=== PATIENT | male | born 1940 | race Caucasian/White ===

== ENCOUNTER → 2016-06-14 | Outpatient (CLI) | payer OTHER ==
[~2016-06-14] MED LIST: ASPEC81 PO; CHOL200010 PO; CINNAMON PO; CRDCD120 PO; FLV1 PO; FURO-85 PO; GLC500 PO; GLIM1TAB2 PO; LISI40TA PO; METH2.5T PO; PRED-301 PO; SIMV20TA2 PO; VALA500T60 PO
[2016-06-14 12:17] LABS: HEMATOCRIT 38.9 % (42-52); MEAN CELL VOLUME 95.8 fL (80-100); MEAN CORPUSCULAR HEMOGLOBIN 32.8 pg (25-34); MEAN CORPUSCULAR HGB CONC 34.2 g/dl (32-36); MEAN PLATELET VOLUME 9.9 fL (7.4-10.4); PLATELET COUNT 178 K/uL (130-400); RED BLOOD COUNT 4.06 M/uL (4.7-6.1); WHITE BLOOD COUNT 7.25 K/uL (4.8-10.8)
[2016-06-14 12:24] LABS: BLOOD UREA NITROGEN 27 mg/dl (7-18); BUN/CREATININE RATIO 22.6 (10-20); CARBON DIOXIDE 26 mmol/L (21-32); CHLORIDE 103 mmol/L (98-107); GLUCOSE 85 mg/dl (70-99); POTASSIUM 3.8 mmol/L (3.5-5.1); SODIUM 141 mmol/L (136-145)
[2016-06-14 12:26] LABS: URINE APPEARANCE CLEAR (CLEAR); URINE BILIRUBIN NEG (NEG); URINE COLOR YELLOW; URINE NITRITE NEG (NEG); URINE PH 5.5 (4.5-7.5); URINE SPECIFIC GRAVITY 1.018 (1.000-1.030); UROBILINOGEN NEG (NEG)
[2016-06-14 12:37] LABS: PHOSPHORUS 3.2 mg/dl (2.5-4.9)
[2016-06-14 12:43] LABS: URINE PROTIEN/CREAT RATIO 0.2 (0-0.2); URINE TOTAL PROTEIN 25.6 mg/dl (0-11.9)
[2016-06-14 13:04] LABS: MANUAL MICROSCOPIC REQUIRED? NO; REVIEW REQ? NO
== END | disposition home or self-care (01) ==
LOC: C.LAB1850 10:43
PROVIDERS: ATTEND Internal Medicine Nephrology
DX: I12.9 Hypertensive chronic kidney disease with stage 1 through stage 4 chronic kidney disease, or unspecified chronic kidney disease (principal); N18.2 Chronic kidney disease, stage 2 (mild); R60.9 Edema, unspecified; R80.9 Proteinuria, unspecified; E55.9 Vitamin D deficiency, unspecified

== ENCOUNTER → 2016-11-30 | Outpatient (CLI) | payer OTHER ==
[2016-11-30 12:18] LABS: HEMATOCRIT 38.6 % (42-52); MEAN CELL VOLUME 99.2 fL (80-100); MEAN CORPUSCULAR HEMOGLOBIN 32.4 pg (25-34); MEAN CORPUSCULAR HGB CONC 32.6 g/dl (32-36); MEAN PLATELET VOLUME 10.2 fL (7.4-10.4); PLATELET COUNT 174 K/uL (130-400); RED BLOOD COUNT 3.89 M/uL (4.7-6.1); WHITE BLOOD COUNT 10.22 K/uL (4.8-10.8)
[2016-11-30 12:46] LABS: BLOOD UREA NITROGEN 27 mg/dl (7-18); BUN/CREATININE RATIO 20.5 (10-20); CALCIUM 9.4 mg/dl (8.5-10.1); CARBON DIOXIDE 29 mmol/L (21-32); CHLORIDE 105 mmol/L (98-107); GLUCOSE 62 mg/dl (70-99); PHOSPHORUS 2.6 mg/dl (2.5-4.9); POTASSIUM 4.1 mmol/L (3.5-5.1); SODIUM 142 mmol/L (136-145)
[2016-11-30 13:23] LABS: URINE APPEARANCE CLEAR (CLEAR); URINE BILIRUBIN NEG (NEG); URINE COLOR YELLOW; URINE EPITHELIAL CELL AUTO 0-5 /lpf (0-5); URINE NITRITE NEG (NEG); URINE PH 7.5 (4.5-7.5); UROBILINOGEN NEG (NEG)
[2016-11-30 13:28] LABS: MANUAL MICROSCOPIC REQUIRED? NO; REVIEW REQ? NO; SULFASALICYLIC ACID POS (NEG)
[2016-11-30 13:48] LABS: URINE PROTIEN/CREAT RATIO 0.7 (0-0.2); URINE TOTAL PROTEIN 20.9 mg/dl (0-11.9)
== END | disposition home or self-care (01) ==
LOC: C.LAB1850 11:23
PROVIDERS: ATTEND Internal Medicine Nephrology
DX: I12.9 Hypertensive chronic kidney disease with stage 1 through stage 4 chronic kidney disease, or unspecified chronic kidney disease (principal); N18.2 Chronic kidney disease, stage 2 (mild); R60.9 Edema, unspecified; R80.9 Proteinuria, unspecified; E55.9 Vitamin D deficiency, unspecified

== ENCOUNTER → 2017-07-05 | Outpatient (CLI) | payer OTHER ==
[~2017-07-05] MED LIST changes: -ASPEC81 PO; +ASPI81TA28 PO; +ATOR-24 PO; +CHOL1TAB53 PO; -CHOL200010 PO; +CINN500C13 PO; -CINNAMON PO; -CRDCD120 PO; +CYAN10005 PO; +DILT120C68 PO; -FLV1 PO; +FOLI1TAB8 PO; -GLC500 PO; -GLIM1TAB2 PO; +GLIM2TAB2 PO; +METF-384 PO; -SIMV20TA2 PO
[2017-07-05 12:40] LABS: ALBUMIN 3.6 gm/dl (3.4-5.0); BLOOD UREA NITROGEN 27 mg/dl (7-18); CALCIUM 8.8 mg/dl (8.5-10.1); CARBON DIOXIDE 29 mmol/L (21-32); CREATININE 1.35 mg/dl (0.60-1.40); GLUCOSE 74 mg/dl (70-99); POTASSIUM 3.6 mmol/L (3.5-5.1); SODIUM 139 mmol/L (136-145)
[2017-07-05 12:41] LABS: PHOSPHORUS 2.6 mg/dl (2.5-4.9)
== END | disposition home or self-care (01) ==
LOC: C.LAB1850 11:07
PROVIDERS: ATTEND Internal Medicine Nephrology
DX: I12.9 Hypertensive chronic kidney disease with stage 1 through stage 4 chronic kidney disease, or unspecified chronic kidney disease (principal); N18.2 Chronic kidney disease, stage 2 (mild); N40.1 Benign prostatic hyperplasia with lower urinary tract symptoms; R60.9 Edema, unspecified; R80.9 Proteinuria, unspecified

== ENCOUNTER → 2017-07-24 | Day surgery (SDC) | payer OTHER ==
[2017-06-26 14:35] VITALS: Ht 167.6 cm; Wt 97.3 kg
[~2017-07-24] VITALS: Ht 167.6 cm; Wt 97.3 kg
[~2017-07-24] MED LIST changes: +500ML BSS 0.3ML EPI 1:1000PF IRRIG ONE; +ACETAMINOPHEN 325 MG TAB PO PRN; +AMVISC PLUS 0.8ML SYRINGE INT OCU ONE; +ATROPINE SULFATE 0.1 MG/ML 5ML SYR IV PRN; +BSS FLUSH ONE; +EpHEDrine SULFATE INJ 50 MG/ML AMP IV PRN; +EpINEphrine INJ 1MG/ML AMP 1 MG/ML AMP ONE; +LIDOCAINE 3.5% OPH GEL PER APPLICATION CHARGE ONE; +LIDOCAINE HCL 1% MPF 2 ML VIAL ONE; +MIDAZOLAM HCL 1 MG/ML 2ML VIAL ONE; +POVIDONE-IODINE OP SOLN 30 ML BTL ONE; +PROPARACAINE 0.5% OP SOLN PER DROP CHARGE OPR SCH; +TOBRAMYCIN/DEXAMETHASONE OPH OINT PER APPLN CHARGE ONE
[2017-07-24] MEDS: PHENYLEPHRINE HCL 2.5% OP SOLN PER DROP CHARGE OPR SCH ×2 (08:41→08:46)
[2017-07-24] MEDS: TROPICAMIDE 1% OP SOLN PER DROP CHARGE OPR SCH ×2 (08:42→08:47)
[2017-07-24] MEDS: CYCLOPENTOLATE HCL 1% OP SOLN PER DROP CHARGE OPR SCH ×2 (08:43→08:48)
[2017-07-24] MEDS: KETOROLAC 0.5% OP SOLN PER DROP CHARGE OPR SCH ×2 (08:44→08:49)
[2017-07-24] MEDS: GATIFLOXACIN OP SOLN PER DROP CHARGE OPR SCH ×2 (08:45→08:51)
[2017-07-24] MEDS: LACTATED RINGER'S 1000ML 500 ML IV SCH ×2 (08:45→08:52)
--- NOTE | 2017-07-24 09:11 | History & Physical Bridge - [place] ---
H&P Re-Evaluation Bridge Note: I have examined the patient, reviewed the History & Physical and in the interval since the performance of the History & Physical I have noted the following changes of clinical significance: No changes noted
--- NOTE | 2017-07-24 09:43 | [facility] Operative Report ---
Operative Report Date of Service Jul 24, 2017. Operative Report 1. PREOPERATIVE DIAGNOSIS: Cataract of the right eye. 2. POSTOPERATIVE DIAGNOSIS: Same. 3. PROCEDURE: Phacoemulsification with intraocular lens implantation of the right eye. SURGEON: Dr. Jeff Sheriff. ANESTHESIA: Topical Lidocaine gel, 1% Non- Preserved intracameral Lidocaine, and monitored intravenous sedation. INDICATIONS FOR THE PROCEDURE: The patient is a 76 - year-old male with a history of cataract of the right eye causing significant visual impairment. The details of the proposed procedure were explained to the patient who asked appropriate questions and following discussion of all risks, benefits and alternatives agreed to have the procedure done. 4. OPERATION AND FINDINGS: DESCRIPTION OF PROCEDURE: After informed consent was obtained, the patient was brought to the Operating Room at the [facility]. The patient was placed in a supine position and then the right eye was prepped and draped in the usual sterile fashion for intraocular surgery. A drop of topical Lidocaine gel was placed in the operative eye. A wire lid speculum was then placed in the fornices. A corneal paracentesis was then created temporally. The Non-Preserved Lidocaine was then instilled into the anterior chamber. The anterior chamber was then pressurized with viscoelastic. A 2.0 mm clear corneal incision was then created temporally. A cystotome was inserted into the anterior chamber and used to create a tear in the anterior lens capsule. This capsular tear was then used to create a small flap and the flap was dragged in a counterclockwise direction in order to create a continuous curvilinear capsulorrhexis. Hydrodissection was accomplished with balanced salt solution. Phacoemulsification of the lens nucleus was then performed in a standard [id number] technique. The phaco time was 20 seconds with an average power of 11 %. The remaining cortical material was removed using irrigation aspiration. The capsular bag was then filled with viscoelastic. A Bausch [employer] Lomb MI60L +21.5 diopters lens was then loaded into the injector and injected into the capsular bag. The remaining viscoelastic was removed with the irrigation aspiration handpiece. The wound was hydrated and then checked and found to be watertight. The intraocular pressure was checked and found to be adequate. The wire lid speculum was removed and the patient's face was cleaned and dried. TobraDex ointment was placed in the inferior fornix. The patient was discharged to the Recovery Room having tolerated the procedure well. There were no complications. The patient will be seen tomorrow in the office for follow-up. I attest to the content of the Intraoperative Record and any orders documented therein. Any exceptions are noted below.
--- NOTE | 2017-07-24 09:43 | Discharge Instructions-SurgCtr ---
Discharge Instructions Date of Service Jul 24, 2017. Visit Reason for Visit: Cataract Right Eye Discharge Discharge Diagnosis / Problem: cataract Discharge Goals Goal(s): Improve function Medications Stopped Medications Name(s): Metformin last dose Sunday Activity Recommendations Activity Limitations: per Instructions/Follow-up section Anesthesia . Post Anesthesia Instructions: If you have had General Anesthesia or IV Sedation: * Do not drive today. * Resume driving when surgeon permits. * Do not make important decisions or sign legal documents today. * Call surgeon for: 1. Temperature elevations greater than 101 degrees F. 2. Uncontrollable pain. 3. Excessive bleeding. 4. Persistent nausea and vomiting. 5. Medication intolerance (nausea, vomiting or rash). * For nausea and vomiting use only clear liquids such as: tea, soda, bouillon until nausea subsides, then gradually increase diet as tolerated. * If you have any concerns or questions, call your surgeon's office. If physician is unavailable and it is an emergency, call 911 or go to the nearest emergency room. . Diet Recommendations Home Diet: resume previous diet Procedures Procedures Performed: Right Cataract Phacoemulsification With Intraocular Lens Implant Pending Studies Studies pending at discharge: no Medical Emergencies . Who to Call and When: Medical Emergencies: If at any time you feel your situation is an emergency, please call 911 immediately. . Non-Emergent Contact Non-Emergency issues call your: Hot Man . . "Provider Documentation" section prepared by Jeff Sheriff. .
[2017-07-24 09:47] VITALS: TEMP 36.5
--- NOTE | 2017-07-24 10:00 | Anesthesia Progress Nt - [facility] ---
Anesthesia Post Op Note Date & Time Jul 24, 2017 at 10:00 Vital Signs Pain Intensity: 0 Vital Signs Past 12 Hours Date Time Temp Pulse Resp B/P (MAP) Pulse Ox O2 Delivery O2 Flow Rate FiO2 07/24/17 09:47 36.5 87 16 144/76 (98) 96 Room Air 07/24/17 08:25 36.7 86 18 150/94 (112) 96 Room Air Notes Mental Status: alert / awake / arousable, participated in evaluation Pt Amnestic to Procedure: Yes Nausea / Vomiting: adequately controlled Pain: adequately controlled Airway Patency, RR, SpO2: stable & adequate BP & HR: stable & adequate Hydration State: stable & adequate Anesthetic Complications: no major complications apparent
[2017-07-24 10:11] VITALS: BP 133/77; PULSE 81; O2SAT 99
== END | disposition home or self-care (01) ==
LOC: X.SURG 08:12
PROVIDERS: ATTEND Ophthalmology
DX: H26.9 Unspecified cataract (principal); Z88.5 Allergy status to narcotic agent; E11.22 Type 2 diabetes mellitus with diabetic chronic kidney disease; E11.3293 Type 2 diabetes mellitus with mild nonproliferative diabetic retinopathy without macular edema, bilateral; I12.9 Hypertensive chronic kidney disease with stage 1 through stage 4 chronic kidney disease, or unspecified chronic kidney disease; N18.3 Chronic kidney disease, stage 3 (moderate); E78.2 Mixed hyperlipidemia; M51.36 Other intervertebral disc degeneration, lumbar region; M05.79 Rheumatoid arthritis with rheumatoid factor of multiple sites without organ or systems involvement; E78.5 Hyperlipidemia, unspecified; N40.0 Benign prostatic hyperplasia without lower urinary tract symptoms; I87.2 Venous insufficiency (chronic) (peripheral); M17.12 Unilateral primary osteoarthritis, left knee; Z79.82 Long term (current) use of aspirin; Z87.891 Personal history of nicotine dependence; Z82.49 Family history of ischemic heart disease and other diseases of the circulatory system

== ENCOUNTER → 2017-08-07 | Day surgery (SDC) | payer OTHER ==
[2017-08-03 10:53] VITALS: Ht 167.6 cm; Wt 97.3 kg
[~2017-08-07] VITALS: Ht 167.6 cm; Wt 97.3 kg
[~2017-08-07] MED LIST changes: +BROM0.07 OPL; +DIFL0.0519 OPL; +LACTATED RINGER'S 1000ML 500 ML IV SCH; +PROPARACAINE 0.5% OP SOLN PER DROP CHARGE OPL SCH; -PROPARACAINE 0.5% OP SOLN PER DROP CHARGE OPR SCH; +TMPXEOPS OPB
[2017-08-07] MEDS: PHENYLEPHRINE HCL 2.5% OP SOLN PER DROP CHARGE OPL SCH ×2 (08:22→08:27)
[2017-08-07] MEDS: TROPICAMIDE 1% OP SOLN PER DROP CHARGE OPL SCH ×2 (08:23→08:28)
[2017-08-07] MEDS: CYCLOPENTOLATE HCL 1% OP SOLN PER DROP CHARGE OPL SCH ×2 (08:24→08:29)
[2017-08-07] MEDS: KETOROLAC 0.5% OP SOLN PER DROP CHARGE OPL SCH ×2 (08:25→08:30)
[2017-08-07] MEDS: GATIFLOXACIN OP SOLN PER DROP CHARGE OPL SCH ×2 (08:26→08:37)
--- NOTE | 2017-08-07 09:29 | [facility] Operative Report ---
Operative Report Date of Service Aug 07, 2017. Operative Report 1. PREOPERATIVE DIAGNOSIS: Cataract of the left eye. 2. POSTOPERATIVE DIAGNOSIS: Same. 3. PROCEDURE: Phacoemulsification with intraocular lens implantation of the left eye. SURGEON: Dr. Jeff Sheriff. ANESTHESIA: Topical Lidocaine gel, 1% Non- Preserved intracameral Lidocaine, and monitored intravenous sedation. INDICATIONS FOR THE PROCEDURE: The patient is a 76 - year-old male with a history of cataract of the left eye causing significant visual impairment. The details of the proposed procedure were explained to the patient who asked appropriate questions and following discussion of all risks, benefits and alternatives agreed to have the procedure done. 4. OPERATION AND FINDINGS: DESCRIPTION OF PROCEDURE: After informed consent was obtained, the patient was brought to the Operating Room at the [facility]. The patient was placed in a supine position and then the left eye was prepped and draped in the usual sterile fashion for intraocular surgery. A drop of topical Lidocaine gel was placed in the operative eye. A wire lid speculum was then placed in the fornices. A corneal paracentesis was then created temporally. The Non-Preserved Lidocaine was then instilled into the anterior chamber. The anterior chamber was then pressurized with viscoelastic. A 2.0 mm clear corneal incision was then created temporally. A cystotome was inserted into the anterior chamber and used to create a tear in the anterior lens capsule. This capsular tear was then used to create a small flap and the flap was dragged in a counterclockwise direction in order to create a continuous curvilinear capsulorrhexis. Hydrodissection was accomplished with balanced salt solution. Phacoemulsification of the lens nucleus was then performed in a standard [id number] technique. The phaco time was 19 seconds with an average power of 12 %. The remaining cortical material was removed using irrigation aspiration. The capsular bag was then filled with viscoelastic. A Bausch & Lomb MI60L +21.5 diopters lens was then loaded into the injector and injected into the capsular bag. The remaining viscoelastic was removed with the irrigation aspiration handpiece. The wound was hydrated and then checked and found to be watertight. The intraocular pressure was checked and found to be adequate. The wire lid speculum was removed and the patient's face was cleaned and dried. TobraDex ointment was placed in the inferior fornix. The patient was discharged to the Recovery Room having tolerated the procedure well. There were no complications. The patient will be seen tomorrow in the office for follow-up. I attest to the content of the Intraoperative Record and any orders documented therein. Any exceptions are noted below.
--- NOTE | 2017-08-07 09:30 | Discharge Instructions-SurgCtr ---
Discharge Instructions Date of Service Aug 07, 2017. Visit Reason for Visit: Cataract Left Eye Discharge Discharge Diagnosis / Problem: cataract Discharge Goals Goal(s): Improve function Medications Stopped Medications Name(s): Metformin, last dose 08/04/17 Activity Recommendations Activity Limitations: per Instructions/Follow-up section Anesthesia . Post Anesthesia Instructions: If you have had General Anesthesia or IV Sedation: * Do not drive today. * Resume driving when surgeon permits. * Do not make important decisions or sign legal documents today. * Call surgeon for: 1. Temperature elevations greater than 101 degrees F. 2. Uncontrollable pain. 3. Excessive bleeding. 4. Persistent nausea and vomiting. 5. Medication intolerance (nausea, vomiting or rash). * For nausea and vomiting use only clear liquids such as: tea, soda, bouillon until nausea subsides, then gradually increase diet as tolerated. * If you have any concerns or questions, call your surgeon's office. If physician is unavailable and it is an emergency, call 911 or go to the nearest emergency room. . Diet Recommendations Home Diet: resume previous diet Procedures Procedures Performed: Left Cataract Phacoemulsification With Intraocular Lens Implant Pending Studies Studies pending at discharge: no Medical Emergencies . Who to Call and When: Medical Emergencies: If at any time you feel your situation is an emergency, please call 911 immediately. . Non-Emergent Contact Non-Emergency issues call your: Medical Sales Associate . . "Provider Documentation" section prepared by Jeff Sheriff. .
[2017-08-07 09:33] VITALS: TEMP 36.8
--- NOTE | 2017-08-07 09:50 | Anesthesia Progress Nt - [facility] ---
Anesthesia Post Op Note Date & Time Aug 07, 2017 at 09:50 Vital Signs Pain Intensity: 0 Vital Signs Past 12 Hours Date Time Temp Pulse Resp B/P (MAP) Pulse Ox O2 Delivery O2 Flow Rate FiO2 08/07/17 09:33 36.8 79 18 121/81 (94) 96 Room Air 08/07/17 08:16 36.9 71 20 160/96 (117) 97 Room Air Notes Mental Status: alert / awake / arousable, participated in evaluation Pt Amnestic to Procedure: Yes Nausea / Vomiting: adequately controlled Pain: adequately controlled Airway Patency, RR, SpO2: stable & adequate BP & HR: stable & adequate Hydration State: stable & adequate Anesthetic Complications: no major complications apparent
[2017-08-07 09:56] VITALS: BP 137/77; PULSE 71; O2SAT 96
== END | disposition home or self-care (01) ==
LOC: X.SURG 07:56
PROVIDERS: ATTEND Ophthalmology
DX: E11.36 Type 2 diabetes mellitus with diabetic cataract (principal); H26.9 Unspecified cataract; E11.22 Type 2 diabetes mellitus with diabetic chronic kidney disease; E11.3293 Type 2 diabetes mellitus with mild nonproliferative diabetic retinopathy without macular edema, bilateral; N18.3 Chronic kidney disease, stage 3 (moderate); I12.9 Hypertensive chronic kidney disease with stage 1 through stage 4 chronic kidney disease, or unspecified chronic kidney disease; H35.00 Unspecified background retinopathy; N28.9 Disorder of kidney and ureter, unspecified; E78.5 Hyperlipidemia, unspecified; Z98.41 Cataract extraction status, right eye; M19.90 Unspecified osteoarthritis, unspecified site; M06.9 Rheumatoid arthritis, unspecified; Z98.890 Other specified postprocedural states; Z87.891 Personal history of nicotine dependence; Z79.899 Other long term (current) drug therapy; Z79.82 Long term (current) use of aspirin; Z79.52 Long term (current) use of systemic steroids; Z82.49 Family history of ischemic heart disease and other diseases of the circulatory system

== ENCOUNTER → 2018-01-03 | Outpatient (CLI) | payer OTHER ==
[~2018-01-03] MED LIST changes: -500ML BSS 0.3ML EPI 1:1000PF IRRIG ONE; -ACETAMINOPHEN 325 MG TAB PO PRN; -AMVISC PLUS 0.8ML SYRINGE INT OCU ONE; -ATROPINE SULFATE 0.1 MG/ML 5ML SYR IV PRN; -BSS FLUSH ONE; -EpHEDrine SULFATE INJ 50 MG/ML AMP IV PRN; -EpINEphrine INJ 1MG/ML AMP 1 MG/ML AMP ONE; -LACTATED RINGER'S 1000ML 500 ML IV SCH; -LIDOCAINE 3.5% OPH GEL PER APPLICATION CHARGE ONE; -LIDOCAINE HCL 1% MPF 2 ML VIAL ONE; -MIDAZOLAM HCL 1 MG/ML 2ML VIAL ONE; -POVIDONE-IODINE OP SOLN 30 ML BTL ONE; -PROPARACAINE 0.5% OP SOLN PER DROP CHARGE OPL SCH; -TOBRAMYCIN/DEXAMETHASONE OPH OINT PER APPLN CHARGE ONE
[2018-01-03 15:08] LABS: HEMATOCRIT 36.9 % (42-52); HEMOGLOBIN 12.5 g/dL (14.0-18.0); MEAN CELL VOLUME 97.9 fL (80-100); MEAN CORPUSCULAR HEMOGLOBIN 33.2 pg (25-34); MEAN CORPUSCULAR HGB CONC 33.9 g/dl (32-36); MEAN PLATELET VOLUME 9.8 fL (7.4-10.4); PLATELET COUNT 189 K/uL (130-400); RED CELL DISTRIBUTION WIDTH CV 14.2 % (11.5-14.5); RED CELL DISTRIBUTION WIDTH SD 50.1 fL (36.4-46.3); WHITE BLOOD COUNT 11.45 K/uL (4.8-10.8)
[2018-01-03 15:37] LABS: ALBUMIN 3.8 gm/dl (3.4-5.0); BLOOD UREA NITROGEN 33 mg/dl (7-18); CALCIUM 8.7 mg/dl (8.5-10.1); CARBON DIOXIDE 26 mmol/L (21-32); CREATININE 1.27 mg/dl (0.60-1.40); GLUCOSE 259 mg/dl (70-99); PHOSPHORUS 2.7 mg/dl (2.5-4.9); POTASSIUM 4.7 mmol/L (3.5-5.1); SODIUM 134 mmol/L (136-145)
== END | disposition home or self-care (01) ==
LOC: C.LAB1850 14:12
PROVIDERS: ATTEND Internal Medicine Nephrology
DX: I12.9 Hypertensive chronic kidney disease with stage 1 through stage 4 chronic kidney disease, or unspecified chronic kidney disease (principal); N18.2 Chronic kidney disease, stage 2 (mild); R60.9 Edema, unspecified; R80.9 Proteinuria, unspecified; E55.9 Vitamin D deficiency, unspecified

== ENCOUNTER 2019-03-19 06:07 | Inpatient (IN) ==
--- NOTE | 2019-03-10 16:38 | PAT Medication Instructions ---
Medication Instructions Date of Service March 10, 2019 Home Medications aspirin 40.5 mg PO HS atorvastatin 40 mg PO HS cholecalciferol (vitamin D3) [Vitamin D3] 2,000 unit PO QAM cinnamon bark [Cinnamon] 500 mg PO HS cyanocobalamin (vitamin B-12) 1,000 mcg PO QAM diltiazem HCl 120 mg PO QAM dulaglutide [Trulicity] 1.5 mg SUBCUT WK folic acid 1 mg PO QAM furosemide 20 mg PO BID methotrexate sodium 12.5 mg PO WK valacyclovir 500 mg PO HS metformin ER 500 mg tablet,extended release 24 hr 500 mg PO BID repaglinide 2 mg tablet 2 mg PO TID prednisone 5 mg tablet 10 mg PO QAM Continue as directed dulaglutide [Trulicity] 1.5 mg SUBCUT WK ASK your prescriber and surgeon aspirin 40.5 mg PO HS methotrexate sodium 12.5 mg PO WK STOP taking 2 weeks before surgery (or as soon as possible if surgery is within 2 weeks) cinnamon bark [Cinnamon] 500 mg PO HS DO NOT take the morning of surgery cholecalciferol (vitamin D3) [Vitamin D3] 2,000 unit PO QAM cyanocobalamin (vitamin B-12) 1,000 mcg PO QAM folic acid 1 mg PO QAM furosemide 20 mg PO BID Take morning of surgery With a small sip of water, OTHERWISE NOTHING TO EAT OR DRINK AFTER MIDNIGHT: diltiazem HCl 120 mg PO QAM repaglinide 2 mg tablet 2 mg PO TID prednisone 5 mg tablet 10 mg PO QAM Take evening before surgery atorvastatin 40 mg PO HS cinnamon bark [Cinnamon] 500 mg PO HS furosemide 20 mg PO BID valacyclovir 500 mg PO HS metformin ER 500 mg tablet,extended release 24 hr 500 mg PO BID repaglinide 2 mg tablet 2 mg PO TID Other Notes If you have any questions please call us at [phone] or [phone] or [phone] or [phone]
--- NOTE | 2019-03-11 10:05 | PAT Medication Instructions ---
Medication Instructions Date of Service March 11, 2019 Home Medications aspirin 40.5 mg PO HS atorvastatin 40 mg PO HS cholecalciferol (vitamin D3) [Vitamin D3] 2,000 unit PO QAM cinnamon bark [Cinnamon] 500 mg PO HS cyanocobalamin (vitamin B-12) 1,000 mcg PO QAM diltiazem HCl 120 mg PO QAM dulaglutide [Trulicity] 1.5 mg SUBCUT WK folic acid 1 mg PO QAM furosemide 20 mg PO BID methotrexate sodium 12.5 mg PO WK valacyclovir 500 mg PO HS metformin ER 500 mg tablet,extended release 24 hr 500 mg PO BID repaglinide 2 mg tablet 2 mg PO TID prednisone 5 mg tablet 10 mg PO QAM Continue as directed dulaglutide [Trulicity] 1.5 mg SUBCUT WK ASK your prescriber and surgeon aspirin 40.5 mg PO HS STOP taking 2 weeks before surgery (or as soon as possible if surgery is within 2 weeks) cinnamon bark [Cinnamon] 500 mg PO HS DO NOT take the morning of surgery cholecalciferol (vitamin D3) [Vitamin D3] 2,000 unit PO QAM cyanocobalamin (vitamin B-12) 1,000 mcg PO QAM folic acid 1 mg PO QAM furosemide 20 mg PO BID metformin ER 500 mg tablet,extended release 24 hr 500 mg PO BID Take morning of surgery With a small sip of water, OTHERWISE NOTHING TO EAT OR DRINK AFTER MIDNIGHT: diltiazem HCl 120 mg PO QAM repaglinide 2 mg tablet 2 mg PO TID Take evening before surgery atorvastatin 40 mg PO HS furosemide 20 mg PO BID metformin ER 500 mg tablet,extended release 24 hr 500 mg PO BID repaglinide 2 mg tablet 2 mg PO TID Other Notes If you have any questions please call us at [phone] or [phone] or [phone] or [phone]
--- NOTE | 2019-03-11 13:33 | Anesthesiology Consultation ---
Date of Service March 11, 2019 Assessment & Plan (1) Encounter for pre-operative examination: - PCP: 02/19/19: hx of UE ulcers 2/2 tourniquet "healed" per wound clinic. "From our standpoint, should be fine to have surgery after 02/25/19." Recommend continuing ASA perioperatively (patient aware). Chart Review Chart Review: Pending: Refer to Additional Notes / Consult section (pending preop testing (labs)) and Patient seen in Pre Admission Testing Teaching & Discussion Pre-Anesthesia Teaching/Discussion Notes: Instructed NPO after midnight before surgery,except medications with 15 cc of water. Medication instructions provided according to the PAT guidelines. History Surgery Operation Date: 03/19/19 12:45 Proposed Procedures p C5-C6 Anterior Cervical Discectomy, C4 Corpectomy, Spinal Cord Monitoring - Carl Bolanos DO Height/Weight Height: 5 ft 6.5 in Weight: 88.8 kg Allergies Allergy/AdvReac Type Severity Reaction Status Date / Time acetaminophen [From Vicodin] Allergy pruritus Verified 03/11/19 13:58 hydrocodone [From Vicodin] Allergy pruritus Verified 03/11/19 13:58 oxycodone Allergy pruritus Verified 03/11/19 13:58 Medications Home Medications Medication Instructions Recorded Confirmed Last Taken aspirin 40.5 mg PO HS 11/13/18 03/07/19 Unknown atorvastatin 40 mg PO HS 11/13/18 03/07/19 Unknown cholecalciferol (vitamin D3) 2,000 unit PO QAM 11/13/18 03/07/19 Unknown [Vitamin D3] cinnamon bark [Cinnamon] 500 mg PO HS 11/13/18 03/07/19 Unknown cyanocobalamin (vitamin B-12) 1,000 mcg PO QAM 11/13/18 03/07/19 Unknown diltiazem HCl 120 mg PO QAM 11/13/18 03/07/19 Unknown dulaglutide [Trulicity] 1.5 mg SUBCUT WK 11/13/18 03/07/19 Unknown folic acid 1 mg PO QAM 11/13/18 03/07/19 Unknown furosemide 20 mg PO BID 11/13/18 03/07/19 Unknown methotrexate sodium 12.5 mg PO WK 11/13/18 03/07/19 Unknown valacyclovir 500 mg PO HS 11/13/18 03/07/19 Unknown metformin ER 500 mg 500 mg PO BID tab 01/08/19 03/07/19 Unknown tablet,extended release 24 hr repaglinide 2 mg tablet 2 mg PO TID tab 01/08/19 03/07/19 Unknown prednisone 5 mg tablet 10 mg PO QAM tab 02/24/19 03/07/19 Unknown Past Medical History Medical History Hypertension Rheumatoid arthritis on chronic prednisone 10mg daily Chronic kidney disease, stage III (moderate) follows with nephrology (Dr. Hardy) Aortic stenosis "Mild" (LAVERNE 1.3cm2, MG 12.2mmhg) per 11/2018 DSE BPH (benign prostatic hyperplasia) Carotid artery stenosis s/p left CEA 11/2018 Degenerative disc disease Diabetes mellitus, type 2 NIDDM Dry eye syndrome Gout Hyperlipidemia Pericarditis 1994 Sleep apnea s/p UPPP/T&A Exercise / Class Metabolic Activity III < 4 Walking/Shop/Light housework Past Family History Family History Other No significant family history Past Surgical History Surgical History Fusion of spine LUMBAR X 2 History of adenoidectomy History of carpal tunnel release LEFT History of cataract surgery RT/LEFT History of colonoscopy History of herniorrhaphy UMBILICAL HERNIA History of left-sided carotid endarterectomy 11/2018 ([facility]) History of tonsillectomy History of tooth extraction S/P UPPP (uvulopalatopharyngoplasty) S/P pericardiocentesis 1994 Past Anesthesia History No Hx of Anesthesia Complications and No Family Hx of Anesthesia Complications History of PONV No Hx of PONV and No Hx of Motion Sickness Social History Smoking Status: Former smoker tobacco type: cigarettes Do You Dip or Chew Tobacco: No Smoking End Date: QUIT AT AGE 37 Hx Alcohol Use: No Hx Substance Use: No substance use type: does not use Review of Systems Patient denies chest pain, shortness of breath, cough, wheezing, palpitations. Physical Exam Vital Signs VITALS BP 155/87 P 99 TEMP 98.8 SP02 96%RA RESP 16 PHYSICAL Mildly decreased cervical extension. Full TMJ range of motion. TMD 3.5 finger breaths Mallampati Score 1 Dentition: missing molars, crowns on molars Lungs: clear throughout to auscultation Cardiac: regular rate and rhythm, no murmurs noted Spine: normal Carotid arteries: faint bruit b/l Extremities: no edema Testing Laboratory Results 11/14/18 HGBA1C 6.7% 02/19/19 SODIUM 141 POTASSIUM 3.5 CHLORIDE 105 CO2 28 BUN 23 CREATININE 1.05 GLUCOSE 92 Electrocardiogram Date: 11/14/18 Sinus rhythm with premature supraventricular complexes at [address] abnormality. Compared with EKG of 04/01/2014, premature supraventricular complexes are now present. Chest X-Ray Date: 11/14/18 No acute cardiopulmonary findings. Mild cardiomegaly. Stress Test Date: 11/20/18 Type: DSE DSE negative for inducible ischemia. 107% MPHR. LVEF 55-59%. Mildly increased concentric wall thickness. Grade I DD. Mild AV stenosis (LAVERNE 1.3cm2, MG 12.2mmhg)* Cervical Spine Date: 11/14/18 1. No fractures within the cervical spine. 2. Approximately 1 to 2 mm of anterolisthesis of C2 on C3 and C3 on C4 on the flexion views only which returns to neutral on the extension views. This is likely within the range normal limits given the patient's degenerative changes as described above. 3. Otherwise, the C1-C2 interval remains intact throughout flexion and extension. Other Testing Carotid artery duplex: 11/19/18: ELMER 50-69% stenosis. LICA 70-99% stenosis. B/L antegrade flow. Patient subsequently had left CEA 11/2018 at [facility]
[2019-03-11 16:01] LABS: Basophils # (auto) 0.02 K/uL (0-0.2); Basophils % (auto) 0.2 %; Eosinophils # (auto) 0.06 K/uL (0-0.5); Eosinophils % (auto) 0.5 %; Hematocrit (blood only) 40.9 % (42-52); Hemoglobin 13.6 g/dL (14.0-18.0); Immature Granulocytes # (auto) 0.03 K/uL (0.00-0.02); Immature Granulocytes % (auto) 0.3 %; Lymphocytes # (auto) 0.87 K/uL (1.2-3.4); Lymphocytes % (auto) 7.5 %; Mean Corpuscular Hemoglobin 32.1 pg (25-34); Mean Corpuscular Hgb Conc 33.3 g/dL (32-36); Mean Corpuscular Volume 96.5 fL (80-100); Mean Platelet Volume 9.8 fL (7.4-10.4); Monocytes # (auto) 0.34 K/uL (0.11-0.59); Monocytes % (auto) 2.9 %; Neutrophils # (auto) 10.27 K/uL (1.4-6.5); Neutrophils % (auto) 88.6 %; Platelet Count 178 K/uL (130-400); RDW Coefficient of Variation 14.6 % (11.5-14.5); RDW Standard Deviation 50.6 fL (36.4-46.3); Red Blood Count 4.24 M/uL (4.7-6.1); White Blood Count 11.59 K/uL (4.8-10.8)
[2019-03-11 16:11] LABS: Partial Thromboplastin Ratio 0.8; Partial Thromboplastin Time 22.2 Seconds (21.0-31.0); Prothrombin Time 10.3 Seconds (9.0-12.0)
[2019-03-11 16:57] LABS: Appearance Urine Clear (Clear); Bacteria Urine Automated Negative (Negative); Bilirubin Urine Negative (Negative); Blood Urine Negative (Negative); Cast Urine Automated 0 /lpf (0-5); Color Urine Yellow; Epithelial Cell Urine Auto 0-5 /lpf (0-5); Glucose Urine UA 1+ (Negative); Ketones Urine Negative (Negative); Leukocyte Esterase Urine Negative (Negative); Nitrite Urine Negative (Negative); Protein Urine 1+ (Negative); RBC Urine Automated 0-4 /hpf (0-4); Specific Gravity Urine 1.013 (1.000-1.030); Urobilinogen Urine Negative (Negative)
[~2019-03-19 06:07] MED LIST changes: +ACETAMINOPHEN 500 MG TAB PO SCH; -ASPI81TA28 PO; -ATOR-24 PO; -BROM0.07 OPL; +CEFAZOLIN 2000MG 2,000 MG/15 ML SYR IV SCH; -CHOL1TAB53 PO; -CINN500C13 PO; -CYAN10005 PO; +CeleBREX 200 MG CAP PO SCH; -DIFL0.0519 OPL; -DILT120C68 PO; -FOLI1TAB8 PO; -FURO-85 PO; +GABAPENTIN 300 MG CAP PO SCH; -GLIM2TAB2 PO; -LISI40TA PO; +LR 15ML/HR IV SCH; -METF-384 PO; -METH2.5T PO; -PRED-301 PO; -TMPXEOPS OPB; -VALA500T60 PO
[2019-03-19] MEDS ORDERED: MIDAZOLAM HCL 1 MG/ML 2ML VIAL ONE (06:41)
[2019-03-19] MEDS ORDERED: HYDROmorphone INJ 2 MG/ML SYR/VIAL ONE (06:41)
[2019-03-19] MEDS ORDERED: fentaNYL citrate 100 MCG/2 ML VIAL ONE ×6 (06:41→10:09)
[2019-03-19] MEDS ORDERED: DEXAMETHASONE SOD INJ 4 MG/ML VIAL ONE (06:44)
[2019-03-19] MEDS ORDERED: LIDOCAINE HCL 2% 2 ML VIAL/AMP(20MG/ML) INFIL ONE (06:44)
[2019-03-19] MEDS ORDERED: SUCCINYLCHOLINE CHLORIDE 20 MG/ML 10 ML VIAL ONE (06:44)
[2019-03-19] MEDS ORDERED: ROCURONIUM BROMIDE 10 MG/ML 5 ML VIAL ONE (06:44)
[2019-03-19] MEDS ORDERED: PROPOFOL IV EMULSION 10 MG/ML 20 ML VIAL IV ONE (06:44)
[2019-03-19] MEDS ORDERED: ONDANSETRON INJ 2 MG/ML 2 ML VIAL ONE (06:44)
[2019-03-19] MEDS ORDERED: NEOSTIGMINE METHYLSULFATE 1 MG/ML 10ML VIAL ONE (06:44)
[2019-03-19] MEDS ORDERED: GLYCOPYRROLATE 0.2 MG/ML VIAL ONE (06:44)
[2019-03-19] MEDS ORDERED: BACITRACIN INJ 50,000 UNIT VIAL ONE (07:17)
--- NOTE | 2019-03-19 07:30 | History & Physical Bridge Note ---
Date of Service March 19, 2019 History & Physical Bridge Note I have examined the patient, reviewed the History & Physical and in the interval since the performance of the History & Physical I have noted the following changes of clinical significance: no changes noted
--- NOTE | 2019-03-19 07:31 | History & Physical Report ---
Date of Service March 19, 2019 Assessment & Plan (1) Cervical stenosis of spinal canal: Anterior cervical discectomy and fusion C5-6 C4 corpectomy Present on Admission?: Yes History of Present Illness Chief Complaint: Neck and bilateral arm pain Primary Care Provider: Nasreen Richardson MD This is a 78-year-old male who presents with chronic persistent neck and arm pain. After failing extensive course of nonoperative care is here for surgical intervention. Allergies Allergy/AdvReac Type Severity Reaction Status Date / Time acetaminophen [From Vicodin] Allergy pruritus Verified 03/19/19 06:50 hydrocodone [From Vicodin] Allergy pruritus Verified 03/19/19 06:50 oxycodone Allergy pruritus Verified 03/19/19 06:50 Home Medications Home Medications Medication Instructions Recorded Confirmed Type aspirin 40.5 mg PO HS 11/13/18 03/19/19 History atorvastatin 40 mg PO HS 11/13/18 03/19/19 History cholecalciferol (vitamin D3) 2,000 unit PO QAM 11/13/18 03/19/19 History [Vitamin D3] cinnamon bark [Cinnamon] 500 mg PO HS 11/13/18 03/19/19 History cyanocobalamin (vitamin B-12) 1,000 mcg PO QAM 11/13/18 03/19/19 History diltiazem HCl 120 mg PO QAM 11/13/18 03/19/19 History dulaglutide [Trulicity] 1.5 mg SUBCUT WK 11/13/18 03/19/19 History folic acid 1 mg PO QAM 11/13/18 03/19/19 History furosemide 20 mg PO BID 11/13/18 03/19/19 History methotrexate sodium 12.5 mg PO WK 11/13/18 03/19/19 History valacyclovir 500 mg PO HS 11/13/18 03/19/19 History metformin ER 500 mg 1,000 mg PO PM tab 01/08/19 03/19/19 History tablet,extended release 24 hr repaglinide 2 mg tablet 2 mg PO TID tab 01/08/19 03/19/19 History prednisone 5 mg tablet 10 mg PO QAM tab 02/24/19 03/19/19 History Past Med/Surg History Medical History Hypertension Rheumatoid arthritis on chronic prednisone 10mg daily Chronic kidney disease, stage III (moderate) follows with nephrology (Dr. Hardy) Aortic stenosis "Mild" (LAVERNE 1.3cm2, MG 12.2mmhg) per 11/2018 DSE BPH (benign prostatic hyperplasia) Carotid artery stenosis s/p left CEA 11/2018 Degenerative disc disease Diabetes mellitus, type 2 NIDDM Dry eye syndrome Gout Hyperlipidemia Pericarditis 1994 Sleep apnea s/p UPPP/T&A Surgical History Fusion of spine LUMBAR X 2 History of adenoidectomy History of carpal tunnel release LEFT History of cataract surgery RT/LEFT History of colonoscopy History of herniorrhaphy UMBILICAL HERNIA [facility] of left-sided [facility] History of tonsillectomy History of tooth extraction S/P UPPP (uvulopalatopharyngoplasty) S/P pericardiocentesis 1994 Family History Other No significant family history Social History Preferred Language: Setswana Communication Ability: Effective 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 Results & Data Vital Signs (Past 12 Hours) Vital Signs Temp Pulse Resp BP Pulse Ox 03/19/19 06:55 37.2 C 101 H 97 H 133/87 97
[2019-03-19] MEDS ORDERED: HYDROmorphone INJ 2 MG/ML SYR/VIAL IV PRN (08:24)
[2019-03-19] MEDS ORDERED: ePHEDrine sulfate 50 MG/ML AMP IV PRN (08:24)
[2019-03-19] MEDS ORDERED: fentaNYL citrate 100 MCG/2 ML VIAL IV PRN (08:24)
[2019-03-19] MEDS ORDERED: PROMETHAZINE HCL 6.25 MG in SODIUM CHLORIDE 0.9% 50 ML IV PRN (08:24)
[2019-03-19] MEDS ORDERED: ONDANSETRON INJ 2 MG/ML 2 ML VIAL IV PRN ×2 (08:24→12:08)
[2019-03-19] MEDS ORDERED: ATROPINE SULFATE 0.1 MG/ML 10ML SYR IV PRN (08:24)
[2019-03-19] MEDS ORDERED: FLOSEAL HEMOSTATIC MATRIX 10ML TOP ONE (08:24)
[2019-03-19] MEDS ORDERED: PHENYLEPHRINE 100MCG/ML 5ML SYR ONE (08:38)
[2019-03-19] MEDS ORDERED: SODIUM CHLORIDE 0.9% INJ 10 ML VIAL ONE (08:38)
[2019-03-19] MEDS ORDERED: PHENYLEPHRINE HCL 10 MG/ML VIAL ONE ×2 (08:38→09:23)
[2019-03-19] MEDS ORDERED: HYDROCORTISONE SOD SUCCINATE 100 MG/2 ML VIAL ONE ×2 (08:38→08:44)
--- NOTE | 2019-03-19 10:17 | Operative Report ---
Post Operative Report Pre & Post Diagnosis Operation Date: 03/19/19 07:45 Pre-Op Diagnosis: Cervical spinal stenosis with myeloradiculopathy Post-Op Diagnosis: Same I identified the patient and participated in the time-out.: Yes Procedure Operation Date: 03/19/19 07:45 Actual Procedures #1 anterior cervical corpectomy with bilateral foraminotomies C 4. #2 anterior cervical discectomy with bilateral foraminotomies C5-6. #3 anterior cervical arthrodesis C3-C5 and C5-C6. #4 placement of peek cage 25 mm in height C3-C5 placement of a spiral 8 mm cage at C5-C6. #5 placement locally harvested morselized autograft combined with DBM and interbody cages. #6 placement of toro plate and screws from C3-C6. Surgeon Carl Bolanos, DO Field Case Manager Marta Banegas Estimated Blood Loss 40 Findings See Below Patient is 5 foot 6 inches tall weighing over 89 kg with a BMI in excess of 31. Patient's body habitus did add significant technical difficulty with exposure and performing of the procedure adding at least 50% increase in operative time. Specimens None Indications This is a 78-year-old male well-known to the presents with myelopathy and decline in status subsequently like to undergo the above-mentioned procedure. Description of Procedure Patient was met with identified and informed consent obtained. Patient was then taken to the operative suite underwent ablation placed in supine position on the Rupesh table the head Lyn overhead distribution engineer. All bony prominences well-padded eyes inspected to ensure no external pressure placed upon. This point the anterior cervical spine is prepped and draped in normal sterile fashion. The assistance of fluoroscopy identified the C4-5 disc patient transverse incision was placed along the right anterior aspect of the cervical spine overlying this region. Sharp dissection with the assistance of bipolar electrocautery was performed down to and exposing the anterior cervical spine from C3-C6. A self- retaining retractors placed. Then performed a complete discectomy of see 3 4 out to the uncovertebral joints bilaterally followed by C4-5. Axtell distracting pins were then placed in C3 and C5 distract across the C4 vertebral body. A complete corpectomy was then performed including removal of all p osterior annular fibers longitudinal ligament bilateral foraminotomies. Endplates were then burred to subcortical being bone and a 25 mm peek cage filled with locally harvested morselized autograft and DBM tapped in position. Distraction apparatus was removed and I proceeded to C5-6. Again complete discectomy performed out to the uncovertebral joints bilaterally. I removed all posterior annular fibers and longitudinal ligament perform bilateral foraminotomies. Endplates were then burred to subcortical being bone and a 8 mm spiral cage filled with locally harvested morselized autograft and DBM tapped in position. Distraction apparatus was removed all anterior ossified's burred with smooth cortical surface and a toro plate and screws applied with the assistance of fluoroscopy. The incision was then copiously irrigated explored to ensure no damage to surrounding structures remaining bleeding. 10 round VICENTE drain inserted. The incision was then closed with 2 Vicryl in the fascia for Monocryl for Fransen closure Steri-Strip sterile dressings placed. Patient will continue PACU stable condition. Please note Marta Banegas present throughout the entire procedure involved the patient positioning complex portions of the surgery and final skin closure. Lastly spinal cord monitoring was utilized that the procedure no changes noted. I attest to the content of the Intraoperative Record and any orders documented therein. Any exceptions are noted below.
[2019-03-19] MEDS ORDERED: METOPROLOL TARTRATE 1 MG/ML VIAL IV ONE (10:18)
--- NOTE | 2019-03-19 10:31 | Fluoroscopy Report ---
FL lumbar spine 2-3V CLINICAL HISTORY: ACDF C5-C6 CORPECTOMY C4 COMPARISON STUDY: 11/14/2018 FLUOROSCOPY TIME: 9 seconds. NUMBER OF FLUOROSCOPIC IMAGES: 2 FINDINGS: 2 intraoperative fluoroscopic spot images reveal postsurgical changes of a C4 corpectomy, a nd C5-6 discectomy and interbody fusion. There is anterior metallic plate with screws at the C3 C5 C6 levels. IMPRESSION: Postsurgical changes of a C4 corpectomy and C5-6 discectomy with anterior fusion Electronically signed by: Nawaf Wylie M.D. 03/19/2019 10:29 AM
[2019-03-19] MEDS ORDERED: PROPOFOL IV EMULSION 10 MG/ML 100 ML VIAL IV ONE (10:34)
--- NOTE | 2019-03-19 11:04 | Anesthesiology Progress Note ---
Date of Service March 19, 2019 Anesthesia Post Procedure Vital Signs Vital Signs: Temp Pulse Pulse Resp BP BP Pulse Ox 03/19/19 10:55 90 13 158/89 H 99 03/19/19 10:45 88 15 150/92 H 98 03/19/19 10:35 89 12 152/91 H 97 03/19/19 10:27 36.5 C 87 14 153/85 H 99 03/19/19 06:55 37.2 C 101 H 97 H 133/87 97 Pain Intensity Left Ankle: Pain Intensity: 5 Left Neck: Pain Intensity: 3 Transfer of Care Handoff Completed per policy Notes Mental Status: alert / awake / arousable Patient Amnestic to Procedure: Yes Nausea / Vomiting: adequately controlled Pain: adequately controlled Airway Patency, RR, SpO2: stable & adequate BP & HR: stable & adequate Hydration State: stable & adequate Anesthetic Complications: no major complications apparent
[2019-03-19] MEDS ORDERED: LARYING-O-JET KIT (LTA) ONE (11:31)
[2019-03-19] MEDS ORDERED: LORazepam 0.5 MG/1 ML VIAL IV PRN (12:08)
[2019-03-19] MEDS ORDERED: ACETAMINOPHEN 500 MG TAB PO PRN (12:08)
[2019-03-19] MEDS ORDERED: ONDANSETRON 4 MG TAB PO PRN (12:08)
[2019-03-19] MEDS ORDERED: FAMOTIDINE 20 MG TAB PO PRN (12:08)
[2019-03-19] MEDS ORDERED: SOD PHOSPHATE/SOD BIPHOSPHATE ENEMA 132 ML BTL PR PRN (12:08)
[2019-03-19] MEDS ORDERED: NALOXONE HCL 0.4 MG/1 ML VIAL/CARP IV PRN (12:08)
[2019-03-19] MEDS ORDERED: ALUMINUM/MAGNESIUM SUSP 30 ML UDC PO PRN (12:08)
[2019-03-19] MEDS ORDERED: TRAMADOL HCL 50 MG TABLET PO PRN (12:08)
[2019-03-19] MEDS ORDERED: DO NOT ADMINISTER FLU VACCINE PRN (12:08)
[2019-03-19] MEDS ORDERED: PROMETHAZINE HCL 12.5 MG in SODIUM CHLORIDE 0.9% 50 ML IV PRN (12:08)
[2019-03-19] MEDS ORDERED: LORazepam 0.5 MG TAB PO PRN (12:08)
[2019-03-19] MEDS ORDERED: MAGNESIUM HYDROXIDE SUSP 30 ML UDC PO PRN (12:08)
[2019-03-19] MEDS ORDERED: ACETAMINOPHEN 1,000 MG/100 ML VIAL IV PRN (12:08)
[2019-03-19] MEDS ORDERED: DO NOT ADMINISTER PNEUMOCOCCAL VACCINE PRN (12:08)
[2019-03-19] MEDS ORDERED: RACEPINEPHRINE 2.25% NEBU SOLN 0.5 ML VIAL INH PRN (12:08)
[2019-03-19] MEDS ORDERED: HYDROmorphone INJ 1 MG/ML SYRINGE IV PRN (12:08)
[2019-03-19] MEDS ORDERED: SODIUM CHLORIDE 0.9% 1000ML 1,000 ML IV SCH (12:08)
[2019-03-19] MEDS ORDERED: DEXAMETHASONE SOD PHOSPHATE 8 MG in SYRINGE 0 ML IV PRN (12:08)
[2019-03-19] MEDS ORDERED: METOCLOPRAMIDE HCL INJ 5 MG/ML 2 ML VIAL IV PRN (12:08)
[2019-03-19] MEDS ORDERED: HYDROmorphone INJ 0.5 MG/0.5 ML SYR IV PRN (12:08)
[2019-03-19] MEDS ORDERED: GLUCAGON FOR INJ 1 MG VIAL SQ PRN (12:13)
[2019-03-19] MEDS ORDERED: GLUCOSE 40% GEL 15 GM TUBE PO PRN (12:13)
[2019-03-19] MEDS ORDERED: CARBOHYDRATES FOR HYPOGLYCEMIA PO PRN (12:13)
[2019-03-19] MEDS ORDERED: GLUCOSE 10 TABS/TUBE PO PRN (12:13)
[2019-03-19] MEDS ORDERED: DEXTROSE 50% 50 ML SYRINGE IV PRN (12:13)
[2019-03-19] MEDS ORDERED: REPAGLINIDE 1 MG TAB PO SCH (12:30)
[2019-03-19] MEDS: DEXAMETHASONE SOD PHOSPHATE 6 MG in SYRINGE 0 ML IV SCH ×2 (13:29→21:26)
[2019-03-19] MEDS: INSULIN ASPART 100 UNITS/ML 3 ML PEN SC SCH ×4 (13:37→21:25)
--- NOTE | 2019-03-19 13:42 | Consultation ---
Date of Consultation March 19, 2019 Assessment & Plan (1) Cervical stenosis of spinal canal: S/P ACDF c5-6 with c4 corpectomy POD #[address] Bolanos EBJeannie 40 ml Pool drain in place 20ml tolerated procedure well pain/wound management per ortho Activity and therapy as directed by ortho monitor H/H wean O2 as able (2) Edema: likely in setting of held lasix will discontinue IVF after 1 L, encourage oral fluids, pt w/o N/V daily weights, Low Na diet resume lasix in a.m. monitor volume status closely (3) Anemia: pre op H/H 13.6/30.9 monitor H/H likely in setting of chronic disease (4) Leukocytosis: wbc 11.59 pre op likely in setting of chronic steroid use monitor no s/sx of infection (5) Diabetes mellitus: Preop A1c 6.7 Hold metformin, prandin and trulicity expect high blood glucose given steroid use Lantus/Novolog per protocol (6) Hypertension: blood pressure stable continue diltiazem resume lasix in a.m. (7) Rheumatoid arthritis: Mtx qwk on sundays prednisone on hold continue folic acid continue Stress dose Dexamethasone resume prednisone 03/20 per ortho (8) Chronic kidney disease, stage III (moderate): baseline Cr. 1.05 monitor (9) Hyperlipidemia: Continue statin (10) Carotid artery stenosis: S/P L CEA 11/2018 continue statin and ASA (11) DVT prophylaxis: SCD/TEDS per ortho Disposition: per primary Follow up: PCP Dr. Marcus Richardson upon discharge Patient was seen and examined in collaboration with Dr. Louis, please see addendum Thank you for this consultation. We will follow the patient with you during their hospital stay. You can reach a member of the [facility] Hospitalist Team 25/12 via pager @ [phone]. Starting 03/20/19 pt will be under the care of Dr. Gibbons Supervising Physician Co-Signing Physician Notes Patient is a 78-year-old male with history of diabetes, CKD, hypertension and other problems was seen and examined postop after having anterior cervical corpectomy with bilateral foraminotomies for cervical spinal stenosis with myeloradiculopathy. Patient is doing well postop. States having pain at surgical site which is controlled. Also complains of bilateral upper extremity pain, numbness, tingling and weakness which he admits to also having prior to surgery. Denies any chest pain, shortness of breath, dizziness, nausea, abdominal pain, difficulty swallowing. On exam patient is moderately built and nourished, no apparent distress, normocephalic atraumatic, neck--surgical site in dressing,+ drain, lungs--normal breath sounds, CTA, abdomen soft nontender, grossly nonfocal neurological deficits, trace pedal edema. Postop medical management. Hyperglycemia noted. BGs expected to rise secondary to steroid use. Plan to hold p.o. diabetic meds. Start on insulin sliding scale, basal insulin. Monitor blood glucose levels closely. Monitor volume status. Plan to resume Lasix as able. Monitor for postop anemia. Bowel regimen to prevent constipation. Activity, wound care at surgical site, DVT prophylaxis per primary team. I personally reviewed the record. Patient is interviewed and examined at bedside. Patient's care is coordinated with Hillary Sheridan PA-C. Please refer to the documentation above for details of patient's presentation and for discussion of other issues. History of Present Illness Requesting Physician: Dr. Bolanos Reason for Consultation: Postop medical management Attending Physician: Carl Bolanos, History of Present Illness This is a 78-year-old male who has significant PMH of T2DM, HTN, HLD, CKD, diabetic neuropathy vitamin B12 deficiency, rheumatoid arthritis on methotrexate and prednisone, BPH, left carotid artery stenosis S/P CEA 11/2018 who presents to [facility] for elective ACDF by Dr. Bolanos secondary to cervical stenosis with radiculopathy. Prior to procedure patient complains of bilateral upper extremity pain, numbness, tingling, and weakness left greater than right. Currently postop he offers no complaints. Still has some residual numbness in upper extremities bilaterally. Complains of increased lower extremity swelling x1 day. He did not take his Lasix today secondary to procedure. He currently denies any fever, chills, sweats, lightheadedness, dizziness, chest pain, palpitations, shortness of breath, nausea, vomiting, diarrhea. Had BM yesterday. Denies difficulty swallowing. at bedside. He denies PMH of CHF, heart arrhythmia, DVT/PE. Allergies Allergy/AdvReac Type Severity Reaction Status Date / Time hydrocodone [From Vicodin] Allergy pruritus Verified 03/19/19 06:50 oxycodone Allergy pruritus Verified 03/19/19 06:50 Home Medications Home Medications Medication Instructions Recorded Confirmed Type aspirin 40.5 mg PO HS 11/13/18 03/19/19 History atorvastatin 40 mg PO HS 11/13/18 03/19/19 History cholecalciferol (vitamin D3) 2,000 unit PO QAM 11/13/18 03/19/19 History [Vitamin D3] cinnamon bark [Cinnamon] 500 mg PO HS 11/13/18 03/19/19 History cyanocobalamin (vitamin B-12) 1,000 mcg PO QAM 11/13/18 03/19/19 History diltiazem HCl 120 mg PO QAM 11/13/18 03/19/19 History dulaglutide [Trulicity] 1.5 mg SUBCUT WK 11/13/18 03/19/19 History folic acid 1 mg PO QAM 11/13/18 03/19/19 History furosemide 20 mg PO BID 11/13/18 03/19/19 History methotrexate sodium 12.5 mg PO WK 11/13/18 03/19/19 History valacyclovir 500 mg PO HS 11/13/18 03/19/19 History metformin ER 500 mg 1,000 mg PO PM tab 01/08/19 03/19/19 History tablet,extended release 24 hr repaglinide 2 mg tablet 2 mg PO TID tab 01/08/19 03/19/19 History prednisone 5 mg tablet 10 mg PO QAM tab 02/24/19 03/19/19 History tramadol 50 mg PO Q4H PRN #20 tab 03/19/19 Rx Patient History Family History Mother CHF (congestive heart failure) Sister CHF (congestive heart failure) Diabetes Social History Preferred Language: Ukrainian Communication Ability: Effective Service And Repair Supervisor Required: No Beliefs That Will Affect Care: None Current Living Situation: Spouse Other Information That Helps Us Care for You: No Feels Safe at Home: Yes Safety Concerns: Feels Safe At This Time Smoking Status: Former smoker Tobacco Type: cigarettes ; Do You Dip or Chew Tobacco: No ; Smoking End Date: QUIT AT AGE 37 ; Second Hand Exposure: No ; Tobacco Cessation Education Requested by Patient: No Hx Alcohol Use: No Hx Substance Use: No Review of Systems Review of Systems: All systems reviewed & are unremarkable except as noted in HPI & below Physical Exam Physical Exam: Constitutional: WD/WN, vitals as above, NAD, sitting up in bed, pleasant, conversing easily Head: Normocephalic, Atraumatic Eyes: PERRL, conjunctivae normal, anicteric sclerae ENMT: external ear and nose normal, oropharynx normal Neck: + ACDF Dressing CDI, POOL drain with serosanginous drainage, trachea midline Respiratory: normal respiratory effort, lungs clear to auscultation, with mild bibasilar rales, no wheeze, or rhonchi. Normal insp/exp effort, no accessory muscle use. On O2 via NC 2L Cardiovascular: RRR, no murmur, +1 b/l pre tibial edema and pedal edema Vessels: no JVD or carotid bruit Chest: normal inspection of chest Abdomen: protuberant abd, normal bowel sounds, soft, nontender, no hepatosplenomegaly Musculoskeletal: no cyanosis or clubbing, extremities motor strength 5/5 Skin: no rashes, warm and dry normal turgor Neurologic: PERRL, EOMI, accommodation nl, no face palsy, no dysarthria CN's II-XI intact bilaterally and moves all extremities Psychiatric: A+Ox3, euthymic affect : deferred Results & Data Vital Signs (Past 12 Hours) Vital Signs Temp Pulse Pulse Pulse Resp BP BP 03/19/19 13:07 36.7 C 99 H 16 124/77 03/19/19 12:46 85 19 03/19/19 12:25 37.4 C 95 H 16 151/86 H 03/19/19 11:55 36.7 C 94 H 16 137/83 03/19/19 11:35 36.8 C 86 13 134/79 03/19/19 11:25 93 H 21 152/90 H 03/19/19 11:15 91 H 14 150/86 H 03/19/19 11:05 92 H 24 151/98 H 03/19/19 10:55 90 13 158/89 H 03/19/19 10:45 88 15 150/92 H 03/19/19 10:35 89 12 152/91 H 03/19/19 10:27 36.5 C 87 14 153/85 H 03/19/19 06:55 37.2 C 101 H 97 H 133/87 Pulse Ox 03/19/19 13:07 03/19/19 12:46 95 03/19/19 12:25 99 03/19/19 11:55 96 03/19/19 11:35 97 03/19/19 11:25 96 03/19/19 11:15 99 03/19/19 11:05 99 03/19/19 10:55 99 03/19/19 10:45 98 03/19/19 10:35 97 03/19/19 10:27 99 03/19/19 06:55 97 Laboratory Results Preoperative lab work WBC 11.59, H&H 13.6 and 1.9, platelet 177 Sodium 141, K3.5, chloride 105, CO2 28, BUN 23, creatinine 1.05 A1c 6.7 Diagnostic Findings Xray: IMPRESSION: Postsurgical changes of a C4 corpectomy and C5-6 discectomy with anterior fusion Medications Administered Dexamethasone Sodium Phosphate (6 mg/ Syringe) 1.5 mls @ 1 mls/min IV Q8H THEODORE Stop: 03/20/19 06:02 Last Admin: 03/19/19 13:29 Dose: 1 mls/min Documented by: [id number] Sodium Chloride (Nss 1000ml) 1,000 mls @ 100 mls/hr IV .Q10H THEODORE Stop: 03/19/19 22:07 Last Admin: 03/19/19 12:52 Dose: 100 mls/hr Documented by: [id number] Insulin Aspart (Novolog Flexpen) 0 units SC ACHS THEODORE Stop: 04/18/19 16:29 Last Admin: 03/19/19 13:37 Dose: 13 units Documented by: [id number] Cosigned by: [id number] Repaglinide (Prandin) 2 mg PO TIDM THEODORE Stop: 04/18/19 12:29 Last Admin: 03/19/19 13:28 Dose: 2 mg Documented by: [id number] Discontinued Medications Acetaminophen (Tylenol) 1,000 mg PO PREOP THEODORE Stop: 03/19/19 18:00 Last Admin: 03/19/19 07:36 Dose: 1,000 mg Documented by: [id number] Bacitracin (Bacitracin) Confirm Administered Dose 50,000 units .ROUTE .STK-MED ONE Stop: 03/19/19 07:18 Last Admin: 03/19/19 08:23 Dose: 50,000 units Documented by: [id number] Celecoxib (Celebrex) 200 mg PO PREOP THEODORE Stop: 03/19/19 18:00 Last Admin: 03/19/19 07:36 Dose: 200 mg Documented by: [id number] Gabapentin (Neurontin) 300 mg PO PREOP THEODORE Stop: 03/19/19 18:00 Last Admin: 03/19/19 07:36 Dose: 300 mg Documented by: [id number] Lactated Ringer's (Lr) 1,000 mls @ 15 mls/hr IV .Q24H THEODORE Stop: 03/20/19 05:59 Last Infusion: 03/19/19 07:43 Dose: 0 mls/hr Documented by: [id number] Admin: 03/19/19 07:25 Dose: 15 mls/hr Documented by: [id number] Cefazolin Sodium (Ancef 2000mg) 2,000 mg in 15 mls @ 3.75 mls/min IV PREOP THEODORE; Protocol Stop: 03/20/19 05:59 Last Admin: 03/19/19 07:43 Dose: 3.75 mls/min Documented by: [id number] Miscellaneous (Floseal Hemostatic Matrix 10ml) 10 ml TOP ONCE ONE Stop: 03/19/19 08:25 Last Admin: 03/19/19 10:07 Dose: 10 ml Documented by: [id number] ECG Rate (beats per minute): 89 Rhythm: normal sinus
[2019-03-19] MEDS: CEFAZOLIN 2000MG 2,000 MG/15 ML SYR IV SCH (16:05)
[2019-03-19] MEDS: FUROSEMIDE 20 MG TAB PO SCH (16:58)
[2019-03-19] MEDS ORDERED: PHARMACY GLYCEMIC MGMT CONSULT PRN (19:14)
[2019-03-19] MEDS ORDERED: INSULIN GLARGINE SOLOSTAR 100 UNITS/ML 3 ML PEN SC ONE (20:00)
[2019-03-19 20:14] LABS: BUN Creatinine Ratio 12.2 (10-20); Calcium 8.4 mg/dl (8.5-10.1); Creatinine Clr Calc Pharmacy 42.7 ml/min; Est GFR (African American) 51.3; Est GFR (Non-African American) 44.2; Potassium 3.7 mmol/L (3.5-5.1)
[2019-03-19] MEDS ORDERED: INSULIN HUMAN REGULAR PER UNIT 5 UNITS in SYRINGE 4.95 ML IV ONE (20:30)
[2019-03-19 20:32] LABS: Beta-Hydroxybutyrate 1.28 mg/dl (0.2-2.81)
[2019-03-19] MEDS ORDERED: INSULIN GLARGINE SOLOSTAR 100 UNITS/ML 3 ML PEN SC SCH (21:00)
[2019-03-19] MEDS ORDERED: NON-FORMULARY MEDICATION (Cinnamon Bark [Cinnamon] 500 MG) PO SCH (21:00)
[2019-03-19] MEDS: ATORVASTATIN 40 MG TAB PO SCH (21:07)
[2019-03-19] MEDS: DOCUSATE SODIUM/SENNA 50/8.6MG TAB PO SCH (21:07)
[2019-03-19] MEDS: ASPIRIN 81 MG ECTAB PO SCH (21:08)
[2019-03-19] MEDS ORDERED: cloNIDine HCL 0.1 MG TAB PO ONE (21:36)
[2019-03-20] MEDS: INSULIN ASPART 100 UNITS/ML 3 ML PEN SC SCH ×6 (01:05→20:44)
[2019-03-20] MEDS: CEFAZOLIN 2000MG 2,000 MG/15 ML SYR IV SCH (01:10)
[2019-03-20] MEDS: DEXAMETHASONE SOD PHOSPHATE 6 MG in SYRINGE 0 ML IV SCH (05:12)
[2019-03-20 05:29] LABS: Basophils # (auto) 0.01 K/uL (0-0.2); Basophils % (auto) 0.1 %; Immature Granulocytes # (auto) 0.03 K/uL (0.00-0.02); Immature Granulocytes % (auto) 0.2 %; Lymphocytes # (auto) 0.68 K/uL (1.2-3.4); Lymphocytes % (auto) 5.7 %; Mean Corpuscular Hemoglobin 33.1 pg (25-34); Mean Corpuscular Hgb Conc 35.3 g/dL (32-36); Mean Corpuscular Volume 93.7 fL (80-100); Mean Platelet Volume 9.7 fL (7.4-10.4); Monocytes # (auto) 0.28 K/uL (0.11-0.59); Monocytes % (auto) 2.3 %; Neutrophils # (auto) 11.01 K/uL (1.4-6.5); Neutrophils % (auto) 91.7 %; Platelet Count 157 K/uL (130-400); RDW Coefficient of Variation 14.2 % (11.5-14.5); RDW Standard Deviation 48.1 fL (36.4-46.3); Red Blood Count 3.63 M/uL (4.7-6.1); White Blood Count 12.01 K/uL (4.8-10.8)
[2019-03-20 05:47] LABS: Estimated Average Glucose 180 mg/dl; Hemoglobin A1C 7.9 % (4.5-5.6)
[2019-03-20 05:54] LABS: Potassium 3.7 mmol/L (3.5-5.1)
[2019-03-20 06:39] LABS: BUN Creatinine Ratio 15.5 (10-20); Calcium 8.3 mg/dl (8.5-10.1); Creatinine Clr Calc Pharmacy 52.4 ml/min; Est GFR (African American) 65.7; Est GFR (Non-African American) 56.7; Magnesium 1.6 mg/dl (1.8-2.4)
--- NOTE | 2019-03-20 08:14 | Orthopedic Progress Note ---
Date of Service March 20, 2019 Assessment & Plan (1) Cervical stenosis of spinal canal: Plan at this time I would like to maintain the VICENTE drain another 24 hours to ensure he does not develop a postop hematoma. We will advance his diet today to ensure that he is able to swallow appropriately and hopefully discharge home tomorrow. Present on Admission?: Yes Subjective Patient swallowing well. No hoarseness. He feels his arms numbness and tingling is improving. Pain is well controlled. Physical Exam Physical Exam: On exam he is in the chair at the bedside. Is good strength testing. Results & Data Vital Signs (Past 12 Hours) Vital Signs Temp Pulse Pulse Pulse Resp BP Pulse Ox 03/20/19 07:23 104 H 16 95 03/20/19 06:44 36.6 C 101 H 18 126/80 97 03/20/19 04:55 36.6 C 97 H 18 156/97 H 95 03/20/19 03:42 95 H 17 94 03/20/19 02:55 36.6 C 98 H 16 125/80 96 03/20/19 00:55 36.7 C 98 H 16 140/89 95 03/19/19 23:31 104 H 18 98 03/19/19 22:47 36.7 C 100 H 16 131/78 96 03/19/19 20:59 36.7 C 109 H 18 173/99 H 97
--- NOTE | 2019-03-20 08:27 | Anesthesiology Progress Note ---
Date of Service March 20, 2019 Anesthesia Post Procedure Vital Signs Vital Signs: Temp Pulse Pulse Pulse Pulse Resp BP 03/20/19 08:13 112 H 17 153/88 H 03/20/19 07:23 104 H 16 03/20/19 06:44 36.6 C 101 H 18 126/80 03/20/19 04:55 36.6 C 97 H 18 156/97 H 03/20/19 03:42 95 H 17 03/20/19 02:55 36.6 C 98 H 16 125/80 03/20/19 00:55 36.7 C 98 H 16 140/89 03/19/19 23:31 104 H 18 03/19/19 22:47 36.7 C 100 H 16 131/78 03/19/19 20:59 36.7 C 109 H 18 173/99 H 03/19/19 20:10 112 H 16 03/19/19 18:57 36.8 C 115 H 18 155/91 H 03/19/19 16:54 36.9 C 106 H 18 160/94 H 03/19/19 15:18 110 H 16 03/19/19 14:49 36.8 C 108 H 16 154/89 H 03/19/19 13:56 36.5 C 98 H 18 136/82 03/19/19 13:07 36.7 C 99 H 16 124/77 03/19/19 12:46 85 19 03/19/19 12:25 37.4 C 95 H 16 151/86 H 03/19/19 11:55 36.7 C 94 H 16 137/83 03/19/19 11:35 36.8 C 86 13 134/79 03/19/19 11:25 93 H 21 152/90 H 03/19/19 11:15 91 H 14 150/86 H 03/19/19 11:05 92 H 24 151/98 H 03/19/19 10:55 90 13 158/89 H 03/19/19 10:45 88 15 150/92 H 03/19/19 10:35 89 12 152/91 H 03/19/19 10:27 36.5 C 87 14 153/85 H Pulse Ox 03/20/19 08:13 97 03/20/19 07:23 95 03/20/19 06:44 97 03/20/19 04:55 95 03/20/19 03:42 94 03/20/19 02:55 96 03/20/19 00:55 95 03/19/19 23:31 98 03/19/19 22:47 96 03/19/19 20:59 97 03/19/19 20:10 97 03/19/19 18:57 95 03/19/19 16:54 96 03/19/19 15:18 95 03/19/19 14:49 95 03/19/19 13:56 93 03/19/19 13:07 03/19/19 12:46 95 03/19/19 12:25 99 03/19/19 11:55 96 03/19/19 11:35 97 03/19/19 11:25 96 03/19/19 11:15 99 03/19/19 11:05 99 03/19/19 10:55 99 03/19/19 10:45 98 03/19/19 10:35 97 03/19/19 10:27 99 Pain Intensity Left Ankle: Pain Intensity: 0 Left Neck: Pain Intensity: 0 Notes Mental Status: alert / awake / arousable and participated in evaluation Patient Amnestic to Procedure: Yes Nausea / Vomiting: adequately controlled Pain: adequately controlled Airway Patency, RR, SpO2: stable & adequate BP & HR: stable & adequate Hydration State: stable & adequate Anesthetic Complications: no major complications apparent and Pt Satisfied with anesthetic care
[2019-03-20] MEDS: POLYETHYLENE (MIRALAX) 17 GM PACK PO SCH ×3 (08:38→17:14)
[2019-03-20] MEDS: CYANOCOBALAMIN 500 MCG TABLET (VITAMIN B-12) PO SCH (08:40)
[2019-03-20] MEDS: FOLIC ACID 1 MG TAB PO SCH (08:40)
[2019-03-20] MEDS: dilTIAZem ER 120 MG CAPCR PO SCH (08:41)
[2019-03-20] MEDS ORDERED: predniSONE 10 MG TABLET PO SCH (09:00)
[2019-03-20] MEDS: INSULIN GLARGINE SOLOSTAR 100 UNITS/ML 3 ML PEN SC SCH ×2 (09:39→20:45)
[2019-03-20] MEDS: FUROSEMIDE 20 MG TAB PO SCH ×2 (09:47→17:14)
--- NOTE | 2019-03-20 10:40 | Pharmacy Report ---
Pharmacy Glycemic Short Note 2 - Date of Service March 20, 2019 - Glycemic Short BSG Results (Last 24 hours): 03/19/19 03/19/19 03/19/19 10:40 12:40 17:28 Glucose POC Glucose 231 H 303 H* 338 H* 03/19/19 03/19/19 03/19/19 18:48 18:49 19:34 Glucose 342 H* POC Glucose 385 H* 353 H* 03/19/19 03/20/19 03/20/19 21:20 00:04 03:52 Glucose POC Glucose 239 H 181 H 158 H 03/20/19 03/20/19 04:39 08:05 Glucose 148 H POC Glucose 175 H OUTPATIENT ANTIDIABETIC REGIMEN: * Metformin 1gm PO BID * Repaglinide 2mg TID w/ meals * Trulicity SQ weekly on Sundays * A1c = 6.7% 11/2018 --> 7.9% 03/19/19 ASSESSMENT: * Type 2 diabetic admitted for spinal stenosis w/ radiculopathy * Now POD # 1 s/p anterior cervical corpectomy foraminotomies discectomy * Pt developed significant hyperglycemia stevo-op yesterday secondary to IV dexamethasone administration. * Lantus 25units x 1 and aggressive Novolog insulin initiated yesterday evening and BSGs now 170s this AM * Will continue basal/bolus SQ regimen at this time as outpt meds not appropriate to quickly control inpatient hyperglycemia. May consider resuming Metformin later today if tolerating diet as renal fxn adequate this AM. * Insulin doses will be based upon wt and "moderate-severe" stress: moderate stress for basal needs, severe stress for bolus needs as IV steroid effects may still be present this AM and diet is being advanced. PLAN FOR INPATIENT GLYCEMIC CONTROL: * Hold outpatient oral diabetes medications (metformin / repaglinide / Trulicity) * Basal insulin * Lantus 14 units SQ BID * Bolus insulin * NovoLog per scale ACHS or Q6hrs while NPO * Goal Range: Low 110 mg/dL - High 140 mg/dL * Correction Factor: 20 mg/dL/unit * Nutritional / Prandial insulin per carb ratio of 1 unit per 6 grams CHO consumed PLAN FOR DISCHARGE: * Glycemic control has worsened over the last 4 months as evidenced by A1c this admission, 6.7% -->7.9%. * Pt should be encouraged to continue dietary measures and SMBG on discharge. * A f/u appt with endocrinology or PCP should be encouraged within a month of discharge for evaluation of glycemic control. * One option may be the addition of Once daily basal insulin.
--- NOTE | 2019-03-20 11:47 | Hospitalist Progress Note ---
Date of Service March 20, 2019 Assessment & Plan (1) Cervical stenosis of spinal canal: S/P ACDF c5-6 with c4 corpectomy POD #[address] Cici MORELAND 40 ml Pool drain in place 75ml tolerated procedure well pain/wound management per ortho Activity and therapy as directed by ortho monitor H/H (2) Hypomagnesemia: mag 1.6 replete with mag sulfate 1g x 2 repeat mag in a.m. (3) Edema: likely in setting of held lasix improved this a.m. daily weights, Low Na diet continue lasix monitor volume status closely (4) Anemia: pre op H/H 13.6/30.9 H/H stable at 12.0 and 34.0 (5) Leukocytosis: wbc 11.59 pre op likely in setting of chronic steroid use monitor no s/sx of infection (6) Diabetes mellitus: Preop A1c 6.7 A1C 7.9 Hold metformin, prandin and trulicity Pt developed significant hyperglycemia last evening due to pre and post op stress dose steroid Glycemic pharmacist consulted - appreciate their input (7) Hypertension: blood pressure elevated with tachycardia likely in setting of IV dexamethasone stress dose steroids He denies pain, no hx of ETOH or tobacco use continue diltiazem and lasix Defer to Dr. Gibbons addendum for further tx regarding current uncontrolled HTN (8) Rheumatoid arthritis: Mtx qwk on sundays prednisone on hold continue folic acid had stress dose dexamethasone x 3 days Resume daily prednisone 03/21 (9) Chronic kidney disease, stage III (moderate): baseline Cr. 1.05 Bun/Cr 19 and 1.23 today follow bmp (10) Hyperlipidemia: Continue statin (11) Carotid artery stenosis: S/P L CEA 11/2018 continue statin and ASA (12) DVT prophylaxis: SCD/TEDS per ortho Disposition: per primary Follow up: PCP Dr. Marcus Richardson upon discharge Patient was seen and examined in collaboration with Dr. Gibbons, please see addendum Thank you for this consultation. We will follow the patient with you during their hospital stay. You can reach a member of the [facility] Hospitalist Team 25/12 via pager @ [phone]. Supervising Physician Co-Signing Physician Notes I, Dr. Ramiro Gibbons, have seen and examined the patient with physician therapeutic assistant and agree with assessment and plan as above and would like to comment that this is 78 year old Male who had on 03/19/19 ACDF (Anterior Cervical Discectomy and Fusion) surgery (Actual Procedures #1 anterior cervical corpectomy with bilateral foraminotomies C 4. #2 anterior cervical discectomy with bilateral foraminotomies C5-6. #3 anterior cervical arthrodesis C3-C5 and C5-C6. #4 placement of peek cage 25 mm in height C3-C5 placement of a spiral 8 mm cage at C5-C6. #5 placement locally harvested morselized autograft combined with DBM and interbody cages. 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 would not continue clonidine for blood pressure control. patient has been ordered by hospitalist service carvedilol 3.125 mg BID which is low dose medication on blood pressure and heart rate control - this dosing allows up titration if needed and can be discontinued without concern of rebound hypertension. expect also that blood pressure and heart rates will improve as long as he is further removed from stress steroids. agree with current insulin plans for diabetes control. counseled patient on not drinking caffeinated beverages. for hypomagnesemia, replete magnesium to serum magnesium level of 2 agree with other assessment and plans as documented by physician therapeutic assistant Subjective Pt seen and evaluated in room 302-1. Follow up s/p ACDF POD #[address] Bolanos. He feels well this morning. Denies pain, dizziness, lightheaded, f/c/s, chest pain, sob, n/v/d, abdominal pain. Tolerated clear liquid diet and is ready to upgrade his diet. Bradford currently in place and to be removed. Passing flatus. Feels lower ext swelling improved. Review of Systems Review of Systems: All systems reviewed & are unremarkable except as noted in HPI & below Physical Exam Physical Exam: Gen: WD/WN, NAD, A&O x3 HEENT: Normocephalic, atraumatic, conjunctivae moist, sclerae anicteric, mucous membranes moist. Neck: ACDF Dressing CDI, POOL drain with serosanginous drainage Lung: Clear to Auscultation bilaterally, no wheezes/rales/rhonchi Heart: Tachycardic rate, regular rhythm, no murmurs, rubs, or gallops Abdomen: protuberant abd, Soft, NT, ND +BS x 4 Extremities: +1 pre tibial edema, improved from yesterday Skin: Warm, no rash, negative turgor. Results & Data Vital Signs (Past 12 Hours) Vital Signs Temp Pulse Pulse Resp BP Pulse Ox 03/20/19 11:18 117 H 18 97 03/20/19 10:45 36.7 C 114 H 16 166/96 H 03/20/19 08:45 108 H 15 159/91 H 94 03/20/19 08:13 112 H 17 153/88 H 97 03/20/19 07:23 104 H 16 95 03/20/19 06:44 36.6 C 101 H 18 126/80 97 03/20/19 04:55 36.6 C 97 H 18 156/97 H 95 03/20/19 03:42 95 H 17 94 03/20/19 02:55 36.6 C 98 H 16 125/80 96 03/20/19 00:55 36.7 C 98 H 16 140/89 95 Laboratory Results Short CBC 03/20/19 Range/Units 04:39 WBC 12.01 H (4.8-10.8) K/uL Hgb 12.0 L (14.0-18.0) g/dL Hct 34.0 L (42-52) % Plt Count 157 (130-400) K/uL BMP 03/19/19 03/20/19 19:34 04:39 Sodium 138 141 Potassium 3.7 3.7 Chloride 103 107 Carbon Dioxide 28 26 BUN 18 19 H Creatinine 1.51 H 1.23 Glucose 342 H* 148 H Calcium 8.4 L 8.3 L
[2019-03-20] MEDS: MAGNESIUM SULFATE / D5W 1 GM/100 ML BAG IV SCH ×2 (12:25→13:40)
[2019-03-20] MEDS: carvediloL 3.125 MG TAB PO SCH ×2 (12:43→20:33)
[2019-03-20] MEDS: ASPIRIN 81 MG ECTAB PO SCH (20:33)
[2019-03-20] MEDS: DOCUSATE SODIUM/SENNA 50/8.6MG TAB PO SCH (20:34)
[2019-03-20] MEDS: ATORVASTATIN 40 MG TAB PO SCH (20:34)
[2019-03-21] MEDS: POLYETHYLENE (MIRALAX) 17 GM PACK PO SCH ×2 (00:24→06:10)
[2019-03-21] MEDS ORDERED: INSULIN ASPART 100 UNITS/ML 3 ML PEN SC ONE (02:00)
[2019-03-21 06:02] LABS: BUN Creatinine Ratio 23.5 (10-20); Calcium 8.3 mg/dl (8.5-10.1); Creatinine Clr Calc Pharmacy 52.8 ml/min; Est GFR (African American) 66.3; Est GFR (Non-African American) 57.2; Magnesium 2.2 mg/dl (1.8-2.4); Potassium 3.8 mmol/L (3.5-5.1)
[2019-03-21] MEDS: FUROSEMIDE 20 MG TAB PO SCH (08:37)
[2019-03-21] MEDS: FOLIC ACID 1 MG TAB PO SCH (08:37)
[2019-03-21] MEDS: dilTIAZem ER 120 MG CAPCR PO SCH (08:38)
[2019-03-21] MEDS: CYANOCOBALAMIN 500 MCG TABLET (VITAMIN B-12) PO SCH (08:38)
--- NOTE | 2019-03-21 08:48 | Pharmacy Report ---
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 * Lantus 25units x 1 and aggressive Novolog insulin initiated yesterday evening and BSGs now 170s this AM * Will continue basal/bolus SQ regimen at this time as outpt meds not appropriate to quickly control inpatient hyperglycemia. May consider resuming Metformin later today if tolerating diet as renal fxn adequate this AM. * Insulin doses will be based upon wt and "moderate-severe" stress: moderate stress for basal needs, severe stress for bolus needs as IV steroid effects may still be present this AM and diet is being advanced. 03/21/19 * Blood sugars improved, fasting at goal, patient required 78 total units of insulin yesterday (28 units basal, 50 units bolus). * Last dose of IV Dexamethasone yesterday morning, effect wearing off, patient on Prednisone 10mg PO daily. PLAN FOR INPATIENT GLYCEMIC CONTROL: * Hold outpatient oral/SQ diabetes medications (metformin / repaglinide / Trulicity) * Basal insulin * Lantus 14 units SQ BID * Bolus insulin * NovoLog per scale ACHS or Q6hrs while NPO * Goal Range: Low 110 mg/dL - High 140 mg/dL * Correction Factor: 20 mg/dL/unit * Nutritional / Prandial insulin per carb ratio of 1 unit per 5 grams CHO consumed PLAN FOR DISCHARGE: * Glycemic control has worsened over the last 4 months as evidenced by A1c this admission, 6.7% -->7.9%. * Pt should be encouraged to continue dietary measures and SMBG on discharge. * A f/u appt with endocrinology or PCP should be encouraged within a month of discharge for evaluation of glycemic control. * One option may be the addition of Once daily basal insulin.
[2019-03-21] MEDS: INSULIN GLARGINE SOLOSTAR 100 UNITS/ML 3 ML PEN SC SCH (08:53)
--- NOTE | 2019-03-21 08:53 | Hospitalist Progress Note ---
Date of Service March 21, 2019 Assessment & Plan (1) Cervical stenosis of spinal canal: S/P ACDF c5-6 with c4 corpectomy POD #[address] Bolanos EBJeannie 40 ml Pool drain in place 125ml tolerated procedure well pain/wound management per ortho Activity and therapy as directed by ortho monitor H/H (2) Hypomagnesemia: mag 1.6 replete with mag sulfate 1g x 2 mag 2.2 today (3) Edema: likely in setting of held lasix improved daily weights, Low Na diet continue lasix (4) Anemia: pre op H/H 13.6/30.9 H/H stable at 12.0 and 34.0 (5) Leukocytosis: wbc 11.59 pre op likely in setting of chronic steroid use monitor no s/sx of infection (6) Diabetes mellitus: Preop A1c 6.7 A1C 7.9 Hold metformin, prandin and trulicity Resume home regimen at discharge Follow up with PCP on 03/26 @ 10:45 for further discussion regarding diabetes management Pt may benefit from additional oral agent vs once daily basal insulin (7) Hypertension: blood pressure elevated but improving likely in setting of IV dexamethasone stress dose steroids He denies pain, no hx of ETOH or tobacco use continue diltiazem and lasix Dr. Gibbons added coreg - but currently placed on hold would recommend discharging on home regimen (8) Rheumatoid arthritis: Mtx qwk on sundays prednisone on hold continue folic acid had stress dose dexamethasone x 3 days Resume daily prednisone 03/21 (9) Chronic kidney disease, stage III (moderate): baseline Cr. 1.05 bun/cr 29/1.22 follow bmp (10) Hyperlipidemia: Continue statin (11) Carotid artery stenosis: S/P L CEA 11/2018 continue statin and ASA (12) DVT prophylaxis: SCD/TEDS per ortho Disposition: per primary Follow up: PCP Dr. Marcus Richardson upon discharge Patient was seen and examined in collaboration with Dr. Gibbons, please see addendum Thank you for this consultation. We will follow the patient with you during their hospital stay. You [facility] via pager @ [phone]. Supervising Physician Co-Signing Physician Notes I, Dr. Ramiro Gibbons, have seen and examined the patient with physician mechanic's assistant and agree with the assessment and plans as above and would like to add that that this is 78 year old Male who had on 03/19/19 ACDF (Anterior Cervical Discectomy and Fusion) surgery (Actual Procedures #1 anterior cervical corpectomy with bilateral foraminotomies C 4. #2 anterior cervical discectomy with bilateral foraminotomies C5-6. #3 anterior cervical arthrodesis C3-C5 and C5-C6. #4 placement of peek cage 25 mm in height C3-C5 placement of a spiral 8 mm cage at C5-C6. #5 placement locally harvested morselized autograft combined with DBM and interbody cages. #6 placement of toro plate and screws from C3-C6.) because of Pre-Op Diagnosis of Cervical spinal stenosis with myeloradiculopathy On exam: General: no acute distress Neck: in brace with POOL drain Lungs: breathing on room air, clear to auscultation bilaterally Heart: regular rate abdomen: soft, nontender, positive bowel sounds Extremities: moves all extremities Discussed with patient and he believes that surgical service will discharge him today. patient's heart rates have been much more improved since being seen on 03/20/19 and blood pressure is acceptable. Carvedilol was held this AM because it's utility does not appear needed based on blood pressure and heart rates. P atient may go home with usual anti-hypertensive regimen. For when patient is discharged from surgical services he is recommended to follow up with primary care on future blood pressure medication management. Hypomagnesemia is resolved agree with assessment and plans of other medical issues including diabetes mellitus management and outpatient follow up as documented by physician mechanic's assistant Subjective Pt seen and evaluated in room 302-1. Follow up s/p ACDF POD #[address] Bolanos. He feels well this morning. Sitting up in bedside chair. Denies pain, dizziness, lightheaded, f/c/s, chest pain, sob, n/v/d, abdominal pain. Tolerating diet. Passing flatus but no BM. Urinating without difficulty. Is tolerating therapy. Does not like his neck brace. Offers no acute concerns or complaints. Review of Systems Review of Systems: All systems reviewed & are unremarkable except as noted in HPI & below Physical Exam Physical Exam: Gen: WD/WN, NAD, A&O x3 HEENT: Normocephalic, atraumatic, conjunctivae moist, sclerae anicteric, mucous membranes moist. Neck: ACDF Dressing CDI, POOL drain with serosanginous drainage Lung: Clear to Auscultation bilaterally, no wheezes/rales/rhonchi Heart: regular rate, regular rhythm, no murmurs, rubs, or gallops Abdomen: protuberant abd, Soft, NT, ND +BS x 4 Extremities: trace pre tibial edema, improved from yesterday Skin: Warm, no rash, negative turgor. Results & Data Vital Signs (Past 12 Hours) Vital Signs Temp Pulse Pulse Resp BP Pulse Ox 03/21/19 07:40 87 14 98 03/21/19 07:30 36.6 C 82 18 148/84 H 98 03/21/19 04:00 36.5 C 88 14 152/76 H 95 03/21/19 03:05 90 16 98 03/21/19 00:15 36.6 C 89 16 146/81 H 98 03/20/19 23:19 90 16 95 Laboratory Results [facility] 03/21/19 04:48 Sodium 141 Potassium 3.8 Chloride 108 H Carbon Dioxide 28 BUN 29 H D Creatinine 1.22 Glucose 144 H Calcium 8.3 L Medications Administered [facility] 03/21/19 04:48 Sodium 141 Potassium 3.8 Chloride 108 H Carbon Dioxide 28 BUN 29 H D Creatinine 1.22 Glucose 144 H Calcium 8.3 L
[2019-03-21] MEDS: INSULIN ASPART 100 UNITS/ML 3 ML PEN SC SCH (08:57)
[2019-03-21] MEDS ORDERED: predniSONE 10 MG TABLET PO SCH (09:00)
--- NOTE | 2019-03-21 09:38 | Discharge Summary ---
Date of Service March 21, 2019 Admission HPI Per Admitting Provider This is a 78-year-old male who presents with chronic persistent neck and arm pain. After failing extensive course of nonoperative care is here for surgical intervention. Principal Diagnosis Cervical spinal stenosis with myeloradiculopathy Discharge Data Allergies Allergy/AdvReac Type Severity Reaction Status Date / Time hydrocodone [From Vicodin] Allergy pruritus Verified 03/19/19 06:50 oxycodone Allergy pruritus Verified 03/19/19 06:50 Consultations 03/19/19 12:08 Consult Hospitalist Routine Procedures Performed Operation Date: 03/19/19 07:45 Actual Procedures p C5-C6 Anterior Cervical Discectomy, C4 Corpectomy, Spinal Cord Monitoring(Not Applicable) - Carl Bolanos DO Ordered Studies 03/19/19 07:45 FL fluoroscopy <1hr Routine FL lumbar spine 2-3V Routine Hospital Course (1) Cervical stenosis of spinal canal: Patient underwent anterior cervical corpectomy tolerated as well as taken to the orthopedic for postoperative. Postop day #1 his arm symptoms were impr rashaad he is swallowing well. Progressed to postop day #2. He has good strength testing on the stay VICENTE drain decreased appropriately. Subsequently discharged home. Discharge orders and instructions found the chart for further review. Total Time Total Time Spent Total Time Spent (In Minutes): 20 minutes Discharge Plan Discharge Items Patient Disposition: Home - Self-Care Reason For Visit: Spinal Stenosis, Cervical Region Discharge Diagnosis: cervical stenosis with myelopathy Activity: Per Instructions section Non-emergency contact: Primary Care Provider Call non-emergency contact if: you have any medication questions Follow-up/Referrals: Nasreen Dietrich MD [Primary Care Provider] - 03/26/19 10:45 am Diet: Regular Addtl Attending Provider Instructions: ACTIVITY RECOMMENDATIONS: SELF CARE INSTRUCTIONS AFTER CERVICAL FUSIONS 1. No smoking. Smoking drastically decreases the chance of a solid fusion. 2. No bending, lifting more than 5 pounds, or twisting (roll like a log when turning in bed). 3. You may shower 3 days after surgery. Thoroughly dry wound. Do not soak in the tub. 4. Cervical collar: Must be worn at all times including sleeping. You may remove the brace only to bath, eat and if you are sitting in a recliner. 5. Please walk as much as you can for exercise. Gradually increase the distance that you walk as your endurance increases. SPECIAL CARE INSTRUCTIONS: VERY IMPORTANT TO READ AND REVIEW A. Do not take any anti-inflammatory medications (i.e. Indocin, Advil, Aspirin, Naprosyn, Aleve, Motrin, etc.) as these may inhibit the chance of a solid fusion. Tylenol is okay to take. B. Your surgical incision has been closed with a cosmetic suture under the skin that will dissolve in about 6 weeks. In 14 days, you can use a pair of clean scissors and cut the suture that is left outside of the skin at the ends of your incision. C. Complications are uncommon, but please contact us if you have any signs or symptoms of: 1. wound infection (fever higher than 102.5 degrees F, redness, separation of wound, drainage, or increasing pain from the incision) 2. blood clots in legs (pain, swelling, redness and warmth in legs) 3. urinary tract infection (fever higher than 102.5 degrees, burning upon urination or increased frequency of urination) 4. nerve problems (inability to walk on your toes or heels, numbness, loss of bowel or bladder control) 5. any other symptoms that concern you. D. Please call the office at if you have any concerns or questions about your operation or recovery. MANAGING PAIN AFTER SPINAL SURGERY 1. Narcotic medication is intended for short-term use and will be provided for surgical pain. Surgical pain usually lasts for a period of 4-6 weeks. Narcotic medication includes Percocet, Vicodin, Darvocet, Tylenol #3 or Lortab. 2. Longer-term pain is more appropriately treated with non-narcotic medication such as Tylenol ES. 3. Muscle spasm is not appropriately treated with narcotics. Muscle relaxers such as Soma, Flexeril or Skelaxin can be used along with Tylenol ES. 4. Remember that we all live with some "aches and pains". This is not unusual or uncommon after an injury or as we get older. 5. We will provide appropriate medication within the normal guidelines of their prescribed use. We will also be very cautious and aware of potential abuse and extended duration of patients' medication needs. 6. Please allow 2-3 days to process refills. Prescriptions will not be mailed but must be picked up at the office. FOLLOW UP VISIT: Keep your scheduled follow-up appointment. Any questions, please call the office at . Addtl Scale Tank Operator Provider Instructions: Your A1C was 7.9 which reflects your blood sugar control over the past 3 months. Goal A1C is < 7.0. Encourage checking blood sugar twice daily, keeping a log. Continue your current regimen for your diabetes. You have a scheduled follow up appt with your PCP on 03/26/19 at 10:45 to discuss further diabetes management. Pending Studies at Discharge: No Stand-Alone Forms: [facility] Medcurrent, Opioid Pain Management Medications and DC Order Prescriptions: New tramadol 50 mg Tablet 50 mg PO Q4H PRN (Reason: pain) Qty: 20 RF: 0 Continued atorvastatin 40 mg Tablet 40 mg PO HS RF: 0 valacyclovir 500 mg Tablet 500 mg PO HS RF: 0 aspirin 81 mg Tablet,Delayed Release (Dr/Ec) 40.5 mg PO HS RF: 0 methotrexate sodium 2.5 mg Tablet 12.5 mg PO WK RF: 0 diltiazem HCl 120 mg Capsule,Extended Release 24 Hr 120 mg PO QAM RF: 0 folic acid 1 mg Tablet 1 mg PO QAM RF: 0 furosemide 20 mg Tablet 20 mg PO BID RF: 0 cholecalciferol (vitamin D3) [Vitamin D3] 1,000 unit Capsule 2,000 unit PO QAM RF: 0 cinnamon bark [Cinnamon] 500 mg Capsule 500 mg PO HS RF: 0 Trulicity 1.5 mg/0.5 mL Pen Injector 1.5 mg SUBCUT WK RF: 0 cyanocobalamin (vitamin B-12) 1,000 mcg Capsule 1,000 mcg PO QAM RF: 0 repaglinide 2 mg tablet 2 mg PO TID RF: 0 metformin 500 mg tablet extended release 24 hr 1,000 mg PO PM RF: 0 prednisone 5 mg tablet 10 mg PO QAM RF: 0 Discharge Orders: Discharge Order (Routine); Ordered 03/21/19 Ordered By: Carl Trotter/Other Patient Handouts: Surgery Prevent DVT After Admission Data Admit Date/Time: 03/19/19 10:21 Attending Provider: Carl Bolanos Admit Provider: Carl Bolanos Primary Care Provider: Nasreen Dietrich Other Providers: Ramiro Gibbons Other Interventions: Discharge Summary Assessment (RN) Last Done: 03/21/19 09:16
[2019-03-21] MEDS ORDERED: bisacodyL 10 MG SUPP PR PRN (10:19)
[2019-03-23] MEDS ORDERED: metHOTREXate sodium 2.5 MG TAB PO SCH (18:00)
== END 2019-03-21 11:45 | disposition home health service (06) | DRG 472 ==
LOC: ASU 06:07 → 3E 10:21

== ENCOUNTER 2019-07-08 09:16 | Inpatient (IN) ==
[2019-07-08] MEDS ORDERED: METOCLOPRAMIDE HCL INJ 5 MG/ML 2 ML VIAL IV PRN (14:11)
[2019-07-08] MEDS ORDERED: PROMETHAZINE HCL 12.5 MG in SODIUM CHLORIDE 0.9% 50 ML IV PRN (14:11)
[2019-07-08] MEDS ORDERED: ONDANSETRON INJ 2 MG/ML 2 ML VIAL IV PRN (14:11)
[2019-07-08] MEDS ORDERED: LORazepam 1 MG/2 ML VIAL IV PRN (14:11)
[2019-07-08] MEDS ORDERED: ACETAMINOPHEN 500 MG TAB PO PRN (14:11)
[2019-07-08] MEDS ORDERED: LORazepam 1 MG TAB PO PRN (14:11)
[2019-07-08] MEDS ORDERED: ONDANSETRON 4 MG OD TAB PO PRN (14:11)
--- NOTE | 2019-07-08 14:19 | History & Physical Report ---
Date of Service July 08, 2019 Assessment & Plan (1) Neurogenic claudication due to lumbar spinal stenosis: At this time we will make him n.p.o. after midnight plan for decompression and fusion L1-2. There will be removal of the instrumentation at the L to 3 level. Will obtain cultures at the time of surgery. Subsequently there will be no preoperative antibiotics. Benefits pros cons alternatives were outlined in detail. Present on Admission?: Yes History of Present Illness Chief Complaint: Worsening back and bilateral leg pain Primary Care Provider: Nasreen Richardson MD This is a 78-year-old male well-known to me that is had progressive decline in status since roughly May this year. There is been no specific trauma fall or event. He now uses a walker to ambulate. MRI does demonstrate advanced stenosis at the L1-2 level with evidence of marked fluid collection within the disc space. Allergies Allergy/AdvReac Type Severity Reaction Status Date / Time hydrocodone [From Vicodin] Allergy Mild pruritus Verified 07/04/19 22:12 oxycodone Allergy Mild pruritus Verified 07/04/19 22:12 Home Medications Home Medications Medication Instructions Recorded Confirmed Type Trulicity 1.5 mg SUBCUT WK 11/13/18 07/04/19 History aspirin 40.5 mg PO HS 11/13/18 07/08/19 History atorvastatin 40 mg PO HS 11/13/18 07/08/19 History cholecalciferol (vitamin D3) 1,000 unit PO QAM 11/13/18 07/08/19 History [Vitamin D3] cinnamon bark [Cinnamon] 500 mg PO HS 11/13/18 07/08/19 History cyanocobalamin (vitamin B-12) 1,000 mcg PO QAM 11/13/18 07/08/19 History folic acid 1 mg PO QAM 11/13/18 07/08/19 History furosemide 20 mg PO BID 11/13/18 07/08/19 History methotrexate sodium 12.5 mg PO WK 11/13/18 07/08/19 History valacyclovir 500 mg PO HS 11/13/18 07/04/19 History metformin 500 mg tablet,extended 1,000 mg PO PM tab 01/08/19 07/08/19 History release 24 hr repaglinide 2 mg tablet 2 mg PO AC tab 01/08/19 07/04/19 History prednisone 5 mg tablet 10 mg PO QAM tab 02/24/19 07/08/19 History celecoxib 200 mg capsule 200 mg PO BID cap 05/08/19 07/08/19 History lisinopril 20 mg PO QAM 07/04/19 07/08/19 History Past Med/Surg History Social History Preferred Language: Persian Communication Ability: Effective Ager Tender Required: No Beliefs That Will Affect Care: None marital status: Current Living Situation: Spouse Other Information That Helps Us Care for You: No Feels Safe at Home: Yes Safety Concerns: Feels Safe At This Time Smoking Status: Former smoker Tobacco Type: cigarettes ; Do You Dip or Chew Tobacco: No ; Smoking End Date: 35 years ; Second Hand Exposure: No ; Tobacco Cessation Education Requested by Patient: No Hx Alcohol Use: No Hx Substance Use: No Physical Exam Physical Exam: Patient is alert and oriented. He is neurologically intact. With good strength testing lower extremities. Results & Data Vital Signs (Past 12 Hours) Vital Signs Temp Pulse Resp BP Pulse Ox 07/08/19 12:37 36.7 C 108 H 18 99/48 L 97 Code Status & VTE Plan VTE Prophylaxis Plan VTE Prophylaxis will be ordered: Yes
[2019-07-08 14:58] LABS: Basophils # (auto) 0.02 K/uL (0-0.2); Basophils % (auto) 0.2 %; Eosinophils # (auto) 0.05 K/uL (0-0.5); Eosinophils % (auto) 0.4 %; Hematocrit (blood only) 35.1 % (42-52); Immature Granulocytes # (auto) 0.05 K/uL (0.00-0.02); Immature Granulocytes % (auto) 0.4 %; Lymphocytes # (auto) 0.85 K/uL (1.2-3.4); Lymphocytes % (auto) 7.5 %; Mean Corpuscular Hemoglobin 32.1 pg (25-34); Mean Corpuscular Hgb Conc 34.2 g/dL (32-36); Mean Corpuscular Volume 93.9 fL (80-100); Monocytes # (auto) 0.28 K/uL (0.11-0.59); Monocytes % (auto) 2.5 %; Neutrophils # (auto) 10.09 K/uL (1.4-6.5); Platelet Count 179 K/uL (130-400); Red Blood Count 3.74 M/uL (4.7-6.1); White Blood Count 11.34 K/uL (4.8-10.8)
[2019-07-08] MEDS ORDERED: LACTATED RINGER'S 1,000 ML IV SCH (15:00)
[2019-07-08 15:15] LABS: Albumin Level 3.5 gm/dl (3.4-5.0); BUN Creatinine Ratio 25.8 (10-20); Calcium 9.9 mg/dl (8.5-10.1); Est GFR (African American) 55.2; Est GFR (Non-African American) 47.6; Potassium 4.2 mmol/L (3.5-5.1)
[2019-07-08 15:18] LABS: Globulin 3.5 gm/dl (2.5-4.0)
[2019-07-08] MEDS ORDERED: GLUCAGON FOR INJ 1 MG VIAL SQ PRN (15:22)
[2019-07-08] MEDS ORDERED: DEXTROSE 50% 50 ML SYRINGE IV PRN (15:22)
[2019-07-08] MEDS ORDERED: GLUCOSE 10 TABS/TUBE PO PRN (15:22)
[2019-07-08] MEDS ORDERED: GLUCOSE 40% GEL 15 GM TUBE PO PRN (15:22)
[2019-07-08] MEDS ORDERED: CARBOHYDRATES FOR HYPOGLYCEMIA PO PRN (15:22)
--- NOTE | 2019-07-08 15:45 | Hospitalist Consultation ---
Date of Consultation July 08, 2019 Assessment & Plan (1) Neurogenic claudication due to lumbar spinal stenosis: - Directly admitted by Dr. Bolanos for planned L1-L2 decompression and fusion on 07/09 - No history of CAD. Patient denies cardiopulmonary symptoms. Awaiting CXR and EKG for further preop eval. - activity and wound care orders as per ortho - pain control with bowel regimen - PT/OT - monitor H/H for acute blood loss anemia and transfuse blood products PRN (2) Diabetes mellitus, type 2: -Hgb A1c 8.0 03/2019 -Hold home metformin, Prandin, Trulicity and utilize NovoLog per protocol while hospitalized (3) Rheumatoid arthritis: -Typically managed on methotrexate and prednisone -Given surgery tomorrow will hold methotrexate and prednisone -Discussed with Dr. Weiner (patient's guest service aide), may hold methotrexate for 2 weeks postoperatively (4) Chronic kidney disease, stage III (moderate): -Baseline creatinine ~ 1.2 -Has mild bump today at 1.4 -Noted was started on lisinopril 05/09 (by nephrology Dr. Hardy) -Hold lisinopril and diuretics, gentle IVF (5) Hypertension: -BP controlled -Holding lisinopril and furosemide as above (6) Hyperlipidemia: -Continue statin (7) DVT prophylaxis: -SCDs as per spine orthopedics Thank you for this consultation. We will follow the patient with you during their hospital stay. You can reach a [facility] via pager @ [phone]. Supervising Physician Co-Signing Physician Notes Attending addendum: The patient was seen and examined in the medical floor He was admitted from Dr. Bolanos's office with acute lumbar radiculopathy and is going to go for L1/S2 decompression and fusion tomorrow Besides pain at the back and radiation of pain to the legs. Denies any other symptoms Specifically no chest pain and no shortness of breath on exertion. No significant claudication on exertion On examination Lying in bed comfortably Chest-clear to auscultate bilaterally Heart-S1-S2, regular Abdomen-benign, not distended, bowel sounds present Extremities-1+ edema bilaterally and seems to be chronic SET UP / OPERATOR-alert, awake and oriented x3 Admission labs and imaging studies reviewed Has lumbar pain with radiculopathy and going to go for surgery tomorrow as per back surgeon No current indication for proposed surgery Agree with assessment plan as outlined above by Yaquelin messina History of Present Illness Reason for Consultation: Medical management Requesting Physician: Dr. Bolanos Attending Physician: Dr. Messina History of Present Illness 78-year-old male who was directly admitted by Dr. Bolanos for neurogenic claudication secondary to lumbar spinal stenosis, planning for OR tomorrow. Patient reports he has been having low back pain with radiation to both legs for about the past 5 to 6 weeks. Denies any known trauma or injury. Also has associated intermittent numbness and tingling to the bilateral lower extremiti es. Reports bilateral lower extremity weakness. No bowel or bladder dysfunction. Denies any other recent illnesses, fevers, chills. No chest pain or shortness of breath. Reports he can ambulate with his walker about 100 feet without experiencing chest pain or shortness of breath. No lightheadedness, dizziness, diaphoresis, syncopal events. Denies abdominal pain, nausea, vomiting, diarrhea. At the time my exam, patient is resting in the chair in no acute distress. Allergies Allergy/AdvReac Type Severity Reaction Status Date / Time hydrocodone [From Vicodin] Allergy Mild pruritus Verified 07/04/19 22:12 oxycodone Allergy Mild pruritus Verified 07/04/19 22:12 Home Medications Home Medications Medication Instructions Recorded Confirmed Type Trulicity 1.5 mg SUBCUT WK 11/13/18 07/08/19 History aspirin 40.5 mg PO HS 11/13/18 07/08/19 History atorvastatin 40 mg PO HS 11/13/18 07/08/19 History cholecalciferol (vitamin D3) 2,000 unit PO QAM 11/13/18 07/08/19 History [Vitamin D3] cinnamon bark [Cinnamon] 500 mg PO HS 11/13/18 07/08/19 History cyanocobalamin (vitamin B-12) 1,000 mcg PO QAM 11/13/18 07/08/19 History folic acid 1 mg PO QAM 11/13/18 07/08/19 History furosemide 20 mg PO BID 11/13/18 07/08/19 History methotrexate sodium 12.5 mg PO WK 11/13/18 07/08/19 History valacyclovir 500 mg PO HS 11/13/18 07/08/19 History metformin 500 mg tablet,extended 1,000 mg PO PM tab 01/08/19 07/08/19 History release 24 hr repaglinide 2 mg tablet 2 mg PO TIDM tab 01/08/19 07/08/19 History prednisone 5 mg tablet 10 mg PO QAM tab 02/24/19 07/08/19 History celecoxib 200 mg capsule 200 mg PO BID cap 05/08/19 07/08/19 History lisinopril 20 mg PO QAM 07/04/19 07/08/19 History Patient History Medical History Aortic stenosis "Mild" (LAVERNE 1.3cm2, MG 12.2mmhg) per 11/2018 DSE BPH (benign prostatic hyperplasia) Carotid artery stenosis s/p left CEA 11/2018 Chronic kidney disease, stage III (moderate) follows with nephrology (Dr. Hardy) Degenerative disc disease Diabetes mellitus, type 2 NIDDM Dry eye syndrome Gout Hyperlipidemia Hypertension Pericarditis 1994 Rheumatoid arthritis on chronic prednisone 10mg daily Sleep apnea s/p UPPP/T&A Surgical History Fusion of spine LUMBAR X 2 History of adenoidectomy History of carpal tunnel release LEFT History of cataract surgery RT/LEFT History of colonoscopy History of herniorrhaphy UMBILICAL HERNIA History of left-sided carotid endarterectomy 11/2018 ([facility]) History of tonsillectomy History of tooth extraction S/P pericardiocentesis 1994 S/P UPPP (uvulopalatopharyngoplasty) Family History Mother CHF (congestive heart failure) Sister CHF (congestive heart failure) Diabetes Social History Preferred Language: Danish Communication Ability: Effective Twister Frame Tender Required: No Beliefs That Will Affect Care: None marital status: Current Living Situation: Spouse Other Information That Helps Us Care for You: No Feels Safe at Home: Yes Safety Concerns: Feels Safe At This Time Smoking Status: Former smoker Tobacco Type: cigarettes ; Do You Dip or Chew Tobacco: No ; Smoking End Date: 35 years ; Second Hand Exposure: No ; Tobacco Cessation Education Requested by Patient: No Hx Alcohol Use: No Hx Substance Use: No Review of Systems Review of Systems: ROS per HPI, all other systems reviewed and negative Physical Exam Constitutional: WD/WN, vitals as above Eyes: PERRL, conjunctivae normal, anicteric sclerae ENMT: external ear and nose normal, oropharynx normal Respiratory: normal respiratory effort, lungs clear to auscultation Cardiovascular: Rate/Rhythm: regular rate and regular rhythm Vessels: normal peripheral pulses Extremities: + edema (+1-2 edema BLE, R > L ) Gastrointestinal (Abdomen): normal bowel sounds, soft, nontender, no hepatosplenomegaly Musculoskeletal: no cyanosis or clubbing, extremities motor strength 5/5 Skin: no rashes, warm and dry Neurologic: PERRL, EOMI, accommodation nl, no face palsy, no dysarthria Psychiatric: A+Ox3, euthymic affect Results & Data ([facility]) Vital Signs (Past 12 Hours) Vital Signs Temp Pulse Resp BP Pulse Ox 07/08/19 12:37 36.7 C 108 H 18 99/48 L 97 Laboratory Results Short CBC 07/08/19 Range/Units 14:37 WBC 11.34 H (4.8-10.8) K/uL Hgb 12.0 L (14.0-18.0) g/dL Hct 35.1 L (42-52) % Plt Count 179 (130-400) K/uL BMP 07/08/19 14:37 Sodium 139 Potassium 4.2 Chloride 106 Carbon Dioxide 28 BUN 37 H Creatinine 1.42 H Glucose 80 Calcium 9.9 Liver Function 07/08/19 Range/Units 14:37 Total Bilirubin 1.0 (0.2-1) mg/dl AST 18 (15-37) U/L ALT 22 (12-78) U/L Alkaline Phosphatase 65 (45-117) U/L Albumin 3.5 (3.4-5.0) gm/dl
--- NOTE | 2019-07-08 15:46 | Anesthesiology Consultation ---
Date of Service July 08, 2019 Assessment & Plan Chart Review Chart Review: Acceptable Risk for Surgery and Patient NOT seen in Pre Admission Testing Consults Requested none ASA ASA4 Proposed Anesthesia Anesthesia Type: General Anesthesia Line Insertion: Arterial line History Surgery Operation Date: 07/09/19 13:25 Proposed Procedures p L1-L2 Decompression and Fusion, Spinal Cord Monitoring - Carl Bolanos, Height/Weight Height: 5 ft 6 in Weight: 84.09 kg Allergies Allergy/AdvReac Type Severity Reaction Status Date / Time hydrocodone [From Vicodin] Allergy Mild pruritus Verified 07/04/19 22:12 oxycodone Allergy Mild pruritus Verified 07/04/19 22:12 Medications Home Medications Medication Instructions Recorded Confirmed Last Taken Trulicity 1.5 mg SUBCUT WK 11/13/18 07/08/19 07/06/19 08:00 1.5 mg aspirin 40.5 mg PO HS 11/13/18 07/08/19 07/07/19 23:00 40.5 mg atorvastatin 40 mg PO HS 11/13/18 07/08/19 07/07/19 23:00 40 mg cholecalciferol (vitamin D3) 2,000 unit PO QAM 11/13/18 07/08/19 07/08/19 09:00 [Vitamin D3] 1000 mg cinnamon bark [Cinnamon] 500 mg PO HS 11/13/18 07/08/19 07/07/19 23:00 500 mg cyanocobalamin (vitamin B-12) 1,000 mcg PO QAM 11/13/18 07/08/19 07/08/19 09:00 1000 mg folic acid 1 mg PO QAM 11/13/18 07/08/19 07/08/19 09:00 1 mg furosemide 20 mg PO BID 11/13/18 07/08/19 07/08/19 09:00 20 mg methotrexate sodium 12.5 mg PO WK 11/13/18 07/08/19 07/06/19 23:00 12.5 mg valacyclovir 500 mg PO HS 11/13/18 07/08/19 07/07/19 23:00 500 mg metformin 500 mg tablet,extended 1,000 mg PO PM tab 01/08/19 07/08/19 07/07/19 23:00 release 24 hr 1000 mg repaglinide 2 mg tablet 2 mg PO TIDM tab 01/08/19 07/08/19 07/08/19 08:00 2 mg prednisone 5 mg tablet 10 mg PO QAM tab 02/24/19 07/08/19 07/08/19 09:00 10 mg celecoxib 200 mg capsule 200 mg PO BID cap 05/08/19 07/08/19 07/08/19 09:00 lisinopril 20 mg PO QAM 07/04/19 07/08/19 07/08/19 09:00 20 mg Past Medical History Medical History Aortic stenosis "Mild" (LAVERNE 1.3cm2, MG 12.2mmhg) per 11/2018 DSE BPH (benign prostatic hyperplasia) Carotid artery stenosis s/p left CEA 11/2018 Chronic kidney disease, stage III (moderate) follows with nephrology (Dr. Hardy) Degenerative disc disease Diabetes mellitus, type 2 NIDDM Dry eye syndrome Gout Hyperlipidemia Hypertension Pericarditis 1994 Rheumatoid arthritis on chronic prednisone 10mg daily Sleep apnea s/p UPPP/T&A Exercise / Class Metabolic Activity III < 4 Walking/Shop/Light housework Past Family History Family History Mother CHF (congestive heart failure) Sister CHF (congestive heart failure) Diabetes Past Surgical History Surgical History Fusion of spine LUMBAR X 2 History of adenoidectomy History of carpal tunnel release LEFT History of cataract surgery RT/LEFT History of colonoscopy History of herniorrhaphy UMBILICAL HERNIA History of left-sided carotid endarterectomy 11/2018 ([facility]) History of tonsillectomy History of tooth extraction S/P pericardiocentesis 1994 S/P UPPP (uvulopalatopharyngoplasty) Past Anesthesia History No Hx of Anesthesia Complications and No Family Hx of Anesthesia Complications History of PONV No Hx of PONV and No Hx of Motion Sickness Social History Smoking Status: Former smoker tobacco type: cigarettes Do You Dip or Chew Tobacco: No Smoking End Date: 35 years Hx Alcohol Use: No Hx Substance Use: No substance use type: does not use Physical Exam Vital Signs Last Vital Signs Temp 36.8 C 07/08/19 15:37 Pulse 108 H 02/04/20 15:37 Resp 16 07/08/19 15:37 BP 137/83 07/08/19 15:37 Pulse Ox 98 07/08/19 15:37 Testing Laboratory Results 07/08/19 14:37 07/08/19 14:37 07/08/19 14:20 POC Glucose 90 Electrocardiogram Date: 11/14/18 Findings: + pertinent finding (SR at 89 w/PSVC's;NS ST abnl) Chest X-Ray Date: 07/04/19 Findings: + NAD and + cardiomegaly Stress Test Type: DSE Findings: + achieved max HR (107%) Resting EF: 55% Resting LV Function: normal Resting RWMA: + none Valvular Disease: (mild;LAVERNE 1.3 cm2) Grade 1 DD; mild LVH Other Testing 11/19/2018-Carotid U/T-YEGT-93-69%;LICA-70-99% Pt is s/p Left CEA on 11/21/2018
[2019-07-08] MEDS ORDERED: SODIUM CHLORIDE 0.9% 250 ML IV PRN (15:47)
--- NOTE | 2019-07-08 16:49 | Ultrasound Report ---
BILATERAL LOWER EXTREMITY VENOUS DOPPLER HISTORY: Bilateral Leg pain COMPARISON STUDY: None. FINDINGS: There is normal compressibility, flow, and augmentation within the bilateral lower extremit y deep venous systems. IMPRESSION: No DVT within the right or left lower extremity. ACT 112: Negative or not required by law. Electronically signed by: Nadir Diaz M.D. 07/08/2019 4:47 PM
[2019-07-08] MEDS: SODIUM CHLORIDE 0.9% 1000ML 1,000 ML IV SCH (17:04)
--- NOTE | 2019-07-08 17:29 | XRay Report ---
TWO VIEW CHEST CLINICAL HISTORY: Preoperative examination. FINDINGS: PA and lateral chest radiographs are compared to study dated 07/04/2019. The PA view is degr aded by patient rotation. The heart is enlarged noting atherosclerotic calcification of the thoracic aorta. The pulmonary vasculature is noncongested. Chronic interstitial thickening is similar to previ ous. There is chronic elevation of the left hemidiaphragm and bibasilar atelectasis. No airspace cons olidation or pleural effusion is seen. There is no pneumothorax. The skeletal structures are osteopen ic. The bony thorax appears intact. Degenerative changes noted in the thoracic spine. Fusion hardware is noted in the lower cervical and lumbar spine. IMPRESSION: Cardiomegaly with no active disease in the chest. ACT 112: Negative or not required by law. Electronically signed by: Rolando Shen M.D. 07/08/2019 5:28 PM
[2019-07-08] MEDS: INSULIN ASPART 100 UNITS/ML 3 ML PEN SC SCH ×2 (18:24→21:59)
[2019-07-08] MEDS: VALACYCLOVIR HCL 500 MG TABLET PO SCH (21:59)
[2019-07-08] MEDS: DOCUSATE SODIUM 100 MG CAP PO SCH (22:00)
[2019-07-08] MEDS: ATORVASTATIN 40 MG TAB PO SCH (22:00)
[2019-07-09] MEDS: SODIUM CHLORIDE 0.9% 1000ML 1,000 ML IV SCH ×3 (05:34→18:31)
[2019-07-09] MEDS: INSULIN ASPART 100 UNITS/ML 3 ML PEN SC SCH ×3 (05:56→21:22)
[2019-07-09 06:05] LABS: Hematocrit (blood only) 31.5 % (42-52); Hemoglobin 10.5 g/dL (14.0-18.0); Mean Corpuscular Hgb Conc 33.3 g/dL (32-36); Mean Platelet Volume 9.1 fL (7.4-10.4); Platelet Count 154 K/uL (130-400); RDW Standard Deviation 51.6 fL (36.4-46.3); Red Blood Count 3.28 M/uL (4.7-6.1)
[2019-07-09 06:33] LABS: BUN Creatinine Ratio 21.4 (10-20); Calcium 8.8 mg/dl (8.5-10.1); Creatinine Clr Calc Pharmacy 47.4 ml/min; Est GFR (African American) 58.7; Est GFR (Non-African American) 50.6; Potassium 3.7 mmol/L (3.5-5.1)
--- NOTE | 2019-07-09 09:42 | Hospitalist Progress Note ---
Date of Service July 09, 2019 Assessment & Plan (1) Neurogenic claudication due to lumbar spinal stenosis: - Directly admitted by Dr. Bolanos for planned L1-L2 decompression and fusion on 07/09 - activity and wound care orders as per ortho - pain control with bowel regimen - PT/OT - monitor H/H for acute blood loss anemia and transfuse blood products PRN (2) Diabetes mellitus, type 2: -Hgb A1c 8.0 03/2019 -Hold home metformin, Prandin, Trulicity and utilize NovoLog per protocol while hospitalized (3) Rheumatoid arthritis: -Typically managed on methotrexate and prednisone -Given surgery tomorrow will hold methotrexate and prednisone -Discussed with Dr. Weiner (patient's solid fiber paster operator), may hold methotrexate for 2 weeks postoperatively (4) Chronic kidney disease, stage III (moderate): -Baseline creatinine ~ 1.2 -Noted was started on lisinopril 05/09 (by nephrology Dr. Hardy) -Hold lisinopril and diuretics, gentle IVF (5) Hypertension: -BP controlled -Holding lisinopril and furosemide as above (6) Hyperlipidemia: -Continue statin (7) DVT prophylaxis: -SCDs as per spine orthopedics May prceed to OR today, Labs Checked ROS-No Headache, No Visual Changes, No Nausea, No Vomiting, No Fever, No Chills, No Neck Pain or Stiffness, No Chest Pain, No Palpitations, No SOB, No ALMEIDA, No Cough, No Sputum, No Wheezing, No Abdominal Pain, No Diarrhea, No Hematemesis, No Hemoptysis, No Unexpected Weight Loss, No Flank pain, No Melena, No Hematochezia, No Frequency, No Urgency, No Burning, No Hematuria, No Rashes, No Diaphoresis. Appetite is Normal, +Back Pain Physical Exam Gen-AAO x 3, NAD, Afebrile, Obese Head-NCAT, EOMI, PERRLA, Anicteric Sclera, No Posterior Pharyngeal Erythema Neck-Supple, No JVD, No Thyromegaly, No Masses, No LAD, No Bruits Lungs-Clear to Auscultation Bilaterally, No Rales, No Rhonchi, No Wheezing, No Crepitus Chest-No S4, +S1, +S2, No S3, No Murmurs, No Rubs, No Gallops, No Ectopy Abdomen-Soft, Bowel Sounds Present, Non Tender, Non Distended, No Hepatomegaly, No Splenomegaly, No Palpable Masses, No Rebound, No Rigidity, No Guarding Musculoskeletal-Full Range of Motion Bilaterally, No CVAT Extremities-No Cyanosis, No Clubbing, No Edema Nuero-Cranial Nerves II-XII grossly intact, Motor WNL, DTRs WNL, Strength WNL, Non Focal Psych-Normal Mood Results & Data ([facility]) Vital Signs (Past 12 Hours) Vital Signs Temp Pulse Pulse Resp BP Pulse Ox 07/09/19 06:57 36.6 C 89 18 127/81 96 07/08/19 23:10 37.1 C 78 20 113/74 97
[2019-07-09] MEDS ORDERED: DEXAMETHASONE SOD INJ 4 MG/ML VIAL ONE (13:12)
[2019-07-09] MEDS ORDERED: ONDANSETRON INJ 2 MG/ML 2 ML VIAL ONE (13:12)
[2019-07-09] MEDS ORDERED: GLYCOPYRROLATE 0.2 MG/ML VIAL ONE (13:12)
[2019-07-09] MEDS ORDERED: NEOSTIGMINE METHYLSULFATE 1 MG/ML 10ML VIAL ONE (13:12)
[2019-07-09] MEDS ORDERED: LIDOCAINE HCL 2% 2 ML VIAL/AMP(20MG/ML) INFIL ONE (13:12)
[2019-07-09] MEDS ORDERED: PROPOFOL IV EMULSION 10 MG/ML 20 ML VIAL IV ONE (13:12)
[2019-07-09] MEDS ORDERED: MIDAZOLAM HCL 1 MG/ML 2ML VIAL ONE (13:13)
[2019-07-09] MEDS ORDERED: fentaNYL citrate 100 MCG/2 ML VIAL ONE (13:13)
--- NOTE | 2019-07-09 13:22 | History & Physical Bridge Note ---
Date of Service July 09, 2019 History & Physical Bridge Note I have examined the patient, reviewed the History & Physical and in the interval since the performance of the History & Physical I have noted the following changes of clinical significance: no changes noted Plan for lumbar decompression and fusion L1-L2 removal of instrumentation L2-L3.
[2019-07-09] MEDS ORDERED: HYDROmorphone INJ 2 MG/ML SYR/VIAL IV PRN (13:35)
[2019-07-09] MEDS ORDERED: ATROPINE SULFATE 0.1 MG/ML 10ML SYR IV PRN (13:35)
[2019-07-09] MEDS ORDERED: ePHEDrine sulfate 50 MG/ML AMP IV PRN (13:35)
[2019-07-09] MEDS ORDERED: fentaNYL citrate 100 MCG/2 ML VIAL IV PRN (13:35)
[2019-07-09] MEDS ORDERED: ONDANSETRON INJ 2 MG/ML 2 ML VIAL IV PRN ×2 (13:35→17:35)
[2019-07-09] MEDS ORDERED: BUPIVACAINE/EPINEPHRINE 0.5% MPF 1:200,000 10 ML VIAL ONE (13:40)
[2019-07-09] MEDS ORDERED: BACITRACIN INJ 50,000 UNIT VIAL ONE (13:41)
[2019-07-09] MEDS ORDERED: VANCOMYCIN HCL 1000MG/20ML VIAL ONE (13:41)
[2019-07-09] MEDS ORDERED: GENTAMICIN SULFATE 40 MG/ML 2 ML VIAL ONE (13:41)
--- NOTE | 2019-07-09 14:12 | Electrocardiogram Report ---
Test Reason : Blood Pressure : / mmHG Vent. Rate : 098 BPM Atrial Rate : 098 BPM P-R Int : 200 ms QRS Dur : 096 ms QT Int : 358 ms P-R-T Axes : 054 006 079 degrees QTc Int : 457 ms Normal sinus rhythm Nonspecific ST and T wave abnormality Abnormal ECG When compared with ECG of 14-NOV-2018 09:21, Premature supraventricular complexes are no longer Present Confirmed by Teo Childs ([id number]) on 07/09/2019 2:11:52 PM Referred By: Carl Bolanos Confirmed By:Teo Childs
[2019-07-09] MEDS ORDERED: HYDROmorphone INJ 2 MG/ML SYR/VIAL ONE (14:18)
[2019-07-09] MEDS ORDERED: FLOSEAL HEMOSTATIC MATRIX 10ML TOP ONE (14:53)
[2019-07-09] MEDS ORDERED: HYDROCORTISONE SOD SUCCINATE 100 MG/2 ML VIAL ONE (15:14)
[2019-07-09] MEDS ORDERED: ESMOLOL HCL INJ 10 MG/ML 10ML VIAL IV ONE (15:14)
[2019-07-09] MEDS ORDERED: ROCURONIUM BROMIDE 10 MG/ML 5 ML VIAL ONE (15:15)
[2019-07-09] MEDS ORDERED: FLUMAZENIL 0.1 MG/1 ML 10 ML VIAL ONE (15:57)
--- NOTE | 2019-07-09 16:00 | Operative Report ---
Post Operative Report Pre & Post Diagnosis Operation Date: 07/09/19 13:25 Pre-Op Diagnosis: BACK AND BILATERAL LEG PAIN Post-Op Diagnosis: BACK AND BILATERAL LEG PAIN I identified the patient and participated in the time-out.: Yes Procedure Operation Date: 07/09/19 13:25 Actual Procedures #1 removal of posterior instrumentation L2-L3. #2 exploration fusion L2-L3. #3 lumbar decompression with bilateral medial facetectomies foraminotomies L1-L2. #4 posterior spinal fusion L1-L2 L2-L3. #5 placement posterior instrumentation L1 and L3. #6 placement of infuse collagen sponge, master graft in the posterior lateral gutters L1-L3. #7 placement of stimulant beads impregnated with vancomycin gentamicin in the interbody space and posterior lateral gutters. Surgeon Carl Bolanos, Digester Cook Marta Banegas Estimated Blood Loss 200 Findings Consistent with Post-Op Diagnosis Specimens Cultures from the L1-2 disc space Indications This is a 78-year-old male presents with above-mentioned diagnosis. After noting considerable decline in status over the past several weeks and blood markers indicative possible infection we elected to undergo the above-mentioned procedure. Description of Procedure Patient was met with identified informed consent obtained. Patient was then taken to the operative suite underwent intubation placed in a prone position the Rupesh table on top of the Art frame. All bony prominences well-padded eyes inspected to ensure no external pressure placed upon the. This point the lumbar spine was prepped and draped in a sterile fashion. Sharp dissection with the assistance pericardial performed down to and exposing the lamina and transverse processes of L1 and the instrumentation at L2 and L3 bilaterally. Then proceeded remove the hardware bilaterally noted screws to be markedly loose at the L2 levels bilaterally. Fusion mass appeared to be unsatisfactory on the right. Then performed complete laminectomy of L1 including bilateral medial facetectomies and foraminotomies. Pedicle screws were then placed in L1 and L3 bilaterally with assistance of fluoroscopy and appropriate size josé miguel placed. By way of a trans-foramen approach on the left I did perform a complete discectomy curetting the endplates and any remaining disc material. Cultures were obtained within the disc space prior to IV antibiotics and given. Tissue did not demonstrate gross purulence but clearly inflammatory in nature. I did pack the displaced with several cc of stimulant beads filled prepared with vancomycin and gentamicin. The remainder the beads were placed throughout the posterior lateral gutters. The transverse processes of L1-L2 and L3 were burred to subcortical being bone and infuse collagen sponge, master graft placed in the posterior gutters. 15 round VICENTE drain inserted. Incision was then closed with 1 Vicryl in the fascia 2-0 Vicryl subcutaneously and 4 Monocryl for final skin closure. Steri-Strip sterile dressings placed. Patient will continue PACU stable condition. Please note Marta Banegas was present at the entire procedure involved the patient positioning complex portions of the surgery and final skin closure. Lastly spinal cord monitoring was utilized throughout the procedure no changes noted. I attest to the content of the Intraoperative Record and any orders documented therein. Any exceptions are noted below.
--- NOTE | 2019-07-09 16:18 | Fluoroscopy Report ---
INTRAOPERATIVE RADIOGRAPHS CLINICAL HISTORY: L1-L2 spinal fusion. Hardware removal. Fluoroscopy time: 19 seconds. FINDINGS: 2 spot fluoroscopic views of the lumbar spine are presented. There is evidence of multileve l laminectomy and posterior fusion. The exact levels cannot be delineated on the provided images. The re has been discectomy at at least 3 levels. Interpedicular screws are present at 2 nonconsecutive le vels. The orthopedic hardware appears intact. IMPRESSION: Intraoperative images from lumbar spinal fusion surgery as above. Electronically signed by: Rolando Shen M.D. 07/09/2019 4:17 PM
--- NOTE | 2019-07-09 17:12 | Anesthesiology Progress Note ---
Date of Service July 09, 2019 Anesthesia Post Procedure Vital Signs Vital Signs: Temp Pulse Pulse Pulse Pulse Resp BP 07/09/19 16:55 36.3 C L 107 H 16 07/09/19 16:45 108 H 14 07/09/19 16:35 106 H 15 07/09/19 16:25 106 H 15 07/09/19 16:19 36.5 C 110 H 12 07/09/19 12:59 36.7 C 98 H 24 130/79 07/09/19 06:57 36.6 C 89 18 07/08/19 23:10 37.1 C 78 20 BP Pulse Ox 07/09/19 16:55 127/88 98 07/09/19 16:45 120/87 98 07/09/19 16:35 123/82 100 07/09/19 16:25 123/87 100 07/09/19 16:19 156/102 H 95 07/09/19 12:59 97 07/09/19 06:57 127/81 96 07/08/19 23:10 113/74 97 Pain Intensity Back: Pain Intensity: 4 Transfer of Care Handoff Completed per policy Notes Mental Status: alert / awake / arousable Patient Amnestic to Procedure: Yes Nausea / Vomiting: adequately controlled Pain: adequately controlled Airway Patency, RR, SpO2: stable & adequate BP & HR: stable & adequate Hydration State: stable & adequate Anesthetic Complications: no major complications apparent
[2019-07-09] MEDS ORDERED: MAGNESIUM HYDROXIDE SUSP 30 ML UDC PO PRN (17:35)
[2019-07-09] MEDS ORDERED: PROMETHAZINE HCL 12.5 MG in SODIUM CHLORIDE 0.9% 50 ML IV PRN (17:35)
[2019-07-09] MEDS ORDERED: ALUMINUM/MAGNESIUM SUSP 30 ML UDC PO PRN (17:35)
[2019-07-09] MEDS ORDERED: ACETAMINOPHEN 500 MG TAB PO PRN (17:35)
[2019-07-09] MEDS ORDERED: DO NOT ADMINISTER PNEUMOCOCCAL VACCINE PRN (17:35)
[2019-07-09] MEDS ORDERED: ONDANSETRON 4 MG OD TAB PO PRN (17:35)
[2019-07-09] MEDS ORDERED: FAMOTIDINE 20 MG TAB PO PRN (17:35)
[2019-07-09] MEDS ORDERED: bisacodyL 10 MG SUPP PR PRN (17:35)
[2019-07-09] MEDS ORDERED: ACETAMINOPHEN 1,000 MG/100 ML VIAL IV PRN (17:35)
[2019-07-09] MEDS ORDERED: METOCLOPRAMIDE HCL INJ 5 MG/ML 2 ML VIAL IV PRN (17:35)
[2019-07-09] MEDS ORDERED: DO NOT ADMINISTER FLU VACCINE PRN (17:35)
[2019-07-09] MEDS ORDERED: SOD PHOSPHATE/SOD BIPHOSPHATE ENEMA 132 ML BTL PR PRN (17:35)
[2019-07-09] MEDS ORDERED: NALOXONE HCL 0.4 MG/1 ML VIAL/CARP IV PRN (17:35)
[2019-07-09] MEDS ORDERED: Nursing to Pharmacy Communication ONE (17:42)
[2019-07-09] MEDS: DOCUSATE SODIUM 100 MG CAP PO SCH ×2 (18:29→20:43)
[2019-07-09] MEDS: CHOLECALCIFEROL 1,000 UNITS 25 MCG TAB PO SCH (18:30)
[2019-07-09] MEDS: CYANOCOBALAMIN 500 MCG TABLET (VITAMIN B-12) PO SCH (18:30)
[2019-07-09] MEDS: FOLIC ACID 1 MG TAB PO SCH ×2 (18:31→18:49)
[2019-07-09] MEDS ORDERED: SODIUM CHLORIDE 0.9% 500 ML IV SCH (20:15)
[2019-07-09] MEDS: CEFAZOLIN 2000MG 2,000 MG/15 ML SYR IV SCH (20:25)
[2019-07-09 20:26] LABS: Hematocrit (blood only) 29.2 % (42-52); Hemoglobin 10.1 g/dL (14.0-18.0)
[2019-07-09] MEDS: DOCUSATE SODIUM/SENNA 50/8.6MG TAB PO SCH (20:42)
[2019-07-09] MEDS: ATORVASTATIN 40 MG TAB PO SCH (20:42)
[2019-07-09] MEDS: VALACYCLOVIR HCL 500 MG TABLET PO SCH (20:43)
[2019-07-10] MEDS: CEFAZOLIN 2000MG 2,000 MG/15 ML SYR IV SCH (04:45)
[2019-07-10] MEDS: SODIUM CHLORIDE 0.9% 1000ML 1,000 ML IV SCH ×2 (04:45→05:06)
[2019-07-10] MEDS: POLYETHYLENE (MIRALAX) 17 GM PACK PO SCH ×4 (06:03→23:56)
[2019-07-10 06:54] LABS: Hematocrit (blood only) 25.6 % (42-52); Hemoglobin 8.9 g/dL (14.0-18.0); Mean Corpuscular Hemoglobin 32.6 pg (25-34); Mean Corpuscular Hgb Conc 34.8 g/dL (32-36); Mean Corpuscular Volume 93.8 fL (80-100); Mean Platelet Volume 8.2 fL (7.4-10.4); Platelet Count 150 K/uL (130-400); RDW Coefficient of Variation 14.7 % (11.5-14.5); RDW Standard Deviation 49.4 fL (36.4-46.3); Red Blood Count 2.73 M/uL (4.7-6.1); White Blood Count 8.54 K/uL (4.8-10.8)
[2019-07-10 07:21] LABS: Calcium 8.5 mg/dl (8.5-10.1); Creatinine Clr Calc Pharmacy 46.3 ml/min; Est GFR (African American) 57.2; Est GFR (Non-African American) 49.3; Potassium 4.8 mmol/L (3.5-5.1)
--- NOTE | 2019-07-10 08:33 | Anesthesiology Progress Note ---
Date of Service July 10, 2019 Anesthesia Post Procedure Vital Signs Vital Signs: Temp Pulse Pulse Pulse Resp BP BP 07/10/19 07:15 36.7 C 98 H 17 07/10/19 03:17 37.1 C 102 H 18 111/74 07/09/19 23:05 37.2 C 109 H 18 111/69 07/09/19 20:20 37 C 116 H 16 125/73 07/09/19 19:57 116 H 84/53 L 07/09/19 19:29 36.9 C 120 H 16 98/54 L 07/09/19 18:26 36.2 C L 111 H 16 112/76 07/09/19 17:50 36.6 C 110 H 18 135/83 07/09/19 17:44 36.6 C 108 H 16 129/83 07/09/19 17:05 105 H 16 134/81 07/09/19 16:55 36.3 C L 107 H 16 127/88 07/09/19 16:45 108 H 14 120/87 07/09/19 16:35 106 H 15 123/82 07/09/19 16:25 106 H 15 123/87 07/09/19 16:19 36.5 C 110 H 12 156/102 H 07/09/19 12:59 36.7 C 98 H 24 130/79 BP Pulse Ox 07/10/19 07:15 106/70 93 07/10/19 03:17 98 07/09/19 23:05 94 07/09/19 20:20 92 07/09/19 19:57 07/09/19 19:29 97 07/09/19 18:26 97 07/09/19 17:50 97 07/09/19 17:44 95 07/09/19 17:05 97 07/09/19 16:55 98 07/09/19 16:45 98 07/09/19 16:35 100 07/09/19 16:25 100 07/09/19 16:19 95 07/09/19 12:59 97 Pain Intensity Back: Pain Intensity: 4 Notes Mental Status: alert / awake / arousable and participated in evaluation Patient Amnestic to Procedure: Yes Nausea / Vomiting: adequately controlled Pain: adequately controlled Airway Patency, RR, SpO2: stable & adequate BP & HR: stable & adequate Hydration State: stable & adequate Anesthetic Complications: no major complications apparent and Pt Satisfied with anesthetic care
--- NOTE | 2019-07-10 08:49 | Orthopedic Progress Note ---
Date of Service July 10, 2019 Assessment & Plan (1) Neurogenic claudication due to lumbar spinal stenosis: At this time await cultures advance physical therapy as tolerated. Present on Admission?: Yes Subjective Back pain controlled leg pain improved Physical Exam Physical Exam: Patient is good strength testing. Results & Data ([facility]) Vital Signs (Past 12 Hours) Vital Signs Temp Pulse Resp BP BP Pulse Ox 07/10/19 07:15 36.7 C 98 H 17 106/70 93 07/10/19 03:17 37.1 C 102 H 18 111/74 98 07/09/19 23:05 37.2 C 109 H 18 111/69 94
[2019-07-10] MEDS: CYANOCOBALAMIN 500 MCG TABLET (VITAMIN B-12) PO SCH (09:44)
[2019-07-10] MEDS: DOCUSATE SODIUM 100 MG CAP PO SCH ×2 (09:44→20:24)
[2019-07-10] MEDS: CHOLECALCIFEROL 1,000 UNITS 25 MCG TAB PO SCH (09:44)
[2019-07-10] MEDS: FOLIC ACID 1 MG TAB PO SCH (09:45)
[2019-07-10] MEDS: INSULIN ASPART 100 UNITS/ML 3 ML PEN SC SCH ×4 (09:49→20:29)
[2019-07-10] MEDS: TRAMADOL HCL 50 MG TABLET PO PRN (10:45)
[2019-07-10] MEDS: HYDROmorphone INJ 1 MG/ML SYRINGE IV PRN (11:55)
--- NOTE | 2019-07-10 13:19 | Hospitalist Progress Note ---
Date of Service July 10, 2019 Assessment & Plan (1) Neurogenic claudication due to lumbar spinal stenosis: - Directly admitted by Dr. Bolanos for planned L1-L2 decompression and fusion on 07/09 -Procedure #1 removal of posterior instrumentation L2-L3. #2 exploration fusion L2-L3. #3 lumbar decompression with bilateral medial facetectomies foraminotomies L1-L2. #4 posterior spinal fusion L1-L2 L2-L3. #5 placement posterior instrumentation L1 and L3. #6 placement of infuse collagen sponge, master graft in the posterior lateral gutters L1-L3. #7 placement of stimulant beads impregnated with vancomycin gentamicin in the interbody space and posterior lateral gutters. Resume Post Op Care per Surgery Protocol Incentive Spirometry 10x per Hour Resume Relative Home Meds Where Appropriate PT/OT with appropriate fall precautions Transition from IV to PO Pain control DVT Prophylaxis Per Surgery Protocol Monitor Daily Labs (2) Diabetes mellitus, type 2: -Hgb A1c 8.0 03/2019 -Hold home metformin, Prandin, Trulicity and utilize NovoLog per protocol while hospitalized (3) Rheumatoid arthritis: -Typically managed on methotrexate and prednisone -Given surgery tomorrow will hold methotrexate and prednisone -Discussed with Dr. Weiner (patient's carbider), may hold methotrexate for 2 weeks postoperatively (4) Chronic kidney disease, stage III (moderate): -Baseline creatinine ~ 1.2 -Noted was started on lisinopril 05/09 (by nephrology Dr. Hardy) -Hold lisinopril and diuretics, gentle IVF (5) Hypertension: -BP controlled -Holding lisinopril and furosemide as above (6) Hyperlipidemia: -Continue statin (7) DVT prophylaxis: Acute Post op blood loss anemia-Monitor H&H Labs Checked ROS-No Headache, No Visual Changes, No Nausea, No Vomiting, No Fever, No Chills, No Neck Pain or Stiffness, No Chest Pain, No Palpitations, No SOB, No ALMEIDA, No Cough, No Sputum, No Wheezing, No Abdominal Pain, No Diarrhea, No Hematemesis, No Hemoptysis, No Unexpected Weight Loss, No Flank pain, No Melena, No Hematochezia, No Frequency, No Urgency, No Burning, No Hematuria, No Rashes, No Diaphoresis. Appetite is Normal, +Back Pain Physical Exam Gen-AAO x 3, NAD, Afebrile, Obese Head-NCAT, EOMI, PERRLA, Anicteric Sclera, No Posterior Pharyngeal Erythema Neck-Supple, No JVD, No Thyromegaly, No Masses, No LAD, No Bruits Lungs-Clear to Auscultation Bilaterally, No Rales, No Rhonchi, No Wheezing, No Crepitus Chest-No S4, +S1, +S2, No S3, No Murmurs, No Rubs, No Gallops, No Ectopy Abdomen-Soft, Bowel Sounds Present, Non Tender, Non Distended, No Hepatomegaly, No Splenomegaly, No Palpable Masses, No Rebound, No Rigidity, No Guarding Musculoskeletal-Full Range of Motion Bilaterally, No CVAT Extremities-No Cyanosis, No Clubbing, No Edema Nuero-Cranial Nerves II-XII grossly intact, Motor WNL, DTRs WNL, Strength WNL, Non Focal Psych-Normal Mood Results & Data ([facility]) Vital Signs (Past 12 Hours) Vital Signs Temp Pulse Resp BP BP Pulse Ox 07/10/19 07:15 36.7 C 98 H 17 106/70 93 07/10/19 03:17 37.1 C 102 H 18 111/74 98
[2019-07-10] MEDS ORDERED: SODIUM CHLORIDE 0.9% 1000ML 1,000 ML IV ONE (16:27)
[2019-07-10 16:45] LABS: Hematocrit (blood only) 25.2 % (42-52); Hemoglobin 8.6 g/dL (14.0-18.0)
[2019-07-10] MEDS: VALACYCLOVIR HCL 500 MG TABLET PO SCH (20:24)
[2019-07-10] MEDS: DOCUSATE SODIUM/SENNA 50/8.6MG TAB PO SCH (20:25)
[2019-07-10] MEDS: ATORVASTATIN 40 MG TAB PO SCH (20:26)
[2019-07-10] MEDS ORDERED: METOPROLOL TARTRATE 25 MG TAB PO STA (22:39)
[2019-07-11] MEDS: HYDROmorphone INJ 0.5 MG/0.5 ML SYR IV PRN ×2 (00:24→07:58)
[2019-07-11] MEDS: TRAMADOL HCL 50 MG TABLET PO PRN ×3 (03:29→21:09)
[2019-07-11 07:02] LABS: Hematocrit (blood only) 25.6 % (42-52); Hemoglobin 8.6 g/dL (14.0-18.0); Mean Corpuscular Hemoglobin 32.1 pg (25-34); Mean Corpuscular Hgb Conc 33.6 g/dL (32-36); Mean Corpuscular Volume 95.5 fL (80-100); Mean Platelet Volume 8.9 fL (7.4-10.4); Platelet Count 159 K/uL (130-400); RDW Coefficient of Variation 15.1 % (11.5-14.5); RDW Standard Deviation 51.2 fL (36.4-46.3); Red Blood Count 2.68 M/uL (4.7-6.1); White Blood Count 8.16 K/uL (4.8-10.8)
[2019-07-11] MEDS: POLYETHYLENE (MIRALAX) 17 GM PACK PO SCH ×4 (07:15→23:11)
[2019-07-11 07:41] LABS: BUN Creatinine Ratio 17.4 (10-20); Calcium 8.8 mg/dl (8.5-10.1); Creatinine Clr Calc Pharmacy 46.7 ml/min; Est GFR (African American) 57.7; Est GFR (Non-African American) 49.7; Potassium 4.3 mmol/L (3.5-5.1)
[2019-07-11 07:50] LABS: Troponin I 13.2 ng/ml (0-0.045)
[2019-07-11] MEDS: CYANOCOBALAMIN 500 MCG TABLET (VITAMIN B-12) PO SCH (07:59)
[2019-07-11] MEDS: DOCUSATE SODIUM 100 MG CAP PO SCH ×2 (07:59→21:08)
[2019-07-11] MEDS: FOLIC ACID 1 MG TAB PO SCH ×2 (08:00→21:08)
[2019-07-11] MEDS: INSULIN ASPART 100 UNITS/ML 3 ML PEN SC SCH ×4 (08:00→21:11)
[2019-07-11] MEDS: CHOLECALCIFEROL 1,000 UNITS 25 MCG TAB PO SCH (08:00)
[2019-07-11] MEDS ORDERED: DEXAMETHASONE SOD PHOSPHATE 8 MG in SYRINGE 0 ML IV STA (09:55)
[2019-07-11] MEDS ORDERED: SODIUM CHLORIDE 0.9% 250 ML IV PRN (11:28)
--- NOTE | 2019-07-11 11:33 | Hospitalist Progress Note ---
Date of Service July 11, 2019 Assessment & Plan (1) NSTEMI (non-ST elevated myocardial infarction): Start ASA 325 BID, One Unit Blood, Start Plavix in am, [facility] Sunday, NPO 07/14 1200 AM (2) Neurogenic claudication due to lumbar spinal stenosis: - Directly admitted by Dr. Bolanos for planned L1-L2 decompression and fusion on 07/09 -Procedure #1 removal of posterior instrumentation L2-L3. #2 exploration fusion L2-L3. #3 lumbar decompression with bilateral medial facetectomies foraminotomies L1-L2. #4 posterior spinal fusion L1-L2 L2-L3. #5 placement posterior instrumentation L1 and L3. #6 placement of infuse collagen sponge, master graft in the posterior lateral gutters L1-L3. #7 placement of stimulant beads impregnated with vancomycin gentamicin in the interbody space and posterior lateral gutters. Resume Post Op Care per Surgery Protocol Incentive Spirometry 10x per Hour Resume Relative Home Meds Where Appropriate PT/OT with appropriate fall precautions Transition from IV to PO Pain control Monitor Daily Labs (3) Diabetes mellitus, type 2: -Hgb A1c 8.0 03/2019 -Hold home metformin, Prandin, Trulicity and utilize NovoLog per protocol while hospitalized (4) Rheumatoid arthritis: -Typically managed on methotrexate and prednisone -Given surgery tomorrow will hold methotrexate and prednisone -Discussed with Dr. Weiner (patient's customer service associate), may hold methotrexate for 2 weeks postoperatively (5) Chronic kidney disease, stage III (moderate): -Baseline creatinine ~ 1.2 -Noted was started on lisinopril 05/09 (by nephrology Dr. Hardy) -Hold lisinopril and diuretics, gentle IVF (6) Hypertension: -BP controlled -Holding lisinopril and furosemide as above (7) Hyperlipidemia: -Continue statin (8) DVT prophylaxis: Acute Post op blood loss anemia-Monitor H&H, One unit today sec to Cardiac Issue Labs Checked ROS-No Headache, No Visual Changes, No Nausea, No Vomiting, No Fever, No Chills, No Neck Pain or Stiffness, No Chest Pain, No Palpitations, No SOB, No ALMEIDA, No Cough, No Sputum, No Wheezing, No Abdominal Pain, No Diarrhea, No Hematemesis, No Hemoptysis, No Unexpected Weight Loss, No Flank pain, No Melena, No Hematochezia, No Frequency, No Urgency, No Burning, No Hematuria, No Rashes, No Diaphoresis. Appetite is Normal, +Back Pain Physical Exam Gen-AAO x 3, NAD, Afebrile, Obese Head-NCAT, EOMI, PERRLA, Anicteric Sclera, No Posterior Pharyngeal Erythema Neck-Supple, No JVD, No Thyromegaly, No Masses, No LAD, No Bruits Lungs-Clear to Auscultation Bilaterally, No Rales, No Rhonchi, No Wheezing, No Crepitus Chest-Tachy No S4, +S1, +S2, No S3, No Murmurs, No Rubs, No Gallops, No Ectopy Abdomen-Soft, Bowel Sounds Present, Non Tender, Non Distended, No Hepatomegaly, No Splenomegaly, No Palpable Masses, No Rebound, No Rigidity, No Guarding Musculoskeletal-Full Range of Motion Bilaterally, No CVAT Extremities-No Cyanosis, No Clubbing, No Edema Nuero-Cranial Nerves II-XII grossly intact, Motor WNL, DTRs WNL, Strength WNL, Non Focal Psych-Normal Mood (9) Sleep apnea: (10) Aortic stenosis: Results & Data ([facility]) Vital Signs (Past 12 Hours) Vital Signs Temp Pulse Pulse Resp BP BP Pulse Ox 07/11/19 10:56 36.8 C 118 H 20 100/66 92 07/11/19 09:36 119 H 07/11/19 07:07 36.7 C 132 H 24 116/81 94 07/11/19 03:33 36.9 C 108 H 16 119/81 95 07/11/19 00:00 36.5 C 110 H 114 H 16 103/71 96
--- NOTE | 2019-07-11 11:38 | Cardiology Consultation ---
Date of Consultation July 11, 2019 Assessment & Plan (1) NSTEMI (non-ST elevated myocardial infarction): (2) Neurogenic claudication due to lumbar spinal stenosis: (3) Diabetes mellitus, type 2: (4) History of left-sided carotid endarterectomy: (5) Chronic kidney disease, stage III (moderate): This patient is best treated conservatively as long as he remains stable and without evidence of cardiac symptoms. Any intervention would require heparin and antiplatelet agents which could then result in postoperative bleeding. It is in his best interest that we treat him conservatively until surgery feels comfortable that we could use heparin and antiplatelet agents. They have given us to go ahead to start aspirin tomorrow. He has a sinus tachycardia on the telemetry and a blood pressure systolic of around 100. He is anemic with a hemoglobin 8.6. He does have blood on hold I think he should be transfused 1 unit of blood today hopefully, that will improve his tachycardia as well as his blood pressure and he can then be started on appropriate medications including a beta-hernesto. He normally takes an RAYSA inhibitor at home which has been held due to low blood pressure. I will obtain an echocardiogram today. I think his best option is a cardiac catheterization early next week and certainly before discharge. I discussed this with the patient and his and they are agreeable to the current considerations, treatment and future plan. History of Present Illness Attending Physician: Carl Bolanos, DO History of Present Illness This is a 78-year-old male patient, diabetic with multiple complications due to diabetes, he has a history of vascular disease including carotid endarterectomy about a year ago. He underwent a lumbar laminectomy yesterday and although his postoperative course has been stable he had a postop EKG which was markedly abnormal. At the time of the EKG he was completely asymptomatic and was actually eating dinner. He was transferred to the PCU and cardiac markers were obtained. His troponins slowly elevated and have peaked at 13. The patient is completely surprised that he is having heart problems as he does not have any symptoms and feels okay after his surgery. In reviewing his previous EKGs he most likely had a silent inferior wall myocardial infarction which most likely extended yesterday postop. It could be that he has a totally occluded right coronary artery with collaterals and with the stress of surgery resulted in watershed ischemia. He has no prior history of heart disease. Currently he is comfortable and sitting in a chair. He denies shortness of breath or chest pain. He is in a sinus tachycardia on the monitor which may be the result of anemia following his surgery. He has not been placed on antiplatelet agents or anticoagulation per surgery. Allergies Allergy/AdvReac Type Severity Reaction Status Date / Time hydrocodone [From Vicodin] Allergy Mild pruritus Verified 07/09/19 13:36 oxycodone Allergy Mild pruritus Verified 07/09/19 13:36 Home Medications Home Medications Medication Instructions Recorded Confirmed Type Trulicity 1.5 mg SUBCUT WK 11/13/18 07/08/19 History aspirin 40.5 mg PO HS 11/13/18 07/08/19 History atorvastatin 40 mg PO HS 11/13/18 07/08/19 History cholecalciferol (vitamin D3) 2,000 unit PO QAM 11/13/18 07/08/19 History [Vitamin D3] cinnamon bark [Cinnamon] 500 mg PO HS 11/13/18 07/08/19 History cyanocobalamin (vitamin B-12) 1,000 mcg PO QAM 11/13/18 07/08/19 History folic acid 1 mg PO QAM 11/13/18 07/08/19 History furosemide 20 mg PO BID 11/13/18 07/08/19 History methotrexate sodium 12.5 mg PO WK 11/13/18 07/08/19 History valacyclovir 500 mg PO HS 11/13/18 07/08/19 History metformin 500 mg tablet,extended 1,000 mg PO PM tab 01/08/19 07/08/19 History release 24 hr repaglinide 2 mg tablet 2 mg PO TIDM tab 01/08/19 07/08/19 History prednisone 5 mg tablet 10 mg PO QAM tab 02/24/19 07/08/19 History celecoxib 200 mg capsule 200 mg PO BID cap 05/08/19 07/08/19 History lisinopril 20 mg PO QAM 07/04/19 07/08/19 History Patient History Medical History Aortic stenosis "Mild" (LAVERNE 1.3cm2, MG 12.2mmhg) per 11/2018 DSE BPH (benign prostatic hyperplasia) Carotid artery stenosis s/p left CEA 11/2018 Chronic kidney disease, stage III (moderate) follows with nephrology (Dr. Hardy) Degenerative disc disease Diabetes mellitus, type 2 NIDDM Dry eye syndrome Gout Hyperlipidemia Hypertension Pericarditis 1994 Rheumatoid arthritis on chronic prednisone 10mg daily Sleep apnea s/p UPPP/T&A Surgical History Fusion of spine LUMBAR X 2 History of adenoidectomy History of carpal tunnel release LEFT History of cataract surgery RT/LEFT History of colonoscopy History of herniorrhaphy UMBILICAL HERNIA History of left-sided carotid endarterectomy 11/2018 ([facility]) History of tonsillectomy History of tooth extraction S/P pericardiocentesis 1994 S/P UPPP (uvulopalatopharyngoplasty) Family History Mother CHF (congestive heart failure) Sister CHF (congestive heart failure) Diabetes Social History Preferred Language: Palauan Communication Ability: Effective Parts Sales Representative Required: No Beliefs That Will Affect Care: None marital status: Current Living Situation: Spouse Other Information That Helps Us Care for You: No Feels Safe at Home: Yes Safety Concerns: Feels Safe At This Time Smoking Status: Former smoker Tobacco Type: cigarettes ; Do You Dip or Chew Tobacco: No ; Smoking End Date: 35 years ; Second Hand Exposure: No ; Tobacco Cessation Education Requested by Patient: No Hx Alcohol Use: No Hx Substance Use: No Review of Systems Review of Systems: All systems reviewed & are unremarkable except as noted in HPI & below Nothing additional to add Physical Exam Physical Exam: General: no acute distress and stated age Head: normocephalic, no masses, lesions, tenderness or abnormalities Eyes: conjunctiva are pink and non-injected, sclera clear Neck: supple, no adenopathy, no bruits, normal jugular venous pulse, no hepatojugular reflux Chest: normal shape and normal respiratory effort Lungs: clear to auscultation and percussion Cardiac Exam: - regular rate & rhythm, no murmurs gallops or rubs - normal S1, normal S2 Pulses: 2(+) throughout Abdomen: abdomen soft, non-tender, no abnormal masses and no hepatosplenomegaly Musculoskeletal: no gait disturbance, no joint inflammation, no deforming arthritis Extremities: no edema and no cyanosis Neuro: grossly normal exam Results & Data Vital Signs (Past 12 Hours) Vital Signs Temp Pulse Pulse Resp BP BP Pulse Ox 07/11/19 10:56 36.8 C 118 H 20 100/66 92 07/11/19 09:36 119 H 07/11/19 07:07 36.7 C 132 H 24 116/81 94 07/11/19 03:33 36.9 C 108 H 16 119/81 95 07/11/19 00:00 36.5 C 110 H 114 H 16 103/71 96 Laboratory Results Laboratory Results - last 24 hr 07/10/19 07/10/19 07/10/19 08:08 12:07 16:34 WBC RBC Hgb 8.6 L Hct 25.2 L MCV MCH MCHC RDW Std Deviation RDW Coeff of Maximo Plt Count MPV Sodium Potassium Chloride Carbon Dioxide Anion Gap BUN Creatinine Est Cr Clr Drug Dosing Est GFR ( Amer) Est GFR (Non-Af Amer) BUN/Creatinine Ratio Glucose POC Glucose 145 H 121 H Calcium Troponin I 07/10/19 07/10/19 07/10/19 17:09 18:21 20:29 WBC RBC Hgb Hct MCV MCH MCHC RDW Std Deviation RDW Coeff of Maximo Plt Count MPV Sodium Potassium Chloride Carbon Dioxide Anion Gap BUN Creatinine Est Cr Clr Drug Dosing Est GFR ( Amer) Est GFR (Non-Af Amer) BUN/Creatinine Ratio Glucose POC Glucose 172 H 169 H Calcium Troponin I 0.200 H* 07/11/19 07/11/19 07/11/19 00:17 06:47 06:47 WBC 8.16 RBC 2.68 L Hgb 8.6 L Hct 25.6 L MCV 95.5 MCH 32.1 MCHC 33.6 RDW Std Deviation 51.2 H RDW Coeff of Maximo 15.1 H Plt Count 159 MPV 8.9 Sodium Potassium Chloride Carbon Dioxide Anion Gap BUN Creatinine Est Cr Clr Drug Dosing Est GFR ( Amer) Est GFR (Non-Af Amer) BUN/Creatinine Ratio Glucose POC Glucose Calcium Troponin I 4.570 H* Cancelled 07/11/19 07/11/19 06:47 07:11 WBC RBC Hgb Hct MCV MCH MCHC RDW Std Deviation RDW Coeff of Maximo Plt Count MPV Sodium 138 Potassium 4.3 Chloride 108 H Carbon Dioxide 25 Anion Gap 5.0 BUN 24 H Creatinine 1.37 Est Cr Clr Drug Dosing 46.7 Est GFR ( Amer) 57.7 Est GFR (Non-Af Amer) 49.7 BUN/Creatinine Ratio 17.4 Glucose 120 H POC Glucose 145 H Calcium 8.8 Troponin I 13.200 H* Medications Administered Current Inpatient Medications Acetaminophen (Tylenol) 1,000 mg PO Q8H PRN PRN Reason: MILD Pain Rating 1,2,3 Stop: 08/07/19 14:10 Last Admin: 07/10/19 15:49 Dose: 1,000 mg Documented by: Al Hydrox/Mg Hydrox/Simethicone (Maalox) 30 ml PO Q6H PRN PRN Reason: Dyspepsia Stop: 08/08/19 17:34 Aspirin (Ecotrin) 325 mg PO BID [facility] Stop: 08/10/19 11:29 Atorvastatin Calcium (Lipitor) 40 mg PO HS [facility] Stop: 08/07/19 20:59 Last Admin: 07/10/19 20:26 Dose: 40 mg Documented by: Bisacodyl (Dulcolax) 10 mg [place] DAILY PRN PRN Reason: Constipation Stop: 08/08/19 17:34 Clopidogrel Bisulfate (Plavix) 75 mg PO [facility] Stop: 08/11/19 08:59 Cyanocobalamin (Vitamin B-12) [facility] Stop: 08/08/19 08:59 Last Admin: 07/11/19 07:59 Dose: 1,000 mcg Documented by: Dextrose (Dextrose 50%) 25 - 50 ml IV UD PRN; Protocol PRN Reason: Hypoglycemia Protocol Stop: 08/07/19 15:21 Diphenhydramine HCl (Benadryl Capsule) 25 mg PO Q6H PRN PRN Reason: Allergic Rhinitis/Insomnia Stop: 08/08/19 17:34 Docusate Sodium (Colace) 100 mg PO BID [facility] Stop: 08/07/19 20:59 Last Admin: 07/11/19 07:59 Dose: 100 mg Documented by: Famotidine (Pepcid) 20 mg PO Q12H PRN PRN Reason: Dyspepsia Stop: 08/08/19 17:34 Folic Acid (Folvite) [facility] [place] Stop: 08/08/19 08:59 Last Admin: 07/11/19 08:00 Dose: 1 mg Documented by: Glucagon (Glucagen) 1 mg SQ UD PRN; Protocol PRN Reason: Hypoglycemia Protocol Stop: 08/07/19 15:21 Glucose (Glucose 40%) 15 - 30 gm PO UD PRN; Protocol PRN Reason: Hypoglycemia Protocol Stop: 08/07/19 15:21 Glucose (Dex4 Glucose) 4 - 8 tabs PO UD PRN; Protocol PRN Reason: Hypoglycemia Protocol Stop: 08/07/19 15:21 Hydromorphone HCl (Dilaudid) 0.5 mg IV Q3H PRN PRN Reason: moderate pain (scale 4-6) Stop: 07/22/19 14:10 Last Admin: 07/11/19 07:58 Dose: 0.5 mg Documented by: Hydromorphone HCl (Dilaudid) 1 mg IV Q3H PRN PRN Reason: severe pain (scale 7-10) Stop: 07/22/19 14:10 Last Admin: 07/10/19 11:55 Dose: 1 mg Documented by: Lorazepam (Ativan) 1 mg in 2 mls @ 2 mls/min IV Q6H PRN PRN Reason: Anxiety/Spasms Stop: 08/07/19 14:10 Sodium Chloride (Nss) 250 mls @ 15 mls/hr IV .[id number] PRN PRN Reason: For Transfusion Stop: 07/11/19 21:28 Influenza Virus Vaccine Quadrival (Flu Vaccine, Do Not Administer) 1 ea N/A PRN PRN PRN Reason: Notification Stop: 08/08/19 17:34 Insulin Aspart (Novolog Flexpen) 0 units SC ACHS [facility] Stop: 08/08/19 20:59 Last Admin: 07/11/19 08:00 Dose: 2 units Documented by: Lorazepam (Ativan) 1 mg PO Q6H PRN PRN Reason: Anxiety/spasms Stop: 08/07/19 14:10 Magnesium Hydroxide (Milk Of Magnesia) 30 ml PO DAILY PRN PRN Reason: Constipation Stop: 08/08/19 17:34 Miscellaneous (Carbohydrates For Hypoglycemia) 15 - 30 gm PO UD PRN PRN Reason: Hypoglycemia Protocol Stop: 08/07/19 15:21 Naloxone HCl (Narcan) 0.1 mg IV Q5M PRN; Protocol PRN Reason: Oversedation/Resp Depression Stop: 08/08/19 17:34 Ondansetron HCl (Zofran) 4 mg IV Q6H PRN PRN Reason: Nausea &/or Vomiting Stop: 08/08/19 17:34 Ondansetron HCl (Zofran Odt) 4 mg PO Q6H PRN PRN Reason: Nausea Stop: 08/08/19 17:34 Pneumococcal Polyvalent Vaccine (Pneumococcal Vacc, Do Not Administer) 1 ea N/A PRN PRN PRN Reason: Notification Stop: 08/08/19 17:34 Polyethylene Glycol (Miralax Powder Packet) 17 gm PO Q6 [place] Stop: 08/09/19 05:59 Last Admin: 07/11/19 10:48 Dose: 17 gm Documented by: Prednisone (Prednisone) 10 mg PO DAILY [facility] Stop: 08/11/19 08:59 Senna/Docusate Sodium (Senokot S) 2 tab PO [facility] Stop: 08/08/19 20:59 Last Admin: 07/10/19 20:25 Dose: 2 tab Documented by: Sodium Biphosphate/Sodium Phosphate (Fleet Enema) 132 ml [place] ONE PRN PRN Reason: Constipation Stop: 08/08/19 17:34 Tramadol HCl (Ultram) 50 - 100 mg PO Q4H PRN PRN Reason: Moderate-Severe Pain Stop: 08/07/19 14:10 Last Admin: 07/11/19 10:41 Dose: 100 mg Documented by: Valacyclovir HCl (Valtrex) 500 mg PO [facility] Stop: 08/07/19 20:59 Last Admin: 07/10/19 20:24 Dose: 500 mg Documented by: Vitamin D (Vitamin D3) 2,000 units PO QAM [facility] Stop: 08/08/19 08:59 Last Admin: 07/11/19 08:00 Dose: 2,000 units Documented by:
[2019-07-11] MEDS: ASPIRIN 325 MG ECTAB PO SCH ×2 (12:17→21:08)
--- NOTE | 2019-07-11 13:38 | Orthopedic Progress Note ---
Date of Service July 11, 2019 Assessment & Plan (1) Neurogenic claudication due to lumbar spinal stenosis: At this time we will continue on antibiotics until cultures are complete. I did place him on back on his prednisone that he been taking preoperatively. He is okay for cardiac cath most likely Sunday. Present on Admission?: Yes Subjective Back pain controlled leg pain improved. Physical Exam Physical Exam: Patient is in a chair at the bedside. Appears comfortable. Strength testing. Results & Data ([facility]) Vital Signs (Past 12 Hours) Vital Signs Temp Pulse Pulse Resp BP BP Pulse Ox 07/11/19 09:36 119 H 07/11/19 07:07 36.7 C 132 H 24 116/81 94 07/11/19 03:33 36.9 C 108 H 16 119/81 95 07/11/19 00:00 36.5 C 110 H 114 H 16 103/71 96 07/10/19 22:51 94/64 L
--- NOTE | 2019-07-11 14:06 | Electrocardiogram Report ---
Test Reason : Blood Pressure : / mmHG Vent. Rate : 115 BPM Atrial Rate : 115 BPM P-R Int : 200 ms QRS Dur : 100 ms QT Int : 342 ms P-R-T Axes : 054 007 152 degrees QTc Int : 473 ms Sinus tachycardia Marked ST abnormality, possible anterolateral subendocardial injury Abnormal ECG When compared with ECG of 08-JUL-2019 17:50, ST now depressed in Anterior leads T wave inversion now evident in Anterolateral leads Confirmed by Teo Childs ([id number]) on 07/11/2019 2:06:06 PM Referred By: Carl Bolanos Confirmed By:Teo Childs
[2019-07-11] MEDS: CEFAZOLIN 2000MG 2,000 MG/15 ML SYR IV SCH ×2 (14:11→21:10)
--- NOTE | 2019-07-11 16:41 | Electrocardiogram Report ---
Test Reason : Blood Pressure : / mmHG Vent. Rate : 114 BPM Atrial Rate : 114 BPM P-R Int : 168 ms QRS Dur : 098 ms QT Int : 342 ms P-R-T Axes : 034 -01 113 degrees QTc Int : 471 ms Sinus tachycardia Inferior infarct , age undetermined Marked ST abnormality, possible lateral subendocardial injury Abnormal ECG When compared with ECG of 10-JUL-2019 17:03, (unconfirmed) Inferior infarct is now Present ST less depressed in Anterolateral leads T wave inversion no longer evident in Anterolateral leads Confirmed by Teo Childs ([id number]) on 07/11/2019 4:41:19 PM Referred By: Carl Bolanos Confirmed By:Teo Childs
[2019-07-11] MEDS: VALACYCLOVIR HCL 500 MG TABLET PO SCH (21:08)
[2019-07-11] MEDS: ATORVASTATIN 40 MG TAB PO SCH (21:08)
[2019-07-11] MEDS: DOCUSATE SODIUM/SENNA 50/8.6MG TAB PO SCH (21:08)
[2019-07-12] MEDS: POLYETHYLENE (MIRALAX) 17 GM PACK PO SCH ×3 (05:27→17:02)
[2019-07-12] MEDS: CEFAZOLIN 2000MG 2,000 MG/15 ML SYR IV SCH ×3 (05:54→20:22)
--- NOTE | 2019-07-12 07:18 | Hospitalist Progress Note ---
Date of Service July 12, 2019 Assessment & Plan (1) NSTEMI (non-ST elevated myocardial infarction): Start ASA 325 Daily, One Unit Blood, Start Plavix today, [facility] Sunday, NPO 07/14 1200 AM (2) Neurogenic claudication due to lumbar spinal stenosis: - Directly admitted by Dr. Bolanos for planned L1-L2 decompression and fusion on 07/09 -Procedure #1 removal of posterior instrumentation L2-L3. #2 exploration fusion L2-L3. #3 lumbar decompression with bilateral medial facetectomies foraminotomies L1-L2. #4 posterior spinal fusion L1-L2 L2-L3. #5 placement posterior instrumentation L1 and L3. #6 placement of infuse collagen sponge, master graft in the posterior lateral gutters L1-L3. #7 placement of stimulant beads impregnated with vancomycin gentamicin in the interbody space and posterior lateral gutters. Resume Post Op Care per Surgery Protocol Incentive Spirometry 10x per Hour Resume Relative Home Meds Where Appropriate PT/OT with appropriate fall precautions PO Pain control Monitor Daily Labs (3) Diabetes mellitus, type 2: -Hgb A1c 8.0 03/2019 -Hold home metformin, Prandin, Trulicity and utilize NovoLog per protocol while hospitalized (4) Rheumatoid arthritis: -Typically managed on methotrexate and prednisone -Given surgery tomorrow will hold methotrexate and prednisone -Discussed with Dr. Weiner (patient's employee welfare manager), may hold methotrexate for 2 weeks postoperatively (5) Chronic kidney disease, stage III (moderate): -Baseline creatinine ~ 1.2 -Noted was started on lisinopril 05/09 (by nephrology Dr. Hardy) (6) Hypertension: -BP controlled -Holding lisinopril and furosemide as above (7) Hyperlipidemia: -Continue statin (8) DVT prophylaxis: Acute Post op blood loss anemia-Monitor H&H, One unit ordered sec to Cardiac Issue Trop still rising Labs Checked ROS-No Headache, No Visual Changes, No Nausea, No Vomiting, No Fever, No Chills, No Neck Pain or Stiffness, No Chest Pain, No Palpitations, No SOB, No ALMEIDA, No Cough, No Sputum, No Wheezing, No Abdominal Pain, No Diarrhea, No Hematemesis, No Hemoptysis, No Unexpected Weight Loss, No Flank pain, No Melena, No Hematoche stefani, No Frequency, No Urgency, No Burning, No Hematuria, No Rashes, No Diaphoresis. Appetite is Normal, +Back Pain Physical Exam Gen-AAO x 3, NAD, Afebrile, Obese Head-NCAT, EOMI, PERRLA, Anicteric Sclera, No Posterior Pharyngeal Erythema Neck-Supple, No JVD, No Thyromegaly, No Masses, No LAD, No Bruits Lungs-Clear to Auscultation Bilaterally, No Rales, No Rhonchi, No Wheezing, No Crepitus Chest-Tachy No S4, +S1, +S2, No S3, No Murmurs, No Rubs, No Gallops, No Ectopy Abdomen-Soft, Bowel Sounds Present, Non Tender, Non Distended, No Hepatomegaly, No Splenomegaly, No Palpable Masses, No Rebound, No Rigidity, No Guarding Musculoskeletal-Full Range of Motion Bilaterally, No CVAT Extremities-No Cyanosis, No Clubbing, No Edema Nuero-Cranial Nerves II-XII grossly intact, Motor WNL, DTRs WNL, Strength WNL, Non Focal Psych-Normal Mood (9) Sleep apnea: (10) Aortic stenosis: Results & Data ([facility]) Vital Signs (Past 12 Hours) Vital Signs Temp Pulse Pulse Resp BP BP Pulse Ox 07/12/19 07:12 36.7 C 107 H 20 99/62 L 95 07/12/19 03:45 36.7 C 112 H 18 116/77 96 07/11/19 23:00 104 H
[2019-07-12 07:19] LABS: Hematocrit (blood only) 28.8 % (42-52); Hemoglobin 9.6 g/dL (14.0-18.0); Mean Corpuscular Hemoglobin 31.1 pg (25-34); Mean Corpuscular Hgb Conc 33.3 g/dL (32-36); Mean Corpuscular Volume 93.2 fL (80-100); Mean Platelet Volume 9.1 fL (7.4-10.4); Platelet Count 147 K/uL (130-400); RDW Coefficient of Variation 17.1 % (11.5-14.5); RDW Standard Deviation 56.3 fL (36.4-46.3); Red Blood Count 3.09 M/uL (4.7-6.1); White Blood Count 9.32 K/uL (4.8-10.8)
[2019-07-12] MEDS: CLOPIDOGREL BISULFATE 75 MG TAB PO SCH ×2 (07:26→07:28)
[2019-07-12] MEDS: FOLIC ACID 1 MG TAB PO SCH (07:28)
[2019-07-12] MEDS: CYANOCOBALAMIN 500 MCG TABLET (VITAMIN B-12) PO SCH (07:29)
[2019-07-12] MEDS: predniSONE 10 MG TABLET PO SCH (07:30)
[2019-07-12] MEDS: CHOLECALCIFEROL 1,000 UNITS 25 MCG TAB PO SCH (07:30)
[2019-07-12 07:46] LABS: Albumin Level 2.6 gm/dl (3.4-5.0); BUN Creatinine Ratio 17.2 (10-20); Calcium 9.1 mg/dl (8.5-10.1); Creatinine Clr Calc Pharmacy 50.3 ml/min; Est GFR (African American) 63.2; Est GFR (Non-African American) 54.5; Potassium 4.8 mmol/L (3.5-5.1)
[2019-07-12 07:54] LABS: Albumin Globulin Ratio 0.9 (0.9-2); Bilirubin,Total 0.6 mg/dl (0.2-1); Total Protein 5.6 gm/dl (6.4-8.2); Troponin I 25.8 ng/ml (0-0.045)
--- NOTE | 2019-07-12 08:57 | Orthopedic Progress Note ---
Date of Service July 12, 2019 Assessment & Plan (1) Neurogenic claudication due to lumbar spinal stenosis: This time we will encourage activity as tolerated. Any physical limitations would be limited by medical recommendation. Still waiting for cultures to determine organism. Present on Admission?: Yes Physical Exam Physical Exam: Patient is good strength testing. Results & Data ([facility]) Vital Signs (Past 12 Hours) Vital Signs Temp Pulse Pulse Resp BP BP Pulse Ox 07/12/19 07:12 36.7 C 107 H 20 99/62 L 95 07/12/19 03:45 36.7 C 112 H 18 116/77 96 07/11/19 23:00 104 H
[2019-07-12] MEDS ORDERED: ATORVASTATIN 40 MG TAB PO SCH (09:00)
[2019-07-12] MEDS ORDERED: ASPIRIN 81 MG ECTAB PO SCH (09:00)
[2019-07-12] MEDS: DOCUSATE SODIUM 100 MG CAP PO SCH ×2 (09:21→20:15)
[2019-07-12] MEDS: INSULIN ASPART 100 UNITS/ML 3 ML PEN SC SCH ×4 (09:36→20:18)
--- NOTE | 2019-07-12 10:42 | Cardiology Progress Note ---
Date of Service July 12, 2019 Assessment & Plan (1) NSTEMI (non-ST elevated myocardial infarction): (2) Hyperlipidemia: Mr Mallory is a 78 year old male with a history of type 2 diabetes mellitus, dyslipidemia, hypertension, and carotid disease with history of past left carotid endarterectomy. He had a nonischemic dobutamine stress echocardiogram performed in November,, at which time his ejection fraction was normal, at 55 to 59%. Aortic valve sclerosis was noted without boyd aortic valve stenosis. The patient was admitted on 07/08/2019 with a recent progressive decline in his functional capacity and had been using a walker to ambulate. An MRI had revealed advanced stenosis of the L1-L2 level with market fluid collection in the disc space, he therefore underwent semi-emergent lumbar decompression of surgery on 07/09/2019. Postoperative EKG revealed marketed ST segment depression, well demonstrated on his EKG performed 07/10/2019 with 2 mm horizontal and downsloping ST segment depression in the lateral precordial leads in the high lateral leads I and aVL, as well as ST segment depression in lead V3. ST segment depression had improved on repeat EKG yesterday 07/11/2019. His troponin has since increased to 25.8 NG per mL. The patient remains asymptomatic from a cardiac perspective without chest pain or shortness of breath at present, or otherwise. Echocardiogram reveals new severe left ventricular systolic dysfunction with ejection fraction in the range of 25 to 30%, down from 55 to 59% in November,. He is currently postoperative day 3 from his lumbar spine decompressive surgery. He received aspirin this morning and also received clopidogrel. My personal pr eference would be to hold off on clopidogrel until after his coronary artery anatomy is delineated. Caution is advised with antiplatelet therapy due to his recent spinal surgery. He is therefore not on unfractionated heparin, and once again I think we need to be very cautious with his aspirin therapy as well in order to reduce the risk of postoperative epidural hematoma. I have reduced the dose and frequency of his aspirin therapy to 81 mg daily. He remains on his prior to hospital dose of atorvastatin 40 mg daily. He has not on a beta-hernesto due to relative low blood pressure with systolic blood pressure most recently 99 mmHg, he has not an RAYSA inhibitor or angiotensin receptor hernesto for the same reason, hypotension. Continue supportive care for now. Repeat EKG tomorrow Plan for diagnostic cardiac catheterization early next week. Findings and plan discussed with patient at length and questions answered to his satisfaction. Case discussed with Dr Goldberg by phone. Subjective Patient feeling well in the bedside chair. Denies any chest discomfort, shortness of breath, back or leg pain. Telemetry reveals sinus tachycardia 112 bpm. Review of Systems Review of Systems: All systems reviewed & are unremarkable except as noted in HPI & below Physical Exam Physical Exam: Temp Pulse Resp BP Pulse Ox 36.7 C 97 H 20 99/62 L 95 07/12/19 07:12 07/12/19 09:22 07/12/19 07:12 07/12/19 07:12 07/12/19 07:12 Constitutional: WD/WN, vitals as above Respiratory: normal respiratory effort, lungs clear to auscultation Cardiovascular: RRR, no murmur, no edema Gastrointestinal (Abdomen): normal bowel sounds, soft, nontender, no hepatosplenomegaly Skin: no rashes, warm and dry Lumbar incision dressed, dressing not removed Neurologic: PERRL, EOMI, accommodation nl, no face palsy, no dysarthria Results & Data Vital Signs (Past 12 Hours) Vital Signs Temp Pulse Pulse Resp BP BP Pulse Ox 07/12/19 09:22 97 H 07/12/19 07:12 36.7 C 107 H 20 99/62 L 95 07/12/19 03:45 36.7 C 112 H 18 116/77 96 07/11/19 23:00 104 H Laboratory Results Cardiac Enzymes 07/11/19 07/11/19 07/11/19 Range/Units 11:50 17:41 23:31 AST (15-37) U/L Troponin I 19.600 H* 18.300 H* 21.800 H* (0-0.045) ng/ml 07/12/19 07/12/19 Range/Units 07:03 07:03 AST 141 H (15-37) U/L Troponin I 25.800 H* Cancelled (0-0.045) ng/ml CBC 07/12/19 Range/Units 07:03 WBC 9.32 (4.8-10.8) K/uL RBC 3.09 L (4.7-6.1) M/uL Hgb 9.6 L (14.0-18.0) g/dL Hct 28.8 L (42-52) % Plt Count 147 (130-400) K/uL Comprehensive Metabolic Panel 07/12/19 Range/Units 07:03 Sodium 141 (136-145) mmol/L Potassium 4.8 (3.5-5.1) mmol/L Chloride 109 H (98-107) mmol/L Carbon Dioxide 25 (21-32) mmol/L BUN 22 H (7-18) mg/dl Creatinine 1.27 (0.6-1.4) mg/dl Glucose 123 H (70-99) mg/dl Calcium 9.1 (8.5-10.1) mg/dl AST 141 H (15-37) U/L ALT 24 (12-78) U/L Alkaline Phosphatase 56 (45-117) U/L Total Protein 5.6 L (6.4-8.2) gm/dl Albumin 2.6 L (3.4-5.0) gm/dl Intake and Output 07/11/19 07/12/19 07/12/19 22:59 06:59 14:59 Intake Total 240 / 990 100 / 990 Output Total 40 / 370 Balance 200 / 620 100 / 620 Intake: Oral 240 / 680 100 / 680 Output: Drain Output 40 / 70 Lower Back VICENTE 40 / 70 Other: # Unmeasured Voids 1
[2019-07-12] MEDS: TRAMADOL HCL 50 MG TABLET PO PRN ×2 (13:06→20:14)
[2019-07-12] MEDS: DOCUSATE SODIUM/SENNA 50/8.6MG TAB PO SCH (20:15)
[2019-07-12] MEDS: ATORVASTATIN 40 MG TAB PO SCH (20:16)
[2019-07-12] MEDS: VALACYCLOVIR HCL 500 MG TABLET PO SCH (20:16)
[2019-07-13] MEDS: POLYETHYLENE (MIRALAX) 17 GM PACK PO SCH ×4 (01:28→17:28)
[2019-07-13] MEDS: CEFAZOLIN 2000MG 2,000 MG/15 ML SYR IV SCH ×3 (05:37→22:08)
--- NOTE | 2019-07-13 07:02 | Hospitalist Progress Note ---
Date of Service July 13, 2019 Assessment & Plan (1) NSTEMI (non-ST elevated myocardial infarction): Continue ASA 81 mg Daily, One Unit Blood, Hold Plavix until after cath, May need CABG, C Sunday or Sunday, NPO after MN tonight (2) Neurogenic claudication due to lumbar spinal stenosis: -Directly admitted 07/[address] Bolanos for planned L1-L2 decompression and fusion on 07/09 -Procedure #1 removal of posterior instrumentation L2-L3. #2 exploration fusion L2-L3. #3 lumbar decompression with bilateral medial facetectomies foraminotomies L1-L2. #4 posterior spinal fusion L1-L2 L2-L3. #5 placement posterior instrumentation L1 and L3. #6 placement of infuse collagen sponge, master graft in the posterior lateral gutters L1-L3. #7 placement of stimulant beads impregnated with vancomycin gentamicin in the interbody space and posterior lateral gutters. Resume Post Op Care per Surgery Protocol Incentive Spirometry 10x per Hour Resume Relative Home Meds Where Appropriate PT/OT with appropriate fall precautions PO Pain control Monitor Daily Labs (3) Diabetes mellitus, type 2: -Hgb A1c 8.0 03/2019 -Hold home metformin, Prandin, Trulicity and utilize NovoLog per protocol while hospitalized (4) Rheumatoid arthritis: -Typically managed on methotrexate and prednisone -Given surgery tomorrow will hold methotrexate and prednisone -Discussed with Dr. Weiner (patient's bridge instructor), may hold methotrexate for 2 weeks postoperatively (5) Chronic kidney disease, stage III (moderate): -Baseline creatinine ~ 1.2 -Noted was started on lisinopril 05/09 (by nephrology Dr. Hardy) (6) Hypertension: -BP controlled -Holding lisinopril and furosemide as above (7) Hyperlipidemia: -Continue statin (8) DVT prophylaxis: Acute Post op blood loss anemia-Monitor H&H, One unit ordered sec to Cardiac Issue Hb 9.6 07/12 (9) Sleep apnea: (10) Aortic stenosis: Echo done Labs Checked ROS-No Headache, No Visual Changes, No Nausea, No Vomiting, No Fever, No Chills, No Neck Pain or Stiffness, No Chest Pain, No Palpitations, No SOB, No ALMEIDA, No Cough, No Sputum, No Wheezing, No Abdominal Pain, No Diarrhea, No Hematemesis, No Hemoptysis, No Unexpected Weight Loss, No Flank pain, No Melena, No Hematochezia, No Frequency, No Urgency, No Burning, No Hematuria, No Rashes, No Diaphoresis. Appetite is Normal, +Back Pain Physical Exam Gen-AAO x 3, NAD, Afebrile, Obese Head-NCAT, EOMI, PERRLA, Anicteric Sclera, No Posterior Pharyngeal Erythema Neck-Supple, No JVD, No Thyromegaly, No Masses, No LAD, No Bruits Lungs-Clear to Auscultation Bilaterally, No Rales, No Rhonchi, No Wheezing, No Crepitus Chest-Tachy No S4, +S1, +S2, No S3, No Murmurs, No Rubs, No Gallops, No Ectopy Abdomen-Soft, Bowel Sounds Present, Non Tender, Non Distended, No Hepatomegaly, No Splenomegaly, No Palpable Masses, No Rebound, No Rigidity, No Guarding Musculoskeletal-Full Range of Motion Bilaterally, No CVAT Extremities-No Cyanosis, No Clubbing, No Edema Nuero-Cranial Nerves II-XII grossly intact, Motor WNL, DTRs WNL, Strength WNL, Non Focal Psych-Normal Mood Results & Data ([facility]) Vital Signs (Past 12 Hours) Vital Signs Temp Pulse Pulse Resp BP Pulse Ox 07/13/19 00:15 36.4 C L 104 H 18 97/66 L 98 07/12/19 23:39 100 H 07/12/19 19:42 37.1 C 100 H 16 106/71 98
[2019-07-13 07:06] LABS: Hematocrit (blood only) 29.5 % (42-52); Hemoglobin 9.9 g/dL (14.0-18.0); Mean Corpuscular Hemoglobin 31.6 pg (25-34); Mean Corpuscular Hgb Conc 33.6 g/dL (32-36); Mean Corpuscular Volume 94.2 fL (80-100); Nucleated RBC # (auto) 0.03 K/uL (0-0); Nucleated RBC % (auto) 0.3 %; Platelet Count 161 K/uL (130-400); RDW Coefficient of Variation 17.4 % (11.5-14.5); RDW Standard Deviation 57.8 fL (36.4-46.3); Red Blood Count 3.13 M/uL (4.7-6.1); White Blood Count 7.68 K/uL (4.8-10.8)
[2019-07-13 07:40] LABS: BUN Creatinine Ratio 18.8 (10-20); Calcium 9.1 mg/dl (8.5-10.1); Creatinine Clr Calc Pharmacy 51.3 ml/min; Est GFR (Non-African American) 53.5; Potassium 4.1 mmol/L (3.5-5.1)
[2019-07-13] MEDS: TRAMADOL HCL 50 MG TABLET PO PRN ×3 (07:42→20:40)
[2019-07-13] MEDS: CYANOCOBALAMIN 500 MCG TABLET (VITAMIN B-12) PO SCH (07:44)
[2019-07-13] MEDS: DOCUSATE SODIUM/SENNA 50/8.6MG TAB PO SCH ×2 (07:45→20:39)
[2019-07-13] MEDS: DOCUSATE SODIUM 100 MG CAP PO SCH ×2 (07:45→20:40)
[2019-07-13] MEDS: predniSONE 10 MG TABLET PO SCH (07:46)
[2019-07-13] MEDS: ASPIRIN 81 MG ECTAB PO SCH (07:47)
[2019-07-13] MEDS: FOLIC ACID 1 MG TAB PO SCH (07:48)
[2019-07-13] MEDS: CHOLECALCIFEROL 1,000 UNITS 25 MCG TAB PO SCH (07:48)
[2019-07-13] MEDS: INSULIN ASPART 100 UNITS/ML 3 ML PEN SC SCH ×4 (07:52→23:08)
--- NOTE | 2019-07-13 08:44 | Orthopedic Progress Note ---
Date of Service July 13, 2019 Assessment & Plan (1) Fusion of spine: Patient is stable postop day #4. We will continue with his current care. Continue pain control measures GI and DVT prophylaxis. Proceed with plans with the cardiology. We will continue to follow. Subjective Patient is seen postop day #4. Neurologically he is doing well. Is not having any radicular complaints at this point. Some mild soreness in the back itself. He is still tachycardic at this point. There are plans for him to undergo a catheterization early this week. He denies any current chest pain, shortness of breath, numbness or tingling. Physical Exam Physical Exam: On exam he is alert and oriented. He is able to move all of his extremities to gravity. Sensation and strength are grossly intact. Gait was not observed. Dressing is clean dry and intact. VICENTE drain is placed out 30 this shift and 40 on the last. Results & Data ([facility]) Vital Signs (Past 12 Hours) Vital Signs Temp Pulse Pulse Resp BP Pulse Ox 07/13/19 07:18 37.2 C 119 H 18 119/82 94 07/13/19 00:15 36.4 C L 104 H 18 97/66 L 98 07/12/19 23:39 100 H
--- NOTE | 2019-07-13 10:12 | Electrocardiogram Report ---
Test Reason : Blood Pressure : / mmHG Vent. Rate : 117 BPM Atrial Rate : 117 BPM P-R Int : 160 ms QRS Dur : 098 ms QT Int : 330 ms P-R-T Axes : 018 019 143 degrees QTc Int : [address] depression, consider subendocardial injury Diffuse Nonspecific T wave abnormality Abnormal ECG When compared with ECG of 11-JUL-2019 06:22, Criteria for Inferior infarct no longer present Otherwise no significant change Confirmed by Victor M Gomez ([id number]) on 07/13/2019 10:12:18 AM Referred By: Carl Bolanos Confirmed By:Victor M Gomez
--- NOTE | 2019-07-13 11:03 | Cardiology Progress Note ---
Date of Service July 13, 2019 Assessment & Plan (1) NSTEMI (non-ST elevated myocardial infarction): (2) Acute HFrEF (heart failure with reduced ejection fraction): Summary of admission described in my note dated 07/12/2019. Status post lumbar decompressive surgery on 07/09/2019. EKG performed this morning 07/13/2019 reveals sinus tachycardia at 117 bpm with [address] segment depression, most prominent in inferior and lateral leads. Antiplatelet therapy: Continue cautious aspirin 81 mg daily given recent spine surgery. Blood pressure a little bit improved this morning with systolic blood pressure of 119 as compared to 99 previously. Proceed with cautious furosemide 20 mg IV, and metoprolol tartrate. Given left ventricular systolic dysfunction, LVEF 25 to 30%, will transition him to succinate formulation after dose is determined. N.p.o. after midnight tonight, will be assessed regarding catheterization tomorrow. DVT prophylaxis: SCDs Subjective Patient accompanied by spouse, Rosalee, at bedside. He describes shortness of breath with minimal exertion such as walking to the bathroom. At rest sitting in the chair, his heart rate is in the range of 117 bpm, with higher rates with activity such as walking to the restroom. Back pain is perhaps a little bit worse today. Denies chest pain. Review of Systems Review of Systems: All systems reviewed & are unremarkable except as noted in HPI & below Physical Exam Physical Exam: Temp Pulse Resp BP Pulse Ox 37.2 C 119 H 18 119/82 94 07/13/19 07:18 07/13/19 07:18 07/13/19 07:18 07/13/19 07:18 07/13/19 07:18 Constitutional: WD/WN, vitals as above Respiratory: Bilateral rales to the basilar and midlung dubois. Cardiovascular: Rate/Rhythm: + tachycardic Heart Sounds: no murmur Vessels: + JVD Extremities: no edema Gastrointestinal (Abdomen): normal bowel sounds, soft, nontender, no hepatosplenomegaly Neurologic: PERRL, EOMI, accommodation nl, no face palsy, no dysarthria Results & Data Vital Signs (Past 12 Hours) Vital Signs Temp Pulse Pulse Resp BP Pulse Ox 07/13/19 07:18 37.2 C 119 H 18 119/82 94 07/13/19 00:15 36.4 C L 104 H 18 97/66 L 98 07/12/19 23:39 100 H
[2019-07-13] MEDS ORDERED: FUROSEMIDE 20 MG in SYRINGE 0 ML IV ONE (11:30)
[2019-07-13] MEDS: METOPROLOL TARTRATE 25 MG TAB PO SCH ×2 (12:10→20:39)
[2019-07-13] MEDS: ATORVASTATIN 40 MG TAB PO SCH (20:40)
[2019-07-13] MEDS: VALACYCLOVIR HCL 500 MG TABLET PO SCH (20:40)
[2019-07-14] MEDS: POLYETHYLENE (MIRALAX) 17 GM PACK PO SCH ×5 (01:11→23:49)
[2019-07-14] MEDS: CEFAZOLIN 2000MG 2,000 MG/15 ML SYR IV SCH ×3 (05:39→21:08)
[2019-07-14 06:51] LABS: Hematocrit (blood only) 28.7 % (42-52); Hemoglobin 9.7 g/dL (14.0-18.0); Mean Corpuscular Hemoglobin 31.2 pg (25-34); Mean Corpuscular Hgb Conc 33.8 g/dL (32-36); Mean Corpuscular Volume 92.3 fL (80-100); Mean Platelet Volume 8.5 fL (7.4-10.4); Platelet Count 204 K/uL (130-400); RDW Coefficient of Variation 17.3 % (11.5-14.5); RDW Standard Deviation 55.7 fL (36.4-46.3); Red Blood Count 3.11 M/uL (4.7-6.1); White Blood Count 7.22 K/uL (4.8-10.8)
--- NOTE | 2019-07-14 06:55 | Hospitalist Progress Note ---
Date of Service July 14, 2019 Assessment & Plan (1) NSTEMI (non-ST elevated myocardial infarction): Continue ASA 81 mg Daily, One Unit Blood given, Hold Plavix until after cath, May need CABG, LHC today or Sunday, NPO after MN tonight (2) Neurogenic claudication due to lumbar spinal stenosis: -Directly admitted 07/[address] Bolanos for planned L1-L2 decompression and fusion on 07/09 -Procedure #1 removal of posterior instrumentation L2-L3. #2 exploration fusion L2-L3. #3 lumbar decompression with bilateral medial facetectomies foraminotomies L1-L2. #4 posterior spinal fusion L1-L2 L2-L3. #5 placement posterior instrumentation L1 and L3. #6 placement of infuse collagen sponge, master graft in the posterior lateral gutters L1-L3. #7 placement of stimulant beads impregnated with vancomycin gentamicin in the interbody space and post erior lateral gutters. Resume Post Op Care per Surgery Protocol Incentive Spirometry 10x per Hour Resume Relative Home Meds Where Appropriate PT/OT with appropriate fall precautions PO Pain control Monitor Daily Labs (3) Diabetes mellitus, type 2: -Hgb A1c 8.0 03/2019 -Hold home metformin, Prandin, Trulicity and utilize NovoLog per protocol while hospitalized (4) Rheumatoid arthritis: -Typically managed on methotrexate and prednisone -Given surgery tomorrow will hold methotrexate and prednisone -Discussed with Dr. Weiner (patient's supervisor in charge), may hold methotrexate for 2 weeks postoperatively (5) Chronic kidney disease, stage III (moderate): -Baseline creatinine ~ 1.2 -Noted was started on lisinopril 05/09 (by nephrology Dr. Hardy) (6) Hypertension: -BP controlled -Holding lisinopril and furosemide as above (7) Hyperlipidemia: -Continue statin (8) DVT prophylaxis: Acute Post op blood loss anemia-Monitor H&H, One unit ordered sec to Cardiac Issue Hb 9.6 07/12 (9) Sleep apnea: (10) Aortic stenosis: Echo done EF 25% Labs Checked ROS-No Headache, No Visual Changes, No Nausea, No Vomiting, No Fever, No Chills, No Neck Pain or Stiffness, No Chest Pain, No Palpitations, No SOB, No ALMEIDA, No Cough, No Sputum, No Wheezing, No Abdominal Pain, No Diarrhea, No Hematemesis, No Hemoptysis, No Unexpected Weight Loss, No Flank pain, No Melena, No Hematochezia, No Frequency, No Urgency, No Burning, No Hematuria, No Rashes, No Diaphoresis. Appetite is Normal, Less Back Pain Physical Exam Gen-AAO x 3, NAD, Afebrile, Obese Head-NCAT, EOMI, PERRLA, Anicteric Sclera, No Posterior Pharyngeal Erythema Neck-Supple, No JVD, No Thyromegaly, No Masses, No LAD, No Bruits Lungs-Clear to Auscultation Bilaterally, No Rales, No Rhonchi, No Wheezing, No Crepitus Chest-Tachy No S4, +S1, +S2, No S3, No Murmurs, No Rubs, No Gallops, No Ectopy Abdomen-Soft, Bowel Sounds Present, Non Tender, Non Distended, No Hepatomegaly, No Splenomegaly, No Palpable Masses, No Rebound, No Rigidity, No Guarding Musculoskeletal-Full Range of Motion Bilaterally, No CVAT Extremities-No Cyanosis, No Clubbing, Mild Edema Nuero-Cranial Nerves II-XII grossly intact, Motor WNL, DTRs WNL, Strength WNL, Non Focal Psych-Normal Mood Results & Data ([facility]) Vital Signs (Past 12 Hours) Vital Signs Temp Pulse Pulse Resp BP Pulse Ox 07/14/19 06:41 36.7 C 104 H 18 107/73 95 07/14/19 03:38 36.4 C L 95 H 18 103/66 97 07/13/19 23:21 36.7 C 103 H 18 105/67 97 07/13/19 23:00 97 H 07/13/19 19:26 37.2 C 103 H 18 106/74 95
[2019-07-14 07:19] LABS: BUN Creatinine Ratio 19.6 (10-20); Calcium 9.2 mg/dl (8.5-10.1); Creatinine Clr Calc Pharmacy 53.6 ml/min; Est GFR (African American) 65.7; Est GFR (Non-African American) 56.7; Potassium 3.7 mmol/L (3.5-5.1)
[2019-07-14] MEDS: INSULIN ASPART 100 UNITS/ML 3 ML PEN SC SCH ×4 (07:50→21:08)
[2019-07-14] MEDS: METOPROLOL TARTRATE 25 MG TAB PO SCH (08:31)
[2019-07-14] MEDS: HYDROmorphone INJ 0.5 MG/0.5 ML SYR IV PRN (08:31)
[2019-07-14] MEDS: CHOLECALCIFEROL 1,000 UNITS 25 MCG TAB PO SCH (08:32)
[2019-07-14] MEDS: DOCUSATE SODIUM 100 MG CAP PO SCH ×2 (08:33→19:53)
[2019-07-14] MEDS: predniSONE 10 MG TABLET PO SCH (08:33)
[2019-07-14] MEDS: ASPIRIN 81 MG ECTAB PO SCH (08:34)
[2019-07-14] MEDS: CYANOCOBALAMIN 500 MCG TABLET (VITAMIN B-12) PO SCH (08:35)
--- NOTE | 2019-07-14 09:44 | Electrocardiogram Report ---
Test Reason : Blood Pressure : / mmHG Vent. Rate : 103 BPM Atrial Rate : 103 BPM P-R Int : 176 ms QRS Dur : 102 ms QT Int : 378 ms P-R-T Axes : 046 027 086 degrees QTc Int : [address] depression, consider subendocardial injury Abnormal ECG When compared with ECG of 13-JUL-2019 06:44, Nonspecific T wave abnormality no longer evident in Lateral leads Confirmed by Terrance Lozano ([id number]) on 07/14/2019 9:43:54 AM Referred By: Carl Bolanos Confirmed By:Terrance Lozano
--- NOTE | 2019-07-14 10:14 | Pre Anesthesia Assessment ---
Date of Service July 14, 2019 Pre Sedation Assessment Vital Signs Temp Pulse Pulse Pulse Resp BP Pulse Ox 07/18/19 07:44 36.7 C 81 19 90/58 L 98 07/18/19 04:53 36.6 C 74 18 96/61 L 96 07/17/19 23:30 36.6 C 84 18 111/71 99 07/17/19 18:54 36.9 C 86 19 104/70 95 07/17/19 16:22 37.0 C 89 16 105/70 94 07/17/19 16:00 90 07/17/19 11:31 36.9 C 87 18 97/65 L 95 Cardiovascular + regular rate, + regular rhythm and + tachycardic + S1 normal, + S2 normal and + murmur + edema Respiratory + respiratory effort normal; no respiratory distress, no labored breathing and no retractions no crackles, no rales, no rhonchi and no wheezes Pre-Sedation Airway Assessment Smoking Status: Former smoker Thyromental Distance: < 3.5 Finger Breadths Mallampati Class: II ASA: ASA3 Procedure Planning Contraindications for Sedation: none Current Medications Reviewed: Yes Notes The planned sedation has been discussed with the patient. Informed Consent was obtained. I have identified the patient, determined the appropriateness of sedation and have assessed the patient immediately prior to the procedure. All medicine(s) and interventions are by my order.
--- NOTE | 2019-07-14 10:14 | Post Anesthesia Assessment ---
Date of Service July 14, 2019 Post Sedation Assessment Vital Signs Temp Pulse Pulse Pulse Resp BP Pulse Ox 07/18/19 07:44 36.7 C 81 19 90/58 L 98 07/18/19 04:53 36.6 C 74 18 96/61 L 96 07/17/19 23:30 36.6 C 84 18 111/71 99 07/17/19 18:54 36.9 C 86 19 104/70 95 07/17/19 16:22 37.0 C 89 16 105/70 94 07/17/19 16:00 90 07/17/19 11:31 36.9 C 87 18 97/65 L 95 Recovery Score Activity: Moves 4 extremities Respiration: Deep Breath/Cough Circulation: +/-20% PreAnes Value Consciousness: Fully Awake Oxygen Saturation: O2 needed for >90% Post Anesthesia Score: 9 Discharge Sedation Level of Care: Phase I Post Sedation Plan On clinical assessment, the patient appears to have tolerated the sedation without complications. Patient is recovering as anticipated. Patient will continue to be monitored by nursing and may be discharged when sedation discharge criteria are met per below protocol. Upon Completions of procedure up to 15 minutes continue every 5 minute vital signs and the P.A.R. score; then discharge to a Phase I or Fast Track to Phase II per the following guidelines: * Discharge Patient to appropriate Phase II area if PAR is 8 or greater or return to pre- procedure baseline. The post - procedure orders will be as directed. * If PAR score is less than 8 or not return to pre-procedure baseline then patient will follow Phase I monitoring till PAR is reached for Phase II. The Phase I may be done in procedure room or may call to secure a Phase I area. * If naloxone or flumazenil are used for reversal, hold in Phase I for continued monitoring from when last reversal dose was given for a minimum of 60 minutes or longer pending the nurse and/or physician discretion of patient condition before discharge to Phase II. Please call the Sedation Physician to re-evaluate and complete post-note for discharge to Phase II area. Do NOT discharge from procedure sedation or Phase 1 until post- sedation evaluation note is complete by procedure /sedation MD Sedation Discharge Instructions to be given to the patient at discharge to home.
[2019-07-14] MEDS ORDERED: HEPARIN (PORCINE) 1000 UNIT/ML 10 ML (CATH LAB USE ONLY) ONE (10:24)
[2019-07-14] MEDS ORDERED: NiCARDipine HCL INJ 2.5 MG/ML 10 ML AMP ONE (10:24)
--- NOTE | 2019-07-14 10:24 | Infectious Disease Consult ---
Date of Consultation July 14, 2019 Assessment & Plan (1) Neurogenic claudication due to lumbar spinal stenosis: unclear if fluid infected, so far cultures are negative. had wbc 11 in ER, unclear significance. would continue IV abx for now while in hospital. will follow cultures, outpt blood cultures negative and final. echo negative. will check esr and procalcitonin. follow cultures, if negative, would suggest Dalvance x 2 dose at [facility] upon d/c from hospital. will follow. History of Present Illness Attending Physician: Carl Bolanos, pt admitted with back pain and ambulatory dysfucntion, had back surgery years ago, now with stenosis reported at L1 L2 and fluid on MRI, went to OR on 07/09 for repair, no purulence noted, cultures obtained x 2, negative to date, gram stain with gpr on 06/05. blood cultures negative, afebrile. no f/c at home. no abd pain no n/v/d. on ancef emperically, tolerating well. post op pt was found to have NSTEMI and is awaiting cath during this admission. Cardio following, no cp, sob, cough on my exam. oob to chair, OR drain remains in place. having post op pain but states controlled with pain meds. wbc 7. no esr. Allergies Allergy/AdvReac Type Severity Reaction Status Date / Time hydrocodone [From Vicodin] Allergy Mild pruritus Verified 07/09/19 13:36 oxycodone Allergy Mild pruritus Verified 07/09/19 13:36 Home Medications Home Medications Medication Instructions Recorded Confirmed Type Trulicity 1.5 mg SUBCUT WK 11/13/18 07/08/19 History aspirin 40.5 mg PO HS 11/13/18 07/08/19 History atorvastatin 40 mg PO HS 11/13/18 07/08/19 History cholecalciferol (vitamin D3) 2,000 unit PO QAM 11/13/18 07/08/19 History [Vitamin D3] cinnamon bark [Cinnamon] 500 mg PO HS 11/13/18 07/08/19 History cyanocobalamin (vitamin B-12) 1,000 mcg PO QAM 11/13/18 07/08/19 History folic acid 1 mg PO QAM 11/13/18 07/08/19 History furosemide 20 mg PO BID 11/13/18 07/08/19 History methotrexate sodium 12.5 mg PO WK 11/13/18 07/08/19 History valacyclovir 500 mg PO HS 11/13/18 07/08/19 History metformin 500 mg tablet,extended 1,000 mg PO PM tab 01/08/19 07/08/19 History release 24 hr repaglinide 2 mg tablet 2 mg PO TIDM tab 01/08/19 07/08/19 History prednisone 5 mg tablet 10 mg PO QAM tab 02/24/19 07/08/19 History celecoxib 200 mg capsule 200 mg PO BID cap 05/08/19 07/08/19 History lisinopril 20 mg PO QAM 07/04/19 07/08/19 History Patient History Medical History Aortic stenosis "Mild" (LAVERNE 1.3cm2, MG 12.2mmhg) per 11/2018 DSE BPH (benign prostatic hyperplasia) Carotid artery stenosis s/p left CEA 11/2018 Chronic kidney disease, stage III (moderate) follows with nephrology (Dr. Hardy) Degenerative disc disease Diabetes mellitus, type 2 NIDDM Dry eye syndrome Gout Hyperlipidemia Hypertension Pericarditis 1994 Rheumatoid arthritis on chronic prednisone 10mg daily Sleep apnea s/p UPPP/T&A Surgical History Fusion of spine LUMBAR X 2 History of adenoidectomy History of carpal tunnel release LEFT History of cataract surgery RT/LEFT History of colonoscopy History of herniorrhaphy UMBILICAL HERNIA History of left-sided carotid endarterectomy 11/2018 ([facility]) History of tonsillectomy History of tooth extraction S/P pericardiocentesis 1994 S/P UPPP (uvulopalatopharyngoplasty) Family History Mother CHF (congestive heart failure) Sister CHF (congestive heart failure) Diabetes Social History Preferred Language: Nigerien Communication Ability: Effective Accounting Intern Required: No Beliefs That Will Affect Care: None marital status: Current Living Situation: Spouse Other Information That Helps Us Care for You: No Feels Safe at Home: Yes Safety Concerns: Feels Safe At This Time Smoking Status: Former smoker Tobacco Type: cigarettes ; Do You Dip or Chew Tobacco: No ; Smoking End Date: 35 years ; Second Hand Exposure: No ; Tobacco Cessation Education Requested by Patient: No Hx Alcohol Use: No Hx Substance Use: No Review of Systems Review of Systems: All systems reviewed & are unremarkable except as noted in HPI & below Physical Exam 2 Constitutional: WD/WN, vitals as above Eyes: PERRL, conjunctivae normal, anicteric sclerae ENMT: external ear and nose normal, oropharynx normal Neck: normal visual inspection Respiratory: normal respiratory effort, lungs clear to auscultation Cardiovascular: RRR, no murmur, no edema Gastrointestinal (Abdomen): normal bowel sounds, soft, nontender, no hepatosplenomegaly Musculoskeletal: no cyanosis or clubbing, extremities motor strength 5/5 Skin: no rashes, warm and dry dressing c/d/i, OR drain with blood tinged fluid Psychiatric: A+Ox3, euthymic affect Results & Data ([facility]) Vital Signs (Past 12 Hours) Vital Signs Temp Pulse Pulse Resp BP Pulse Ox 07/14/19 06:41 36.7 C 104 H 18 107/73 95 07/14/19 03:38 36.4 C L 95 H 18 103/66 97 07/13/19 23:21 36.7 C 103 H 18 105/67 97 07/13/19 23:00 97 H Laboratory Results Microbiology 07/09/19 15:34 Back Gram Stain - Final 07/09/19 15:34 Back Aerobic and Anaerobic Culture - Preliminary No growth to date. 07/09/19 15:34 Back Gram Stain - Final 07/09/19 15:34 Back Aerobic and Anaerobic Culture - Preliminary No growth to date. PG Care Time/CCT Total # of Minutes Spent Total Time Spent with Patient: Total time spent is greater than 50% in coordination of care (as documented) at patient's floor/unit and/or counseling patient: Coding Level of Care Code 52522 Inpt Consult Level 4 Diagnoses Neurogenic claudication due to lumbar spinal stenosis M48.062
--- NOTE | 2019-07-14 10:24 | Cardiology Progress Note ---
Date of Service July 14, 2019 Assessment & Plan (1) NSTEMI (non-ST elevated myocardial infarction): (2) Acute HFrEF (heart failure with reduced ejection fraction): Summary of admission described in Dr. Alvarez's note dated 07/12/2019. Risks, benefit, and alternatives to cardiac catheterization discussed with patient at length. He is agreeable to proceed. Subjective Patient seen and examined the bedside. Denies chest pain or unusual shortness of breath. Lower extremity edema present and unchanged. Denies orthopnea or paroxysmal nocturnal dyspnea. Reports difficulty lying flat due to back pain, and left-sided groin pain. Telemetry reveals sinus rhythm with sinus tachycardia. Patient remains borderline hypotensive, however, asymptomatic. Review of Systems Review of Systems: All systems reviewed & are unremarkable except as noted in HPI & below Physical Exam Physical Exam: General: NAD, AAO x3, well nourished. Overweight. HEENT: Normocephalic. Atraumatic. Conjunctiva pink, no scleral icterus. Neck: No carotid bruits, the carotid upstrokes are brisk. No JVD. No HJR Heart: Regular, borderline tachycardic. Normal S-1 and S-2 no S-3 or S-4 gallop. 1-2/6 systolic ejection murmur heard best at the base. PMI is not displaced. No RV heave. Lungs: Clear bilateral without rales , rhonchi, or wheeze. Abdomen: Normal bowel sounds. Soft. Nontender. No masses or organomegaly. No abdominal bruits. Extremities: No clubbing, or cyanosis. 1-2+ bilateral pedal, ankle, and pretibial edema. Pulses: radial=2/4, Dorsalis pedis =2/4, posterior tibial=2/4. Neuro: Cranial nerves grossly intact. No focal motor deficit. Results & Data Vital Signs (Past 12 Hours) Vital Signs Temp Pulse Pulse Resp BP Pulse Ox 07/14/19 06:41 36.7 C 104 H 18 107/73 95 07/14/19 03:38 36.4 C L 95 H 18 103/66 97 07/13/19 23:21 36.7 C 103 H 18 105/67 97 07/13/19 23:00 97 H
[2019-07-14] MEDS ORDERED: NITROGLYCERIN/D5W 100MCG/ML 20ML SYR ONE (10:25)
[2019-07-14] MEDS ORDERED: fentaNYL citrate 100 MCG/2 ML VIAL ONE (10:25)
[2019-07-14] MEDS ORDERED: MIDAZOLAM HCL 1 MG/ML 2ML VIAL ONE (10:25)
--- NOTE | 2019-07-14 11:47 | Cardiac Catheterization ---
Cardiac Cath Procedure Full Procedure Date July 14, 2019 Pre-Procedure Diagnosis Pre-Procedure Diagnosis: Non STEMI AUC Score AUC Score: 8 Post-Procedure Diagnosis Post-Procedure Diagnosis: Severe CAD and Elevated Intracardiac Pressures Procedure(s) Performed Procedure(s) Performed: Coronary Angiography and Left Heart Cath [employer] Cabrera Martinez DO Superintendent Sanitation(s) [employer] BUILD ENGINEER Estimated Blood Loss Estimated Blood Loss: 5cc Medication(s) Medication(s): Fentanyl, Heparin, Lidocaine 1%, Nicardipine, Nitroglycerin and Versed Summary of Findings Severe multivessel coronary artery disease with 40% distal left main. Left anterior descending is a type III vessel which wraps around the apex. In the midportion, at the origin of the third diagonal branch vessel, there is a acute 75% stenosis followed by a hazy 70% stenosis. The first diagonal branch vessel is diminutive and subtotally occluded proximally. The second diagonal branch is a moderate caliber vessel with an acute proximal 90% stenosis. The third diagonal branch vessel is moderate caliber with an 80% proximal stenosis. The left circumflex is a moderate caliber nondominant vessel. The ostial portion demonstrates a 75% stenosis. The circumflex gives rise to a small obtuse marginal branch vessel which is moderately diffusely diseased. The mid vessel is a 70% stenosis followed by mild luminal irregularities with stenosis ranging up to 10%. The right coronary artery is a large dominant vessel with a 100% occlusion in the distal portion. The posterior descending artery and posterior lateral branch vessel can be seen filling via left to right collaterals. Hemodynamics Rest Ao:: 109/61/83 Final Ao: 108/60/80 LV: 110/12/22 Recommendations Recommendations: CABG Specimens Specimens: None Radiation Exposure (mGy) 1017 Contrast (mls) 75 Fluids (cc crystalloids) Fluids (cc crystalloids): 73 Nss Drains Drains: N/A Anesthesia Moderate sedation. Start 1040. End 1120. Sedation monitor: Helen ELLIOTT Procedural Complication(s) None Disposition Operative Supervisor Holding/Recovery I attest to the content of the Intraoperative Record and any orders documented therein. Any exceptions are noted below. ACC Data: Operative Supervisor Cardiac Status Clinical evaluation leading to the procedure CAD Presenation: Non STEMI Anginal Classification: No Symptoms Heart Failure: NYHA Class: CCS II Cardiogenic Shock within 24 Hours: No Cardiac Arrest within 24 Hours: No Imaging Studies Past 6 Months: Yes Stress Studies Past 6 Months: No Coronary Anatomy Dominant: Right Left Main (% Stenosis): Distal (Moderately calcified, 40%) LAD (% Stenosis): Ostial (Moderate to severely calcified, 40%), Proximal (Moderately calcified, diffuse 20 to 30%), Mid (75% at origin of diagonal branch vessel #3 followed by 70% hazy stenosis) and Distal (Mild diffuse luminal irregularities, 10 to 20%) D1 (% Stenosis): Ostial (100%, NNEKA one flow, 1mm vessel) D2 (% Stenosis): Proximal (90%) D3 (% Stenosis): Ostial (60%) and Proximal (80%) Circumflex (% Stenosis): Ostial (Severe, hazy ostial disease, 75 to 80%) OM1 (% Stenosis): Mid (Small vessel with diffuse luminal irregularities, 20%) RCA (% Stenosis): Proximal (30%), Mid (Moderately calcified with severe diffuse disease, stenosis ranging from 90 to 99%) and Distal (100%) R PDA (% Stenosis): Distal (Fills via left to right collaterals) R PL1 (% Stenosis): Distal (Poorly visualized, fills via left to right collaterals) Diagnostic Physicians Name: Cabrera Martinez DO Status: Urgent Closure Device Percutaneous Entry Location: Radial Closure Device: Radial Band Recommendations: CABG Intraprocedure Events Significant Disection: No Perforation: No
--- NOTE | 2019-07-14 11:56 | Communication Note ---
Date of Service: July 14, 2019 Cardiac catheterization findings revealed severe multivessel coronary heart disease with several areas of haziness. Patient with findings of severe left ventricular systolic dysfunction earlier this hospital stay, and non-ST segment elevation myocardial infarction. His left ventricular ejection fraction is in the range of 25% by transthoracic echocardiogram this admission. Plan for optimization of medication therapy. I do not think the patient is a candidate for emergent CT surgery/CABG given his lack of clinical angina, hemodynamic stability, and risk of bleeding complications at the site of his recent lumbar decompression surgery. We will plan on optimizing his medication therapy, and will discuss timing of CABG with spine surgery and CT surgery. Recommend placing [employer]oll LifeVest wearable defibrillator has history of [place] and severe left ventricular systolic dysfunction if he there is a delay to CABG with need for oupt recovery.
--- NOTE | 2019-07-14 13:09 | Nephrology Consultation ---
Date of Consultation July 14, 2019 Assessment & Plan (1) Chronic kidney disease, stage III (moderate): -- SHANNAN has resolved off diuretic and RAYSA inhibitor therapy -- Baseline Cr ~ 1.0 -- Volume status and electrolyte balance are acceptable at this time -- Monitor PRP (2) Acute HFrEF (heart failure with reduced ejection fraction): -- NSTEMI this hospitalization -- Cath revealed diffuse 3 vessel disease -- Will provide 1 L 0.9 NS following cardiac cath -- Will consider restarting RAYSA inhibitor in the next 2 - 3 days if kidney function remains stable to help improve LVEF (3) Anemia: -- Hgb stable at 9.7. Will monitor (4) Fusion of spine: -- Admitted w/ neurogenic claudication -- Underwent fusion of L1 - L3 with insertion of antibiotic beads -- Has drain in place History of Present Illness Reason for Consultation: CKD Attending Physician: Carl Bolanos, History of Present Illness Mr. Mallory is a 78 year old white male who is seen at the request of the [facility] for evaluation of CKD. Medical records in the EMR were reviewed today and are summarized as follows: Mr. 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 He is followed in the [facility] Nephrology office and has a baseline Cr of 1.0 w/ EGFR 57 cc/min. Previous evaluation has revealed a benign urine sediment. UPCR ~ 1.0. UIEP was negative for m-spike. Renal US revealed normal sized kidneys w/ simple cysts. Renal artery doppler was negative for NOHEMI. His medical history is also significant for AODM (no retinopathy), RA, BPH, urinary incontinence, L CEA 11/20 [facility], spinal stenosis s/p cervical spine stabilization 04/[address] Bolanos. Mr. Mallory was admitted to [facility] 07/08/19 for evaluation of neurogenic claudication. MRI revealed advanced lumbar spinal stenosis. Lumbar decompression surgery w/ insertion of antibiotic beads was performed 07/09/19. Post-op course has been complicated by SHANNAN and NSTEMI. Creatinine had risen to 1.4. Lisinopril and Furosemide were held. Creatinine has since recovered and cardiac cath today revealed significant 3 vessel disease. LVEF has dropped from 55% to 30%. Plan is for medical management and use of a life vest. Nephrology consultation has been requested to assist w/ medical and diuretic management. Allergies Allergy/AdvReac Type Severity Reaction Status Date / Time hydrocodone [From Vicodin] Allergy Mild pruritus Verified 07/09/19 13:36 oxycodone Allergy Mild pruritus Verified 07/09/19 13:36 Home Medications Home Medications Medication Instructions Recorded Confirmed Type Trulicity 1.5 mg SUBCUT WK 11/13/18 07/08/19 History aspirin 40.5 mg PO HS 11/13/18 07/08/19 History atorvastatin 40 mg PO HS 11/13/18 07/08/19 History cholecalciferol (vitamin D3) 2,000 unit PO QAM 11/13/18 07/08/19 History [Vitamin D3] cinnamon bark [Cinnamon] 500 mg PO HS 11/13/18 07/08/19 History cyanocobalamin (vitamin B-12) 1,000 mcg PO QAM 11/13/18 07/08/19 History folic acid 1 mg PO QAM 11/13/18 07/08/19 History furosemide 20 mg PO BID 11/13/18 07/08/19 History methotrexate sodium 12.5 mg PO WK 11/13/18 07/08/19 History valacyclovir 500 mg PO HS 11/13/18 07/08/19 History metformin 500 mg tablet,extended 1,000 mg PO PM tab 01/08/19 07/08/19 History release 24 hr repaglinide 2 mg tablet 2 mg PO TIDM tab 01/08/19 07/08/19 History prednisone 5 mg tablet 10 mg PO QAM tab 02/24/19 07/08/19 History celecoxib 200 mg capsule 200 mg PO BID cap 05/08/19 07/08/19 History lisinopril 20 mg PO QAM 07/04/19 07/08/19 History Patient History Medical History Aortic stenosis "Mild" (LAVERNE 1.3cm2, MG 12.2mmhg) per 11/2018 DSE BPH (benign prostatic hyperplasia) Carotid artery stenosis s/p left CEA 11/2018 Chronic kidney disease, stage III (moderate) follows with nephrology (Dr. Hardy) Degenerative disc disease Diabetes mellitus, type 2 NIDDM Dry eye syndrome Gout Hyperlipidemia Hypertension Pericarditis 1994 Rheumatoid arthritis on chronic prednisone 10mg daily Sleep apnea s/p UPPP/T&A Surgical History Fusion of spine LUMBAR X 2 History of adenoidectomy History of carpal tunnel release LEFT History of cataract surgery RT/LEFT History of colonoscopy History of herniorrhaphy UMBILICAL HERNIA History of left-sided carotid endarterectomy 11/2018 ([facility]) History of tonsillectomy History of tooth extraction S/P pericardiocentesis 1994 S/P UPPP (uvulopalatopharyngoplasty) Family History Mother CHF (congestive heart failure) Sister CHF (congestive heart failure) Diabetes Social History Preferred Language: Uzbek Communication Ability: Effective Broom Bundler Required: No Beliefs That Will Affect Care: None marital status: Current Living Situation: Spouse Other Information That Helps Us Care for You: No Feels Safe at Home: Yes Safety Concerns: Feels Safe At This Time Smoking Status: Former smoker Tobacco Type: cigarettes ; Do You Dip or Chew Tobacco: No ; Smoking End Date: 35 years ; Second Hand Exposure: No ; Tobacco Cessation Education Requested by Patient: No Hx Alcohol Use: No Hx Substance Use: No Review of Systems Constitutional: + weakness; no fever Eyes: no worsening vision and no problem reported Ear, Nose, Mouth, Throat: no problem reported Respiratory: no cough and no dyspnea Cardiovascular: no chest pain, no palpitations and no edema Gastrointestinal: no abdominal pain, no nausea, no vomiting and no diarrhea /loose stools Genitourinary: no dysuria, no urinary hesitancy and no hematuria Musculoskeletal: + back pain Integumentary: no rash Neurologic: no falls, no dizziness and no confusion Physical Exam Constitutional: not in distress Eyes: PERRL, conjunctivae normal, anicteric sclerae ENMT: external ear and nose normal, oropharynx normal Neck: trachea midline, no thyromegaly Respiratory: normal respiratory effort, lungs clear to auscultation Cardiovascular: RRR, no murmur, no edema Gastrointestinal (Abdomen): normal bowel sounds, soft, nontender, no hepatosplenomegaly Musculoskeletal: Extremities: no cyanosis Skin: no rashes, warm and dry Neurologic: awake; not confused Results & Data Vital Signs (Past 12 Hours) Vital Signs Temp Pulse Pulse Resp BP BP Pulse Ox 07/14/19 12:32 104 H 16 109/62 97 07/14/19 12:02 36.6 C 107 H 16 108/49 L 97 07/14/19 11:45 100 H 18 105/74 95 07/14/19 11:30 105 H 18 111/77 96 07/14/19 10:15 104 H 18 104/82 94 07/14/19 06:41 36.7 C 104 H 18 107/73 95 07/14/19 03:38 36.4 C L 95 H 18 103/66 97 Laboratory Results Laboratory Results - last 24 hr 07/13/19 07/13/19 07/14/19 16:28 20:38 06:39 WBC 7.22 RBC 3.11 L Hgb 9.7 L Hct 28.7 L MCV 92.3 MCH 31.2 MCHC 33.8 RDW Std Deviation 55.7 H RDW Coeff of Maximo 17.3 H Plt Count 204 MPV 8.5 ESR Sodium Potassium Chloride Carbon Dioxide Anion Gap BUN Creatinine Est Cr Clr Drug Dosing Est GFR ( Amer) Est GFR (Non-Af Amer) BUN/Creatinine Ratio Glucose POC Glucose 204 H 133 H Calcium Procalcitonin 07/14/19 07/14/19 07/14/19 06:39 07:24 12:17 WBC RBC Hgb Hct MCV MCH MCHC RDW Std Deviation RDW Coeff of Maximo Plt Count MPV ESR 52 H Sodium 139 Potassium 3.7 Chloride 107 Carbon Dioxide 25 Anion Gap 7.0 BUN 24 H Creatinine 1.23 Est Cr Clr Drug Dosing 53.6 Est GFR ( Amer) 65.7 Est GFR (Non-Af Amer) 56.7 BUN/Creatinine Ratio 19.6 Glucose 96 POC Glucose 105 H Calcium 9.2 Procalcitonin 07/14/19 12:17 WBC RBC Hgb Hct MCV MCH MCHC RDW Std Deviation RDW Coeff of Maximo Plt Count MPV ESR Sodium Potassium Chloride Carbon Dioxide Anion Gap BUN Creatinine Est Cr Clr Drug Dosing Est GFR ( Amer) Est GFR (Non-Af Amer) BUN/Creatinine Ratio Glucose POC Glucose Calcium Procalcitonin Pending CXR 07/08/19: no CHF PG Care Time/CCT Total # of Minutes Spent Total Time Spent with Patient: Total time spent is greater than 50% in coordination of care (as documented) at patient's floor/unit and/or counseling patient: Coding Level of Care Code 70664 Inpt Consult Level 5 Diagnoses Chronic kidney disease, stage III (moderate) N18.3 Acute HFrEF (heart failure with reduced ejection fraction) I50.21 Anemia D64.9 Fusion of spine M43.20
[2019-07-14] MEDS ORDERED: SODIUM CHLORIDE 0.9% 1000ML 1,000 ML IV SCH (13:15)
[2019-07-14] MEDS: HYDROmorphone INJ 1 MG/ML SYRINGE IV PRN (13:48)
--- NOTE | 2019-07-14 13:50 | Communication Note ---
Date of Service: July 14, 2019 Mr Hallman is a 78 year old male with a history of Type 2 diabetes mellitus, obesity, rheumatoid arthritis for which she is on chronic immunosuppressive therapy with methotrexate, and cerebrovascular disease, status post left carotid endarterectomy in November, who is hospitalized at [facility] s/p emergent lumbar spine surgery on on 07/09/19, post op noted to have ischemic EKG changes, elevated troponin I peaking at 25, new severe LV systolic dysfunction, LVEF 25%. Pt remains asymptomatic from a cardiac perspective. cardiac catheterization performed at [facility] today reveals multivessel CAD. I discussed timing of CABG with Dr Bolanos of spine surgery, and he feels pt is stable from his standpoint to proceed. I discussed case and cardiac catheterization films were reviewed with Dr Molina of CT surgery. Although there are several adhesive lesions Noted on his coronary Angiography We both have reservations about proceeding with CABG within the next Few days given need for high-dose heparin, (40,000 units) and risk of Bleeding complications such as epidural hematoma that could result in paralysis. At this time, will continue medication therapy , place LifeVest, and Optimize his medications for now as an inpatient at [facility]. Will plan for outpt CT surgery consult at [facility] next week, and CABG within a few weeks allowing for recovery from spine surgery in an effort to minimize bleeding complication. Gicaomo Alvarez,
[2019-07-14] MEDS ORDERED: METOPROLOL TARTRATE 25 MG TAB PO ONE (15:57)
--- NOTE | 2019-07-14 16:15 | Orthopedic Progress Note ---
Date of Service July 14, 2019 Assessment & Plan (1) Neurogenic claudication due to lumbar spinal stenosis: At this time it is my understanding we will manage his cardiac condition with medically. He is most likely going to have a consultation with a CT surgeon next week. I did consult infectious disease for their guidance regarding long-term antibiotic care. Present on Admission?: Yes Admission and Anticipated Discharge Date Admission Date: July 08, 2019 Subjective Patient's back pain is controlled. He is not been ambulating more than for a few seconds and around the room. He has no leg pain. Physical Exam Physical Exam: He is comfortable sitting in a chair is good strength testing. Results & Data ([facility]) Vital Signs (Past 12 Hours) Vital Signs Temp Pulse Pulse Resp BP BP Pulse Ox 07/14/19 14:02 117 H 16 116/80 07/14/19 13:02 114 H 16 124/85 97 07/14/19 12:32 104 H 16 109/62 97 07/14/19 12:02 36.6 C 107 H 16 108/49 L 97 07/14/19 11:45 100 H 18 105/74 95 07/14/19 11:30 105 H 18 111/77 96 07/14/19 10:15 104 H 18 104/82 94 07/14/19 06:41 36.7 C 104 H 18 107/73 95
--- NOTE | 2019-07-14 16:41 | Ultrasound Report ---
BILATERAL UPPER EXTREMITY ARTERIAL DOPPLER ULTRASOUND CLINICAL HISTORY: Assess bilateral subclavian arteries for stenosis. COMPARISON STUDY: No previous studies for comparison. TECHNIQUE: Grayscale, color and pulse Doppler sonography of the bilateral common carotid and subclavi an arteries was performed. FINDINGS: There is mild atherosclerotic plaque within the bilateral common carotid and subclavian art eries. No elevated velocities were identified within the bilateral common carotid and subclavian rola ry to suggest a hemodynamically significant stenosis. Triphasic waveforms were noted. IMPRESSION: Mild atherosclerotic plaque. No evidence of a hemodynamically significant stenosis withi n the bilateral subclavian and common carotid arteries. ACT 112: Negative or not required by law. Electronically signed by: Chaim Pantoja M.D. 07/14/2019 4:40 PM
[2019-07-14] MEDS: VALACYCLOVIR HCL 500 MG TABLET PO SCH (19:52)
[2019-07-14] MEDS: ATORVASTATIN 40 MG TAB PO SCH (19:52)
[2019-07-14] MEDS: TRAMADOL HCL 50 MG TABLET PO PRN (19:52)
[2019-07-14] MEDS ORDERED: METOPROLOL TARTRATE 25 MG TAB PO SCH (21:00)
[2019-07-14] MEDS: HEPARIN SOD 5,000 UNIT/0.5 ML VIAL SQ SCH (21:07)
[2019-07-15 05:05] LABS: Appearance Urine Clear (Clear); Bacteria Urine Automated Negative (Negative); Bilirubin Urine Negative (Negative); Blood Urine Negative (Negative); Color Urine Yellow; Glucose Urine UA Negative (Negative); Ketones Urine 1+ (Negative); Leukocyte Esterase Urine Negative (Negative); Nitrite Urine Negative (Negative); Protein Urine 1+ (Negative); RBC Urine Automated 0-4 /hpf (0-4); Specific Gravity Urine 1.028 (1.000-1.030); Urobilinogen Urine Negative (Negative)
[2019-07-15] MEDS: CEFAZOLIN 2000MG 2,000 MG/15 ML SYR IV SCH ×3 (05:49→22:20)
[2019-07-15] MEDS: POLYETHYLENE (MIRALAX) 17 GM PACK PO SCH ×4 (05:49→23:51)
[2019-07-15 07:25] LABS: Hematocrit (blood only) 26.6 % (42-52); Hemoglobin 8.7 g/dL (14.0-18.0); Mean Corpuscular Hemoglobin 31.2 pg (25-34); Mean Corpuscular Hgb Conc 32.7 g/dL (32-36); Mean Corpuscular Volume 95.3 fL (80-100); Mean Platelet Volume 9.1 fL (7.4-10.4); Platelet Count 203 K/uL (130-400); RDW Coefficient of Variation 17.3 % (11.5-14.5); RDW Standard Deviation 58.3 fL (36.4-46.3); Red Blood Count 2.79 M/uL (4.7-6.1); White Blood Count 5.16 K/uL (4.8-10.8)
[2019-07-15] MEDS: TRAMADOL HCL 50 MG TABLET PO PRN ×3 (07:38→20:07)
--- NOTE | 2019-07-15 07:59 | Hospitalist Progress Note ---
Date of Service July 15, 2019 Assessment & Plan (1) NSTEMI (non-ST elevated myocardial infarction): Continue ASA 81 mg Daily, One Unit Blood given, Needs CABG, LHC revealed triple vessel Dz, tune up for 2-3 days then DC v Transfer to [facility] (2) Neurogenic claudication due to lumbar spinal stenosis: -Directly admitted 07/[address] Bolanos for planned L1-L2 decompression and fusion on 07/09 -Procedure #1 removal of posterior instrumentation L2-L3. #2 exploration fusion L2-L3. #3 lumbar decompression with bilateral medial facetectomies foraminotomies L1-L2. #4 posterior spinal fusion L1-L2 L2-L3. #5 placement posterior instrumentation L1 and L3. #6 placement of infuse collagen sponge, master graft in the posterior lateral gutters L1-L3. #7 placement of stimulant beads impregnated with vancomycin gentamicin in the interbody space and posterior lateral gutters. Resume Post Op Care per Surgery Protocol Incentive Spirometry 10x per Hour Resume Relative Home Meds Where Appropriate PT/OT with appropriate fall precautions PO Pain control Monitor Daily Labs (3) Diabetes mellitus, type 2: -Hgb A1c 8.0 03/2019 -Hold home metformin, Prandin, Trulicity and utilize NovoLog per protocol while hospitalized (4) Rheumatoid arthritis: -Typically managed on methotrexate and prednisone -Given surgery tomorrow will hold methotrexate and prednisone -Discussed with Dr. Weiner (patient's escrow closer), may hold methotrexate for 2 weeks postoperatively (5) Chronic kidney disease, stage III (moderate): -Baseline creatinine ~ 1.2 -Noted was started on lisinopril 05/09 (by nephrology Dr. Hardy) (6) Hypertension: -BP controlled -Holding lisinopril and furosemide as above (7) Hyperlipidemia: -Continue statin (8) DVT prophylaxis: Acute Post op blood loss anemia-Monitor H&H, One unit given sec to Cardiac Issue Hb 9.6 07/12 (9) Sleep apnea: (10) Aortic stenosis: Echo done EF 25% Labs Checked ROS-No Headache, No Visual Changes, No Nausea, No Vomiting, No Fever, No Chills, No Neck Pain or Stiffness, No Chest Pain, No Palpitations, No SOB, No ALMEIDA, No C ough, No Sputum, No Wheezing, No Abdominal Pain, No Diarrhea, No Hematemesis, No Hemoptysis, No Unexpected Weight Loss, No Flank pain, No Melena, No Hematochezia, No Frequency, No Urgency, No Burning, No Hematuria, No Rashes, No Diaphoresis. Appetite is Normal, Less Back Pain Physical Exam Gen-AAO x 3, NAD, Afebrile, Obese Head-NCAT, EOMI, PERRLA, Anicteric Sclera, No Posterior Pharyngeal Erythema Neck-Supple, No JVD, No Thyromegaly, No Masses, No LAD, No Bruits Lungs-Clear to Auscultation Bilaterally, No Rales, No Rhonchi, No Wheezing, No Crepitus Chest-Tachy No S4, +S1, +S2, No S3, No Murmurs, No Rubs, No Gallops, No Ectopy Abdomen-Soft, Bowel Sounds Present, Non Tender, Non Distended, No Hepatomegaly, No Splenomegaly, No Palpable Masses, No Rebound, No Rigidity, No Guarding Musculoskeletal-Full Range of Motion Bilaterally, No CVAT Extremities-No Cyanosis, No Clubbing, Mild Edema Nuero-Cranial Nerves II-XII grossly intact, Motor WNL, DTRs WNL, Strength WNL, Non Focal Psych-Normal Mood Admission and Anticipated Discharge Date Admission Date: July 08, 2019 Results & Data ([facility]) Vital Signs (Past 12 Hours) Vital Signs Temp Pulse Pulse Resp BP Pulse Ox 07/15/19 07:42 103 H 07/15/19 03:10 36.5 C 96 H 17 100/68 98 07/14/19 23:36 36.5 C 91 H 19 114/75 99
[2019-07-15 08:07] LABS: Blood Urea Nitrogen 25 mg/dl (7-18); Carbon Dioxide 24 mmol/L (21-32); Chloride 110 mmol/L (98-107); Est GFR (African American) 72.8; Potassium 3.6 mmol/L (3.5-5.1); Sodium 142 mmol/L (136-145)
[2019-07-15 08:08] LABS: Alanine Aminotransferase 7 U/L (12-78); Albumin Level 2.2 gm/dl (3.4-5.0); Aspartate Aminotransferase 31 U/L (15-37); BUN Creatinine Ratio 22.2 (10-20); Bilirubin Direct < 0.1 mg/dl (0-0.2); Calcium 8.8 mg/dl (8.5-10.1); Creatinine Clr Calc Pharmacy 58.4 ml/min; Est GFR (Non-African American) 62.8; Glucose 95 mg/dl (70-99)
[2019-07-15 08:10] LABS: Alkaline Phosphatase 56 U/L (45-117); Bilirubin,Total 0.6 mg/dl (0.2-1); Total Protein 5.2 gm/dl (6.4-8.2)
[2019-07-15] MEDS: INSULIN ASPART 100 UNITS/ML 3 ML PEN SC SCH ×4 (08:16→21:19)
[2019-07-15] MEDS: CHOLECALCIFEROL 1,000 UNITS 25 MCG TAB PO SCH (08:17)
[2019-07-15] MEDS: SPIRONOLACTONE 25 MG TAB PO SCH (08:17)
[2019-07-15] MEDS: FOLIC ACID 1 MG TAB PO SCH (08:17)
[2019-07-15] MEDS: DOCUSATE SODIUM 100 MG CAP PO SCH ×3 (08:17→23:53)
[2019-07-15] MEDS: METOPROLOL TARTRATE 25 MG TAB PO SCH ×2 (08:17→21:16)
[2019-07-15] MEDS: CYANOCOBALAMIN 500 MCG TABLET (VITAMIN B-12) PO SCH (08:18)
[2019-07-15] MEDS: ASPIRIN 81 MG ECTAB PO SCH (08:18)
[2019-07-15] MEDS: predniSONE 10 MG TABLET PO SCH (08:18)
[2019-07-15] MEDS: HEPARIN SOD 5,000 UNIT/0.5 ML VIAL SQ SCH ×2 (08:19→21:15)
--- NOTE | 2019-07-15 10:24 | Nephrology Progress Note ---
Date of Service July 15, 2019 Assessment & Plan (1) Chronic kidney disease, stage III (moderate): -- SHANNAN has resolved off diuretic and RAYSA inhibitor therapy -- Baseline Cr ~ 1.0 -- Volume status and electrolyte balance are acceptable at this time -- Monitor PRP -- May restart lisinopril 20 mg daily at any time (2) Acute HFrEF (heart failure with reduced ejection fraction): -- NSTEMI this hospitalization -- Cath revealed diffuse 3 vessel disease (3) Anemia: -- Hgb stable. Will monitor (4) Fusion of spine: -- Admitted w/ neurogenic claudication -- Underwent fusion of L1 - L3 with insertion of antibiotic beads Subjective No acute events overnight. Review of Systems Constitutional: no weight loss, no weight gain and no problem reported Eyes: no problem reported Ear, Nose, Mouth, Throat: no problem reported Respiratory: no problem reported Cardiovascular: no problem reported Gastrointestinal: no problem reported Musculoskeletal: no problem reported Integumentary: no problem reported Neurologic: no problem reported Psychiatric: no problem reported Endocrine: no problem reported Hematologic / Lymphatic: no problem reported Physical Exam Constitutional: well developed; no acute distress Eyes: no scleral abnormality and no corneal abnormality ENMT: Mouth: no oral mucosal abnormality and oral mucous membranes not dry Neck: normal visual inspection and trachea midline Respiratory: normal respiratory effort Auscultation: lungs clear to auscultation bilaterally Cardiovascular: Rate/Rhythm: regular rate Heart Sounds: normal S1 and normal S2 Extremities: no edema Musculoskeletal: Extremities: no cyanosis and no clubbing Skin: normal turgor; no lesions Neurologic: Motor/Sensory: no tremor and no asterixis Psychiatric: Orientation: alert and oriented x 3 Results & Data Vital Signs (Past 12 Hours) Vital Signs Temp Pulse Pulse Pulse Resp BP BP 07/15/19 08:06 36.6 C 103 H 20 138/97 07/15/19 07:42 103 H 07/15/19 03:10 36.5 C 96 H 17 100/68 07/14/19 23:36 36.5 C 91 H 19 114/75 Pulse Ox 07/15/19 08:06 96 07/15/19 07:42 07/15/19 03:10 98 07/14/19 23:36 99 Laboratory Results Laboratory Results - last 24 hr 07/14/19 07/14/19 07/14/19 12:17 12:17 13:41 WBC RBC Hgb Hct MCV MCH MCHC RDW Std Deviation RDW Coeff of Maximo Plt Count MPV ESR 52 H Sodium Potassium Chloride Carbon Dioxide Anion Gap BUN Creatinine Est Cr Clr Drug Dosing Est GFR ( Amer) Est GFR (Non-Af Amer) BUN/Creatinine Ratio Glucose POC Glucose 176 H Calcium Total Bilirubin Direct Bilirubin AST ALT Alkaline Phosphatase Total Protein Albumin Procalcitonin 0.13 Urine Color Urine Appearance Urine pH Ur Specific [place] Urine Protein Urine Glucose (UA) Urine Ketones Urine Blood Urine Nitrite Urine Bilirubin Urine Urobilinogen Ur Leukocyte Esterase Urine WBC (Auto) Urine RBC (Auto) U Hyaline Cast (Auto) U Epithel Cells (Auto) Urine Bacteria (Auto) 07/14/19 07/14/19 07/15/19 16:15 20:16 04:55 WBC RBC Hgb Hct MCV MCH MCHC RDW Std Deviation RDW Coeff of Maximo Plt Count MPV ESR Sodium Potassium Chloride Carbon Dioxide Anion Gap BUN Creatinine Est Cr Clr Drug Dosing Est GFR ( Amer) Est GFR (Non-Af Amer) BUN/Creatinine Ratio Glucose POC Glucose 225 H 139 H Calcium Total Bilirubin Direct Bilirubin AST ALT Alkaline Phosphatase Total Protein Albumin Procalcitonin Urine Color Yellow Urine Appearance Clear Urine pH 5.0 Ur Specific [place] 1.028 Urine Protein 1+ H Urine Glucose (UA) Negative Urine Ketones 1+ H Urine Blood Negative Urine Nitrite Negative Urine Bilirubin Negative Urine Urobilinogen Negative Ur Leukocyte Esterase Negative Urine WBC (Auto) 10-30 H Urine RBC (Auto) 0-4 U Hyaline Cast (Auto) 1-5 U Epithel Cells (Auto) 5-10 H Urine Bacteria (Auto) Negative 07/15/19 07/15/19 07/15/19 06:45 06:45 07:35 WBC 5.16 RBC 2.79 L Hgb 8.7 L Hct 26.6 L MCV 95.3 MCH 31.2 MCHC 32.7 RDW Std Deviation 58.3 H RDW Coeff of Maximo 17.3 H Plt Count 203 MPV 9.1 ESR Sodium 142 Potassium 3.6 Chloride 110 H Carbon Dioxide 24 Anion Gap 8.0 BUN 25 H Creatinine 1.13 Est Cr Clr Drug Dosing 58.4 Est GFR ( Amer) 72.8 Est GFR (Non-Af Amer) 62.8 BUN/Creatinine Ratio 22.2 H Glucose 95 POC Glucose 127 H Calcium 8.8 Total Bilirubin 0.6 Direct Bilirubin < 0.1 AST 31 ALT 7 L Alkaline Phosphatase 56 Total Protein 5.2 L Albumin 2.2 L Procalcitonin Urine Color Urine Appearance Urine pH Ur Specific [place] Urine Protein Urine Glucose (UA) Urine Ketones Urine Blood Urine Nitrite Urine Bilirubin Urine Urobilinogen Ur Leukocyte Esterase Urine WBC (Auto) Urine RBC (Auto) U Hyaline Cast (Auto) U Epithel Cells (Auto) Urine Bacteria (Auto) PG Care Time/CCT Total # of Minutes Spent Total Time Spent with Patient: Total time spent is greater than 50% in coordination of care (as documented) at patient's floor/unit and/or counseling patient: Coding Level of Care Code 68299 Subseq Hosp Care Lvl 3 Diagnoses Chronic kidney disease, stage III (moderate) N18.3 Acute HFrEF (heart failure with reduced ejection fraction) I50.21 Anemia D64.9 Fusion of spine M43.20
[2019-07-15] MEDS ORDERED: SODIUM CHLORIDE 0.9% 250 ML IV PRN (11:29)
--- NOTE | 2019-07-15 11:32 | Cardiology Progress Note ---
Date of Service July 15, 2019 Assessment & Plan (1) NSTEMI (non-ST elevated myocardial infarction): (2) Acute HFrEF (heart failure with reduced ejection fraction): (3) Anemia: (4) Neurogenic claudication due to lumbar spinal stenosis: 07/06 intraoperative wound cultures performed 07/09/2019, and have now yielded gram- positive bacilli. Patient afebrile, no subjective fevers or chills. Blood cultures performed 07/04/2019 are negative. Infectious disease on case. Continue Ancef for now. Patient does have a history of chronic rheumatoid arthritis, was previously on methotrexate, and is on chronic prednisone therapy, also has added potential risk of immunosuppression due to diabetes. Patient tolerating metoprolol tartrate 25 mg twice daily. Lisinopril added by nephrology earlier today. Continue aspirin 81 mg daily, atorvastatin. Will increase atorvastatin dose to 80 mg daily since LFTs are normal. Postoperative blood loss anemia noted, hemoglobin 8.7 today, may be in part delusional due to fluids received post cardiac catheterization, but given myocardial infarction, would prefer to have hemoglobin greater than 10 g/dL. Therefore we will proceed with another transfusion of packed red blood cells having had previous transfusion on 07/12/2019. Patient is to be pretreated with Tylenol, and received furosemide 20 mg fpc through the transfusion. As noted yesterday, CABG ultimately recommended given his coronary artery disease findings on cardiac catheterization, but needs to recover from a spine surgery standpoint to minimize bleeding risk, and now we have the wound cultures that need to be addressed. DVT prophylaxis: Spine drain removed 07/14/2019, subcutaneous heparin 5000 units every 12 hours initiated 07/14/2019 Case discussed by phone with Dr Bolanos regarding culture results. Subjective Patient sitting in bedside chair. Denies chest discomfort or shortness of breath. He went for a brief walk with help of physical therapy today assisted by a walker which he tolerated well. Telemetry reveals ongoing sinus tachycardia in the range of 105 bpm. Blood pressure is a bit improved today. He denies subjective fevers chills. Denies new or worsening back pain. Denies chest discomfort. Notes mild shortness of breath with activity such as walking to the bathroom. Review of Systems Review of Systems: All systems reviewed & are unremarkable except as noted in HPI & below Physical Exam Physical Exam: Temp Pulse Resp BP Pulse Ox 36.6 C 103 H 20 138/97 96 07/15/19 08:06 07/15/19 08:06 07/15/19 08:06 07/15/19 08:06 07/15/19 08:06 Constitutional: WD/WN, vitals as above Respiratory: Minimal bibasilar rales otherwise clear Cardiovascular: RRR, no murmur, no edema Skin: no rashes, warm and dry Neurologic: PERRL, EOMI, accommodation nl, no face palsy, no dysarthria Results & Data Vital Signs (Past 12 Hours) Vital Signs Temp Pulse Pulse Pulse Resp BP BP 07/15/19 08:06 36.6 C 103 H 20 138/97 07/15/19 07:42 103 H 07/15/19 03:10 36.5 C 96 H 17 100/68 07/14/19 23:36 36.5 C 91 H 19 114/75 Pulse Ox 07/15/19 08:06 96 07/15/19 07:42 07/15/19 03:10 98 07/14/19 23:36 99 Laboratory Results Cardiac Enzymes 07/15/19 Range/Units 06:45 AST 31 (15-37) U/L CBC 07/15/19 Range/Units 06:45 WBC 5.16 (4.8-10.8) K/uL RBC 2.79 L (4.7-6.1) M/uL Hgb 8.7 L (14.0-18.0) g/dL Hct 26.6 L (42-52) % Plt Count 203 (130-400) K/uL Comprehensive Metabolic Panel 07/15/19 Range/Units 06:45 Sodium 142 (136-145) mmol/L Potassium 3.6 (3.5-5.1) mmol/L Chloride 110 H (98-107) mmol/L Carbon Dioxide 24 (21-32) mmol/L BUN 25 H (7-18) mg/dl Creatinine 1.13 (0.6-1.4) mg/dl Glucose 95 (70-99) mg/dl Calcium 8.8 (8.5-10.1) mg/dl Direct Bilirubin < 0.1 (0-0.2) mg/dl AST 31 (15-37) U/L ALT 7 L (12-78) U/L Alkaline Phosphatase 56 (45-117) U/L Total Protein 5.2 L (6.4-8.2) gm/dl Albumin 2.2 L (3.4-5.0) gm/dl Intake and Output 07/14/19 07/15/19 07/15/19 22:59 06:59 14:59 Intake Total 400 / 1690 1050 / 1690 Output Total 300 / 300 Balance 400 / 1390 750 / 1390 Intake: IV 1000 / 1000 Nss 1000ML 1,000 ml @ 80 mls/hr 1000 / 1000 IV .[id number] [facility] Rx#:[id number] Oral 400 / 690 50 / 690 Output: Urine 300 / 300 Other: Weight 89.8 kg
[2019-07-15] MEDS ORDERED: FUROSEMIDE 20 MG in SYRINGE 0 ML IV SCH (12:00)
[2019-07-15] MEDS ORDERED: ACETAMINOPHEN 500 MG TAB PO ONE (12:00)
--- NOTE | 2019-07-15 13:52 | Infectious Disease Progress Nt ---
Date of Service July 15, 2019 Assessment & Plan (1) Neurogenic claudication due to lumbar spinal stenosis: unclear if fluid infected, unclear significance of few gpr but with fluid noted in OR would suggest treating with abx. . had wbc 11 in ER, unclear significance. would continue IV abx for now while in hospital. will follow cultures, outpt blood cultures negative and final. echo negative. ordered esr and procalcitonin yesterday, ESR mildly elevated at 52 (?postop vs infection), procalcitonin negative. follow cultures, not yet final. At this time would suggest Dalvance x 2 dose at [facility] upon d/c from hospital. will follow. Admission and Anticipated Discharge Date Admission Date: July 08, 2019 Subjective pt remains afebrile. tolerating abx. OR cultures gpr, no sensitivities to follow, gram stain yesterday with gpr 1/2 cultures. no blood cultures done this admission but outside culture negative and final. Results & Data ([facility]) Vital Signs (Past 12 Hours) Vital Signs Temp Pulse Pulse Pulse Resp BP BP 07/15/19 11:19 37.1 C 91 H 18 82/62 L 07/15/19 08:06 36.6 C 103 H 20 138/97 07/15/19 07:42 103 H 07/15/19 03:10 36.5 C 96 H 17 100/68 Pulse Ox 07/15/19 11:19 97 07/15/19 08:06 96 07/15/19 07:42 07/15/19 03:10 98 Laboratory Results Microbiology 07/09/19 15:34 Back Gram Stain - Final 07/09/19 15:34 Back Aerobic and Anaerobic Culture - Preliminary Gram positive bacilli 07/09/19 15:34 Back Gram Stain - Final 07/09/19 15:34 Back Aerobic and Anaerobic Culture - Preliminary Gram positive bacilli PG Care Time/CCT Total # of Minutes Spent Total Time Spent with Patient: Total time spent is greater than 50% in coordination of care (as documented) at patient's floor/unit and/or counseling patient: Coding Level of Care Code 72965 Subseq Hosp Care Lvl 1 Diagnoses Neurogenic claudication due to lumbar spinal stenosis M48.062
--- NOTE | 2019-07-15 16:12 | Orthopedic Progress Note ---
Date of Service July 15, 2019 Assessment & Plan (1) Neurogenic claudication due to lumbar spinal stenosis: At this time we will continue activity as tolerated. Await final recommendations regarding long-term antibiotic care. Present on Admission?: Yes Admission and Anticipated Discharge Date Admission Date: July 08, 2019 Subjective Back pain controlled no leg pain Physical Exam Physical Exam: Patient is good strength testing. Results & Data ([facility]) Vital Signs (Past 12 Hours) Vital Signs Temp Pulse Pulse Resp BP BP BP 07/15/19 15:41 37.3 C 96 H 16 108/77 07/15/19 15:11 37.0 C 107 H 16 104/71 07/15/19 14:56 36.9 C 108 H 16 102/69 07/15/19 14:40 37 C 100 H 16 78/56 L 07/15/19 11:19 37.1 C 91 H 18 82/62 L 07/15/19 08:06 36.6 C 103 H 20 138/97 07/15/19 07:42 103 H Pulse Ox 07/15/19 15:41 96 07/15/19 15:11 97 07/15/19 14:56 96 07/15/19 14:40 97 07/15/19 11:19 97 07/15/19 08:06 96 07/15/19 07:42
[2019-07-15] MEDS: ATORVASTATIN 40 MG TAB PO SCH (21:16)
[2019-07-15] MEDS: DOCUSATE SODIUM/SENNA 50/8.6MG TAB PO SCH ×2 (21:17→23:53)
[2019-07-15] MEDS: VALACYCLOVIR HCL 500 MG TABLET PO SCH (21:17)
[2019-07-16] MEDS: POLYETHYLENE (MIRALAX) 17 GM PACK PO SCH ×4 (05:48→23:53)
[2019-07-16] MEDS: CEFAZOLIN 2000MG 2,000 MG/15 ML SYR IV SCH ×3 (06:05→23:12)
[2019-07-16] MEDS: TRAMADOL HCL 50 MG TABLET PO PRN ×2 (06:27→12:25)
[2019-07-16] MEDS: DOCUSATE SODIUM 100 MG CAP PO SCH ×2 (07:58→20:49)
[2019-07-16] MEDS: predniSONE 10 MG TABLET PO SCH (07:59)
[2019-07-16] MEDS: HEPARIN SOD 5,000 UNIT/0.5 ML VIAL SQ SCH ×2 (07:59→20:50)
[2019-07-16] MEDS: CHOLECALCIFEROL 1,000 UNITS 25 MCG TAB PO SCH (07:59)
[2019-07-16] MEDS: SPIRONOLACTONE 25 MG TAB PO SCH (07:59)
[2019-07-16] MEDS: lisinopriL 20 MG TAB PO SCH (07:59)
[2019-07-16] MEDS: ASPIRIN 81 MG ECTAB PO SCH (07:59)
[2019-07-16] MEDS: FOLIC ACID 1 MG TAB PO SCH (07:59)
[2019-07-16] MEDS: CYANOCOBALAMIN 500 MCG TABLET (VITAMIN B-12) PO SCH (07:59)
[2019-07-16] MEDS: METOPROLOL TARTRATE 25 MG TAB PO SCH ×2 (07:59→20:49)
[2019-07-16] MEDS: INSULIN ASPART 100 UNITS/ML 3 ML PEN SC SCH ×4 (08:01→20:51)
[2019-07-16 08:07] LABS: Hematocrit (blood only) 31.3 % (42-52); Hemoglobin 10.5 g/dL (14.0-18.0); Mean Corpuscular Hemoglobin 30.5 pg (25-34); Mean Corpuscular Hgb Conc 33.5 g/dL (32-36); Mean Platelet Volume 8.5 fL (7.4-10.4); Platelet Count 211 K/uL (130-400); RDW Coefficient of Variation 18.3 % (11.5-14.5); Red Blood Count 3.44 M/uL (4.7-6.1); White Blood Count 6.43 K/uL (4.8-10.8)
[2019-07-16 08:34] LABS: Albumin Level 2.5 gm/dl (3.4-5.0); BUN Creatinine Ratio 21.9 (10-20); Calcium 9.4 mg/dl (8.5-10.1); Creatinine Clr Calc Pharmacy 54.9 ml/min; Est GFR (African American) 67.7; Est GFR (Non-African American) 58.4; Potassium 3.7 mmol/L (3.5-5.1)
[2019-07-16 08:37] LABS: Albumin Globulin Ratio 0.7 (0.9-2); Bilirubin,Total 0.7 mg/dl (0.2-1); Globulin 3.4 gm/dl (2.5-4.0); Total Protein 5.9 gm/dl (6.4-8.2)
--- NOTE | 2019-07-16 09:57 | Nephrology Progress Note ---
Date of Service July 16, 2019 Assessment & Plan (1) Chronic kidney disease, stage III (moderate): -- SHANNAN has resolved off diuretic and RAYSA inhibitor therapy -- Baseline Cr ~ 1.0 -- Volume status and electrolyte balance are acceptable at this time -- Monitor PRP -- Lisinopril 20 mg daily restarted -- Few basilar rales noted on exam, low dose furosemide 20 mg daily restarted today (2) Acute HFrEF (heart failure with reduced ejection fraction): -- NSTEMI this hospitalization -- Cath revealed diffuse 3 vessel disease (3) Anemia: -- Hgb stable. Will monitor (4) Fusion of spine: -- Admitted w/ neurogenic claudication -- Underwent fusion of L1 - L3 with insertion of antibiotic beads Subjective No acute events overnight. Lexx feels well this morning. Denies significant pain. No dyspnea. No palpitations. BP acceptable. Review of Systems Review of Systems: All systems reviewed & are unremarkable except as noted in HPI & below Physical Exam Constitutional: well developed; no acute distress Eyes: no scleral abnormality and no corneal abnormality ENMT: Mouth: no oral mucosal abnormality and oral mucous membranes not dry Neck: normal visual inspection and trachea midline Respiratory: normal respiratory effort Auscultation: + rales Cardiovascular: Rate/Rhythm: regular rate Heart Sounds: normal S1 and normal S2 Extremities: no edema Musculoskeletal: Extremities: no cyanosis and no clubbing Skin: normal turgor; no lesions Neurologic: Motor/Sensory: no tremor and no asterixis Psychiatric: Orientation: alert and oriented x 3 Results & Data Vital Signs (Past 12 Hours) Vital Signs Temp Pulse Pulse Resp BP BP Pulse Ox 07/16/19 07:43 36.6 C 90 17 108/73 97 07/16/19 04:23 36.6 C 89 17 107/71 97 07/15/19 23:13 36.4 C L 84 17 101/67 95 Laboratory Results Laboratory Results - last 24 hr 07/15/19 07/15/19 07/15/19 11:32 12:27 16:27 WBC RBC Hgb Hct MCV MCH MCHC RDW Std Deviation RDW Coeff of Maximo Plt Count MPV Sodium Potassium Chloride Carbon Dioxide Anion Gap BUN Creatinine Est Cr Clr Drug Dosing Est GFR ( Amer) Est GFR (Non-Af Amer) BUN/Creatinine Ratio Glucose POC Glucose 159 H 239 H Calcium Total Bilirubin AST ALT Alkaline Phosphatase Total Protein Albumin Globulin Albumin/Globulin Ratio Blood Type AB Positive Antibody Screen NEGATIVE Crossmatch See Detail 07/15/19 07/16/19 07/16/19 20:23 07:41 07:50 WBC 6.43 RBC 3.44 L Hgb 10.5 L Hct 31.3 L MCV 91.0 MCH 30.5 MCHC 33.5 RDW Std Deviation 59.0 H RDW Coeff of Maximo 18.3 H Plt Count 211 MPV 8.5 Sodium Potassium Chloride Carbon Dioxide Anion Gap BUN Creatinine Est Cr Clr Drug Dosing Est GFR ( Amer) Est GFR (Non-Af Amer) BUN/Creatinine Ratio Glucose POC Glucose 150 H 108 H Calcium Total Bilirubin AST ALT Alkaline Phosphatase Total Protein Albumin Globulin Albumin/Globulin Ratio Blood Type Antibody Screen Crossmatch 07/16/19 07:50 WBC RBC Hgb Hct MCV MCH MCHC RDW Std Deviation RDW Coeff of Maximo Plt Count MPV Sodium 142 Potassium 3.7 Chloride 109 H Carbon Dioxide 26 Anion Gap 8.0 BUN 26 H Creatinine 1.20 Est Cr Clr Drug Dosing 54.9 Est GFR ( Amer) 67.7 Est GFR (Non-Af Amer) 58.4 BUN/Creatinine Ratio 21.9 H Glucose 100 H POC Glucose Calcium 9.4 Total Bilirubin 0.7 AST 26 ALT 8 L Alkaline Phosphatase 67 Total Protein 5.9 L Albumin 2.5 L Globulin 3.4 Albumin/Globulin Ratio 0.7 L Blood Type Antibody Screen Crossmatch PG Care Time/CCT Total # of Minutes Spent Total Time Spent with Patient: Total time spent is greater than 50% in coordination of care (as documented) at patient's floor/unit and/or counseling patient: Coding Level of Care Code 17908 Subseq Hosp Care Lvl 3 Diagnoses Chronic kidney disease, stage III (moderate) N18.3 Acute HFrEF (heart failure with reduced ejection fraction) I50.21 Anemia D64.9 Fusion of spine M43.20
--- NOTE | 2019-07-16 10:41 | Cardiology Progress Note ---
Date of Service July 16, 2019 Assessment & Plan (1) NSTEMI (non-ST elevated myocardial infarction): Troponin peaked at 25, new severe left ventricular systolic dysfunction. Multivessel disease noted on cardiac catheterization. No anginal symptoms. Heart rate much improved. Continue current medications including aspirin, metoprolol tartrate 25 mg twice daily, atorvastatin, dose increased to 80 mg daily. Nephrology help noted and appreciated, tolerating lisinopril 20 mg daily, furos emide 20 mg daily started, spironolactone 12.5 mg daily. (2) Acute HFrEF (heart failure with reduced ejection fraction): Medications as noted above. LifeVest orders, submitted to [facility] on 07/14. (3) Anemia: Hemoglobin improved today to 10.5 having received 1 packed red blood cells on 07/12, and another 1 on 07/15/2019. (4) Neurogenic claudication due to lumbar spinal stenosis: Status post semi-emergent decompressive surgery on 07/09/2019. Intraoperative cultures notable for gram-positive bacilli x2. Patient without any infectious symptoms, antibiotic beads placed intraoperatively. Continue to follow on cefazolin. DVT prophylaxis: Patient is wearing knee-high compression stockings, and is receiving subcutaneous heparin 5000 units every 12 hours. Disposition, continue to optimize him from a medication standpoint, with planned outpatient [place] [facility] [place]. As per my discussion with CT surgery, would like for him to recover a bit from a spine and potential infection standpoint before undergoing CABG for findings of multivessel disease. Subjective Patient overall in no distress. He states his back pain is little bit worse than yesterday. Heart rates are much improved with sinus rhythm at 80 bpm. Blood pressure stable. Review of Systems Review of Systems: All systems reviewed & are unremarkable except as noted in HPI & below Physical Exam Physical Exam: Temp Pulse Resp BP Pulse Ox 36.6 C 94 H 17 108/73 97 07/16/19 07:43 07/16/19 08:00 07/16/19 07:43 07/16/19 07:43 07/16/19 07:43 Constitutional: WD/WN, vitals as above Respiratory: Mild bibasilar Rales. Cardiovascular: RRR, no murmur, no edema Neurologic: PERRL, EOMI, accommodation nl, no face palsy, no dysarthria Results & Data Vital Signs (Past 12 Hours) Vital Signs Temp Pulse Pulse Pulse Resp BP BP 07/16/19 08:00 94 H 07/16/19 07:43 36.6 C 90 17 108/73 07/16/19 04:23 36.6 C 89 17 107/71 07/15/19 23:13 36.4 C L 84 17 101/67 Pulse Ox 07/16/19 08:00 07/16/19 07:43 97 07/16/19 04:23 97 07/15/19 23:13 95 Laboratory Results Cardiac Enzymes 07/16/19 Range/Units 07:50 AST 26 (15-37) U/L CBC 07/16/19 Range/Units 07:50 WBC 6.43 (4.8-10.8) K/uL RBC 3.44 L (4.7-6.1) M/uL Hgb 10.5 L (14.0-18.0) g/dL Hct 31.3 L (42-52) % Plt Count 211 (130-400) K/uL Comprehensive Metabolic Panel 07/16/19 Range/Units 07:50 Sodium 142 (136-145) mmol/L Potassium 3.7 (3.5-5.1) mmol/L Chloride 109 H (98-107) mmol/L Carbon Dioxide 26 (21-32) mmol/L BUN 26 H (7-18) mg/dl Creatinine 1.20 (0.6-1.4) mg/dl Glucose 100 H (70-99) mg/dl Calcium 9.4 (8.5-10.1) mg/dl AST 26 (15-37) U/L ALT 8 L (12-78) U/L Alkaline Phosphatase 67 (45-117) U/L Total Protein 5.9 L (6.4-8.2) gm/dl Albumin 2.5 L (3.4-5.0) gm/dl Intake and Output 07/15/19 07/16/19 07/16/19 22:59 06:59 14:59 Intake Total 610 / 1045 50 / 1045 Balance 610 / 1045 50 / 1045 Intake: Oral 300 / 735 50 / 735 Intake (Blood Product) Amt 310 / 310 Packed Cells, Leukoreduced 310 / 310 Unit [id number] Other: # Unmeasured Voids 2 Weight 89.6 kg
[2019-07-16] MEDS: FUROSEMIDE 20 MG TAB PO SCH (11:22)
--- NOTE | 2019-07-16 13:37 | Orthopedic Progress Note ---
Date of Service July 16, 2019 Assessment & Plan (1) Neurogenic claudication due to lumbar spinal stenosis: This time we are waiting medical clearance for discharge. I am also awaiting infectious disease recommendation for antibiotic therapy. Hopefully discharge home in the next few days. Present on Admission?: Yes Admission and Anticipated Discharge Date Admission Date: July 08, 2019 Subjective Back pain is controlled. Does note some lumbosacral back upper buttock pain with transitions and ambulation. No radicular pain. Physical Exam Physical Exam: Patient is in the chair at the bedside. Is good strength testing. Results & Data ([facility]) Vital Signs (Past 12 Hours) Vital Signs Temp Pulse Pulse Pulse Resp BP BP 07/16/19 10:48 36.7 C 82 18 92/61 L 07/16/19 08:00 94 H 07/16/19 07:43 36.6 C 90 17 108/73 07/16/19 04:23 36.6 C 89 17 107/71 Pulse Ox 07/16/19 10:48 95 07/16/19 08:00 07/16/19 07:43 97 07/16/19 04:23 97
--- NOTE | 2019-07-16 18:23 | Hospitalist Progress Note ---
Date of Service July 16, 2019 Assessment & Plan (1) NSTEMI (non-ST elevated myocardial infarction): Troponin peaked at 2 cardiac cath done showed multivessel disease Cardiology on board Pt will need to evaluate by CT surgery to get CABG but due to his recent back surgery and positive wound cx, we would like to wait for a few days before undergoing CABG for findings of multivessel disease. ECHO done showed Echo done showed left ventricular systolic function is severely reduced. Left ventricular is moderately dilated. Ejection fraction 25 to 30% Currently pt is asymptomatic If pt developed any chest discomfort, will life flight him to [place] for emergent CABG Continue ASA 81 mg, statin 80mg and metoprolol 25mg Unable to start on heparin drip due to recent back surgery that can lead to hematoma Continue monitor closely Acute Heart failure with reduced EF ECHO showed EF 25 to 30% Continue Lasix, lisinopril and spironolactone LifeVest orders, submitted to [facility] on 07/14 Monitor BMP . (2) Neurogenic claudication due to lumbar spinal stenosis: Directly admitted 07/[address] Bolanos for planned L1-L2 decompression and fusion on 07/09 Procedure #1 removal of posterior instrumentation L2-L3. #2 exploration fusion L2-L3. #3 lumbar decompression with bilateral medial facetectomies foraminotomies L1-L2. #4 posterior spinal fusion L1-L2 L2-L3. #5 placement posterior instrumentation L1 and L3. #6 placement of infuse collagen sponge, master graft in the posterior lateral gutters L1-L3. #7 placement of stimulant beads impregnated with vancomycin gentamicin in the interbody space and posterior lateral gutters. 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), may hold methotrexate for 2 weeks postoperatively (5) Chronic kidney disease, stage III (moderate): Baseline creatinine ~ 1.2 Will monitor creatinine while on lasix, spironolactone and lisinopril (6) Hypertension: BP controlled Continue lisinopril and furosemide, metoprolol (7) Hyperlipidemia: Continue statin (8) DVT prophylaxis: On heparin subq Code Status Full code Admission and Anticipated Discharge Date Admission Date: July 08, 2019 Subjective Pt was seen and examined Sitting in chair with no distress Pt said that he is having tenderness in his back Denies any chest pain, palpitation, dizziness and SOB Physical Exam Physical Exam: General- No acute distress Head- atraumatic Eyes- PERRL, EOMI, ENT- oropharynx clear Neck- supple, no JVD Lungs- Diminished BS Heart- regular rhythm; no murmur Abdomen- normal bowel sounds, soft, nontender Extremities- no calf tenderness, +edema Neuro- alert, oriented x 3; PERRL, EOMI; no facial palsy; no dysarthria Skin- warm & dry Results & Data ([facility]) Vital Signs (Past 12 Hours) Vital Signs Temp Pulse Pulse Pulse Resp BP BP 07/16/19 17:00 88 07/16/19 15:50 36.6 C 89 19 94/62 L 07/16/19 10:48 36.7 C 82 18 92/61 L 07/16/19 08:00 94 H 07/16/19 07:43 36.6 C 90 17 108/73 Pulse Ox 07/16/19 17:00 07/16/19 15:50 94 07/16/19 10:48 95 07/16/19 08:00 07/16/19 07:43 97
[2019-07-16] MEDS: HYDROmorphone INJ 0.5 MG/0.5 ML SYR IV PRN (20:45)
[2019-07-16] MEDS: VALACYCLOVIR HCL 500 MG TABLET PO SCH (20:50)
[2019-07-16] MEDS: ATORVASTATIN 40 MG TAB PO SCH (20:50)
[2019-07-16] MEDS: DOCUSATE SODIUM/SENNA 50/8.6MG TAB PO SCH (20:52)
[2019-07-17] MEDS: POLYETHYLENE (MIRALAX) 17 GM PACK PO SCH ×3 (04:40→17:08)
[2019-07-17] MEDS: CEFAZOLIN 2000MG 2,000 MG/15 ML SYR IV SCH ×3 (06:37→22:30)
[2019-07-17] MEDS: TRAMADOL HCL 50 MG TABLET PO PRN ×3 (06:41→20:31)
[2019-07-17] MEDS: SPIRONOLACTONE 25 MG TAB PO SCH (08:07)
[2019-07-17] MEDS: DOCUSATE SODIUM 100 MG CAP PO SCH ×2 (08:07→20:28)
[2019-07-17] MEDS: FOLIC ACID 1 MG TAB PO SCH (08:08)
[2019-07-17] MEDS: CYANOCOBALAMIN 500 MCG TABLET (VITAMIN B-12) PO SCH (08:08)
[2019-07-17] MEDS: CHOLECALCIFEROL 1,000 UNITS 25 MCG TAB PO SCH (08:09)
[2019-07-17] MEDS: ASPIRIN 81 MG ECTAB PO SCH (08:09)
[2019-07-17] MEDS: FUROSEMIDE 20 MG TAB PO SCH (08:10)
[2019-07-17] MEDS: HEPARIN SOD 5,000 UNIT/0.5 ML VIAL SQ SCH ×2 (08:10→22:32)
[2019-07-17] MEDS: METOPROLOL TARTRATE 25 MG TAB PO SCH ×2 (08:11→22:30)
[2019-07-17] MEDS: predniSONE 10 MG TABLET PO SCH (08:11)
[2019-07-17] MEDS: lisinopriL 20 MG TAB PO SCH (08:11)
[2019-07-17] MEDS: INSULIN ASPART 100 UNITS/ML 3 ML PEN SC SCH ×4 (08:12→22:32)
--- NOTE | 2019-07-17 08:15 | Infectious Disease Progress Nt ---
Date of Service July 17, 2019 Assessment & Plan (1) Neurogenic claudication due to lumbar spinal stenosis: Cultures growing p. acnes, no sensitivities provided. continue ancef while in hospital, upon d/c would suggest Dalvance x 2-3 doses at [facility] upon d/c from hospital, with likely suppression with po keflex after completion of IV abx. ok for d/c when arrangements for Dalvance infusion at [facility] made. Admission and Anticipated Discharge Date Admission Date: July 08, 2019 Subjective OR cultures growing p. acnes. afebrile. on ancef. tolerating well. wbc normal on 07/16. awaiting d/c. cardio following. Results & Data ([facility]) Vital Signs (Past 12 Hours) Vital Signs Temp Pulse Resp BP BP Pulse Ox 07/17/19 07:08 36.8 C 81 18 102/68 99 07/17/19 03:35 36.7 C 85 20 94/63 L 98 07/16/19 23:05 37 C 87 20 95/61 L 93 Laboratory Results Microbiology 07/09/19 15:34 Back Gram Stain - Final 07/09/19 15:34 Back Aerobic and Anaerobic Culture - Final Cutibacterium (Propioni) acnes 07/09/19 15:34 Back Gram Stain - Final 07/09/19 15:34 Back Aerobic and Anaerobic Culture - Final Cutibacterium (Propioni) acnes PG Care Time/CCT Total # of Minutes Spent Total Time Spent with Patient: Total time spent is greater than 50% in coordination of care (as documented) at patient's floor/unit and/or counseling patient: Coding Level of Care Code 66279 Subseq Hosp Care Lvl 1 Diagnoses Neurogenic claudication due to lumbar spinal stenosis M48.062
[2019-07-17 09:49] LABS: Albumin Level 2.4 gm/dl (3.4-5.0); BUN Creatinine Ratio 21.6 (10-20); Calcium 9.2 mg/dl (8.5-10.1); Est GFR (African American) 66.3; Est GFR (Non-African American) 57.2; Potassium 3.8 mmol/L (3.5-5.1)
[2019-07-17 09:50] LABS: Phosphorus 2.5 mg/dl (2.5-4.9)
--- NOTE | 2019-07-17 10:52 | Cardiology Progress Note ---
Date of Service July 17, 2019 Assessment & Plan (1) NSTEMI (non-ST elevated myocardial infarction): Continue current medications. Aspirin 81 mg daily. Patient is on clopidogrel due to plans for upcoming CABG. Transition metoprolol tartrate 25 mg twice daily to metoprolol succinate 50 mg daily to start tomorrow. Continue lisinopril, furosemide, low-dose spironolactone. Continue atorvastatin. (2) Acute HFrEF (heart failure with reduced ejection fraction): No rales on exam today. Fine status stable. Continue medications as above. (3) Anemia: Hemoglobin improved to 10.5 on 07/16/2019 having received 1 unit of packed red blood cells on 07/12/2019 and 07/15/2019. (4) Neurogenic claudication due to lumbar spinal stenosis: Status post semi-emergent decompressive surgery on 07/09/2019 Has risk factors for immunosuppression given his underlying history of diabetes rheumatoid arthritis for which he is on chronic prednisone/methotrexate. 07/06 intraoperative wound cultures yielded Cutibacterium (Propioni) acnes. Blood cultures x2 performed preoperatively on 07/04/2019 are negative for bacteremia. Patient has been receiving Ancef. ID input noted and appreciated. Plan is for 2-3 doses of Dalvance in the medical treatment unit post discharge, with suppression on p.o. Keflex. I will obtain a repeat set of blood cultures, as when I [place]o [place] [facility] [place]'s condition, this will be helpful information. Disposition: Patient suffered a perioperative myocardial infarction with troponin peaking at 25 NG per mL, ischemic EKG changes, no angina, new decline in LVEF to 25% as compared to 55% in November,. Cardiac catheterization performed earlier this week revealed multivessel coronary heart disease. CABG tentatively planned, but on hold to allow for patient to recover from a spine surgery standpoint infection standpoint. Plan is for medication therapy from a coronary heart disease standpoint, and bridge therapy with a [facility] Life Vest which is to be placed today. Subjective Chief complaint: Follow-up myocardial infarction Subjective: Patient feeling well. Denies any complaints. Went for a walk with his walker yesterday. He states his back pain has improved with the change in his pain medication. Telemetry reveals stable sinus rhythm in the 80 to 100 bpm range which is improved compared to several days ago. He is receiving his medications including aspirin, metoprolol, lisinopril, atorvastatin. Physical Exam Physical Exam: Temp Pulse Resp BP Pulse Ox 36.8 C 81 18 102/68 99 07/17/19 07:08 07/17/19 07:08 07/17/19 07:08 07/17/19 07:08 07/17/19 07:08 Constitutional: WD/WN, vitals as above Respiratory: normal respiratory effort, lungs clear to auscultation Cardiovascular: RRR, no murmur, no edema Gastrointestinal (Abdomen): normal bowel sounds, soft, nontender, no hepatosplenomegaly Neurologic: PERRL, EOMI, accommodation nl, no face palsy, no dysarthria Results & Data Vital Signs (Past 12 Hours) Vital Signs Temp Pulse Resp BP BP Pulse Ox 07/17/19 07:08 36.8 C 81 18 102/68 99 07/17/19 03:35 36.7 C 85 20 94/63 L 98 07/16/19 23:05 37 C 87 20 95/61 L 93 Laboratory Results Comprehensive Metabolic Panel 07/17/19 Range/Units 09:07 Sodium 142 (136-145) mmol/L Potassium 3.8 (3.5-5.1) mmol/L Chloride 109 H (98-107) mmol/L Carbon Dioxide 30 (21-32) mmol/L BUN 26 H (7-18) mg/dl Creatinine 1.22 (0.6-1.4) mg/dl Glucose 143 H (70-99) mg/dl Calcium 9.2 (8.5-10.1) mg/dl Albumin 2.4 L (3.4-5.0) gm/dl Intake and Output 07/16/19 07/17/19 07/17/19 22:59 06:59 14:59 Intake Total 350 / 820 100 / 820 Balance 350 / 820 100 / 820 Intake: Oral 350 / 820 100 / 820 Other: # Unmeasured Voids 2 Weight 89.7 kg
--- NOTE | 2019-07-17 11:02 | Orthopedic Progress Note ---
Date of Service July 17, 2019 Assessment & Plan (1) Neurogenic claudication due to lumbar spinal stenosis: This time continue to encourage light activity as tolerated. We are awaiting cardiology clearance for final discharge. Present on Admission?: Yes Admission and Anticipated Discharge Date Admission Date: July 08, 2019 Subjective Back pain is controlled no leg pain. Physical Exam Physical Exam: Patient is in the chair at the bedside. Is comfortable. No pain to palpation or percussion of his lumbar spine. Results & Data ([facility]) Vital Signs (Past 12 Hours) Vital Signs Temp Pulse Resp BP BP Pulse Ox 07/17/19 07:08 36.8 C 81 18 102/68 99 07/17/19 03:35 36.7 C 85 20 94/63 L 98 07/16/19 23:05 37 C 87 20 95/61 L 93
--- NOTE | 2019-07-17 14:41 | Electrocardiogram Report ---
Test Reason : Blood Pressure : / mmHG Vent. Rate : 086 BPM Atrial Rate : 086 BPM P-R Int : 190 ms QRS Dur : 102 ms QT Int : 370 ms P-R-T Axes : 036 012 143 degrees QTc Int : 442 ms Normal sinus rhythm Marked ST abnormality, possible lateral subendocardial injury Abnormal ECG When compared with ECG of 14-JUL-2019 06:24, No significant change Confirmed by Terrance Lozano ([id number]) on 07/17/2019 2:41:11 PM Referred By: Carl Bolanos Confirmed By:Terrance Lozano
--- NOTE | 2019-07-17 15:09 | Nephrology Progress Note ---
Date of Service July 17, 2019 Assessment & Plan (1) Chronic kidney disease, stage III (moderate): -- SHANNAN has resolved -- Baseline Cr ~ 1.0 -- Volume status and electrolyte balance are acceptable at this time -- Monitor PRP -- Lisinopril 20 mg has been well tolerated (2) Acute HFrEF (heart failure with reduced ejection fraction): -- NSTEMI this hospitalization -- Cath revealed diffuse 3 vessel disease -- Volume status acceptable on low dose daily furosemide (3) Anemia: -- Hgb stable. Will monitor (4) Fusion of spine: -- Admitted w/ neurogenic claudication -- Underwent fusion of L1 - L3 with insertion of antibiotic beads Subjective No acute events overnight. Lexx feels well this morning. No chest pain or palpitations. No dyspnea. Review of Systems Review of Systems: All systems reviewed & are unremarkable except as noted in HPI & below Physical Exam Constitutional: well developed; no acute distress Eyes: no scleral abnormality and no corneal abnormality ENMT: Mouth: no oral mucosal abnormality and oral mucous membranes not dry Neck: normal visual inspection and trachea midline Respiratory: normal respiratory effort Auscultation: + rales Cardiovascular: Rate/Rhythm: regular rate Heart Sounds: normal S1 and normal S2 Extremities: no edema Musculoskeletal: Extremities: no cyanosis and no clubbing Skin: normal turgor; no lesions Neurologic: Motor/Sensory: no tremor and no asterixis Psychiatric: Orientation: alert and oriented x 3 Results & Data Vital Signs (Past 12 Hours) Vital Signs Temp Pulse Pulse Pulse Resp BP BP 07/17/19 11:31 36.9 C 87 18 97/65 L 07/17/19 08:00 81 07/17/19 07:08 36.8 C 81 18 102/68 07/17/19 03:35 36.7 C 85 20 94/63 L Pulse Ox 07/17/19 11:31 95 07/17/19 08:00 07/17/19 07:08 99 07/17/19 03:35 98 Laboratory Results Laboratory Results - last 24 hr 07/16/19 07/16/19 07/17/19 16:23 20:23 07:36 Sodium Potassium Chloride Carbon Dioxide Anion Gap BUN Creatinine Est Cr Clr Drug Dosing Est GFR ( Amer) Est GFR (Non-Af Amer) BUN/Creatinine Ratio Glucose POC Glucose 196 H 148 H 100 H Calcium Phosphorus Albumin 07/17/19 07/17/19 09:07 12:19 Sodium 142 Potassium 3.8 Chloride 109 H Carbon Dioxide 30 Anion Gap 3.0 BUN 26 H Creatinine 1.22 Est Cr Clr Drug Dosing 54.0 Est GFR ( Amer) 66.3 Est GFR (Non-Af Amer) 57.2 BUN/Creatinine Ratio 21.6 H Glucose 143 H POC Glucose 168 H Calcium 9.2 Phosphorus 2.5 Albumin 2.4 L PG Care Time/CCT Total # of Minutes Spent Total Time Spent with Patient: Total time spent is greater than 50% in coordination of care (as documented) at patient's floor/unit and/or counseling patient: Coding Level of Care Code 34770 Subseq Hosp Care Lvl 3 Diagnoses Chronic kidney disease, stage III (moderate) N18.3 Acute HFrEF (heart failure with reduced ejection fraction) I50.21 Anemia D64.9 Fusion of spine M43.20
[2019-07-17] MEDS: HYDROmorphone INJ 0.5 MG/0.5 ML SYR IV PRN (16:13)
--- NOTE | 2019-07-17 18:43 | Hospitalist Progress Note ---
Date of Service July 17, 2019 Assessment & Plan (1) NSTEMI (non-ST elevated myocardial infarction): Troponin peaked at 2 cardiac cath done showed multivessel disease Cardiology on board Pt will need to evaluate by CT surgery to get CABG but due to his recent back surgery and positive wound cx, we would like to wait for a few days before undergoing CABG for findings of multivessel disease. ECHO done showed Echo done showed left ventricular systolic function is severely reduced. Left ventricular is moderately dilated. Ejection fraction 25 to 30% Currently pt is asymptomatic If pt developed any chest discomfort, will life flight him to [place] for emergent CABG Continue ASA 81 mg, statin 80mg and metoprolol 25mg Unable to start on heparin drip due to recent back surgery that can lead to hematoma Continue monitor closely Acute Heart failure with reduced EF ECHO showed EF 25 to 30% Continue Lasix, lisinopril and spironolactone LifeVest orders, submitted to [facility] on 07/14 Waiting for the Lifevest to delivery Monitor BMP . (2) Neurogenic claudication due to lumbar spinal stenosis: Directly admitted 07/[address] Bolanos for planned L1-L2 decompression and fusion on 07/09 Procedure #1 removal of posterior instrumentation L2-L3. #2 exploration fusion L2-L3. #3 lumbar decompression with bilateral medial facetectomies foraminotomies L1-L2. #4 posterior spinal fusion L1-L2 L2-L3. #5 placement posterior instrumentation L1 and L3. #6 placement of infuse collagen sponge, master graft in the posterior lateral gutters L1-L3. #7 placement of stimulant beads impregnated with vanc and gent in the interbody space and posterior la teral gutters. Cultures from the back grew p. acnes, no sensitivities provided. Continue abx with ancef while in hospital Will transition to Dalvance weekly x 2-3 dose at [facility] upon d/c from hospital Blood cx collected today to make sure there is no bacteremia before sending for CABG with CT surgery Continue Incentive Spirometry PT/OT with appropriate fall precautions PO Pain control Fall precaution (3) Diabetes mellitus, type 2: Hgb A1c 8.0 03/2019 Continue to hold home metformin, Prandin, Trulicity Continue NovoLog per protocol while hospitalized Continue monitor BS (4) Rheumatoid arthritis: Continue prednisone case discussed with Dr. 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), may hold methotrexate for 2 weeks postoperatively (5) Chronic kidney disease, stage III (moderate): Baseline creatinine ~ 1.2 Will monitor creatinine while on lasix, spironolactone and lisinopril (6) Hypertension: BP controlled Continue lisinopril and furosemide, metoprolol (7) Hyperlipidemia: Continue statin (8) DVT prophylaxis: On heparin subq Code Status Full code Disposition waiting for Life Vest Will talk to major case detective to arrange for Dalvance at the [facility] Admission and Anticipated Discharge Date Admission Date: July 08, 2019 Subjective Pt was seen and examined Sitting in chair with no distress Pt said that he walked around with no chest discomfort We are waiting for the life vest to delivery Denies any chest pain, palpitation, dizziness and SOB Physical Exam Physical Exam: General- No acute distress Head- atraumatic Eyes- PERRL, EOMI, ENT- oropharynx clear Neck- supple, no JVD Lungs- Diminished BS Heart- regular rhythm; no murmur Abdomen- normal bowel sounds, soft, nontender Extremities- no calf tenderness, +edema Neuro- alert, oriented x 3; PERRL, EOMI; no facial palsy; no dysarthria Skin- warm & dry Results & Data ([facility]) Vital Signs (Past 12 Hours) Vital Signs Temp Pulse Pulse Pulse Resp BP BP 07/17/19 16:22 37.0 C 89 16 105/70 07/17/19 16:00 90 07/17/19 11:31 36.9 C 87 18 97/65 L 07/17/19 08:00 81 07/17/19 07:08 36.8 C 81 18 102/68 Pulse Ox 07/17/19 16:22 94 07/17/19 16:00 07/17/19 11:31 95 07/17/19 08:00 07/17/19 07:08 99
[2019-07-17] MEDS: DOCUSATE SODIUM/SENNA 50/8.6MG TAB PO SCH (20:29)
[2019-07-17] MEDS: ATORVASTATIN 40 MG TAB PO SCH (22:30)
[2019-07-17] MEDS: VALACYCLOVIR HCL 500 MG TABLET PO SCH (22:31)
[2019-07-18] MEDS: POLYETHYLENE (MIRALAX) 17 GM PACK PO SCH ×5 (00:10→23:01)
[2019-07-18] MEDS: CEFAZOLIN 2000MG 2,000 MG/15 ML SYR IV SCH ×3 (06:43→22:05)
[2019-07-18] MEDS: TRAMADOL HCL 50 MG TABLET PO PRN ×2 (06:44→20:15)
[2019-07-18 07:19] LABS: BUN Creatinine Ratio 23.5 (10-20); Calcium 9.2 mg/dl (8.5-10.1); Creatinine Clr Calc Pharmacy 54.9 ml/min; Est GFR (African American) 67.7; Est GFR (Non-African American) 58.4; Potassium 3.7 mmol/L (3.5-5.1)
[2019-07-18] MEDS: INSULIN ASPART 100 UNITS/ML 3 ML PEN SC SCH ×4 (08:28→20:38)
[2019-07-18] MEDS: SPIRONOLACTONE 25 MG TAB PO SCH (08:29)
[2019-07-18] MEDS: DOCUSATE SODIUM 100 MG CAP PO SCH ×2 (08:30→20:08)
[2019-07-18] MEDS: FOLIC ACID 1 MG TAB PO SCH (08:31)
[2019-07-18] MEDS: FUROSEMIDE 20 MG TAB PO SCH (08:31)
[2019-07-18] MEDS: ASPIRIN 81 MG ECTAB PO SCH (08:31)
[2019-07-18] MEDS: HEPARIN SOD 5,000 UNIT/0.5 ML VIAL SQ SCH ×2 (08:31→20:39)
[2019-07-18] MEDS: predniSONE 10 MG TABLET PO SCH (08:32)
[2019-07-18] MEDS: METOPROLOL SUCC 50MG EXT REL TAB PO SCH (08:32)
[2019-07-18] MEDS: CYANOCOBALAMIN 500 MCG TABLET (VITAMIN B-12) PO SCH (08:33)
[2019-07-18] MEDS: CHOLECALCIFEROL 1,000 UNITS 25 MCG TAB PO SCH (08:33)
[2019-07-18] MEDS: lisinopriL 20 MG TAB PO SCH (08:34)
--- NOTE | 2019-07-18 09:41 | Nephrology Progress Note ---
Date of Service July 18, 2019 Assessment & Plan (1) Chronic kidney disease, stage III (moderate): -- SHANNAN has resolved -- BP and volume status are acceptable -- Electrolytes within normal limits -- Creatinine at baseline and stable -- Nephrology will sign off -- Please have a repeat metabolic profile within 1 week of hospital discharge (results can be faxed to [phone]) -- I would request outpatient follow up with Dr. Hardy within 2 weeks of discharge (2) Acute HFrEF (heart failure with reduced ejection fraction): -- NSTEMI this hospitalization -- Cath revealed diffuse 3 vessel disease -- Volume status acceptable on low dose daily furosemide (3) Anemia: -- Hgb stable. Will monitor (4) Fusion of spine: -- Admitted w/ neurogenic claudication -- Underwent fusion of L1 - L3 with insertion of antibiotic beads Subjective No acute events overnight. Mr. Mallory continues to report some fatigue but overall states that he feels well. He denies chest pain or palpitations. He denies lightheadedness or dizziness. He is breathing comfortably. Review of Systems Review of Systems: All systems reviewed & are unremarkable except as noted in HPI & below Physical Exam Constitutional: well developed; no acute distress Eyes: no scleral abnormality and no corneal abnormality ENMT: Mouth: no oral mucosal abnormality and oral mucous membranes not dry Neck: normal visual inspection and trachea midline Respiratory: normal respiratory effort Auscultation: lungs clear to auscultation bilaterally Cardiovascular: Rate/Rhythm: regular rate Heart Sounds: normal S1 and normal S2 Extremities: no edema Musculoskeletal: Extremities: no cyanosis and no clubbing Skin: normal turgor; no lesions Neurologic: Motor/Sensory: no tremor and no asterixis Psychiatric: Orientation: alert and oriented x 3 Results & Data Vital Signs (Past 12 Hours) Vital Signs Temp Pulse Pulse Resp BP Pulse Ox 07/18/19 07:44 36.7 C 81 19 90/58 L 98 07/18/19 04:53 36.6 C 74 18 96/61 L 96 07/17/19 23:30 36.6 C 84 18 111/71 99 Laboratory Results Laboratory Results - last 24 hr 07/17/19 07/17/19 07/17/19 09:07 12:19 16:17 Sodium 142 Potassium 3.8 Chloride 109 H Carbon Dioxide 30 Anion Gap 3.0 BUN 26 H Creatinine 1.22 Est Cr Clr Drug Dosing 54.0 Est GFR ( Amer) 66.3 Est GFR (Non-Af Amer) 57.2 BUN/Creatinine Ratio 21.6 H Glucose 143 H POC Glucose 168 H 189 H Calcium 9.2 Phosphorus 2.5 Albumin 2.4 L 07/17/19 07/18/19 07/18/19 20:34 06:06 07:26 Sodium 143 Potassium 3.7 Chloride 110 H Carbon Dioxide 28 Anion Gap 5.0 BUN 28 H Creatinine 1.20 Est Cr Clr Drug Dosing 54.9 Est GFR ( Amer) 67.7 Est GFR (Non-Af Amer) 58.4 BUN/Creatinine Ratio 23.5 H Glucose 85 POC Glucose 197 H 107 H Calcium 9.2 Phosphorus Albumin PG Care Time/CCT Total # of Minutes Spent Total Time Spent with Patient: Total time spent is greater than 50% in coordination of care (as documented) at patient's floor/unit and/or counseling patient: Coding Level of Care Code 38674 Subseq Hosp Care Lvl 3 Diagnoses Chronic kidney disease, stage III (moderate) N18.3 Acute HFrEF (heart failure with reduced ejection fraction) I50.21 Anemia D64.9 Fusion of spine M43.20
--- NOTE | 2019-07-18 10:39 | Cardiology Progress Note ---
Date of Service July 18, 2019 Assessment & Plan (1) NSTEMI (non-ST elevated myocardial infarction): (1) NSTEMI (non-ST elevated myocardial infarction): Continue current medications. Aspirin 81 mg daily. Patient is NOT on clopidogrel due to plans for upcoming CABG. Metoprolol succinate 50 mg daily, lisinopril, furosemide, low-dose spironolactone, atorvastatin with dose having been increased from 40 mg which he was on prior to this hospitalization to 80 mg. (2) Acute HFrEF (heart failure with reduced ejection fraction): No rales on exam today. Volume status stable. Continue medications as above. (3) Anemia: Hemoglobin improved to 10.5 on 07/16/2019 having received 1 unit of packed red blood cells on 07/12/2019 and 07/15/2019. (4) Neurogenic claudication due to lumbar spinal stenosis: Status post semi-emergent decompressive surgery on 07/09/2019 Has risk factors for immunosuppression given his underlying history of diabetes rheumatoid arthritis for which he is on chronic prednisone and methotrexate (MTX on hold). 07/06 intraoperative wound cultures yielded Cutibacterium (Propioni) acnes. Blood cultures x2 performed preoperatively on 07/04/2019 are negative for bacteremia. Patient has been receiving Ancef x 1 week since the surgery. ID input noted and appreciated. Plan is for 2-3 doses of Dalvance in the medical treatment unit post discharge, with suppression on p.o. Keflex. -Repeat blood cultures drawn 07/17/2019, no growth thus far. -I discussed the case with Dr. Cotter [place] [facility], who agreed with me that patient was stable from a infectious standpoint to proceed with CABG. Disposition: Patient suffered a perioperative myocardial infarction with troponin peaking at 25 ng per mL, ischemic EKG changes, no angina, new decline in LVEF to 25% as compared to 55-59% in November,(outpt study at [facility]). Cardiac catheterization performed earlier this week revealed multivessel coronary heart disease. CABG tentatively planned, but on hold to allow for patient to recover from a spine surgery standpoint infection standpoint with concerns of risk of bleeding at his recent operative site with heparinization. Medical therapy as outlined above. Given new severe LV systolic dysfunction Zoll Life Vest to be fitted today, 07/18/19. Pt scheduled for outpatient CT surgery consultation of Sunday07[place]22/2019 [place] [facility] [place] I have had pt complete records release so that we can make sure paper copy of chart can be provided to patient at discharge to bring with him to CT surgery visit. I transferred his cardiac catheterization films and his recent echocardiogram from this admission to the [facility] system. Subjective Chief complaint: Follow-up myocardial infarction Subjective: Patient feeling well. He went for a brief walk with PT with the assistance of his walker today. He does note left sided low back pain that he feels is a little bit worse than yesterday. Denies subjective fevers or chills. Telemetry reveals sinus rhythm in the range of 70 to 80 bpm. Review of Systems Review of Systems: All systems reviewed & are unremarkable except as noted in HPI & below Physical Exam Physical Exam: Temp Pulse Resp BP Pulse Ox 36.7 C 81 19 90/58 L 98 07/18/19 07:44 07/18/19 07:44 07/18/19 07:44 07/18/19 07:44 07/18/19 07:44 Constitutional: WD/WN, vitals as above Respiratory: normal respiratory effort, lungs clear to auscultation Cardiovascular: RRR, no murmur, no edema Gastrointestinal (Abdomen): normal bowel sounds, soft, nontender, no hepatosplenomegaly Neurologic: PERRL, EOMI, accommodation nl, no face palsy, no dysarthria Results & Data Vital Signs (Past 12 Hours) Vital Signs Temp Pulse Pulse Resp BP Pulse Ox 07/18/19 07:44 36.7 C 81 19 90/58 L 98 07/18/19 04:53 36.6 C 74 18 96/61 L 96 07/17/19 23:30 36.6 C 84 18 111/71 99 Laboratory Results Comprehensive Metabolic Panel 07/18/19 Range/Units 06:06 Sodium 143 (136-145) mmol/L Potassium 3.7 (3.5-5.1) mmol/L Chloride 110 H (98-107) mmol/L Carbon Dioxide 28 (21-32) mmol/L BUN 28 H (7-18) mg/dl Creatinine 1.20 (0.6-1.4) mg/dl Glucose 85 (70-99) mg/dl Calcium 9.2 (8.5-10.1) mg/dl Intake and Output 07/17/19 07/18/19 07/18/19 22:59 06:59 14:59 Intake Total 900 / 1300 200 / 1300 Balance 900 / 1300 200 / 1300 Intake: Oral 900 / 1300 200 / 1300 Other: # Unmeasured Voids 2 Medications Administered Current Inpatient Medications Acetaminophen (Tylenol) 1,000 mg PO Q8H PRN PRN Reason: MILD Pain Rating 1,2,3 Stop: 08/07/19 14:10 Last Admin: 07/10/19 15:49 Dose: 1,000 mg Documented by: Al Hydrox/Mg Hydrox/Simethicone (Maalox) 30 ml PO Q6H PRN PRN Reason: Dyspepsia Stop: 08/08/19 17:34 Aspirin (Ecotrin Ectab) 81 mg PO [facility] Stop: 08/12/19 08:59 Last Admin: 07/18/19 08:31 Dose: 81 mg Documented by: Atorvastatin Calcium (Lipitor) 80 mg PO [facility] Stop: 08/14/19 20:59 Last Admin: 07/17/19 22:30 Dose: 80 mg Documented by: Bisacodyl (Dulcolax) 10 mg ID DAILY PRN PRN Reason: Constipation Stop: 08/08/19 17:34 Cyanocobalamin (Vitamin B-12) 1,000 mcg PO [facility] Stop: 08/08/19 08:59 Last Admin: 07/18/19 08:33 Dose: 1,000 mcg Documented by: Dextrose (Dextrose 50%) 25 - 50 ml IV UD PRN; Protocol PRN Reason: Hypoglycemia Protocol Stop: 08/07/19 15:21 Diphenhydramine HCl (Benadryl Capsule) 25 mg PO Q6H PRN PRN Reason: Allergic Rhinitis/Insomnia Stop: 08/08/19 17:34 Docusate Sodium (Colace) 100 mg PO BID [facility] Stop: 08/07/19 20:59 Last Admin: 07/18/19 08:30 Dose: Not Given Documented by: Famotidine (Pepcid) 20 mg PO Q12H PRN PRN Reason: Dyspepsia Stop: 08/08/19 17:34 Folic Acid (Folvite) 1 mg PO [facility] Stop: 08/08/19 08:59 Last Admin: 07/18/19 08:31 Dose: 1 mg Documented by: Furosemide (Lasix) 20 mg PO QAM [facility] Stop: 08/15/19 09:59 Last Admin: 07/18/19 08:31 Dose: 20 mg Documented by: Glucagon (Glucagen) 1 mg SQ UD PRN; Protocol PRN Reason: Hypoglycemia Protocol Stop: 08/07/19 15:21 Glucose (Glucose 40%) 15 - 30 gm PO UD PRN; Protocol PRN Reason: Hypoglycemia Protocol Stop: 08/07/19 15:21 Glucose (Dex4 Glucose) 4 - 8 tabs PO UD PRN; Protocol PRN Reason: Hypoglycemia Protocol Stop: 08/07/19 15:21 Heparin Sodium (Porcine) (Heparin Sodium (Porcine)) 5,000 units SQ Q12 [facility] Stop: 08/13/19 20:59 Last Admin: 07/18/19 08:31 Dose: 5,000 units Documented by: Hydromorphone HCl (Dilaudid) 0.5 mg IV Q3H PRN PRN Reason: moderate pain (scale 4-6) Stop: 07/22/19 14:10 Last Admin: 07/17/19 16:13 Dose: 0.5 mg Documented by: Hydromorphone HCl (Dilaudid) 1 mg IV Q3H PRN PRN Reason: severe pain (scale 7-10) Stop: 07/22/19 14:10 Last Admin: 07/14/19 13:48 Dose: 1 mg Documented by: Lorazepam (Ativan) 1 mg in 2 mls @ 2 mls/min IV Q6H PRN PRN Reason: Anxiety/Spasms Stop: 08/07/19 14:10 Cefazolin Sodium (Ancef 2000mg) 2,000 mg in 15 mls @ 3.75 mls/min IV Q8H [facility] Stop: 08/22/19 13:59 Last Admin: 07/18/19 06:43 Dose: 3.75 mls/min Documented by: Influenza Virus Vaccine Quadrival (Flu Vaccine, Do Not Administer) 1 ea N/A PRN PRN PRN Reason: Notification Stop: 08/08/19 17:34 Insulin Aspart (Novolog Flexpen) 0 units SC ACHS [facility] Stop: 08/08/19 20:59 Last Admin: 07/18/19 08:28 Dose: 1 units Documented by: Lisinopril (Zestril) 20 mg PO QAM [facility] Stop: 08/15/19 08:59 Last Admin: 07/18/19 08:34 Dose: 20 mg Documented by: Lorazepam (Ativan) 1 mg PO Q6H PRN PRN Reason: Anxiety/spasms Stop: 08/07/19 14:10 Magnesium Hydroxide (Milk Of Magnesia) 30 ml PO DAILY PRN PRN Reason: Constipation Stop: 08/08/19 17:34 Metoprolol Succinate (Toprol Xl) 50 mg PO QAM [facility] Stop: 08/17/19 08:59 Last Admin: 07/18/19 08:32 Dose: 50 mg Documented by: Miscellaneous (Carbohydrates For Hypoglycemia) 15 - 30 gm PO UD PRN PRN Reason: Hypoglycemia Protocol Stop: 08/07/19 15:21 Naloxone HCl (Narcan) 0.1 mg IV Q5M PRN; Protocol PRN Reason: Oversedation/Resp Depression Stop: 08/08/19 17:34 Ondansetron HCl (Zofran) 4 mg IV Q6H PRN PRN Reason: Nausea &/or Vomiting Stop: 08/08/19 17:34 Ondansetron HCl (Zofran Odt) 4 mg PO Q6H PRN PRN Reason: Nausea Stop: 08/08/19 17:34 Pneumococcal Polyvalent Vaccine (Pneumococcal Vacc, Do Not Administer) 1 ea N/A PRN PRN PRN Reason: Notification Stop: 08/08/19 17:34 Polyethylene Glycol (Miralax Powder Packet) 17 gm PO Q6 [facility] Stop: 08/09/19 05:59 Last Admin: 07/18/19 04:57 Dose: Not Given Documented by: Prednisone (Prednisone) 10 mg PO DAILY [facility] Stop: 08/11/19 08:59 Last Admin: 07/18/19 08:32 Dose: 10 mg Documented by: Senna/Docusate Sodium (Senokot S) 2 tab PO HS [facility] Stop: 08/08/19 20:59 Last Admin: 07/17/19 20:29 Dose: Not Given Documented by: Sodium Biphosphate/Sodium Phosphate (Fleet Enema) 132 ml ID ONE PRN PRN Reason: Constipation Stop: 08/08/19 17:34 Spironolactone (Aldactone) 12.5 mg PO DAILY [facility] Stop: 08/14/19 08:59 Last Admin: 07/18/19 08:29 Dose: 12.5 mg Documented by: Tramadol HCl (Ultram) 50 - 100 mg PO Q4H PRN PRN Reason: Moderate-Severe Pain Stop: 08/07/19 14:10 Last Admin: 07/18/19 06:44 Dose: 100 mg Documented by: Valacyclovir HCl (Valtrex) 500 mg PO [facility] Stop: 08/07/19 20:59 Last Admin: 07/17/19 22:31 Dose: 500 mg Documented by: Vitamin D (Vitamin D3) 2,000 units PO [facility] Stop: 08/08/19 08:59 Last Admin: 07/18/19 08:33 Dose: 2,000 units Documented by:
[2019-07-18] MEDS: HYDROmorphone INJ 0.5 MG/0.5 ML SYR IV PRN (11:49)
--- NOTE | 2019-07-18 17:45 | Hospitalist Progress Note ---
Date of Service July 18, 2019 Assessment & Plan (1) NSTEMI (non-ST elevated myocardial infarction): Troponin peaked at 25 cardiac cath done showed multivessel disease Cardiology on board Pt will need to evaluate by CT surgery to get CABG but due to his recent back surgery and positive wound cx, we would like to wait for a few days before undergoing CABG for findings of multivessel disease. ECHO done showed Echo done showed left ventricular systolic function is severely reduced. Left ventricular is moderately dilated. Ejection fraction 25 to 30% Currently pt is asymptomatic If pt developed any chest discomfort, will life flight him to [place] for emergent CABG Continue ASA 81 mg, statin 80mg and metoprolol 25mg Unable to start on heparin drip due to recent back surgery that can lead to hematoma Pt scheduled for outpatient CT surgery [place]07[place] [facility] [place] No plavix started since pt plan to have CABG done next week Update provided to the daughter Will make sure paper copy of chart can be provided to patient at discharge to bring with him to CT surgery visit. cardiology already transferred his cardiac catheterization films and his recent echocardiogram from this admission to the [facility] system. Ok to discharge once dalvance infusion arranged by case management Acute Heart failure with reduced EF ECHO showed EF 25 to 30% Continue Lasix, lisinopril and spironolactone Given new severe LV systolic dysfunction Zoll Life Vest to be fitted today, 07/18/19. Stable (2) Neurogenic claudication due to lumbar spinal stenosis: Directly admitted 07/[address] Boalnos for planned L1-L2 decompression and fusion on 07/09 Procedure #1 removal of posterior instrumentation L2-L3. #2 exploration fusion L2-L3. #3 lumbar decompression with bilateral medial facetectomies foraminotomies L1-L2. #4 posterior spinal fusion L1-L2 L2-L3. #5 placement posterior instrumentation L1 and L3. #6 placement of infuse collagen sponge, master graft in the posterior lateral gutters L1-L3. #7 placement of stimulant beads impregnated with vanc and gent in the interbody space and posterior lateral gutters. Cultures from the back grew p. acnes, no sensitivities provided. Continue abx with ancef while in hospital Will transition to Dalvance weekly x 2-3 dose at [facility] upon d/c from hospital Blood cx collected to make sure there is no bacteremia before sending for CABG with CT surgery Blood cx showed no growth as of now Case discussed with ID recommended Dalvance x2 doses Waiting for insurance approval for the Dalvance Continue Incentive Spirometry PT/OT with appropriate fall precautions Continue pain control (3) Diabetes mellitus, type 2: Hgb A1c 8.0 03/2019 Continue to hold home metformin, Prandin, Trulicity Continue NovoLog per protocol while hospitalized Continue monitor BS (4) Rheumatoid arthritis: Continue prednisone case discussed with Dr. Weiner (patient's sugar mixer), may hold methotrexa te for 2 weeks postoperatively (5) Chronic kidney disease, stage III (moderate): Baseline creatinine ~ 1.2 Will monitor creatinine while on lasix, spironolactone and lisinopril (6) Hypertension: BP controlled Continue lisinopril and furosemide, metoprolol (7) Hyperlipidemia: Continue statin (8) DVT prophylaxis: On heparin subq Code Status Full code Disposition Waiting for insurance approval for patient case coordinator to arrange for Dalvance at the [facility] Admission and Anticipated Discharge Date Admission Date: July 08, 2019 Subjective Pt was seen and examined Sitting in chair with no distress with daughter at bedside Pt is wearing his lifevest today He said that his only complaint is tenderness in his back around the surgical area Denies any chest pain, palpitation, dizziness and SOB Physical Exam Physical Exam: General- No acute distress Head- atraumatic Eyes- PERRL, EOMI, ENT- oropharynx clear Neck- supple, no JVD Lungs- Diminished BS Heart- regular rhythm; no murmur Abdomen- normal bowel sounds, soft, nontender Extremities- no calf tenderness, +edema Neuro- alert, oriented x 3; PERRL, EOMI; no facial palsy; no dysarthria Skin- warm & dry Results & Data ([facility]) Vital Signs (Past 12 Hours) Vital Signs Temp Pulse Pulse Resp BP Pulse Ox 07/18/19 15:51 36.5 C 87 18 95/61 L 97 07/18/19 12:09 37.1 C 86 19 106/70 95 07/18/19 07:44 36.7 C 81 19 90/58 L 98
[2019-07-18] MEDS: ATORVASTATIN 40 MG TAB PO SCH (20:09)
[2019-07-18] MEDS: VALACYCLOVIR HCL 500 MG TABLET PO SCH (20:09)
[2019-07-18] MEDS: DOCUSATE SODIUM/SENNA 50/8.6MG TAB PO SCH (20:09)
[2019-07-19] MEDS: CEFAZOLIN 2000MG 2,000 MG/15 ML SYR IV SCH ×3 (05:52→21:39)
[2019-07-19] MEDS: POLYETHYLENE (MIRALAX) 17 GM PACK PO SCH ×4 (05:57→22:49)
[2019-07-19] MEDS: INSULIN ASPART 100 UNITS/ML 3 ML PEN SC SCH ×4 (08:46→21:21)
[2019-07-19] MEDS: SPIRONOLACTONE 25 MG TAB PO SCH (08:46)
[2019-07-19] MEDS: DOCUSATE SODIUM 100 MG CAP PO SCH ×2 (08:47→19:27)
[2019-07-19] MEDS: HEPARIN SOD 5,000 UNIT/0.5 ML VIAL SQ SCH ×2 (08:48→21:41)
[2019-07-19] MEDS: FOLIC ACID 1 MG TAB PO SCH (08:48)
[2019-07-19] MEDS: ASPIRIN 81 MG ECTAB PO SCH (08:48)
[2019-07-19] MEDS: predniSONE 10 MG TABLET PO SCH (08:49)
[2019-07-19] MEDS: FUROSEMIDE 20 MG TAB PO SCH (08:49)
[2019-07-19] MEDS: METOPROLOL SUCC 50MG EXT REL TAB PO SCH (08:49)
[2019-07-19] MEDS: CYANOCOBALAMIN 500 MCG TABLET (VITAMIN B-12) PO SCH (08:50)
[2019-07-19] MEDS: lisinopriL 20 MG TAB PO SCH (08:50)
[2019-07-19] MEDS: CHOLECALCIFEROL 1,000 UNITS 25 MCG TAB PO SCH (08:50)
[2019-07-19] MEDS: TRAMADOL HCL 50 MG TABLET PO PRN ×2 (10:15→19:26)
--- NOTE | 2019-07-19 10:43 | Orthopedic Progress Note ---
Date of Service July 19, 2019 Assessment & Plan (1) Neurogenic claudication due to lumbar spinal stenosis: This time we will continue activity as tolerated. We are waiting for final disposition including approval for antibiotics. Present on Admission?: Yes Admission and Anticipated Discharge Date Admission Date: July 08, 2019 Subjective Patient is struggling with some lumbosacral back pain with ambulation however it is tolerable. Physical Exam Physical Exam: On exam he is ambulating halls with his . He is using a walker. Is neurologically intact. Results & Data ([facility]) Vital Signs (Past 12 Hours) Vital Signs Temp Pulse Pulse Pulse Resp BP Pulse Ox 07/19/19 06:55 36.4 C L 77 19 104/66 99 07/19/19 04:52 36.6 C 79 18 95/56 L 95 07/19/19 00:47 36.5 C 78 18 108/72 98 07/18/19 23:12 89
[2019-07-19] MEDS: HYDROmorphone INJ 0.5 MG/0.5 ML SYR IV PRN ×2 (11:49→21:40)
--- NOTE | 2019-07-19 15:52 | Hospitalist Progress Note ---
Date of Service July 19, 2019 Assessment & Plan (1) NSTEMI (non-ST elevated myocardial infarction): Troponin peaked at 25 cardiac cath done showed multivessel disease Cardiology on board Pt will need to evaluate by CT surgery to get CABG but due to his recent back surgery and positive wound cx, we would like to wait for a few days before undergoing CABG for findings of multivessel disease. ECHO done showed Echo done showed left ventricular systolic function is severely reduced. Left ventricular is moderately dilated. Ejection fraction 25 to 30% Currently pt is asymptomatic If pt developed any chest discomfort, will life flight him to [place] for emergent CABG Continue ASA 81 mg, statin 80mg and metoprolol 25mg Unable to start on heparin drip due to recent back surgery that can lead to hematoma Pt scheduled for outpatient CT surgery consultation of Sunday07/22/2019 at [facility] [place]. No plavix started since pt plan to have CABG done next week Update provided to the daughter Will make sure paper copy of chart can be provided to patient at discharge to bring with him to CT surgery visit. cardiology already transferred his cardiac catheterization films and his recent echocardiogram from this admission to the [facility] system. Ok to discharge once dalvance infusion arranged by case management Acute Heart failure with reduced EF ECHO showed EF 25 to 30% Continue Lasix, lisinopril and spironolactone Given new severe LV systolic dysfunction Zoll Life Vest to be fitted today, 07/18/19. Stable (2) Neurogenic claudication due to lumbar spinal stenosis: Directly admitted 07/[address] Bolanos for planned L1-L2 decompression and fusion on 07/09 Procedure #1 removal of posterior instrumentation L2-L3. #2 exploration fusion L2-L3. #3 lumbar decompression with bilateral medial facetectomies foraminotomies L1-L2. #4 posterior spinal fusion L1-L2 L2-L3. #5 placement posterior instrumentation L1 and L3. #6 placement of infuse collagen sponge, master graft in the posterior lateral gutters L1-L3. #7 placement of stimulant beads impregnated with vanc and gent in the interbody space and posterior lateral gutters. Cultures from the back grew p. acnes, no sensitivities provided. Continue abx with ancef while in hospital Will transition to Dalvance weekly x 2-3 dose at [facility] upon d/c from hospital Blood cx collected to make sure there is no bacteremia before sending for CABG with CT surgery Blood cx showed no growth as of now Case discussed with ID recommended Dalvance x2 doses Waiting for insurance approval for the Dalvance Continue Incentive Spirometry PT/OT with appropriate fall precautions Continue pain control (3) Diabetes mellitus, type 2: Hgb A1c 8.0 03/2019 Continue to hold home metformin, Prandin, Trulicity Continue NovoLog per protocol while hospitalized Continue monitor BS (4) Rheumatoid arthritis: Continue prednisone case discussed with Dr. Weiner (patient's policy checker), may hold methotrexa te for 2 weeks postoperatively (5) Chronic kidney disease, stage III (moderate): Baseline creatinine ~ 1.2 Will monitor creatinine while on lasix, spironolactone and lisinopril (6) Hypertension: BP controlled Continue lisinopril and furosemide, metoprolol (7) Hyperlipidemia: Continue statin (8) DVT prophylaxis: On heparin subq Code Status Full code Disposition Waiting for insurance approval for registered nurse hh case manager to arrange for Dalvance at the [facility] Admission and Anticipated Discharge Date Admission Date: July 08, 2019 Subjective Pt was seen and examined Sitting in chair with no distress Pt said that pain in his back is tolerable He is waiting for insurance authorization for the Dalvance Denies any chest pain, palpitation, dizziness and SOB Physical Exam Physical Exam: General- No acute distress Head- atraumatic Eyes- PERRL, EOMI, ENT- oropharynx clear Neck- supple, no JVD Lungs- Diminished BS Heart- regular rhythm; no murmur Abdomen- normal bowel sounds, soft, nontender Extremities- no calf tenderness, +edema Neuro- alert, oriented x 3; PERRL, EOMI; no facial palsy; no dysarthria Skin- warm & dry Results & Data ([facility]) Vital Signs (Past 12 Hours) Vital Signs Temp Pulse Pulse Resp BP Pulse Ox 07/19/19 15:35 36.5 C 83 18 99/66 L 98 07/19/19 11:03 36.9 C 88 19 100/63 97 07/19/19 06:55 36.4 C L 77 19 104/66 99 07/19/19 04:52 36.6 C 79 18 95/56 L 95
[2019-07-19] MEDS: DOCUSATE SODIUM/SENNA 50/8.6MG TAB PO SCH (19:28)
[2019-07-19] MEDS: ATORVASTATIN 40 MG TAB PO SCH (21:40)
[2019-07-19] MEDS: VALACYCLOVIR HCL 500 MG TABLET PO SCH (21:41)
[2019-07-20] MEDS: POLYETHYLENE (MIRALAX) 17 GM PACK PO SCH ×4 (06:28→22:16)
[2019-07-20] MEDS: CEFAZOLIN 2000MG 2,000 MG/15 ML SYR IV SCH ×3 (06:28→21:16)
[2019-07-20] MEDS: HEPARIN SOD 5,000 UNIT/0.5 ML VIAL SQ SCH ×2 (08:00→21:07)
[2019-07-20] MEDS: INSULIN ASPART 100 UNITS/ML 3 ML PEN SC SCH ×4 (08:00→21:08)
[2019-07-20] MEDS: FOLIC ACID 1 MG TAB PO SCH (08:01)
[2019-07-20] MEDS: CYANOCOBALAMIN 500 MCG TABLET (VITAMIN B-12) PO SCH (08:01)
[2019-07-20] MEDS: FUROSEMIDE 20 MG TAB PO SCH (08:01)
[2019-07-20] MEDS: CHOLECALCIFEROL 1,000 UNITS 25 MCG TAB PO SCH (08:01)
[2019-07-20] MEDS: ASPIRIN 81 MG ECTAB PO SCH (08:01)
[2019-07-20] MEDS: SPIRONOLACTONE 25 MG TAB PO SCH (08:02)
[2019-07-20] MEDS: predniSONE 10 MG TABLET PO SCH (08:02)
[2019-07-20] MEDS: DOCUSATE SODIUM 100 MG CAP PO SCH ×2 (08:03→21:06)
[2019-07-20] MEDS: METOPROLOL SUCC 50MG EXT REL TAB PO SCH (08:03)
--- NOTE | 2019-07-20 10:31 | Orthopedic Progress Note ---
Date of Service July 20, 2019 Assessment & Plan (1) Neurogenic claudication due to lumbar spinal stenosis: This time we will continue activity as tolerated. We will await final recommendations for antibiotics and he will most likely be discharged Sunday or Sunday for an appointment at [facility] regarding CABG. Present on Admission?: Yes Admission and Anticipated Discharge Date Admission Date: July 08, 2019 Subjective Back pain controlled no leg pain Physical Exam Physical Exam: Patient is neurologically intact. Does have peripheral edema. Overall is comfortable. Results & Data ([facility]) Vital Signs (Past 12 Hours) Vital Signs Temp Pulse Resp BP Pulse Ox 07/20/19 08:00 36.4 C L 78 18 97/61 L 98 07/20/19 04:33 36.7 C 79 19 95/62 L 97 07/20/19 00:27 36.6 C 82 18 104/67 97
--- NOTE | 2019-07-20 11:12 | Hospitalist Progress Note ---
Date of Service July 20, 2019 Assessment & Plan (1) NSTEMI (non-ST elevated myocardial infarction): Troponin peaked at 25 cardiac cath done showed multivessel disease Cardiology on board Pt will need to evaluate by CT surgery to get CABG but due to his recent back surgery and positive wound cx, we would like to wait for a few days before undergoing CABG for findings of multivessel disease. ECHO done showed Echo done showed left ventricular systolic function is severely reduced. Left ventricular is moderately dilated. Ejection fraction 25 to 30% Currently pt is asymptomatic If pt developed any chest discomfort, will life flight him to [facility] for emergent CABG Continue ASA 81 mg, statin 80mg and metoprolol 25mg Unable to start on heparin drip due to recent back surgery that can lead to hematoma Pt scheduled for outpatient CT [place] [facility] [place] No plav[place] started since pt plan to have CABG done next week Update provided to the daughter Will make sure paper copy of chart can be provided to patient at discharge to bring with him to CT surgery visit. cardiology already transferred his cardiac catheterization films and his recent echocardiogram from this admission to the [id number]. Ok to discharge once dalvance infusion arranged by case management Acute Heart failure with reduced EF ECHO showed EF 25 to 30% Continue Lasix, lisinopril and spironolactone Given new severe LV systolic dysfunction Zoll Life Vest to be fitted today, 07/18/19. Stable (2) Neurogenic claudication due to lumbar spinal stenosis: Directly admitted 07/[address] Bolanos for planned L1-L2 decompression and fusion on 07/09 Procedure #1 removal of posterior instrumentation L2-L3. #2 exploration fusion L2-L3. #3 lumbar decompression with bilateral medial facetectomies foraminotomies L1-L2. #4 posterior spinal fusion L1-L2 L2-L3. #5 placement posterior instrumentation L1 and L3. #6 placement of infuse collagen sponge, master graft in the posterior lateral gutters L1-L3. #7 placement of stimulant beads impregnated with vanc and gent in the interbody space and posterior lateral gutters. Cultures from the back grew p. acnes, no sensitivities provided. Continue abx with ancef while in hospital Will transition to Dalvance weekly x 2-3 dose at [facility] upon d/c from hospital Blood cx collected to make sure there is no bacteremia before sending for CABG with CT surgery Blood cx showed no growth as of now Case discussed with ID recommended Dalvance x2 doses Waiting for insurance approval for the Dalvance Continue Incentive Spirometry PT/OT with appropriate fall precautions Continue pain control (3) Diabetes mellitus, type 2: Hgb A1c 8.0 03/2019 Continue to hold home metformin, Prandin, Trulicity Continue NovoLog per protocol while hospitalized Continue monitor BS (4) Rheumatoid arthritis: Continue prednisone case discussed with Dr. Weiner (patient's protection consultant), may hold methotrexa te for 2 weeks postoperatively (5) Chronic kidney disease, stage III (moderate): Baseline creatinine ~ 1.2 Will monitor creatinine while on lasix, spironolactone and lisinopril (6) Hypertension: BP controlled Continue lisinopril and furosemide, metoprolol (7) Hyperlipidemia: Continue statin (8) DVT prophylaxis: On heparin subq Code Status Full code Disposition Waiting for insurance approval for business case analyst to arrange for Dalvance at the [facility] Admission and Anticipated Discharge Date Admission Date: July 08, 2019 Subjective Pt was seen and examined Lying in bed with no distress Pt said that his only complaint is back pain Denies any chest pain, palpitation and SOB Physical Exam Physical Exam: General- No acute distress Head- atraumatic Eyes- PERRL, EOMI, ENT- oropharynx clear Neck- supple, no JVD Lungs- Diminished BS Heart- regular rhythm; no murmur Abdomen- normal bowel sounds, soft, nontender Extremities- no calf tenderness, +edema Neuro- alert, oriented x 3; PERRL, EOMI; no facial palsy; no dysarthria Skin- warm & dry Results & Data ([facility]) Vital Signs (Past 12 Hours) Vital Signs Temp Pulse Resp BP Pulse Ox 07/20/19 08:00 36.4 C L 78 18 97/61 L 98 07/20/19 04:33 36.7 C 79 19 95/62 L 97 07/20/19 00:27 36.6 C 82 18 104/67 97
[2019-07-20] MEDS: lisinopriL 20 MG TAB PO SCH (11:32)
[2019-07-20] MEDS: HYDROmorphone INJ 0.5 MG/0.5 ML SYR IV PRN ×2 (13:01→18:39)
[2019-07-20] MEDS: DOCUSATE SODIUM/SENNA 50/8.6MG TAB PO SCH (21:06)
[2019-07-20] MEDS: VALACYCLOVIR HCL 500 MG TABLET PO SCH (21:07)
[2019-07-20] MEDS: TRAMADOL HCL 50 MG TABLET PO PRN (21:07)
[2019-07-20] MEDS: ATORVASTATIN 40 MG TAB PO SCH (21:08)
[2019-07-21] MEDS: POLYETHYLENE (MIRALAX) 17 GM PACK PO SCH ×2 (06:21→12:12)
[2019-07-21] MEDS: CEFAZOLIN 2000MG 2,000 MG/15 ML SYR IV SCH ×2 (06:31→13:17)
[2019-07-21] MEDS: INSULIN ASPART 100 UNITS/ML 3 ML PEN SC SCH ×3 (08:11→17:08)
[2019-07-21] MEDS: HEPARIN SOD 5,000 UNIT/0.5 ML VIAL SQ SCH (08:12)
[2019-07-21] MEDS: TRAMADOL HCL 50 MG TABLET PO PRN (08:18)
[2019-07-21] MEDS: SPIRONOLACTONE 25 MG TAB PO SCH (08:19)
[2019-07-21] MEDS: lisinopriL 20 MG TAB PO SCH (08:20)
[2019-07-21] MEDS: CHOLECALCIFEROL 1,000 UNITS 25 MCG TAB PO SCH (08:20)
[2019-07-21] MEDS: METOPROLOL SUCC 50MG EXT REL TAB PO SCH (08:21)
[2019-07-21] MEDS: CYANOCOBALAMIN 500 MCG TABLET (VITAMIN B-12) PO SCH (08:21)
[2019-07-21] MEDS: FUROSEMIDE 20 MG TAB PO SCH (08:21)
[2019-07-21] MEDS: FOLIC ACID 1 MG TAB PO SCH (08:21)
[2019-07-21] MEDS: DOCUSATE SODIUM 100 MG CAP PO SCH (08:21)
[2019-07-21] MEDS: ASPIRIN 81 MG ECTAB PO SCH (08:22)
[2019-07-21] MEDS: predniSONE 10 MG TABLET PO SCH (08:22)
[2019-07-21] MEDS: HYDROmorphone INJ 0.5 MG/0.5 ML SYR IV PRN (11:23)
--- NOTE | 2019-07-21 15:21 | Discharge Summary ---
Date of Service July 21, 2019 Admission HPI Per Admitting Provider This is a 78-year-old male well-known to me that is had progressive decline in status since roughly May this year. There is been no specific trauma fall or event. He now uses a walker to ambulate. MRI does demonstrate advanced stenosis at the L1-2 level with evidence of marked fluid collection within the disc space. Principal Diagnosis Lumbar spinal stenosis with neurogenic claudication Discharge Data Allergies Allergy/AdvReac Type Severity Reaction Status Date / Time hydrocodone [From Vicodin] Allergy Mild pruritus Verified 07/09/19 13:36 oxycodone Allergy Mild pruritus Verified 07/09/19 13:36 Consultations 07/08/19 14:11 Consult Anesthesiology Routine Consult Internal Medicine Routine 07/09/19 17:35 Consult Case Management - Discharge Planning Routine 07/10/19 18:07 Consult Cardiology Routine 07/14/19 07:44 Consult Infectious Diseases Routine 07/14/19 10:40 Consult Nephrology Routine 07/14/19 13:50 Consult Case Management - Discharge Planning Routine 07/15/19 08:30 Consult Infectious Diseases Routine Procedures Performed Operation Date: 07/09/19 13:25 Actual Procedures p L1-L3 Decompression and Fusion, Removal of Instrumentation L2-L3, Application of Bone Infuse and Allograft, Spinal Cord Monitoring(Not Applicable) - Carl Bolanos DO Operation Date: 07/14/19 13:30 Actual Procedures p Cath, Left with Cors and Vent - Cabrera Martinez DO s Cineradiography w/Routine Exam - Cabrera Martinez DO Ordered Studies 07/08/19 14:11 US venous doppler LE BI Routine 07/09/19 14:00 FL fluoroscopy <1hr Routine FL lumbar spine 2-3V Routine 07/14/19 06:50 CL Cath Imgs for PACS use only Routine 07/14/19 14:30 US arterial duplex UE BI Urgent Hospital Course (1) Fusion of spine: Patient underwent lumbar decompression and fusion lumbar spine tolerated this procedure well was taken to the orthopedic floor postoperatively. Cultures were obtained at the time of surgery. Unfortunately the second day he began experiencing some discomfort in his chest and underwent an EKG demonstrating significant changes. This prompted transition to the telemetry floor and cardiac consultation. He underwent extensive work-up was determined to have multilevel severe vessel disease in his heart and was recommended for possible CABG procedure. His cultures did come back on the fifth day is a gram-positive bacilli and being managed by infectious disease. Despite significant findings on his cardiac work-up he had a uneventful stay throughout the hospital was fitted with a LifeVest. He is scheduled with a appointment with the thoracic surgeon at [facility] tomorrow. On his last day he was neurologically intact comfortable and subsequent discharge home. Discharge orders instructions can be found on the chart for further view. Total Time Total Time Spent Total Time Spent (In Minutes): 60 Discharge Plan Discharge Items Patient Disposition: Home - Self-Care Reason For Visit: BACK AND BILATERAL LEG PAIN Discharge Diagnosis: Lumbar spinal stenosis Activity: As commented below Non-emergency contact: Primary Care Provider Call non-emergency contact if: you have any medication questions Follow-up/Referrals: Nasreen Dietrich MD [Primary Care Provider] - 07/25/19 11:05 am (THIS APT HAS ALREADY BEEN MADE FOR YOU, IF YOU CAN NOT MAKE THIS APT DAY OR TIME, PLEASE CALL THE OFFICE AND RESCHEDULE) Diet: Regular Addtl Attending Provider Instructions: ACTIVITY RECOMMENDATIONS: SELF CARE INSTRUCTIONS AFTER THORACIC/LUMBAR FUSIONS 1. You may walk to your tolerance. It is good exercise for your legs and back. Expect some back and intermittent leg aches and pains. 2. You may perform "counter-top" level activities (make a sandwich, karolyn with a project, etc.). 3. No bending or lifting of more than 10 pounds or back twisting of any nature (roll like a log when turning in bed). 4. You may ride in a car for 20-30 minutes at a time. No driving until after your first visit with your doctor. 5. Frequent changes of position and restricting sitting to 30 minutes at a time will help limit the amount of back spasms and stiffness you may experience. 6. You may discontinue the use of ambulatory aids (cane, crutches, etc.) once your strength and confidence allow. 7. You may internet e commerce specialist the shower and let water strike your incision when you arrive home at least once daily. Do not take a tub bath, sit in a hot tub or go into a swimming pool until after your first recheck in the office. SPECIAL CARE INSTRUCTIONS: VERY IMPORTANT TO READ AND REVIEW A. Your surgical incision has been closed with a cosmetic suture under the skin that will dissolve in about 6 weeks. In 14 days, you can use a pair of clean scissors and cut the suture that is left outside of the skin at the ends of your incision. 1. The small skin tapes can be removed 7 days after surgery if they have not fallen off by that point. 2. You may keep the wound open to air as much as possible to promote healing after post-op day number 5 unless told otherwise by your doctor. 3. If you think the wound looks like it is becoming infected (redness or worsening drainage) and/or you are experiencing fever, chill or worsening back pain and muscle spasms, contact the office so that we may evaluate you as soon as possible. B. Complications are uncommon, but please contact us if you have any signs or s ymptoms of: 1. wound infection (fever higher than 102.5 degrees F, redness, separation of wound, drainage, or increasing pain from the incision) 2. blood clots in legs (pain, swelling, redness and warmth in legs) 3. urinary tract infection (fever higher than 102.5 degrees F, burning upon urination or increased frequency of urination) 4. nerve problems (inability to walk on your toes or heels, numbness, loss of bowel or bladder control) 5. any other symptoms that concern you C. Please call the office at if you have any concerns or questions about your operation or recovery. D. No smoking! Smoking drastically decreases the chance of a solid fusion. E. Do not take any anti-inflammatory medications (Indocin, Advil, Motrin, Aspirin, Naprosyn, etc.) as these may inhibit the chance of a solid fusion. Tylenol is okay to take for pain. MANAGING PAIN AFTER SPINAL SURGERY 1. Narcotic medication is intended for short-term use and will be provided for surgical pain. Surgical pain usually lasts for a period of 4-6 weeks. Narcotic medication includes Percocet, Vicodin, Darvocet, Tylenol #3 or Lortab. 2. Longer-term pain is more appropriately treated with non-narcotic medication such as Tylenol ES. 3. Muscle spasm is not appropriately treated with narcotics. Muscle relaxers such as Soma, Flexeril or Skelaxin can be used along with Tylenol ES. 4. Remember that we all live with some "aches and pains". This is not unusual or uncommon after an injury or as we get older. a. Back pain is expected and may include muscle spasms for 4 to 6 weeks after surgery. The pain should gradually improve. If the pain worsens for no apparent reason, please contact the office. b. Intermittent leg pain may also be experienced and should not be concerned about unless it worsens for no apparent reason. If so, please contact the office. 5. We will provide appropriate medication within the normal guidelines of their prescribed use. We will also be very cautious and aware of potential abuse and extended duration of patients' medication needs. a. Pain medications are for your comfort and to assist with sleep and rest so that the tissue can heal. They are not provided in order to return to normal activity and should not be used through the day. To do so or worsening pain at night can result from ongoing tissue damage and development of tolerance to the prescribed medicine. 6. Please allow 2-3 days to process refills. Prescriptions will not be mailed but must be picked up at the office. FOLLOW UP VISIT: Keep your scheduled follow-up appointment. Any questions, please call the office at . Pending Studies at Discharge: No Stand-Alone Forms: My [facility] AVIA, Smoking Cessation Medications and DC Order Prescriptions: New oxycodone 5 mg tablet 5 mg PO Q6H PRN (Reason: pain, severe) Qty: 30 RF: 0 tramadol 50 mg tablet 50 mg PO Q6H PRN (Reason: pain, moderate) Qty: 30 RF: 0 Continued lisinopril 20 mg tablet 20 mg PO QAM RF: 0 atorvastatin 40 mg Tablet 40 mg PO HS RF: 0 valacyclovir 500 mg Tablet 500 mg PO HS RF: 0 aspirin 81 mg Tablet,Delayed Release (Dr/Ec) 40.5 mg PO HS RF: 0 methotrexate sodium 2.5 mg Tablet 12.5 mg PO WK RF: 0 folic acid 1 mg Tablet 1 mg PO QAM RF: 0 furosemide 20 mg Tablet 20 mg PO BID RF: 0 cholecalciferol (vitamin D3) [Vitamin D3] 1,000 unit Capsule 2,000 unit PO QAM RF: 0 cinnamon bark [Cinnamon] 500 mg Capsule 500 mg PO HS RF: 0 Trulicity 1.5 mg/0.5 mL Pen Injector 1.5 mg SUBCUT WK RF: 0 cyanocobalamin (vitamin B-12) 1,000 mcg Capsule 1,000 mcg PO QAM RF: 0 repaglinide 2 mg tablet 2 mg PO TIDM RF: 0 metformin 500 mg tablet extended release 24 hr 1,000 mg PO PM RF: 0 prednisone 5 mg tablet 10 mg PO QAM RF: 0 Discontinued celecoxib 200 mg capsule 200 mg PO BID RF: 0 Discharge Orders: Discharge Order (Routine); Ordered 07/21/19 Ordered By: Carl Bolanos Admission Data Admit Date/Time: 07/08/19 12:04 Attending Provider: Carl Bolanos Admit Provider: Carl Bolanos Primary Care Provider: Nasreen Dietrich Other Providers: Ramiro Goldberg ; Luisito Steele ; Benjamín Serrano ; Rafal Page ; Orly Cotter ; Danny Hardy ; [facility] ; Dianne Reynolds
--- NOTE | 2019-07-21 17:10 | Hospitalist Progress Note ---
Date of Service July 21, 2019 Assessment & Plan (1) NSTEMI (non-ST elevated myocardial infarction): Troponin peaked at 25 cardiac cath done showed multivessel disease Cardiology on board Pt will need to evaluate by CT surgery to get CABG but due to his recent back surgery and positive wound cx, we would like to wait for a few days before undergoing CABG for findings of multivessel disease. ECHO done showed Echo done showed left ventricular systolic function is severely reduced. Left ventricular is moderately dilated. Ejection fraction 25 to 30% Currently pt is asymptomatic If pt developed any chest discomfort, will life flight him to [place] for emergent CABG Continue ASA 81 mg, statin 80mg and metoprolol 25mg Unable to start on heparin drip due to recent back surgery that can lead to hematoma Pt scheduled for outpatient CT surgery consultation of Sunday07/22/[address] [facility] [place] No plavix started since pt plan to have CABG done next week Update provided to the daughter Will make sure paper copy of chart can be provided to patient at discharge to bring with him to CT surgery visit. cardiology already transferred his cardiac catheterization films and his recent echocardiogram from this admission to the [facility] system. Schedule appointment tomorrow with CT surgery in [place] Stable to discharge home today Acute Heart failure with reduced EF ECHO showed EF 25 to 30% Continue Lasix, lisinopril and spironolactone Given new severe LV systolic dysfunction Zoll Life Vest to be fitted today, 07/18/19. Stable (2) Neurogenic claudication due to lumbar spinal stenosis: Directly admitted 07/[address] Bolanos for planned L1-L2 decompression and fusion on 07/09 Procedure #1 removal of posterior instrumentation L2-L3. #2 exploration fusion L2-L3. #3 lumbar decompression with bilateral medial facetectomies forami notomies L1-L2. #4 posterior spinal fusion L1-L2 L2-L3. #5 placement posterior instrumentation L1 and L3. #6 placement of infuse collagen sponge, master graft in the posterior lateral gutters L1-L3. #7 placement of stimulant beads impregnated with vanc and gent in the interbody space and posterior lateral gutters. Cultures from the back grew p. acnes, no sensitivities provided. Continue abx with ancef while in hospital Will transition to Dalvance weekly x 2-3 dose at [facility] upon d/c from hospital Blood cx collected to make sure there is no bacteremia before sending for CABG with CT surgery Blood cx showed no growth as of now Case discussed with ID recommended Dalvance x2 doses Waiting for insurance approval for the Dalvance Continue Incentive Spirometry PT/OT with appropriate fall precautions Continue pain control Called from case management that the the dalvance infusion approved by the insurance. Schedule at the [facility] tomorrow@ 7AM (3) Diabetes mellitus, type 2: Hgb A1c 8.0 03/2019 Continue to hold home metformin, Prandin, Trulicity Continue NovoLog per protocol while hospitalized Continue monitor BS (4) Rheumatoid arthritis: Continue prednisone case discussed with Dr. Weiner (patient's network support analyst), may hold methotrexate for 2 weeks postoperatively (5) Chronic kidney disease, stage III (moderate): Baseline creatinine ~ 1.2 Will monitor creatinine while on lasix, spironolactone and lisinopril (6) Hypertension: BP controlled Continue lisinopril and furosemide, metoprolol (7) Hyperlipidemia: Continue statin (8) DVT prophylaxis: On heparin subq Code Status Full code Disposition Dalvance schedule at the [facility] tomorrow at 7AM Follow up with CT surgery tomorrow in [facility] Admission and Anticipated Discharge Date Admission Date: July 08, 2019 Subjective Pt was seen and examined Sitting in bed with no distress Pt said that he feels fine He alittle frustrated because the insurance company take so long to approve the dalvance Denies any chest pain, palpitation, dizziness and SOB Physical Exam Physical Exam: General- No acute distress Head- atraumatic Eyes- PERRL, EOMI, ENT- oropharynx clear Neck- supple, no JVD Lungs- Diminished BS Heart- regular rhythm; no murmur Abdomen- normal bowel sounds, soft, nontender Extremities- no calf tenderness, +edema Neuro- alert, oriented x 3; PERRL, EOMI; no facial palsy; no dysarthria Skin- warm & dry Results & Data ([facility]) Vital Signs (Past 12 Hours) Vital Signs Temp Pulse Resp BP Pulse Ox 07/21/19 12:37 37.1 C 82 20 95/64 L 96 07/21/19 08:21 37.4 C 80 20 105/68 98
== END 2019-07-21 17:36 | disposition home health service (06) | DRG 459 ==
LOC: 3N 12:04 → 2S 07-10 19:54

== ENCOUNTER 2019-11-24 13:42 | Inpatient (IN) ==
[2019-11-24] MEDS ORDERED: DAPTOMYCIN CONSULT ACTIVE PRN ×2 (14:12→19:28)
[2019-11-24] MEDS ORDERED: DAPTOmycin 350 MG in SYRINGE 0 ML IV ONE (14:12)
[2019-11-24] MEDS ORDERED: PIPERACILLIN/TAZOBACTAM 4.5 GM/120 ML BAG IV STA (14:12)
[2019-11-24] MEDS ORDERED: SODIUM CHLORIDE 0.9% 1000ML 1,000 ML IV SCH ×2 (14:15→19:24)
--- NOTE | 2019-11-24 14:24 | Emergency Department Note ---
Impression & Plan Gangrene of toe of right foot, Osteomyelitis ED Provider Note NAME: JAKE GUEVARA AGE: 78 SEX: M : 1940 ARRIVES VIA: Walk-In INFORMANT: Patient, ED PROVIDER(S): Teo Lam DO CHIEF COMPLAINT: Right foot pain HPI: The patient is a 78-year-old male who presented to the emergency department for an evaluation of right foot pain. The patient was diagnosed with a right foot infection recently. He was placed on Keflex. The patient has been taking antibiotics as well as evaluations at a wound care center in [place]. The patient was felt to be a good candidate for surgical intervention as his symptoms have been worsening over the last few days. He was evaluated there today and was going to have surgical evaluation scheduled however because of insurance purposes he was sent to our facility for further evaluation. He complains of redness and swelling over the foot also an infected smell coming from the Band-Aids. The patient denies having any fevers or chills. He does complain of right foot swelling. He has been doing dressing changes to the foot. The patient states that he has been compliant with his antibiotic regimen. ROS: See above HPI for pertinent positives & negatives. A total of 10 systems reviewed and were otherwise negative. PAST MEDICAL HISTORY: See Below PAST SURGICAL HISTORY: See Below FAMILY HISTORY: See Below SOCIAL HISTORY: See Below HOME MEDICATIONS: See Below ALLERGIES: See Below VITALS: See Below PHYSICAL EXAMINATION: GENERAL: Patient is awake alert in no acute distress patient is resting comfortably and showing no signs of anxiety EYES: The conjunctivae are clear. The pupils are round and reactive. EARS, NOSE, MOUTH AND THROAT: The nose is without any evidence of any deformity. Mucous membranes are moist. Tongue is midline. NECK: The neck is nontender and supple. RESPIRATORY: Normal respiratory effort is noted there is no evidence of wheezing rhonchi or rales CARDIOVASCULAR: Regular rate and rhythm noted there no murmurs rubs or gallops normal S1 normal S2. GASTROINTESTINAL: The abdomen is soft. Abdomen is nontender. MUSCULOSKELETAL/EXTREMITIES: There is no evidence of gross deformity full range of motion is noted in the hips and shoulders. SKIN: There is swelling and erythema to the dorsum of the right foot. There is a blackened area to the distal aspect of the right great toe with significant discharge swelling as well as odor. NEUROLOGIC: Patient is awake alert and oriented x3. MEDICAL DECISION MAKING: The patient is a 78-year-old male who presented to the emergency department for an evaluation of her right foot infection. The patient has had an ongoing right foot infection for quite some time. He was trying to medically manage this at a wound care center. He was seen today because his symptoms have worsened over the last few days and he started noticing drainage. When he was seen today he was felt to require inpatient management and possible surgical management. Initially he tried to present to [facility] but because of insurance reasons he came to our facility. The patient was treated with IV antibiotics in the emergency department. I discussed the patient's laboratory and radiographic studies with him. His condition appears to be consistent with osteomyelitis as well as gangrene. I discussed his case with the on-call [facility]. They have agreed to evaluate the patient in the emergency department for further management disposition. The patient was agreeable to inpatient management. Triage Nursing notes reviewed. Prior medical records reviewed Vital Signs: reviewed and remarkable for no significant abnormalities Differential diagnosis: Cellulitis, abscess, MRSA infection, DVT, necrotizing fasciitis, dermatitis, drug eruption, allergic reaction, as well as other pathologies. ER treatment provided: See below Diagnostics interpreted by me: ECG: none Cardiac Monitoring: An order was placed for continuous cardiac monitoring. The monitor shows a rate of 88 with sinus rhythm. Laboratory studies: As stated above and show below. Imaging studies: See below Consultation(s): 1615: I discussed this case with Rut who is on-call for the [facility]. They have agreed to evaluate the patient in the emergency department for further management and disposition. Past Med/Surg History Medical History Anemia Aortic stenosis "Mild" (LAVERNE 1.3cm2, MG 12.2mmhg) per 11/2018 DSE BPH (benign prostatic hyperplasia) Carotid artery stenosis s/p left CEA 11/2018 Chronic kidney disease, stage III (moderate) follows with nephrology (Dr. Hardy) Degenerative disc disease Diabetes mellitus, type 2 NIDDM Dry eye syndrome Gout Hyperlipidemia Hypertension Pericarditis 1994 Rheumatoid arthritis on chronic prednisone 10mg daily Sleep apnea s/p UPPP/T&A Surgical History Fusion of spine LUMBAR X 2 History of adenoidectomy History of carpal tunnel release LEFT History of cataract surgery RT/LEFT History of colonoscopy History of herniorrhaphy UMBILICAL HERNIA History of left-sided carotid endarterectomy 11/2018 ([facility]) History of tonsillectomy History of tooth extraction S/P pericardiocentesis 1994 S/P UPPP (uvulopalatopharyngoplasty) Family History Mother CHF (congestive heart failure) Sister CHF (congestive heart failure) Diabetes Social History Preferred Language: Slovenian Communication Ability: Effective Retail Aide Required: No Beliefs That Will Affect Care: None marital status: Current Living Situation: Spouse Feels Safe at Home: Yes Smoking Status: Former smoker Tobacco Type: cigarettes ; Second Hand Exposure: No ; Hx Alcohol Use: No Hx Substance Use: No Allergies Allergies Allergy/AdvReac Type Severity Reaction Status Date / Time hydrocodone [From Vicodin] Allergy Mild pruritus Verified 11/24/19 14:21 oxycodone Allergy Mild pruritus Verified 11/24/19 14:21 Home Meds Home Medications Medication Instructions Recorded Confirmed Trulicity 1.5 mg SUBCUT WK 11/13/18 11/24/19 cholecalciferol (vitamin D3) 2,000 unit PO QAM 11/13/18 11/24/19 [Vitamin D3] cyanocobalamin (vitamin B-12) 1,000 mcg PO QAM 11/13/18 11/24/19 folic acid 1 mg PO QAM 11/13/18 11/24/19 furosemide 20 mg PO BID 11/13/18 11/24/19 valacyclovir 500 mg PO HS 11/13/18 11/24/19 repaglinide 2 mg tablet 2 mg PO TIDM tab 01/08/19 11/24/19 prednisone 5 mg tablet 10 mg PO QAM tab 02/24/19 11/24/19 Previous Rx's Medication Instructions Recorded aspirin 81 mg PO HS #0 tab 07/21/19 atorvastatin 80 mg PO HS #30 tab 07/21/19 oxycodone 5 mg PO Q6H PRN #30 tab 07/21/19 tramadol 50 mg PO Q6H PRN #30 tab 07/21/19 cephalexin 500 mg capsule 500 mg PO BID #60 cap 10/09/19 lisinopril 20 mg tablet 20 mg PO QAM #30 tab 10/28/19 Results & Data (ED) Vital Signs Vital Signs - 24 hr 11/24/19 13:53 11/24/19 15:23 11/24/19 16:03 Temperature 36.9 C Temperature Source Oral Pulse Rate 20 L Pulse Rate [Finger] 82 78 Respiratory Rate 18 16 20 Respiratory Effort / Characteristics Non-Labored Spontaneous Respiratory Depth Normal Respiratory Pattern Regular Blood Pressure 116/67 Blood Pressure [Right Arm] 128/75 135/71 Blood Pressure Mean 83 Blood Pressure Mean [Right Arm] 92 92 Blood Pressure Position Sitting Pulse Oximetry 96 100 100 Oxygen Delivery Method Room Air Room Air Room Air Sepsis Recent Fever Within 48 Hours No Sepsis New/Unexplained Change in Mental Status No Sepsis Action Taken by Nursing No Action Required Home Medications Current Medication List: was personally reviewed by me Laboratory Data Attestation: I reviewed the patient's lab results. Result diagrams: 11/24/19 14:20 11/24/19 14:20 Lab Results 11/24/19 11/24/19 11/24/19 Range/Units 14:20 14:20 14:20 WBC 11.92 H (4.8-10.8) K/uL RBC 4.18 L (4.7-6.1) M/uL Hgb 12.8 L (14.0-18.0) g/dL Hct 39.5 L (42-52) % MCV 94.5 (80-100) fL MCH 30.6 (25-34) pg MCHC 32.4 (32-36) g/dL RDW Std Deviation 55.6 H (36.4-46.3) fL RDW Coeff of Maximo 15.9 H (11.5-14.5) % Plt Count 179 (130-400) K/uL MPV 10.0 (7.4-10.4) fL Immature Gran % (Auto) 0.3 % Neut % (Auto) 91.1 % Lymph % (Auto) 4.9 % [place] % (Auto) 3.3 % Eos % (Auto) 0.3 % Baso % (Auto) 0.1 % Neut # (Auto) 10.88 H (1.4-6.5) K/uL Lymph # (Auto) 0.58 L (1.2-3.4) K/uL [place] # (Auto) 0.39 (0.11-0.59) K/uL Eos # (Auto) 0.03 (0-0.5) K/uL Baso # (Auto) 0.01 (0-0.2) K/uL Immature Gran # (Auto) 0.03 H (0.00-0.02) K/uL ESR 50 H (0-14) mm/hr Sodium 140 (136-145) mmol/L Potassium 4.2 (3.5-5.1) mmol/L Chloride 106 (98-107) mmol/L Carbon Dioxide 26 (21-32) mmol/L Anion Gap 8.0 (3-11) BUN 39 H (7-18) mg/dl Creatinine 1.39 (0.6-1.4) mg/dl Est Cr Clr Drug Dosing 41.7 ml/min Est GFR ( Amer) 56.7 Est GFR (Non-Af Amer) 48.9 BUN/Creatinine Ratio 27.8 H (10-20) Glucose 164 H (70-99) mg/dl Calcium 9.3 (8.5-10.1) mg/dl Total Bilirubin 1.0 (0.2-1) mg/dl AST 22 (15-37) U/L ALT 26 (12-78) U/L Alkaline Phosphatase 88 (45-117) U/L C-Reactive Protein 8.57 H (0-0.29) mg/dl Total Protein 7.4 (6.4-8.2) gm/dl Albumin 3.5 (3.4-5.0) gm/dl Globulin 3.9 (2.5-4.0) gm/dl Albumin/Globulin Ratio 0.9 (0.9-2) Procalcitonin (0-0.5) ng/ml 11/24/19 Range/Units 14:44 WBC (4.8-10.8) K/uL RBC (4.7-6.1) M/uL Hgb (14.0-18.0) g/dL Hct (42-52) % MCV (80-100) fL MCH (25-34) pg MCHC (32-36) g/dL RDW Std Deviation (36.4-46.3) fL RDW Coeff of Maximo (11.5-14.5) % Plt Count (130-400) K/uL MPV (7.4-10.4) fL Immature Gran % (Auto) % Neut % (Auto) % Lymph % (Auto) % [place] % (Auto) % Eos % (Auto) % Baso % (Auto) % Neut # (Auto) (1.4-6.5) K/uL Lymph # (Auto) (1.2-3.4) K/uL [place] # (Auto) (0.11-0.59) K/uL Eos # (Auto) (0-0.5) K/uL Baso # (Auto) (0-0.2) K/uL Immature Gran # (Auto) (0.00-0.02) K/uL ESR (0-14) mm/hr Sodium (136-145) mmol/L Potassium (3.5-5.1) mmol/L Chloride (98-107) mmol/L Carbon Dioxide (21-32) mmol/L Anion Gap (3-11) BUN (7-18) mg/dl Creatinine (0.6-1.4) mg/dl Est Cr Clr Drug Dosing ml/min Est GFR ( Amer) Est GFR (Non-Af Amer) BUN/Creatinine Ratio (10-20) Glucose (70-99) mg/dl Calcium (8.5-10.1) mg/dl Total Bilirubin (0.2-1) mg/dl AST (15-37) U/L ALT (12-78) U/L Alkaline Phosphatase (45-117) U/L C-Reactive Protein (0-0.29) mg/dl Total Protein (6.4-8.2) gm/dl Albumin (3.4-5.0) gm/dl Globulin (2.5-4.0) gm/dl Albumin/Globulin Ratio (0.9-2) Procalcitonin 0.17 (0-0.5) ng/ml Administered Medications Miscellaneous Information (Consult) 1 ea N/A UD PRN PRN Reason: Consult Stop: 12/24/19 14:11 Last Admin: 11/24/19 15:04 Dose: 1 ea Documented by: [id number] Discontinued Medications Sodium Chloride (Nss 1000ml) 1,000 mls @ 999 mls/hr IV .[id number] THEODORE Stop: 11/24/19 15:15 Last Infusion: 11/24/19 16:36 Dose: 0 mls/hr Documented by: [id number] Admin: 11/24/19 15:23 Dose: 999 mls/hr Documented by: [id number] Piperacillin Sod/Tazobactam Sod (Zosyn) 4.5 gm in 120 mls @ 200 mls/hr IV NOW STA Stop: 11/24/19 14:47 Last Infusion: 11/24/19 15:59 Dose: 0 mls/hr Documented by: [id number] Admin: 11/24/19 15:20 Dose: 200 mls/hr Documented by: [id number] Daptomycin 350 mg/ Syringe 7 mls @ 3.5 mls/min IV NOW ONE; Protocol Stop: 11/24/19 14:13 Last Admin: 11/24/19 16:01 Dose: 3.5 mls/min Documented by: [id number] Imaging Data Radiologist's Impression: RIGHT FOOT 3 VIEWS CLINICAL HISTORY: Right first toe infection. FINDINGS: 3 views of the right foot are obtained. No prior studies are available for comparison at the time of dictation. The skeletal structures are osteopenic. No fracture is seen. There is a small erosion identified in the first metatarsal head. There is hallux valgus with [id number] osteoarthritic change at the first metatarsophalangeal joint. There are hammertoe deformities in the second through fourth toes with subluxation at the distal interphalangeal joints. Mild to moderate osteoarthritic change is present in the midfoot. There are dorsal and plantar calcaneal enthesophytes. Degenerative spurring is noted along the dorsal aspect of the tarsal bones. Mild soft tissue edema is present throughout the foot. There is advanced atherosclerotic calcification of the regional arteries. IMPRESSION: 1. Soft tissue swelling with no fracture identified. 2. Osteopenia with hallux valgus and degenerative change as above. 3. A small erosion within the first metatarsal head is likely on a degenerative basis. Infection is considered less likely but not excluded and clinical correlation will be required. Electronically signed by: Rolando Shen M.D. 11/24/2019 2:35 PM Dictated: 11/24/19 1432 Transcribed: 11/24/19 1432 Blood Pressure Blood Pressure Findings: Normal blood pressure Discharge Plan Visit Data Chief Complaint: Infection, Wound Stated Complaint: BIG TOE RT FOOT DR MICHAEL GIRON ED Provider: Teo Lam Discharge Problem: Gangrene of toe of right foot, Osteomyelitis Patient Disposition: Being Evaluated by Hospitalist Condition: Good Forms Stand Alone Forms: My [facility] Prescriptions Prescriptions: No Action lisinopril 20 mg tablet 20 mg PO QAM Qty: 30 RF: 5 cephalexin [Keflex] 500 mg capsule 500 mg PO BID Qty: 60 RF: 2 valacyclovir 500 mg Tablet 500 mg PO HS RF: 0 folic acid 1 mg Tablet 1 mg PO QAM RF: 0 furosemide 20 mg Tablet 20 mg PO BID RF: 0 cholecalciferol (vitamin D3) [Vitamin D3] 1,000 unit Capsule 2,000 unit PO QAM RF: 0 Trulicity 1.5 mg/0.5 mL Pen Injector 1.5 mg SUBCUT WK RF: 0 cyanocobalamin (vitamin B-12) 1,000 mcg Capsule 1,000 mcg PO QAM RF: 0 repaglinide 2 mg tablet 2 mg PO TIDM RF: 0 prednisone 5 mg tablet 10 mg PO QAM RF: 0 oxycodone 5 mg tablet 5 mg PO Q6H PRN (Reason: pain, severe) Qty: 30 RF: 0 tramadol 50 mg tablet 50 mg PO Q6H PRN (Reason: pain, moderate) Qty: 30 RF: 0 atorvastatin 80 mg tablet 80 mg PO HS Qty: 30 RF: 0 aspirin 81 mg Tablet,Delayed Release (Dr/Ec) 81 mg PO HS Qty: 0 RF: 0 Referrals Referrals: Nasreen Dietrich MD [Primary Care Provider] -
[2019-11-24 14:37] LABS: Basophils # (auto) 0.01 K/uL (0-0.2); Basophils % (auto) 0.1 %; Eosinophils # (auto) 0.03 K/uL (0-0.5); Eosinophils % (auto) 0.3 %; Hematocrit (blood only) 39.5 % (42-52); Hemoglobin 12.8 g/dL (14.0-18.0); Immature Granulocytes # (auto) 0.03 K/uL (0.00-0.02); Immature Granulocytes % (auto) 0.3 %; Lymphocytes # (auto) 0.58 K/uL (1.2-3.4); Lymphocytes % (auto) 4.9 %; Mean Corpuscular Hemoglobin 30.6 pg (25-34); Mean Corpuscular Hgb Conc 32.4 g/dL (32-36); Mean Corpuscular Volume 94.5 fL (80-100); Monocytes # (auto) 0.39 K/uL (0.11-0.59); Monocytes % (auto) 3.3 %; Neutrophils # (auto) 10.88 K/uL (1.4-6.5); Neutrophils % (auto) 91.1 %; Platelet Count 179 K/uL (130-400); RDW Coefficient of Variation 15.9 % (11.5-14.5); RDW Standard Deviation 55.6 fL (36.4-46.3); Red Blood Count 4.18 M/uL (4.7-6.1); White Blood Count 11.92 K/uL (4.8-10.8)
--- NOTE | 2019-11-24 14:37 | XRay Report ---
RIGHT FOOT 3 VIEWS CLINICAL HISTORY: Right first toe infection. FINDINGS: 3 views of the right foot are obtained. No prior studies are available for comparison at th e time of dictation. The skeletal structures are osteopenic. No fracture is seen. There is a small er osion identified in the first metatarsal head. There is hallux valgus with [id number] osteoarth ritic change at the first metatarsophalangeal joint. There are hammertoe deformities in the second th rough fourth toes with subluxation at the distal interphalangeal joints. Mild to moderate osteoarthri tic change is present in the midfoot. There are dorsal and plantar calcaneal enthesophytes. Degenerat jarvis spurring is noted along the dorsal aspect of the tarsal bones. Mild soft tissue edema is present throughout the foot. There is advanced atherosclerotic calcification of the regional arteries. IMPRESSION: 1. Soft tissue swelling with no fracture identified. 2. Osteopenia with hallux valgus and degenerative change as above. 3. A small erosion within the first metatarsal head is likely on a degenerative basis. Infection is c onsidered less likely but not excluded and clinical correlation will be required. Electronically signed by: Rolando Shen M.D. 11/24/2019 2:35 PM
[2019-11-24 14:57] LABS: Albumin Level 3.5 gm/dl (3.4-5.0); BUN Creatinine Ratio 27.8 (10-20); Calcium 9.3 mg/dl (8.5-10.1); Creatinine Clr Calc Pharmacy 41.7 ml/min; Est GFR (African American) 56.7; Est GFR (Non-African American) 48.9; Potassium 4.2 mmol/L (3.5-5.1)
[2019-11-24 15:00] LABS: Albumin Globulin Ratio 0.9 (0.9-2); C Reactive Protein 8.57 mg/dl (0-0.29); Globulin 3.9 gm/dl (2.5-4.0); Total Protein 7.4 gm/dl (6.4-8.2)
--- NOTE | 2019-11-24 17:47 | History & Physical Report ---
Date of Service November 24, 2019 Assessment & Plan (1) Gangrene of toe of right foot: (2) Cellulitis: Patient with right great toe infection with gangrene. X-Ray shows possible erosion of the bone. Question underlying osteomyelitis. MRI ordered to further assess for Osteomyelitis. Patient started on Dapto and Zosyn empirically. With CKD, will continue current abx (avoid Vanco) Check baseline CK with Dapto on board. Consult Orthopedics. Consult Cardiology for preop clearance Wound and blood cultures pending. History of spinal infection with P. Acnes. Covering this with current abx. Will need to transition back to suppressive Keflex x 1 more month on discharge (if no other abx upon d/c) COVID screen for possibility of preop Repeat CBC, CMP in AM. Monitor on Med/Surg with Tele Tylenol PRN fever/pain. (3) Diabetes mellitus, type 2: (4) Diabetic neuropathy: (5) Type 2 diabetes mellitus with peripheral vascular disease: Patient with diabetic neuropathy and PVD. Per the patient, he has arterial disease in the B/L LE. Seems likely with gangrene of the right great toe. Poor circulation is likely limiting healing as well as infection. D/C Trulicity while in patient. Insulin ordered. Check A1C in the AM. Diabetic diet (6) Chronic kidney disease, stage III (moderate): Continue to monitor. Gentle hydration overnight NPO Midnight. (7) Ischemic cardiomyopathy: (8) Hypertension: (9) Hyperlipidemia: (10) History of TX (myocardial infarction): Patient with ischemic cardiomyopathy and recent history of TX with bypass x 3. With possibility of needing amputation, will ask for Cardiology consultation. Last Echo was completely in August 2019 soon after TX & showed EF 23%, ischemic cardiomyopathy, and R ventricular hypokinesis. Continue BP medications. BP well controlled currently. Hold statin while on Dapto. (11) Rheumatoid arthritis: Chronic immunosuppression with prednisone use- also possibly contributing to severity of infection. Continue chronic prednisone. (12) DVT prophylaxis: SQ Heparin History of Present Illness Chief Complaint: Toe infection Primary Care Provider: Nasreen Richardson MD Patient is a 78 yo with complicated PMHx who presented to the ED with worsening right great toe infection. The patient has had problems with his right great toe for approximately 6 weeks. He noticed about 3 weeks ago that there was some black/necrotic appearing area on the toe. [facility] evaluated the patient and had him seen by Dr. Vyas in Podiatry in [place]. Per the shruthi ent, he had arterial studies completed on his legs and was noted to have poor circulation from the knees to toes B/L. He was told by Dr. Vyas that he may need to have his right great toe removed due to gangrene. The patient states that he was supposed to have some sort of a study done at [facility] this upcoming Sunday, but over the weekend, he noted that he started to have a throbbing pain in the toe and spreading erythema. He denies headache, N/V/D, urinary symptoms, abdominal pain, chest pain, ALMEIDA, SOB, fever, sweats, or chills. Since presentation, the patient was noted to have mildly elevated WBC count with bandemia, ESR 50, CRP 8.57, and an X-Ray showing soft tissue swelling of the right great toe with small erosion of the first metatarsal head. Patient does also have history of spinal infection with P. Acnes. He was placed on suppressive Keflex therapy and is anticipated to be on that thru the end of December. Allergies Allergy/AdvReac Type Severity Reaction Status Date / Time hydrocodone [From Vicodin] Allergy Mild pruritus Verified 11/24/19 14:21 oxycodone Allergy Mild pruritus Verified 11/24/19 14:21 Home Medications Home Medications Medication Instructions Recorded Confirmed Type Trulicity 1.5 mg SUBCUT WK 11/13/18 11/24/19 History cholecalciferol (vitamin D3) 2,000 unit PO QAM 11/13/18 11/24/19 History [Vitamin D3] cyanocobalamin (vitamin B-12) 1,000 mcg PO QAM 11/13/18 11/24/19 History folic acid 1 mg PO QAM 11/13/18 11/24/19 History valacyclovir 500 mg PO HS 11/13/18 11/24/19 History repaglinide 2 mg tablet 2 mg PO TIDM PRN tab 01/08/19 11/24/19 History prednisone 5 mg tablet 10 mg PO QAM tab 02/24/19 11/24/19 History aspirin 81 mg PO HS #0 tab 07/21/19 11/24/19 Rx atorvastatin 80 mg PO HS #30 tab 07/21/19 11/24/19 Rx tramadol 50 mg PO Q6H PRN #30 tab 07/21/19 11/24/19 Rx cephalexin 500 mg capsule 500 mg PO BID #60 cap 10/09/19 11/24/19 Rx clopidogrel 75 mg PO DAILY 11/24/19 11/24/19 History metoprolol succinate 50 mg PO DAILY 11/24/19 11/24/19 History omeprazole 40 mg PO DAILY 11/24/19 11/24/19 History spironolactone 12.5 mg PO DAILY 11/24/19 11/24/19 History torsemide 20 mg PO DAILY 11/24/19 11/24/19 History Past Med/Surg History Medical History (Updated 11/24/19 @ 18:13 by Jody Reid PA-C) Aortic stenosis "Mild" (LAVERNE 1.3cm2, MG 12.2mmhg) per 11/2018 DSE BPH (benign prostatic hyperplasia) Carotid artery stenosis s/p left CEA 11/2018 Chronic kidney disease, stage III (moderate) follows with nephrology (Dr. Hardy) Degenerative disc disease Diabetes mellitus, type 2 NIDDM Dry eye syndrome Gout History of TX (myocardial infarction) Hyperlipidemia Hypertension Ischemic cardiomyopathy Neurogenic claudication due to lumbar spinal stenosis NSTEMI (non-ST elevated myocardial infarction) Pericarditis 1994 Rheumatoid arthritis on chronic prednisone 10mg daily Sleep apnea s/p UPPP/T&A Surgical History (Updated 11/24/19 @ 17:46 by Jody Reid PA-C) Fusion of spine LUMBAR X 2 History of adenoidectomy History of carpal tunnel release LEFT History of cataract surgery RT/LEFT History of colonoscopy History of herniorrhaphy UMBILICAL HERNIA History of left-sided carotid endarterectomy 11/2018 ([facility]) History of tonsillectomy History of tooth extraction S/P coronary artery bypass graft x 3 S/P pericardiocentesis 1994 S/P UPPP (uvulopalatopharyngoplasty) Family History Mother CHF (congestive heart failure) Sister CHF (congestive heart failure) Diabetes Social History Preferred Language: Albanian Communication Ability: Effective Claims Counsel Required: No Beliefs That Will Affect Care: None marital status: Current Living Situation: Spouse Other Information That Helps Us Care for You: No Feels Safe at Home: Yes Safety Concerns: Feels Safe At This Time Smoking Status: Never smoker Tobacco Type: cigarettes ; Second Hand Exposure: No ; Hx Alcohol Use: No Hx Substance Use: No Review of Systems Review of Systems: All systems reviewed & are unremarkable except as noted in HPI & below Physical Exam Constitutional: WD/WN, vitals as above Eyes: PERRL, conjunctivae normal, anicteric sclerae ENMT: external ear and nose normal, oropharynx normal Neck: trachea midline, no thyromegaly Respiratory: normal respiratory effort, lungs clear to auscultation Cardiovascular: RRR, no murmur, no edema Gastrointestinal (Abdomen): normal bowel sounds, soft, nontender, no hepatosplenomegaly Musculoskeletal: Head/Neck/Chest: normocephalic and head atraumatic Right lower extremity with 1 + pitting edema. Faint right DP pulse on exam. Skin: Right great toe with malodorous gangrenous tissue at the distal segment. Erythema of the dorsal right foot into the midfoot and very mild anterior tibial surface. Mild warmth of the foot. Psychiatric: A+Ox3, euthymic affect Results & Data Results & Data ([facility]) Vital Signs (Past 12 Hours) Vital Signs Temp Pulse Pulse Resp BP BP Pulse Ox 11/24/19 17:01 82 20 132/78 100 11/24/19 17:00 84 18 98 11/24/19 16:50 84 22 100 11/24/19 16:40 80 29 H 100 11/24/19 16:30 22 138/69 11/24/19 16:20 77 19 100 11/24/19 16:10 28 H 100 11/24/19 16:03 78 20 135/71 100 11/24/19 16:00 135/71 99 11/24/19 15:50 99 11/24/19 15:40 78 22 100 11/24/19 15:34 83 22 100 11/24/19 15:30 84 19 130/83 98 11/24/19 15:23 82 16 128/75 100 11/24/19 13:53 36.9 C 20 L 18 116/67 96 Laboratory Results Laboratory Results - last 24 hr 11/24/19 11/24/19 11/24/19 14:20 14:20 14:20 WBC 11.92 H RBC 4.18 L Hgb 12.8 L Hct 39.5 L MCV 94.5 MCH 30.6 MCHC 32.4 RDW Std Deviation 55.6 H RDW Coeff of Maximo 15.9 H Plt Count 179 MPV 10.0 Immature Gran % (Auto) 0.3 Neut % (Auto) 91.1 Lymph % (Auto) 4.9 Gregg % (Auto) 3.3 Eos % (Auto) 0.3 Baso % (Auto) 0.1 Neut # (Auto) 10.88 H Lymph # (Auto) 0.58 L Gregg # (Auto) 0.39 Eos # (Auto) 0.03 Baso # (Auto) 0.01 Immature Gran # (Auto) 0.03 H ESR 50 H Sodium 140 Potassium 4.2 Chloride 106 Carbon Dioxide 26 Anion Gap 8.0 BUN 39 H Creatinine 1.39 Est Cr Clr Drug Dosing 41.7 Est GFR ( Amer) 56.7 Est GFR (Non-Af Amer) 48.9 BUN/Creatinine Ratio 27.8 H Glucose 164 H Calcium 9.3 Total Bilirubin 1.0 AST 22 ALT 26 Alkaline Phosphatase 88 C-Reactive Protein 8.57 H Total Protein 7.4 Albumin 3.5 Globulin 3.9 Albumin/Globulin Ratio 0.9 Procalcitonin 11/24/19 14:44 WBC RBC Hgb Hct MCV MCH MCHC RDW Std Deviation RDW Coeff of Maximo Plt Count MPV Immature Gran % (Auto) Neut % (Auto) Lymph % (Auto) Gregg % (Auto) Eos % (Auto) Baso % (Auto) Neut # (Auto) Lymph # (Auto) Gregg # (Auto) Eos # (Auto) Baso # (Auto) Immature Gran # (Auto) ESR Sodium Potassium Chloride Carbon Dioxide Anion Gap BUN Creatinine Est Cr Clr Drug Dosing Est GFR ( Amer) Est GFR (Non-Af Amer) BUN/Creatinine Ratio Glucose Calcium Total Bilirubin AST ALT Alkaline Phosphatase C-Reactive Protein Total Protein Albumin Globulin Albumin/Globulin Ratio Procalcitonin 0.17 Diagnostic Findings Foot X-Ray: IMPRESSION: 1. Soft tissue swelling with no fracture identified. 2. Osteopenia with hallux valgus and degenerative change as above. 3. A small erosion within the first metatarsal head is likely on a degenerative basis. Infection is considered less likely but not excluded and clinical correlation will be required. Supervising Physician Co-Signing Physician Notes Patient is a 78-year-old male with history of diabetes mellitus, CKD stage III, ischemic cardiomyopathy, coronary artery disease, rheumatoid arthritis and other medical problems presents with history of worsening right great toe infection since 6 weeks duration. Patient was evaluated by needle loom setter in [place] and had arterial Dopplers as per patient which showed poor circulation. His needle loom setter recommended amputation of the right great toe due to gangrenous foot infection. Please review HPI for complete details of presentation. On exam patient is well-built and nourished, no apparent distress, normocephalic atraumatic, lungs are clear to auscultation, S1-S2, no murmur, no pedal edema, abdomen soft nontender, normal bowel sounds, grossly no focal neurological deficits, extremities--right great toe has gangrenous tissue, erythema, malodor, warm. Patient is admitted for management of gangrenous right great toe/cellulitis. X-ray of the foot suggestive of no fracture but showed small erosion within the right metatarsal head with degenerative process. MRI of the foot ordered to rule out osteomyelitis. Patient will be started on broad- spectrum antibiotics including daptomycin, Zosyn. Blood, wound cultures obtained. Agree with holding statin while on daptomycin. CK levels within normal limits. COVID screen negative. Will hold aspirin, Plavix for now secondary to plan for procedure. Resume aspirin, Plavix as soon as possible given history of coronary artery disease. Will request cardiology clearance prior to surgery given significant cardiac history. Hold home diabetic p.o. medications. Continue insulin therapy while hospitalized. I personally reviewed the record. Patient is interviewed and examined at bedside. Patient's care is coordinated with Jody Reid PA-C. Please refer to the documentation above for details of patient's presentation and for discussion of other issues.
[2019-11-24] MEDS ORDERED: GLUCOSE 10 TABS/TUBE PO PRN (19:24)
[2019-11-24] MEDS ORDERED: DEXTROSE 50% 50 ML SYRINGE IV PRN (19:24)
[2019-11-24] MEDS ORDERED: GLUCOSE 40% GEL 15 GM TUBE PO PRN (19:24)
[2019-11-24] MEDS ORDERED: CONSULT PHARMACY STA (19:24)
[2019-11-24] MEDS ORDERED: GLUCAGON FOR INJ 1 MG VIAL SQ PRN (19:24)
[2019-11-24] MEDS ORDERED: CARBOHYDRATES FOR HYPOGLYCEMIA PO PRN (19:24)
[2019-11-24] MEDS ORDERED: POLYETHYLENE (MIRALAX) 17 GM PACK PO PRN (19:24)
[2019-11-24] MEDS ORDERED: PIPERACILL/TAZOBAC CONSULT ACTIVE PRN (19:28)
[2019-11-24] MEDS: PIPERACILLIN/TAZOBACTAM 3.375 GM in DEXTROSE 5% 100 ML IV SCH (20:43)
[2019-11-24] MEDS: INSULIN GLARGINE SOLOSTAR 100 UNITS/ML 3 ML PEN SC SCH (20:48)
[2019-11-24] MEDS: INSULIN ASPART 100 UNITS/ML 3 ML PEN SC SCH (20:48)
[2019-11-24] MEDS: HEPARIN SOD 5,000 UNIT/0.5 ML VIAL SQ SCH (20:49)
[2019-11-25] MEDS: PIPERACILLIN/TAZOBACTAM 3.375 GM in DEXTROSE 5% 100 ML IV SCH ×3 (03:34→20:30)
[2019-11-25] MEDS: HEPARIN SOD 5,000 UNIT/0.5 ML VIAL SQ SCH ×3 (05:13→21:47)
[2019-11-25] MEDS: predniSONE 10 MG TABLET PO SCH (06:40)
[2019-11-25 06:43] LABS: Estimated Average Glucose 146 mg/dl; Hemoglobin A1C 6.7 % (4.5-5.6)
[2019-11-25] MEDS: INSULIN ASPART 100 UNITS/ML 3 ML PEN SC SCH ×4 (08:35→20:36)
[2019-11-25] MEDS ORDERED: predniSONE 10 MG TABLET PO SCH (09:00)
[2019-11-25] MEDS: INSULIN GLARGINE SOLOSTAR 100 UNITS/ML 3 ML PEN SC SCH ×2 (09:04→20:35)
[2019-11-25] MEDS: PANTOprazole 40 MG TAB PO SCH (09:09)
[2019-11-25] MEDS: METOPROLOL SUCC 50MG EXT REL TAB PO SCH (09:09)
[2019-11-25] MEDS: D5W AND NSS 1,000 ML IV SCH (09:14)
--- NOTE | 2019-11-25 09:17 | XRay Report ---
XR chest 1V portable CLINICAL HISTORY: preop eval preoperative evaluation COMPARISON STUDY: 07/08/2019 FINDINGS: The bones soft tissues and hemidiaphragms are normal. The cardiomediastinal silhouette is n ormal. The lungs are clear. The pulmonary vasculature is normal. IMPRESSION: Negative chest. ACT 112: Negative or not required by law. The above report was generated using voice recognition software. It may contain grammatical, syntax or spelling errors. Electronically signed by: Vinnie Milsl M.D. 11/25/2019 9:16 AM
--- NOTE | 2019-11-25 10:00 | Magnetic Resonance Report ---
MR foot RT w/o con HISTORY: Right toe injury. Toe infection, ? Osteomyelitis TECHNIQUE: Multiplanar multisequence MRI of the right forefoot was performed without contrast. COMPARISON STUDY: Right foot radiograph 11/24/2019. FINDINGS: Question minimal marrow edema at the distal tuft of the first toe. No abnormal T1 signal or definite cortical erosion. Therefore, this may represent a mild osteitis. No MR evidence for osteomy elitis at this time. There is diffuse soft tissue edema seen throughout the foot. Moderate to severe cartilage space narrowing, subchondral edema, subchondral cystic change, and marginal osteophytes at the first MTP joint. This favors osteoarthritis. Questionable tiny paratracheal erosions medially at the first MTP joint is likely due to the long-standing degenerative change. Soft tissue and bony buni on at the medial head of the first metatarsal. No acute fracture or dislocation within the forefoot. The flexor and extensor tendons appear intact. Chronic flexion deformities within the toes. IMPRESSION: 1. Question minimal marrow edema at the distal tuft of the first toe. No abnormal T1 signal or defini te cortical erosion. Therefore, this may represent a mild osteitis. No MR evidence for osteomyelitis at this time. 2. 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 3. Soft tissue and bony bunion at the medial head of the first metatarsal. 4. Diffuse soft tissue edema throughout the forefoot. ACT 112: Negative or not required by law. Electronically signed by: Nadir Diaz M.D. 11/25/2019 9:58 AM
--- NOTE | 2019-11-25 10:02 | Cardiology Consultation ---
Date of Consultation November 25, 2019 Assessment & Plan (1) Gangrene of toe of right foot: (2) Cellulitis: (3) Diabetic neuropathy: (4) Type 2 diabetes mellitus with peripheral vascular disease: (5) History of CA (myocardial infarction): (6) Ischemic cardiomyopathy: By the geriatric risk assessment tool the patient has 3.4% risk of having a cardiovascular event during the surgery. He is currently optimally medically managed. I think he should proceed to surgery with an acceptable risk considering he has no options due to the infection and gangrene of his foot. History of Present Illness Attending Physician: Junior Razo MD History of Present Illness This is a 78-year-old male patient with the past cardiac history as outlined below. He is a diabetic and has developed a nonhealing ulcer of his right foot that will require surgery and potential amputation. We have been asked to provide preoperative risk assessment. The patient's heart disease is currently stable. He has no cardiac symptoms and denies chest pain, shortness of breath, heart palpitations, dizziness or lightheadedness. Past medical history: 1.Ischemic cardiomyopathy NSTEMI 07/09/2019,ischemic cardiomyopathypostoperative LVEF, 25%, echo 08/26/2019 s/p 08/21/2019 CABG x4 receiving a MIGUEL to LAD, SVG to D1, SVG to high OM, and SVG to PDA. The target vessels were described in the operative report is being heavily calcified, and an endarterectomy was performed of the PDA. I25.5 2.PAF (paroxysmal atrial fibrillation) ([facility]) I48.0 3.Hx of CABG Allergies Allergy/AdvReac Type Severity Reaction Status Date / Time hydrocodone [From Vicodin] Allergy Mild pruritus Verified 11/24/19 14:21 oxycodone Allergy Mild pruritus Verified 11/24/19 14:21 Home Medications Home Medications Medication Instructions Recorded Confirmed Type Trulicity 1.5 mg SUBCUT WK 11/13/18 11/24/19 History cholecalciferol (vitamin D3) 2,000 unit PO QAM 11/13/18 11/24/19 History [Vitamin D3] cyanocobalamin (vitamin B-12) 1,000 mcg PO QAM 11/13/18 11/24/19 History folic acid 1 mg PO QAM 11/13/18 11/24/19 History valacyclovir 500 mg PO HS 11/13/18 11/24/19 History repaglinide 2 mg tablet 2 mg PO TIDM PRN tab 01/08/19 11/24/19 History prednisone 5 mg tablet 10 mg PO QAM tab 02/24/19 11/24/19 History aspirin 81 mg PO HS #0 tab 07/21/19 11/24/19 Rx atorvastatin 80 mg PO HS #30 tab 07/21/19 11/24/19 Rx tramadol 50 mg PO Q6H PRN #30 tab 07/21/19 11/24/19 Rx cephalexin 500 mg capsule 500 mg PO BID #60 cap 10/09/19 11/24/19 Rx clopidogrel 75 mg PO DAILY 11/24/19 11/24/19 History metoprolol succinate 50 mg PO DAILY 11/24/19 11/24/19 History omeprazole 40 mg PO DAILY 11/24/19 11/24/19 History spironolactone 12.5 mg PO DAILY 11/24/19 11/24/19 History torsemide 20 mg PO DAILY 11/24/19 11/24/19 History Patient History Medical History Aortic stenosis "Mild" (LAVERNE 1.3cm2, MG 12.2mmhg) per 11/2018 DSE BPH (benign prostatic hyperplasia) Carotid artery stenosis s/p left CEA 11/2018 Chronic kidney disease, stage III (moderate) follows with nephrology (Dr. Hardy) Degenerative disc disease Diabetes mellitus, type 2 NIDDM Dry eye syndrome Gout History of CA (myocardial infarction) Hyperlipidemia Hypertension Ischemic cardiomyopathy Neurogenic claudication due to lumbar spinal stenosis NSTEMI (non-ST elevated myocardial infarction) Pericarditis 1994 Rheumatoid arthritis on chronic prednisone 10mg daily Sleep apnea s/p UPPP/T&A Surgical History Fusion of spine LUMBAR X 2 History of adenoidectomy History of carpal tunnel release LEFT History of cataract surgery RT/LEFT History of colonoscopy History of herniorrhaphy UMBILICAL HERNIA History of left-sided carotid endarterectomy 11/2018 ([facility]) History of tonsillectomy History of tooth extraction S/P coronary artery bypass graft x 3 S/P pericardiocentesis 1994 S/P UPPP (uvulopalatopharyngoplasty) Family History Mother CHF (congestive heart failure) Sister CHF (congestive heart failure) Diabetes Social History Preferred Language: Lithuanian Communication Ability: Effective [employer] Room Supervisor Required: No Beliefs That Will Affect Care: None marital status: Current Living Situation: Spouse Other Information That Helps Us Care for You: No Feels Safe at Home: Yes Safety Concerns: Feels Safe At This Time Smoking Status: Never smoker Tobacco Type: cigarettes ; Second Hand Exposure: No ; Hx Alcohol Use: No Hx Substance Use: No Review of Systems Review of Systems: All systems reviewed & are unremarkable except as noted in HPI & below Nothing additional to add. Physical Exam Physical Exam: General: no acute distress and stated age Head: normocephalic, no masses, lesions, tenderness or abnormalities Eyes: conjunctiva are pink and non-injected, sclera clear Neck: supple, no adenopathy, no bruits, normal jugular venous pulse, no hepatojugular reflux Chest: normal shape and normal respiratory effort Lungs: clear to auscultation and percussion Cardiac Exam: - regular rate & rhythm, no murmurs gallops or rubs - normal S1, normal S2 Pulses: 2(+) throughout Abdomen: abdomen soft, non-tender, no abnormal masses and no hepatosplenomegaly Musculoskeletal: no gait disturbance, no joint inflammation, no deforming arthritis Extremities: no edema and no cyanosis Neuro: grossly normal exam Results & Data ([facility]) Vital Signs (Past 12 Hours) Vital Signs Temp Pulse Pulse Resp BP Pulse Ox 11/25/19 07:43 75 11/25/19 06:58 36.7 C 83 16 138/94 98 11/24/19 23:23 36.8 C 76 18 110/73 98 11/24/19 23:07 76 Laboratory Results Laboratory Results - last 24 hr 11/24/19 11/24/19 11/24/19 14:20 14:20 14:20 WBC 11.92 H RBC 4.18 L Hgb 12.8 L Hct 39.5 L MCV 94.5 MCH 30.6 MCHC 32.4 RDW Std Deviation 55.6 H RDW Coeff of Maximo 15.9 H Plt Count 179 MPV 10.0 Immature Gran % (Auto) 0.3 Neut % (Auto) 91.1 Lymph % (Auto) 4.9 [place] % (Auto) 3.3 Eos % (Auto) 0.3 Baso % (Auto) 0.1 Neut # (Auto) 10.88 H Lymph # (Auto) 0.58 L [place] # (Auto) 0.39 Eos # (Auto) 0.03 Baso # (Auto) 0.01 Immature Gran # (Auto) 0.03 H ESR 50 H Sodium 140 Potassium 4.2 Chloride 106 Carbon Dioxide 26 Anion Gap 8.0 BUN 39 H Creatinine 1.39 Est Cr Clr Drug Dosing 41.7 Est GFR ( Amer) 56.7 Est GFR (Non-Af Amer) 48.9 BUN/Creatinine Ratio 27.8 H Glucose 164 H POC Glucose Estimat Average Glucose Hemoglobin A1c Calcium 9.3 Total Bilirubin 1.0 AST 22 ALT 26 Alkaline Phosphatase 88 Total Creatine Kinase C-Reactive Protein 8.57 H Total Protein 7.4 Albumin 3.5 Globulin 3.9 Albumin/Globulin Ratio 0.9 Procalcitonin COVID-19 PCR 11/24/19 11/24/19 11/24/19 14:20 14:44 20:27 WBC RBC Hgb Hct MCV MCH MCHC RDW Std Deviation RDW Coeff of Maximo Plt Count MPV Immature Gran % (Auto) Neut % (Auto) Lymph % (Auto) [place] % (Auto) Eos % (Auto) Baso % (Auto) Neut # (Auto) Lymph # (Auto) [place] # (Auto) Eos # (Auto) Baso # (Auto) Immature Gran # (Auto) ESR Sodium Potassium Chloride Carbon Dioxide Anion Gap BUN Creatinine Est Cr Clr Drug Dosing Est GFR ( Amer) Est GFR (Non-Af Amer) BUN/Creatinine Ratio Glucose POC Glucose 103 H Estimat Average Glucose Hemoglobin A1c Calcium Total Bilirubin AST ALT Alkaline Phosphatase Total Creatine Kinase 125 C-Reactive Protein Total Protein Albumin Globulin Albumin/Globulin Ratio Procalcitonin 0.17 COVID-19 PCR 11/24/19 11/25/19 11/25/19 22:00 05:32 06:16 WBC RBC Hgb Hct MCV MCH MCHC RDW Std Deviation RDW Coeff of Maximo Plt Count MPV Immature Gran % (Auto) Neut % (Auto) Lymph % (Auto) [place] % (Auto) Eos % (Auto) Baso % (Auto) Neut # (Auto) Lymph # (Auto) [place] # (Auto) Eos # (Auto) Baso # (Auto) Immature Gran # (Auto) ESR Sodium Potassium Chloride Carbon Dioxide Anion Gap BUN Creatinine Est Cr Clr Drug Dosing Est GFR ( Amer) Est GFR (Non-Af Amer) BUN/Creatinine Ratio Glucose POC Glucose 79 Estimat Average Glucose 146 Hemoglobin A1c 6.7 H Calcium Total Bilirubin AST ALT Alkaline Phosphatase Total Creatine Kinase C-Reactive Protein Total Protein Albumin Globulin Albumin/Globulin Ratio Procalcitonin COVID-19 PCR NEGATIVE 11/25/19 11/25/19 07:40 11:34 WBC RBC Hgb Hct MCV MCH MCHC RDW Std Deviation RDW Coeff of Maximo Plt Count MPV Immature Gran % (Auto) Neut % (Auto) Lymph % (Auto) [place] % (Auto) Eos % (Auto) Baso % (Auto) Neut # (Auto) Lymph # (Auto) [place] # (Auto) Eos # (Auto) Baso # (Auto) Immature Gran # (Auto) ESR Sodium Potassium Chloride Carbon Dioxide Anion Gap BUN Creatinine Est Cr Clr Drug Dosing Est GFR ( Amer) Est GFR (Non-Af Amer) BUN/Creatinine Ratio Glucose POC Glucose 80 118 H Estimat Average Glucose Hemoglobin A1c Calcium Total Bilirubin AST ALT Alkaline Phosphatase Total Creatine Kinase C-Reactive Protein Total Protein Albumin Globulin Albumin/Globulin Ratio Procalcitonin COVID-19 PCR Medications Administered Current Inpatient Medications Acetaminophen (Tylenol) 650 mg PO Q4H PRN PRN Reason: pain/fever Stop: 12/24/19 19:23 Dextrose (Dextrose 50%) 25 - 50 ml IV UD PRN; Protocol PRN Reason: Hypoglycemia Protocol Stop: 12/24/19 19:23 Glucagon (Glucagen) 1 mg SQ UD PRN; Protocol PRN Reason: Hypoglycemia Protocol Stop: 12/24/19 19:23 Glucose (Dex4 Glucose) 4 - 8 tabs PO UD PRN; Protocol PRN Reason: Hypoglycemia Protocol Stop: 12/24/19 19:23 Glucose (Glucose 40%) 15 - 30 gm PO UD PRN; Protocol PRN Reason: Hypoglycemia Protocol Stop: 12/24/19 19:23 Heparin Sodium (Porcine) (Heparin Sodium (Porcine)) 5,000 units SQ Q8 [facility] Stop: 12/24/19 21:59 Last Admin: 11/25/19 05:13 Dose: 5,000 units Documented by: Piperacillin Sod/Tazobactam (Sod 3.375 gm/ Dextrose) 115 mls @ 28.75 mls/hr IV Q8H [facility]; Protocol Stop: 01/05/20 19:59 Last Admin: 11/25/19 12:29 Dose: 28.8 mls/hr Documented by: Daptomycin 350 mg/ Syringe 7 mls @ 3.75 mls/min IV Q24H [facility]; Protocol Stop: 01/06/20 13:59 Dextrose/Sodium Chloride (D5w And Nss) 1,000 mls @ 60 mls/hr IV .[id number] [facility] Stop: 12/25/19 08:59 Last Admin: 11/25/19 09:14 Dose: 60 mls/hr Documented by: Insulin Aspart (Novolog Flexpen) 0 units SC ACHS [facility] Stop: 12/24/19 20:59 Last Admin: 11/25/19 12:27 Dose: Not Given Documented by: Insulin Glargine (Lantus Solostar Pen) 5 units SC BID [facility] Stop: 12/24/19 20:59 Last Admin: 11/25/19 09:04 Dose: Not Given Documented by: Metoprolol Succinate (Toprol Xl) 50 mg PO DAILY [facility] Stop: 12/25/19 08:59 Last Admin: 11/25/19 09:09 Dose: 50 mg Documented by: Miscellaneous (Carbohydrates For Hypoglycemia) 15 - 30 gm PO UD PRN PRN Reason: Hypoglycemia Protocol Stop: 12/24/19 19:23 Miscellaneous Information (Consult) 1 ea N/A UD PRN PRN Reason: Consult Stop: 12/24/19 19:27 Miscellaneous Information (Consult) 1 ea N/A UD PRN PRN Reason: Consult Stop: 12/24/19 19:27 Pantoprazole Sodium (Protonix) 40 mg PO DAILY [facility] Stop: 12/25/19 08:59 Last Admin: 11/25/19 09:09 Dose: 40 mg Documented by: Polyethylene Glycol (Miralax Powder Packet) 17 gm PO DAILY PRN PRN Reason: Constipation Stop: 12/24/19 19:23 Prednisone (Prednisone) 10 mg PO QAM [facility] Stop: 12/25/19 06:44 Last Admin: 11/25/19 06:40 Dose: 10 mg Documented by: Valacyclovir HCl (Valtrex) 500 mg PO [facility] Stop: 12/25/19 20:59
[2019-11-25] MEDS ORDERED: DAPTOmycin 375 MG in SYRINGE 0 ML IV SCH (14:00)
[2019-11-25] MEDS: DAPTOmycin 350 MG in SYRINGE 0 ML IV SCH (14:20)
[2019-11-25] MEDS: ACETAMINOPHEN 325 MG TAB PO PRN (14:41)
--- NOTE | 2019-11-25 15:57 | Electrocardiogram Report ---
Test Reason : Blood Pressure : / mmHG Vent. Rate : 089 BPM Atrial Rate : 089 BPM P-R Int : 194 ms QRS Dur : 094 ms QT Int : 400 ms P-R-T Axes : 035 -07 106 degrees QTc Int : 486 ms Normal sinus rhythm Nonspecific ST and T wave abnormality Prolonged QT Abnormal ECG When compared with ECG of 17-JUL-2019 11:18, QT has lengthened Confirmed by Teo Childs ([id number]) on 11/25/2019 3:56:50 PM Referred By: REFERRED SELF Confirmed By:Teo Childs
--- NOTE | 2019-11-25 16:54 | Orthopedic Consultation ---
Date of Consultation November 25, 2019 Assessment & Plan (1) Gangrene of toe of right foot: Continue with IV antibiotics per the medical team, localized wound care, I do not have access to patient's prior vascular studies however I feel vascular consultation appropriate at this time, patient may require new vascular studies and pending those results may require intervention per vascular team prior to any surgical surgical intervention including debridement versus amputation of the great toe. Patient also has hammertoes and developing pressure ulcerations on the first and third digits and will likely at some point require further treatment to prevent pressure ulcerations. We will discuss with [facility] [place] in regards to further recommendations and treatment during this hospital stay. We will follow with you. Thank you for the consultation. History of Present Illness Reason for Consultation: Right great toe gangrene/infection Attending Physician: Junior Razo MD History of Present Illness The patient is a 78 yo male who is known to our practice with complicated PMHx who presented to [facility] emergency department with worsening right great toe pain. The patient reports ongoing issues with right great toe secondary to injury sustained 6 weeks prior. Patient was seen by podiatric surgery, Dr. Vyas in [place] 3 weeks prior secondary to necrotic ulceration forming on the distal tip of his toe. This was being treated conservatively and was started on Keflex as an outpatient. The patient reports having vascular studies performed and was to see vascular surgeon with [facility]. Due to worsening pain to his right great toe he presented to the emergency department and was admitted for further inpatient evaluation and treatment. Patient currently denies any fevers, chills, nausea, vomiting, shortness of breath, chest pain. Allergies Allergy/AdvReac Type Severity Reaction Status Date / Time hydrocodone [From Vicodin] Allergy Mild pruritus Verified 11/24/19 14:21 Home Medications Home Medications Medication Instructions Recorded Confirmed Type Trulicity 1.5 mg SUBCUT WK 11/13/18 11/24/19 History cholecalciferol (vitamin D3) 2,000 unit PO QAM 11/13/18 11/24/19 History [Vitamin D3] cyanocobalamin (vitamin B-12) 1,000 mcg PO QAM 11/13/18 11/24/19 History folic acid 1 mg PO QAM 11/13/18 11/24/19 History valacyclovir 500 mg PO HS 11/13/18 11/24/19 History repaglinide 2 mg tablet 2 mg PO TIDM PRN tab 01/08/19 11/24/19 History prednisone 5 mg tablet 10 mg PO QAM tab 02/24/19 11/24/19 History aspirin 81 mg PO HS #0 tab 07/21/19 11/24/19 Rx atorvastatin 80 mg PO HS #30 tab 07/21/19 11/24/19 Rx tramadol 50 mg PO Q6H PRN #30 tab 07/21/19 11/24/19 Rx cephalexin 500 mg capsule 500 mg PO BID #60 cap 10/09/19 11/24/19 Rx clopidogrel 75 mg PO DAILY 11/24/19 11/24/19 History metoprolol succinate 50 mg PO DAILY 11/24/19 11/24/19 History omeprazole 40 mg PO DAILY 11/24/19 11/24/19 History spironolactone 12.5 mg PO DAILY 11/24/19 11/24/19 History torsemide 20 mg PO DAILY 11/24/19 11/24/19 History Patient History Medical History Aortic stenosis "Mild" (LAVERNE 1.3cm2, MG 12.2mmhg) per 11/2018 DSE BPH (benign prostatic hyperplasia) Carotid artery stenosis s/p left CEA 11/2018 Chronic kidney disease, stage III (moderate) follows with nephrology (Dr. Hardy) Degenerative disc disease Diabetes mellitus, type 2 NIDDM Dry eye syndrome Gout History of NE (myocardial infarction) Hyperlipidemia Hypertension Ischemic cardiomyopathy Neurogenic claudication due to lumbar spinal stenosis NSTEMI (non-ST elevated myocardial infarction) Pericarditis 1994 Rheumatoid arthritis on chronic prednisone 10mg daily Sleep apnea s/p UPPP/T&A Surgical History Fusion of spine LUMBAR X 2 History of adenoidectomy History of carpal tunnel release LEFT History of cataract surgery RT/LEFT History of colonoscopy History of herniorrhaphy UMBILICAL HERNIA History of left-sided carotid endarterectomy 11/2018 ([facility]) History of tonsillectomy History of tooth extraction S/P coronary artery bypass graft x 3 S/P pericardiocentesis 1994 S/P UPPP (uvulopalatopharyngoplasty) Family History Mother CHF (congestive heart failure) Sister CHF (congestive heart failure) Diabetes Social History Preferred Language: [place] Communication Ability: Effective Pigskin Trimmer Required: No Beliefs That Will Affect Care: None marital status: Current Living Situation: Spouse Other Information That Helps Us Care for You: No Feels Safe at Home: Yes Safety Concerns: Feels Safe At This Time Smoking Status: Never smoker Tobacco Type: cigarettes ; Second Hand Exposure: No ; Hx Alcohol Use: No Hx Substance Use: No Review of Systems Review of Systems: All systems reviewed & are unremarkable except as noted in HPI & below Constitutional: as per Subjective / HPI Physical Exam Physical Exam: Right lower extremity neurovascular sensory intact grossly, decreased sensation at baseline, decreased sensation distal tip of great toe with 3 x 3 cm dry gangrene at the distalmost tip of the great toe. No drainage or purulence noted. Edema to the dorsal and plantar aspect of the foot mild erythema. Constitutional: WD/WN, vitals as above Results & Data ([place]) Vital Signs (Past 12 Hours) Vital Signs Temp Pulse Pulse Resp BP Pulse Ox 11/25/19 15:47 36.8 C 85 18 138/78 99 11/25/19 11:00 36.8 C 85 18 108/51 L 100 11/25/19 07:43 75 11/25/19 06:58 36.7 C 83 16 138/94 98 Laboratory Results 11/25/19 11/25/19 11/25/19 Range/Units 16:32 14:57 11:34 POC Glucose 186 H 112 H 118 H (70-99) mg/dl Estimat Average Glucose mg/dl Hemoglobin A1c (4.5-5.6) % Total Creatine Kinase (39-308) U/L COVID-19 PCR (Negative) 11/25/19 11/25/19 11/25/19 Range/Units 07:40 06:16 05:32 POC Glucose 80 79 (70-99) mg/dl Estimat Average Glucose 146 mg/dl Hemoglobin A1c 6.7 H (4.5-5.6) % Total Creatine Kinase (39-308) U/L COVID-19 PCR (Negative) 06/11/24/19 11/24/19 Range/Units 22:00 20:27 14:20 POC Glucose 103 H (70-99) mg/dl Estimat Average Glucose mg/dl Hemoglobin A1c (4.5-5.6) % Total Creatine Kinase 125 (39-308) U/L COVID-19 PCR NEGATIVE (Negative) H & H 11/24/19 Range/Units 14:20 Hgb 12.8 L (14.0-18.0) g/dL Hct 39.5 L (42-52) % Lab Results 11/24/19 11/24/19 11/24/19 Range/Units 14:20 14:20 14:20 WBC 11.92 H (4.8-10.8) K/uL RBC 4.18 L (4.7-6.1) M/uL Hgb 12.8 L (14.0-18.0) g/dL Hct 39.5 L (42-52) % MCV 94.5 (80-100) fL MCH 30.6 (25-34) pg MCHC 32.4 (32-36) g/dL RDW Std Deviation 55.6 H (36.4-46.3) fL RDW Coeff of Maximo 15.9 H (11.5-14.5) % Plt Count 179 (130-400) K/uL MPV 10.0 (7.4-10.4) fL Immature Gran % (Auto) 0.3 % Neut % (Auto) 91.1 % Lymph % (Auto) 4.9 % Broome % (Auto) 3.3 % Eos % (Auto) 0.3 % Baso % (Auto) 0.1 % Neut # (Auto) 10.88 H (1.4-6.5) K/uL Lymph # (Auto) 0.58 L (1.2-3.4) K/uL Broome # (Auto) 0.39 (0.11-0.59) K/uL Eos # (Auto) 0.03 (0-0.5) K/uL Baso # (Auto) 0.01 (0-0.2) K/uL Immature Gran # (Auto) 0.03 H (0.00-0.02) K/uL ESR 50 H (0-14) mm/hr Sodium 140 (136-145) mmol/L Potassium 4.2 (3.5-5.1) mmol/L Chloride 106 (98-107) mmol/L Carbon Dioxide 26 (21-32) mmol/L Anion Gap 8.0 (3-11) BUN 39 H (7-18) mg/dl Creatinine 1.39 (0.6-1.4) mg/dl Est Cr Clr Drug Dosing 41.7 ml/min Est GFR ( Amer) 56.7 Est GFR (Non-Af Amer) 48.9 BUN/Creatinine Ratio 27.8 H (10-20) Glucose 164 H (70-99) mg/dl POC Glucose (70-99) mg/dl Estimat Average Glucose mg/dl Hemoglobin A1c (4.5-5.6) % Calcium 9.3 (8.5-10.1) mg/dl Total Bilirubin 1.0 (0.2-1) mg/dl AST 22 (15-37) U/L ALT 26 (12-78) U/L Alkaline Phosphatase 88 (45-117) U/L Total Creatine Kinase (39-308) U/L C-Reactive Protein 8.57 H (0-0.29) mg/dl Total Protein 7.4 (6.4-8.2) gm/dl Albumin 3.5 (3.4-5.0) gm/dl Globulin 3.9 (2.5-4.0) gm/dl Albumin/Globulin Ratio 0.9 (0.9-2) Procalcitonin (0-0.5) ng/ml COVID-19 PCR (Negative) 11/24/19 11/24/19 11/24/19 Range/Units 14:20 14:44 20:27 WBC (4.8-10.8) K/uL RBC (4.7-6.1) M/uL Hgb (14.0-18.0) g/dL Hct (42-52) % MCV (80-100) fL MCH (25-34) pg MCHC (32-36) g/dL RDW Std Deviation (36.4-46.3) fL RDW Coeff of Maximo (11.5-14.5) % Plt Count (130-400) K/uL MPV (7.4-10.4) fL Immature Gran % (Auto) % Neut % (Auto) % Lymph % (Auto) % Broome % (Auto) % Eos % (Auto) % Baso % (Auto) % Neut # (Auto) (1.4-6.5) K/uL Lymph # (Auto) (1.2-3.4) K/uL Broome # (Auto) (0.11-0.59) K/uL Eos # (Auto) (0-0.5) K/uL Baso # (Auto) (0-0.2) K/uL Immature Gran # (Auto) (0.00-0.02) K/uL ESR (0-14) mm/hr Sodium (136-145) mmol/L Potassium (3.5-5.1) mmol/L Chloride (98-107) mmol/L Carbon Dioxide (21-32) mmol/L Anion Gap (3-11) BUN (7-18) mg/dl Creatinine (0.6-1.4) mg/dl Est Cr Clr Drug Dosing ml/min Est GFR ( Amer) Est GFR (Non-Af Amer) BUN/Creatinine Ratio (10-20) Glucose (70-99) mg/dl POC Glucose 103 H (70-99) mg/dl Estimat Average Glucose mg/dl Hemoglobin A1c (4.5-5.6) % Calcium (8.5-10.1) mg/dl Total Bilirubin (0.2-1) mg/dl AST (15-37) U/L ALT (12-78) U/L Alkaline Phosphatase (45-117) U/L Total Creatine Kinase 125 (39-308) U/L C-Reactive Protein (0-0.29) mg/dl Total Protein (6.4-8.2) gm/dl Albumin (3.4-5.0) gm/dl Globulin (2.5-4.0) gm/dl Albumin/Globulin Ratio (0.9-2) Procalcitonin 0.17 (0-0.5) ng/ml COVID-19 PCR (Negative) 11/24/19 11/25/19 11/25/19 Range/Units 22:00 05:32 06:16 WBC (4.8-10.8) K/uL RBC (4.7-6.1) M/uL Hgb (14.0-18.0) g/dL Hct (42-52) % MCV (80-100) fL MCH (25-34) pg MCHC (32-36) g/dL RDW Std Deviation (36.4-46.3) fL RDW Coeff of Maximo (11.5-14.5) % Plt Count (130-400) K/uL MPV (7.4-10.4) fL Immature Gran % (Auto) % Neut % (Auto) % Lymph % (Auto) % Broome % (Auto) % Eos % (Auto) % Baso % (Auto) % Neut # (Auto) (1.4-6.5) K/uL Lymph # (Auto) (1.2-3.4) K/uL Broome # (Auto) (0.11-0.59) K/uL Eos # (Auto) (0-0.5) K/uL Baso # (Auto) (0-0.2) K/uL Immature Gran # (Auto) (0.00-0.02) K/uL ESR (0-14) mm/hr Sodium (136-145) mmol/L Potassium (3.5-5.1) mmol/L Chloride (98-107) mmol/L Carbon Dioxide (21-32) mmol/L Anion Gap (3-11) BUN (7-18) mg/dl Creatinine (0.6-1.4) mg/dl Est Cr Clr Drug Dosing ml/min Est GFR ( Amer) Est GFR (Non-Af Amer) BUN/Creatinine Ratio (10-20) Glucose (70-99) mg/dl POC Glucose 79 (70-99) mg/dl Estimat Average Glucose 146 mg/dl Hemoglobin A1c 6.7 H (4.5-5.6) % Calcium (8.5-10.1) mg/dl Total Bilirubin (0.2-1) mg/dl AST (15-37) U/L ALT (12-78) U/L Alkaline Phosphatase (45-117) U/L Total Creatine Kinase (39-308) U/L C-Reactive Protein (0-0.29) mg/dl Total Protein (6.4-8.2) gm/dl Albumin (3.4-5.0) gm/dl Globulin (2.5-4.0) gm/dl Albumin/Globulin Ratio (0.9-2) Procalcitonin (0-0.5) ng/ml COVID-19 PCR NEGATIVE (Negative) 11/25/19 11/25/19 11/25/19 Range/Units 07:40 11:34 14:57 WBC (4.8-10.8) K/uL RBC (4.7-6.1) M/uL Hgb (14.0-18.0) g/dL Hct (42-52) % MCV (80-100) fL MCH (25-34) pg MCHC (32-36) g/dL RDW Std Deviation (36.4-46.3) fL RDW Coeff of Maximo (11.5-14.5) % Plt Count (130-400) K/uL MPV (7.4-10.4) fL Immature Gran % (Auto) % Neut % (Auto) % Lymph % (Auto) % Broome % (Auto) % Eos % (Auto) % Baso % (Auto) % Neut # (Auto) (1.4-6.5) K/uL Lymph # (Auto) (1.2-3.4) K/uL Broome # (Auto) (0.11-0.59) K/uL Eos # (Auto) (0-0.5) K/uL Baso # (Auto) (0-0.2) K/uL Immature Gran # (Auto) (0.00-0.02) K/uL ESR (0-14) mm/hr Sodium (136-145) mmol/L Potassium (3.5-5.1) mmol/L Chloride (98-107) mmol/L Carbon Dioxide (21-32) mmol/L Anion Gap (3-11) BUN (7-18) mg/dl Creatinine (0.6-1.4) mg/dl Est Cr Clr Drug Dosing ml/min Est GFR ( Amer) Est GFR (Non-Af Amer) BUN/Creatinine Ratio (10-20) Glucose (70-99) mg/dl POC Glucose 80 118 H 112 H (70-99) mg/dl Estimat Average Glucose mg/dl Hemoglobin A1c (4.5-5.6) % Calcium (8.5-10.1) mg/dl Total Bilirubin (0.2-1) mg/dl AST (15-37) U/L ALT (12-78) U/L Alkaline Phosphatase (45-117) U/L Total Creatine Kinase (39-308) U/L C-Reactive Protein (0-0.29) mg/dl Total Protein (6.4-8.2) gm/dl Albumin (3.4-5.0) gm/dl Globulin (2.5-4.0) gm/dl Albumin/Globulin Ratio (0.9-2) Procalcitonin (0-0.5) ng/ml COVID-19 PCR (Negative) 11/25/19 Range/Units 16:32 WBC (4.8-10.8) K/uL RBC (4.7-6.1) M/uL Hgb (14.0-18.0) g/dL Hct (42-52) % MCV (80-100) fL MCH (25-34) pg MCHC (32-36) g/dL RDW Std Deviation (36.4-46.3) fL RDW Coeff of Maximo (11.5-14.5) % Plt Count (130-400) K/uL MPV (7.4-10.4) fL Immature Gran % (Auto) % Neut % (Auto) % Lymph % (Auto) % Broome % (Auto) % Eos % (Auto) % Baso % (Auto) % Neut # (Auto) (1.4-6.5) K/uL Lymph # (Auto) (1.2-3.4) K/uL Broome # (Auto) (0.11-0.59) K/uL Eos # (Auto) (0-0.5) K/uL Baso # (Auto) (0-0.2) K/uL Immature Gran # (Auto) (0.00-0.02) K/uL ESR (0-14) mm/hr Sodium (136-145) mmol/L Potassium (3.5-5.1) mmol/L Chloride (98-107) mmol/L Carbon Dioxide (21-32) mmol/L Anion Gap (3-11) BUN (7-18) mg/dl Creatinine (0.6-1.4) mg/dl Est Cr Clr Drug Dosing ml/min Est GFR ( Amer) Est GFR (Non-Af Amer) BUN/Creatinine Ratio (10-20) Glucose (70-99) mg/dl POC Glucose 186 H (70-99) mg/dl Estimat Average Glucose mg/dl Hemoglobin A1c (4.5-5.6) % Calcium (8.5-10.1) mg/dl Total Bilirubin (0.2-1) mg/dl AST (15-37) U/L ALT (12-78) U/L Alkaline Phosphatase (45-117) U/L Total Creatine Kinase (39-308) U/L C-Reactive Protein (0-0.29) mg/dl Total Protein (6.4-8.2) gm/dl Albumin (3.4-5.0) gm/dl Globulin (2.5-4.0) gm/dl Albumin/Globulin Ratio (0.9-2) Procalcitonin (0-0.5) ng/ml COVID-19 PCR (Negative) Diagnostic Findings RIGHT FOOT 3 VIEWS CLINICAL HISTORY: Right first toe infection. FINDINGS: 3 views of the right foot are obtained. No prior studies are available for comparison at the time of dictation. The skeletal structures are osteopenic. No fracture is seen. There is a small erosion identified in the first metatarsal head. There is hallux valgus with [id number] osteoarthritic change at the first metatarsophalangeal joint. There are hammertoe deformities in the second through fourth toes with subluxation at the distal interphalangeal joints. Mild to moderate osteoarthritic change is present in the midfoot. There are dorsal and plantar calcaneal enthesophytes. Degenerative spurring is noted along the dorsal aspect of the tarsal bones. Mild soft tissue edema is present throughout the foot. There is advanced atherosclerotic calcification of the regional arteries. IMPRESSION: 1. Soft tissue swelling with no fracture identified. 2. Osteopenia with hallux valgus and degenerative change as above. 3. A small erosion within the first metatarsal head is likely on a degenerative basis. Infection is considered less likely but not excluded and clinical correlation will be required. MR foot RT w/o con HISTORY: Right toe injury. Toe infection, ? Osteomyelitis TECHNIQUE: Multiplanar multisequence MRI of the right forefoot was performed without contrast. COMPARISON STUDY: Right foot radiograph 11/24/2019. FINDINGS: Question minimal marrow edema at the distal tuft of the first toe. No abnormal T1 signal or definite cortical erosion. Therefore, this may represent a mild osteitis. No MR evidence for osteomyelitis at this time. There is diffuse soft tissue edema seen throughout the foot. Moderate to severe cartilage space narrowing, subchondral edema, subchondral cystic change, and marginal osteophytes at the first MTP joint. This favors osteoarthritis. Questionable tiny paratracheal erosions medially at the first MTP joint is likely due to the long-standing degenerative change. Soft tissue and bony bunion at the medial head of the first metatarsal. No acute fracture or dislocation within the forefoot. The flexor and extensor tendons appear intact. Chronic flexion deformities within the toes. IMPRESSION: 1. Question minimal marrow edema at the distal tuft of the first toe. No abnormal T1 signal or definite cortical erosion. Therefore, this may represent a mild osteitis. No MR evidence for osteomyelitis at this time. 2. 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 3. Soft tissue and bony bunion at the medial head of the first metatarsal. 4. Diffuse soft tissue edema throughout the forefoot.
[2019-11-25] MEDS: VALACYCLOVIR HCL 500 MG TABLET PO SCH (20:37)
--- NOTE | 2019-11-25 22:27 | Hospitalist Progress Note ---
Date of Service November 25, 2019 Assessment & Plan (1) Gangrene of toe of right foot: (2) Cellulitis: 78-year-old male with history of CAD, CHF-systolic type, atrial fibrillation, peripheral artery disease, diabetes, hypertension, RA on prednisone Presenting with right toe gangrene. Foot MRI: 1. Question minimal marrow edema at the distal tuft of the first toe. No abnormal T1 signal or definite cortical erosion. Therefore, this may represent a mild osteitis. No MR evidence for osteomyelitis at this time. 2. 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 3. Soft tissue and bony bunion at the medial head of the first metatarsal. 4. Diffuse soft tissue edema throughout the forefoot. Ortho consulted-recommend vascular surgery evaluation prior to possible debridement versus amputation Cardiology consulted for preop evaluation-patient 3.4% risk for cardiovascular complications, no contraindication to proceed with procedure Follow-up cultures Continue Dapto and Zosyn Patient may need hydrocortisone IV perioperatively secondary to chronic prednisone use for RA History of spinal infection with P. Acnes. Covering this with current abx. Will need to transition back to suppressive Keflex x 1 more month on discharge (if no other abx upon d/c) COVID screen for possibility of preop (3) Diabetes mellitus, type 2: (4) Diabetic neuropathy: (5) Type 2 diabetes mellitus with peripheral vascular disease: Patient with diabetic neuropathy and PVD. Per the patient, he has arterial disease in the B/L LE. S D/C Trulicity while in patient. Insulin ordered. A1c 6.7 Diabetic diet Obtain report of recent arterial Doppler of bilateral lower extremity performed in [facility] (6) Chronic kidney disease, stage III (moderate): Continue to monitor. Gentle hydration overnight NPO Midnight. (7) Ischemic cardiomyopathy: (8) Hypertension: (9) Hyperlipidemia: (10) History of NM (myocardial infarction): Patient with ischemic cardiomyopathy and recent history of NM with bypass x 3. Last Echo was completely in August 2019 soon after NM & showed EF 23%, ischemic cardiomyopathy, and R ventricular hypokinesis. No cardiac symptoms, euvolemic Continue BP medications. BP well controlled currently. Hold statin while on Dapto. (11) Rheumatoid arthritis: Chronic immunosuppression with prednisone use- also possibly contributing to severity of infection. Continue chronic prednisone. Will need stress dose of IV hydrocortisone perioperatively (12) DVT prophylaxis: SQ Heparin Disposition Will need PT and OT evaluation after procedure Lives with family at home otherwise Admission and Anticipated Discharge Date Admission Date: November 24, 2019 Subjective Follow-up for right big toe gangrene with CAD, PAD, etc. Seen resting bedside chair, comfortable, not in distress States he feels fine overall Denies right foot or toe pain, no fevers or chills Denies chest pain or palpitations, dizziness, shortness of breath No other symptoms Review of Systems Review of Systems: All systems reviewed & are unremarkable except as noted in HPI & below Physical Exam Physical Exam: General- oriented x 3, not in distress, speaks in sentences with no effort or accessory muscle use Head- atraumatic Eyes- PERRL, EOMI, anicteric ENT- oropharynx clear Neck- supple, no JVD, no adenopathy, no thyromegaly; carotids +2/2, no bruits appreciated Lungs- clear to auscultation bilaterally, no rales/wheezes Heart- normal rate, regular rhythm; no murmur, no gallop, no rub appreciated Abdomen- normal bowel sounds, nondistended, soft, nontender, no masses or hepatosplenomegaly Extremities- no pretibial edema, no calf tenderness; peripheral pulses intact Right foot: Positive edema and erythema in the forefoot Right great toe: Positive gangrene distal half Poor pedal pulses Neuro- alert, oriented x 3; CN 2-12 grossly intact; motor 5/5 bilaterally;sensation 100% on all extremities except on bilateral feet < 50%; no other gross focal neurologic deficits Skin- warm & dry Results & Data Results & Data ([facility]) Vital Signs (Past 12 Hours) Vital Signs Temp Pulse Pulse Resp BP Pulse Ox 11/25/19 19:48 36.4 C L 79 18 100/41 L 97 11/25/19 15:47 36.8 C 85 18 138/78 99 11/25/19 14:20 83 11/25/19 11:00 36.8 C 85 18 108/51 L 100 Laboratory Results Laboratory Results - last 24 hr 11/24/19 11/25/19 11/25/19 22:00 05:32 06:16 POC Glucose 79 Estimat Average Glucose 146 Hemoglobin A1c 6.7 H COVID-19 PCR NEGATIVE 11/25/19 11/25/19 11/25/19 07:40 11:34 14:57 POC Glucose 80 118 H 112 H Estimat Average Glucose Hemoglobin A1c COVID-19 PCR 11/25/19 11/25/19 16:32 20:23 POC Glucose 186 H 89 Estimat Average Glucose Hemoglobin A1c COVID-19 PCR
[2019-11-26] MEDS: D5W AND NSS 1,000 ML IV SCH (00:51)
[2019-11-26] MEDS ORDERED: LORazepam 0.5 MG TAB PO STA (01:14)
[2019-11-26] MEDS: PIPERACILLIN/TAZOBACTAM 3.375 GM in DEXTROSE 5% 100 ML IV SCH ×3 (04:02→20:35)
[2019-11-26] MEDS: HEPARIN SOD 5,000 UNIT/0.5 ML VIAL SQ SCH ×3 (06:13→21:58)
[2019-11-26 07:02] LABS: Creatinine Clr Calc Pharmacy 43.3 ml/min; Est GFR (African American) 59.2; Est GFR (Non-African American) 51.1
[2019-11-26] MEDS: INSULIN ASPART 100 UNITS/ML 3 ML PEN SC SCH ×4 (09:08→20:46)
[2019-11-26] MEDS: INSULIN GLARGINE SOLOSTAR 100 UNITS/ML 3 ML PEN SC SCH ×2 (09:08→20:41)
--- NOTE | 2019-11-26 09:45 | Cardiology Progress Note ---
Date of Service November 26, 2019 Assessment & Plan (1) Gangrene of toe of right foot: (2) Cellulitis: (3) Diabetic neuropathy: (4) Type 2 diabetes mellitus with peripheral vascular disease: (5) History of GA (myocardial infarction): (6) Ischemic cardiomyopathy: The patient's recent history dates back to 07/09/2019 when he underwent emergent lumbar spine surgery. Postoperatively he was noted to have ischemic EKG changes and an elevated troponin I peaking at 25 ng/ml, with new severe left ventricular systolic dysfunction, ejection fraction 25% at that time. He received medical therapy for a non ST segment elevation myocardial infarction. Cardiac catheterization revealed multivessel coronary heart disease. His intraoperative wound cultures yielded growth of Propioni acnes. Initial medical management was pursued for his cardiac condition to allow for him to recover from a spine surgery standpoint, and to complete a course of antibiotics for the infection. On 08/21/2019, he underwent scheduled CABG x4 receiving a MIGUEL to LAD, SVG to D1, SVG to high OM, and SVG to PDA. The target vessels were described in the operative report is being heavily calcified, and an endarterectomy was performed of the PDA. Endoscopic vein harvesting was performed of the left greater saphenous vein. Postoperatively, on 08/24/2019 he was observed to develop postoperative atrial fibrillation with atrial fibrillation and rapid ventricular response with associated symptoms of shortness of breath and mild hypotension. He therefore underwent direct current cardioversion but electrophysiology service, with medical therapy including amiodarone, metoprolol, and heparin was initiated with bridge therapy to Coumadin. The patient had been treated for postoperative volume overload, and recently his volume status is been well controlled on a regimen including torsemide 20 mg daily. He is on dual antiplatelet therapy with aspirin and clopidogrel due to the operative findings heavily calcified right PDA branch of the right coronary artery that required endarterectomy. At present I would recommend continuing his prior to hospital cardiac medications including aspirin, clopidogrel, torsemide, metoprolol succinate 50 mg daily. Patient's statin therapy is on hold as he is receiving daptomycin. Monitor his volume status closely the antibiotic treatment with daptomycin and Zosyn. Agree with consulting Dr. Chambers of endovascular medicine for assessment of peripheral arterial disease. I reviewed the case with Dr. Chambers, and provided the report of the outside arterial duplex study performed in [place] last week. Patient does have gram-negative bacteremia on 2/2 blood cultures, but overall he is very comfortable, his blood pressure is stable. He is of course at increased risk of perioperative cardiac complication. It is noted that since his perioperative myocardial infarction after emergent spine surgery in July, he has been surgically revascularized. He was due for a 3-month post CABG echocardiogram today for reassessment of his LVEF. This was scheduled to be performed as an outpatient, will be performed here, as I think the data will be helpful in terms of measurement of his fluid status as well as perioperative management with proposed surgical intervention for his right foot infection. T prophylaxis: Subcutaneous heparin. Updates provided to the patient's spouse by phone. Subjective Chief complaint follow-up right foot/toe pain Subjective: Mr Mallory was seen in cardiology follow-up today. The patient is well-known to the undersigned as I have followed him on an inpatient and outpatient basis over the last few months. He is recently been doing very well from an angina and congestive heart failure endpoint standpoint and a 7 day Zio ekg monitor tech performed 10/10/2019 until 10/17/2019 revealed no recurrence of atrial fibrillation/atrial flutter and therefore his Coumadin had been discontinued post CABG postoperative atrial flutter that required cardioversion. He states that 6 weeks ago he suffered trauma to his right great toe off of the [employer] bathroom. 2 weeks ago, the tip of the toe turned black. He presents with ongoing right toe/foot discomfort. The wound culture performed on 11/24/2019 yielded Proteus Mirabilis blood cultures yielded 2 out of 2 bottles with gram-negative bacilli. MRI of the foot suggest possible mild first toe osteomyelitis diffuse soft tissue edema throughout the forefoot. Review of Systems Cardiovascular: no chest pain, no dyspnea, no syncope and no edema Physical Exam Physical Exam: Temp Pulse Resp BP Pulse Ox 37.1 C 96 H 20 118/57 L 94 11/26/19 06:59 11/26/19 06:59 11/26/19 06:59 11/26/19 06:59 11/26/19 06:59 Constitutional: WD/WN, vitals as above Respiratory: normal respiratory effort, lungs clear to auscultation Cardiovascular: RRR, no murmur, no edema Gastrointestinal (Abdomen): normal bowel sounds, soft, nontender, no hepatosplenomegaly Musculoskeletal: Great toe is black distally, with swelling of the forefoot Neurologic: PERRL, EOMI, accommodation nl, no face palsy, no dysarthria Results & Data Vital Signs (Past 12 Hours) Vital Signs Temp Pulse Pulse Resp BP Pulse Ox 11/26/19 06:59 37.1 C 96 H 20 118/57 L 94 11/26/19 03:36 36.7 C 88 19 116/55 L 97 11/26/19 01:00 81 11/25/19 23:00 36.7 C 84 20 110/56 L 98 Laboratory Results Comprehensive Metabolic Panel 11/26/19 Range/Units 06:14 Creatinine 1.34 (0.6-1.4) mg/dl Intake and Output 11/25/19 11/26/19 11/26/19 22:59 06:59 14:59 Intake Total 315 / 6144.257 3347 / 1673.867 Output Total 600 / 801 200 / 200 Balance 314 / 872.867 452 / 872.867 -200 / -200 Intake: IV 115 / 8936.398 3524 / 1473.867 D5w and Nss 1,000 ml @ 60 mls/ 937 / 937 hr IV .[id number] [facility] Rx#:[id number] Zosyn 3.375 gm In D5 100 ml @ 115 / 340.2 115 / 340.2 28.75 mls/hr IV Q8H [facility] Rx#: [id number] Oral 200 / 200 Output: Urine 600 / 800 200 / 200 # Bowel Movements / Other: Other Intake Source NPO # Unmeasured Voids 1 Weight 74.5 kg
--- NOTE | 2019-11-26 10:05 | Hospitalist Progress Note ---
Date of Service November 26, 2019 Assessment & Plan (1) Gangrene of toe of right foot: (2) Cellulitis: 78-year-old male with history of CAD, CHF-systolic type, atrial fibrillation, peripheral artery disease, diabetes, hypertension, RA on prednisone Presenting with right toe gangrene. Foot MRI: 1. Question minimal marrow edema at the distal tuft of the first toe. No abnormal T1 signal or definite cortical erosion. Therefore, this may represent a mild osteitis. No MR evidence for osteomyelitis at this time. 2. 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 3. Soft tissue and bony bunion at the medial head of the first metatarsal. 4. Diffuse soft tissue edema throughout the forefoot. Ortho consulted-recommend vascular surgery evaluation prior to possible debridement versus amputation Cardiology consulted for preop evaluation-patient 3.4% risk for cardiovascular complications, no contraindication to proceed with procedure Follow-up cultures Continue Dapto and Zosyn Patient may need hydrocortisone IV perioperatively secondary to chronic prednisone use for RA History of spinal infection with P. Acnes. Covering this with current abx. Will need to transition back to suppressive Keflex x 1 more month on discharge (if no other abx upon d/c) COVID screen for possibility of preop (3) Diabetes mellitus, type 2: (4) Diabetic neuropathy: (5) Type 2 diabetes mellitus with peripheral vascular disease: Patient with diabetic neuropathy and PVD. Per the patient, he has arterial disease in the B/L LE. S D/C Trulicity while in patient. Insulin ordered. A1c 6.7 Diabetic diet Obtain report of recent arterial Doppler of bilateral lower extremity performed in [facility] (6) Chronic kidney disease, stage III (moderate): Continue to monitor. Gentle hydration overnight NPO Midnight. (7) Ischemic cardiomyopathy: (8) Hypertension: (9) Hyperlipidemia: (10) History of VA (myocardial infarction): Patient with ischemic cardiomyopathy and recent history of VA with bypass x 3. Last Echo was completely in August 2019 soon after VA & showed EF 23%, ischemic cardiomyopathy, and R ventricular hypokinesis. No cardiac symptoms, euvolemic Continue BP medications. BP well controlled currently. Hold statin while on Dapto. (11) Rheumatoid arthritis: Chronic immunosuppression with prednisone use- also possibly contributing to severity of infection. Continue chronic prednisone. Will need stress dose of IV hydrocortisone perioperatively (12) DVT prophylaxis: SQ Heparin Disposition Will need PT and OT evaluation after procedure Lives with family at home otherwise ROS-No Headache, No Visual Changes, No Nausea, No Vomiting, No Fever, No Chills, No Neck Pain or Stiffness, No Chest Pain, No Palpitations, No SOB, No ALMEIDA, No Cough, No Sputum, No Wheezing, No Abdominal Pain, No Diarrhea, No Hematemesis, No Hemoptysis, No Unexpected Weight Loss, No Flank pain, No Melena, No Hematochezia, No Frequency, No Urgency, No Burning, No Hematuria, No Rashes, No Diaphoresis. Appetite is Normal Physical Exam Gen-AAO x 3, NAD, Afebrile Head-NCAT, EOMI, PERRLA, Anicteric Sclera, No Posterior Pharyngeal Erythema Neck-Supple, No JVD, No Thyromegaly, No Masses, No LAD, No Bruits Lungs-Clear to Auscultation Bilaterally, No Rales, No Rhonchi, No Wheezing, No Crepitus Chest-No S4, +S1, +S2, No S3, No Murmurs, No Rubs, No Gallops, No Ectopy Abdomen-Soft, Bowel Sounds Present, Non Tender, Non Distended, No Hepatomegaly, No Splenomegaly, No Palpable Masses, No Rebound, No Rigidity, No Guarding Musculoskeletal-Full Range of Motion Bilaterally, No CVAT Extremities-+ R Great Toe Gangrene, Cyanosis, No Clubbing, No Edema Nuero-Cranial Nerves II-XII grossly intact, Motor WNL, DTRs WNL, Strength WNL, Non Focal Psych-Normal Mood Admission and Anticipated Discharge Date Admission Date: November 24, 2019 Results & Data Results & Data ([facility]) Vital Signs (Past 12 Hours) Vital Signs Temp Pulse Pulse Resp BP Pulse Ox 11/26/19 09:59 91 H 11/26/19 06:59 37.1 C 96 H 20 118/57 L 94 11/26/19 03:36 36.7 C 88 19 116/55 L 97 11/26/19 01:00 81 11/25/19 23:00 36.7 C 84 20 110/56 L 98
--- NOTE | 2019-11-26 11:45 | Ultrasound Report ---
US arterial duplex LE BI CLINICAL HISTORY: Peripheral arterial disease, gangrene COMPARISON STUDY: None. FINDINGS: Normal biphasic to triphasic waveforms and velocities seen within the bilateral common femo ral, superficial femoral, popliteal, and right anterior tibial arteries. There are monophasic wavefor ms seen within the bilateral posterior tibial, left anterior tibial, bilateral peroneal, and bilatera l dorsalis pedis arteries. Some of these demonstrate low velocities. There is diffuse calcified plaqu e throughout the bilateral lower extremity arterial systems. Therefore, the ankle brachial indices we re unable to be obtained. No areas of hemodynamically significant stenosis or occlusion identified. IMPRESSION: 1. Heavily calcified bilateral lower extremity arterial systems. This likely accounts for the monopha sic low velocity waveforms within the calf vessels. 2. However, no significant stenosis or occlusion identified within the bilateral lower extremity rola rial systems. ACT 112: Negative or not required by law. Electronically signed by: Nadir Diaz M.D. 11/26/2019 11:43 AM
[2019-11-26] MEDS: SPIRONOLACTONE 12.5 MG TAB PO SCH (12:07)
[2019-11-26] MEDS: TORSEMIDE 20 MG TAB PO SCH (12:07)
[2019-11-26] MEDS: CLOPIDOGREL BISULFATE 75 MG TAB PO SCH (12:07)
--- NOTE | 2019-11-26 12:37 | Vascular Medicine Consultation ---
Date of Consultation November 26, 2019 Assessment & Plan (1) PAD (peripheral artery disease): 2. Right great toe gangrene 3. Type 2 diabetes with peripheral neuropathy 4. Multivessel coronary artery disease post four-vessel CABG 08/2019 5. Gram-negative bacilli bacteremia 6. Cerebrovascular disease post left CEA 7. Stage III CKD Reviewed patient's arterial duplex obtained today. No evidence of inflow or significant SFA/popliteal disease. Some concern for poorly visualized tibial vessel disease. Recommend further evaluation with right lower extremity angiogram to ensure adequate arterial flow for wound healing post planned debridement/amputation. Discussed procedure including risks, benefits and alternatives with patient and he is willing to proceed. He is n.p.o. currently and will plan to perform later this afternoon. Further recommendations pending findings. Thank you for allowing us to participate in the care of this patient. Please contact with any questions. History of Present Illness Attending Physician: Ramiro Goldberg DO History of Present Illness Mr. Mallory is a very pleasant 78-year-old man with a history of ischemic heart disease, type 2 diabetes, cerebrovascular disease admitted currently in the setting of right great toe gangrene seen today due to concern for lower extremity peripheral arterial disease. Patient is followed by [facility] cardiology, Dr. Alvarez. He has previously seen [facility] vascular surgery and is post carotid endarterectomy. His past medical history is remarkable for multivessel coronary artery disease diagnosed in the setting of NSTEMI back in August 2019. He underwent four-vessel CABG in [place] on 08/21/2019. EF at that time and 25%, repeat echo today showing EF of 40 to 45% with apical, inferior and posterior wall motion abnormality. His type 2 diabetes is complicated by peripheral neuropathy. Other medical issues include sleep apnea, hypertension, rheumatoid arthritis, dyslipidemia and stage III chronic kidney disease. Patient reports trauma to his right great toe more than 6 weeks ago. Sore is been slow to heal and noted this weekend at the tip of his toe turned black. Was seen by the [place] wound center who recommended inpatient admission. Wound culture on admission positive for Proteus and blood cultures growing gram- negative bacilli. On IV Zosyn and daptomycin. Foot MRI with no definitive evidence of osteomyelitis. Prior noninvasive vascular testing in [place] earlier this month remarkable for noncompressible tibial vessels bilaterally except for left PT (REFUGIO 0.5). Noted to have biphasic waveforms above the knee with monophasic waveforms below the knee bilaterally. Arterial duplex obtained today and reviewed. Heavily calcified vessels throughout, no high-grade stenosis by velocities. Monophasic waveforms and distal tibial vessels Allergies Allergy/AdvReac Type Severity Reaction Status Date / Time hydrocodone [From Vicodin] Allergy Mild pruritus Verified 11/24/19 14:21 oxycodone Allergy Mild pruritus Verified 11/24/19 14:21 Home Medications Home Medications Medication Instructions Recorded Confirmed Type Trulicity 1.5 mg SUBCUT WK 11/13/18 11/24/19 History cholecalciferol (vitamin D3) 2,000 unit PO QAM 11/13/18 11/24/19 History [Vitamin D3] cyanocobalamin (vitamin B-12) 1,000 mcg PO QAM 11/13/18 11/24/19 History folic acid 1 mg PO QAM 11/13/18 11/24/19 History valacyclovir 500 mg PO HS 11/13/18 11/24/19 History repaglinide 2 mg tablet 2 mg PO TIDM PRN tab 01/08/19 11/24/19 History prednisone 5 mg tablet 10 mg PO QAM tab 02/24/19 11/24/19 History aspirin 81 mg PO HS #0 tab 07/21/19 11/24/19 Rx atorvastatin 80 mg PO HS #30 tab 07/21/19 11/24/19 Rx tramadol 50 mg PO Q6H PRN #30 tab 07/21/19 11/24/19 Rx cephalexin 500 mg capsule 500 mg PO BID #60 cap 10/09/19 11/24/19 Rx clopidogrel 75 mg PO DAILY 11/24/19 11/24/19 History metoprolol succinate 50 mg PO DAILY 11/24/19 11/24/19 History omeprazole 40 mg PO DAILY 11/24/19 11/24/19 History spironolactone 12.5 mg PO DAILY 11/24/19 11/24/19 History torsemide 20 mg PO DAILY 11/24/19 11/24/19 History Patient History Medical History Aortic stenosis "Mild" (LAVERNE 1.3cm2, MG 12.2mmhg) per 11/2018 DSE BPH (benign prostatic hyperplasia) Carotid artery stenosis s/p left CEA 11/2018 Chronic kidney disease, stage III (moderate) follows with nephrology (Dr. Hardy) Degenerative disc disease Diabetes mellitus, type 2 NIDDM Dry eye syndrome Gout History of [place] (myocardial infarction) Hyperlipidemia Hypertension Ischemic cardiomyopathy Neurogenic claudication due to lumbar spinal stenosis NSTEMI (non-ST elevated myocardial infarction) Pericarditis 1994 Rheumatoid arthritis on chronic prednisone 10mg daily Sleep apnea s/p UPPP/T&A Surgical History Fusion of spine LUMBAR X 2 History of adenoidectomy History of carpal tunnel release LEFT History of cataract surgery RT/LEFT History of colonoscopy History of herniorrhaphy UMBILICAL HERNIA History of [facility]-sided [facility] History of tonsillectomy History of tooth extraction S/P coronary artery bypass graft x 3 S/P pericardiocentesis 1994 S/P UPPP (uvulopalatopharyngoplasty) Family History Mother CHF (congestive heart failure) Sister CHF (congestive heart failure) Diabetes Social History Preferred Language: Yoruba Communication Ability: Effective [employer] 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 Beliefs That Will Affect Care: None marital status: Current Living Situation: Spouse Other Information That Helps Us Care for You: No Feels Safe at Home: Yes Safety Concerns: Feels Safe At This Time Smoking Status: Never smoker Tobacco Type: cigarettes ; Second Hand Exposure: No ; Hx Alcohol Use: No Hx Substance Use: No Review of Systems Review of Systems: All systems reviewed & are unremarkable except as noted in HPI & below Physical Exam Physical Exam: General: Comfortable, no acute distress Eyes: Sclerae anicteric, extraocular movements intact HENT: Oropharynx clear mucous membranes moist Lungs: Clear to auscultation bilaterally, no rhonchi or wheezes Cardiac: Distant heart sounds, regular, no murmurs Abdomen: Soft, nontender, nondistended, positive bowel sounds. Neuro: Nonfocal Psych: Alert orient x3, normal affect and mood Extremities/Vascular: -- 2+ radial bilaterally --Nonpalpable DP/PT pulses bilaterally --Sluggish capillary refill bilaterally --Distal tip of first great toe gangrenous with mild surrounding erythema. No drainage. Mild foul odor Results & Data Vital Signs (Past 12 Hours) Vital Signs Temp Pulse Pulse Resp BP Pulse Ox 11/26/19 11:00 98.6 F 99 H 18 120/59 L 99 11/26/19 09:59 91 H 11/26/19 06:59 98.8 F 96 H 20 118/57 L 94 11/26/19 03:36 98.1 F 88 19 116/55 L 97 11/26/19 01:00 81 PG Care Time/CCT Total # of Minutes Spent Total Time Spent with Patient: Total time spent is greater than 50% in coordination of care (as documented) at patient's floor/unit and/or counseling patient: Coding Level of Care Code 50099 Inpt Consult Level 4 Diagnoses PAD (peripheral artery disease) I73.9
[2019-11-26] MEDS ORDERED: MIDAZOLAM HCL 1 MG/ML 2ML VIAL ONE ×2 (13:31→14:25)
[2019-11-26] MEDS ORDERED: fentaNYL citrate 100 MCG/2 ML VIAL ONE ×2 (13:31→14:25)
[2019-11-26] MEDS: METOPROLOL SUCC 50MG EXT REL TAB PO SCH (13:36)
[2019-11-26] MEDS: PANTOprazole 40 MG TAB PO SCH (13:36)
[2019-11-26] MEDS: predniSONE 10 MG TABLET PO SCH (13:36)
[2019-11-26] MEDS ORDERED: NiCARDipine HCL INJ 2.5 MG/ML 10 ML AMP ONE (14:49)
[2019-11-26] MEDS ORDERED: HEPARIN (PORCINE) 1000 UNIT/ML 10 ML (CATH LAB USE ONLY) ONE (14:49)
[2019-11-26] MEDS ORDERED: NITROGLYCERIN/D5W 100MCG/ML 20ML SYR ONE (14:56)
[2019-11-26] MEDS ORDERED: CLOPIDOGREL BISULFATE 75 MG TAB ONE (15:59)
--- NOTE | 2019-11-26 16:15 | Post Anesthesia Assessment ---
Date of Service November 26, 2019 Post Sedation Assessment Vital Signs Temp Pulse Pulse Resp BP Pulse Ox 11/26/19 11:00 98.6 F 99 H 18 120/59 L 99 11/26/19 09:59 91 H 11/26/19 06:59 98.8 F 96 H 20 118/57 L 94 11/26/19 03:36 98.1 F 88 19 116/55 L 97 11/26/19 01:00 81 11/25/19 23:00 98.1 F 84 20 110/56 L 98 11/25/19 19:48 97.5 F L 79 18 100/41 L 97 Recovery Score Activity: Moves 4 extremities Respiration: Deep Breath/Cough Circulation: +/-20% PreAnes Value Consciousness: Fully Awake Oxygen Saturation: O2 needed for >90% Discharge Sedation Level of Care: Fast Track Phase II Post Sedation Plan On clinical assessment, the patient appears to have tolerated the sedation without complications. Patient is recovering as anticipated. Patient will continue to be monitored by nursing and may be discharged when sedation discharge criteria are met per below protocol. Upon Completions of procedure up to 15 minutes continue every 5 minute vital signs and the P.A.R. score; then discharge to a Phase I or Fast Track to Phase II per the following guidelines: * Discharge Patient to appropriate Phase II area if PAR is 8 or greater or return to pre- procedure baseline. The post - procedure orders will be as directed. * If PAR score is less than 8 or not return to pre-procedure baseline then patient will follow Phase I monitoring till PAR is reached for Phase II. The Phase I may be done in procedure room or may call to secure a Phase I area. * If naloxone or flumazenil are used for reversal, hold in Phase I for continued monitoring from when last reversal dose was given for a minimum of 60 minutes or longer pending the nurse and/or physician discretion of patient condition before discharge to Phase II. Please call the Sedation Physician to re-evaluate and complete post-note for discharge to Phase II area. Do NOT discharge from procedure sedation or Phase 1 until post- sedation evaluation note is complete by procedure /sedation MD Sedation Discharge Instructions to be given to the patient at discharge to home.
--- NOTE | 2019-11-26 16:15 | Pre Anesthesia Assessment ---
Date of Service November 26, 2019 Pre Sedation Assessment Vital Signs Temp Pulse Pulse Resp BP Pulse Ox 11/26/19 11:00 98.6 F 99 H 18 120/59 L 99 11/26/19 09:59 91 H 11/26/19 06:59 98.8 F 96 H 20 118/57 L 94 11/26/19 03:36 98.1 F 88 19 116/55 L 97 11/26/19 01:00 81 11/25/19 23:00 98.1 F 84 20 110/56 L 98 11/25/19 19:48 97.5 F L 79 18 100/41 L 97 Cardiovascular RRR, no murmur, no edema Respiratory normal respiratory effort, lungs clear to auscultation Pre-Sedation Airway Assessment Smoking Status: Never smoker Hx Sleep Apnea: No Hx Difficult Intubation: No Short, Thick Neck: No Thyromental Distance: > or= 3.5 Finger Breadths Oral Cavity: + WNL Mallampati Class: III ASA: ASA3 NPO Status Date of Last Intake of Fluids: 11/25/19 Time of Last Intake of Fluids: 22:00 Date of Last Intake of Solid Food: 11/25/19 Time of Last Intake of Solid Foods: 22:00 Procedure Planning Contraindications for Sedation: none Current Medications Reviewed: Yes Notes The planned sedation has been discussed with the patient. Informed Consent was obtained. I have identified the patient, determined the appropriateness of sedation and have assessed the patient immediately prior to the procedure. All medicine(s) and interventions are by my order.
--- NOTE | 2019-11-26 16:26 | Endovascular Procedure Note ---
[facility] Endovascular Procedure Rpt Pre & Post Diagnosis Peripheral arterial disease I identified the patient and participated in the time-out.: Yes Procedure Operation Date: 11/26/19 14:00 Actual Procedures p Cineradiography w/Routine Exam - Rayo Chambers MD Ultrasound-guided vascular access Aortography, bilateral lower extremity angiogram Selective third order right lower extremity angiography Anterior tibial artery angioplasty Distal SFA angioplasty with drug-eluting balloon Mechanical MANUFACTURERS REPRESENTATIVE closure Surgeon Vincent Chambers MD Contract Administration Coordinator Ree Mohan Estimated Blood Loss 20 Findings See Below Aorta: No significant stenotic or aneurysmal disease. Right lower extremity: Common iliac -widely patent External iliac -widely patent Internal iliac - Minimal disease MANUFACTURERS REPRESENTATIVE -mild calcific disease Profunda - Minimal disease SFA -40 to 50% proximal stenosis (no significant gradient on pullback), 70% distal SFA stenosis (20 mmHg pullback gradient) Popliteal-mild calcific disease TPT -patent AT -diffuse moderate disease prior to 100% distal occlusion at the level of the ankle. DPA fills via bridging collaterals and collaterals from peroneal. DPA small diffusely diseased vessel which tapers prior to pedal arch. PT - patent, focal 70% proximal stenosis, patent to the ankle where tapers prior to plantar arteries Peroneal -widely patent to the ankle and gives off collaterals to BILLIE Left lower extremity: Common iliac -calcified, mild disease External iliac -calcified, mild disease Internal iliac - Minimal disease MANUFACTURERS REPRESENTATIVE -mild calcific disease Anesthesia Type RN Sedation Contrast Contrast: 105 Complications none Disposition Disposition: PCU Description of Procedure Left common femoral access obtained under ultrasound guidance with micropuncture needle, short 5Fr sheath placed Right lower extremity angiogram performed with RIM catheter Quick cross catheter placed to SFA for visualization of distal vessels 6 Fr 45 cm destination sheath placed from left MANUFACTURERS REPRESENTATIVE to right SFA With support catheter 0.14 command wire navigated to distal anterior tibial artery Unable to cross distal BILLIE occlusion into DPA despite attempts with multiple wires (command, confianza) Mid to distal anterior tibial dilated with 2.5 balloon IA vasodilators administered for spasm Distal SFA stenosis dilated with 5.0 scoring balloon Distal SFA treated with 6.0 x 40 mm drug-eluting balloon (Lutonix). Post procedure good angiographic result, SFA expanded with minimal residual stenosis and no evidence of dissection. Three-vessel runoff to ankle. Distal BILLIE remained occluded and PDA filled via collaterals. In the future DPA could potentially be accessed via ultrasound guidance for retrograde approach if needed. Access closure: Angio-Seal Summary: 1. Right lower % calcified distal SFA stenosis. Two-vessel runoff to the ankle via patent peroneal, MAPPING ENGINEER. BILLIE with diffuse mid to distal disease prior to occlusion before DPA. 2. Left lower extremitywidely patent iliacs, SFA 3. Successful distal SFA angioplasty with drug-eluting balloon (6.0 Lutonix). 4. Angioplasty of mid to distal anterior tibial artery stenosis. Occlusion of proximal DPA persists with distal vessel filling via collaterals. Recommendations: Feel resulting arterial perfusion should be adequate for wound healing with planned debridement/great toe amputation. Continue DAPT with ASA/Clopidogrel Repeat noninvasive vascular testing in 1 month I attest to the content of the Intraoperative Record and any orders documented therein. Any exceptions are noted below. Vascular Charges Angiography/Venography Procedure 1: Angiography/Venography charges: [id number] Aortography, abd + b/l iliofem LE, catheter, radiological S&I Procedure 2: Angiography/Venography charges: [id number] Initial 3rd order or selective abd, pelvic, or LE branch Lower Extremity Interventions Procedure 1: Lower Extremity Intervention charges: [id number] Angioplasty, femoral, popliteal artery(s), unilateral Procedure 2: Lower Extremity Intervention charges: [id number] Angioplasty, tibial, peroneal artery, unilateral, initial vessel Additional Services Procedure 1: Additional Services Charges: 83795 Ultrasound guidance - vascular access Procedure 2: Additional Services Charges: 71957 Moderate sedation initial 15 min Procedure 3: Additional Services Charges: 92308 Moderate sedation, each additional 15 min
[2019-11-26] MEDS ORDERED: SODIUM CHLORIDE 0.9% 1000ML 1,000 ML IV SCH (16:30)
[2019-11-26] MEDS: DAPTOmycin 350 MG in SYRINGE 0 ML IV SCH (17:01)
[2019-11-26] MEDS: ACETAMINOPHEN 325 MG TAB PO PRN (19:31)
[2019-11-26] MEDS: TRAMADOL HCL 50 MG TABLET PO PRN (20:37)
[2019-11-26] MEDS: ASPIRIN 81 MG ECTAB PO SCH (20:38)
[2019-11-26] MEDS: VALACYCLOVIR HCL 500 MG TABLET PO SCH (20:41)
[2019-11-26] MEDS: ATORVASTATIN 40 MG TAB PO SCH (21:57)
[2019-11-27] MEDS: HEPARIN SOD 5,000 UNIT/0.5 ML VIAL SQ SCH ×3 (04:38→21:44)
[2019-11-27] MEDS: PIPERACILLIN/TAZOBACTAM 3.375 GM in DEXTROSE 5% 100 ML IV SCH ×3 (04:38→20:32)
[2019-11-27] MEDS: ACETAMINOPHEN 325 MG TAB PO PRN ×4 (04:44→21:47)
[2019-11-27 07:20] LABS: Basophils # (auto) 0.04 K/uL (0-0.2); Basophils % (auto) 0.6 %; Eosinophils # (auto) 0.15 K/uL (0-0.5); Eosinophils % (auto) 2.3 %; Hematocrit (blood only) 30.7 % (42-52); Hemoglobin 9.9 g/dL (14.0-18.0); Immature Granulocytes # (auto) 0.03 K/uL (0.00-0.02); Immature Granulocytes % (auto) 0.5 %; Lymphocytes # (auto) 1.02 K/uL (1.2-3.4); Lymphocytes % (auto) 15.7 %; Mean Corpuscular Hemoglobin 30.7 pg (25-34); Mean Corpuscular Hgb Conc 32.2 g/dL (32-36); Mean Corpuscular Volume 95.3 fL (80-100); Mean Platelet Volume 9.4 fL (7.4-10.4); Monocytes # (auto) 0.46 K/uL (0.11-0.59); Monocytes % (auto) 7.1 %; Neutrophils # (auto) 4.78 K/uL (1.4-6.5); Neutrophils % (auto) 73.8 %; Platelet Count 168 K/uL (130-400); RDW Coefficient of Variation 15.9 % (11.5-14.5); RDW Standard Deviation 56.5 fL (36.4-46.3); Red Blood Count 3.22 M/uL (4.7-6.1); White Blood Count 6.48 K/uL (4.8-10.8)
[2019-11-27] MEDS: INSULIN ASPART 100 UNITS/ML 3 ML PEN SC SCH ×4 (07:44→20:26)
[2019-11-27 08:02] LABS: Albumin Globulin Ratio 0.8 (0.9-2); Albumin Level 2.5 gm/dl (3.4-5.0); BUN Creatinine Ratio 12.4 (10-20); Bilirubin,Total 0.5 mg/dl (0.2-1); Calcium 8.4 mg/dl (8.5-10.1); Creatinine Clr Calc Pharmacy 47.2 ml/min; Est GFR (Non-African American) 56.1; Globulin 3.1 gm/dl (2.5-4.0); Total Protein 5.6 gm/dl (6.4-8.2)
[2019-11-27] MEDS: SPIRONOLACTONE 12.5 MG TAB PO SCH (08:36)
[2019-11-27] MEDS: PANTOprazole 40 MG TAB PO SCH (08:37)
[2019-11-27] MEDS: CHOLECALCIFEROL 1,000 UNITS 25 MCG TAB PO SCH (08:37)
[2019-11-27] MEDS: CLOPIDOGREL BISULFATE 75 MG TAB PO SCH (08:38)
[2019-11-27] MEDS: TORSEMIDE 20 MG TAB PO SCH (08:38)
[2019-11-27] MEDS: METOPROLOL SUCC 50MG EXT REL TAB PO SCH (08:38)
[2019-11-27] MEDS: INSULIN GLARGINE SOLOSTAR 100 UNITS/ML 3 ML PEN SC SCH ×2 (08:39→20:24)
[2019-11-27] MEDS: predniSONE 10 MG TABLET PO SCH (08:39)
--- NOTE | 2019-11-27 09:39 | Cardiology Progress Note ---
Date of Service November 27, 2019 Assessment & Plan (1) Gangrene of toe of right foot: (2) Ischemic cardiomyopathy: (3) PAD (peripheral artery disease): Endovascular medicine input noted and appreciated. Patient underwent peripheral angiogram yesterday in the mid to distal anterior tibial artery was dilated, the patient also underwent angioplasty of the distal superficial femoral artery. The distal anterior tibial artery remained occluded at the conclusion of the case and the DPA fills via collaterals. Given his heart disease, and recent peripheral intervention, ongoing dual antiplatelet therapy without interruption is recommended if feasible from a surgical standpoint. The patient's preoperative EKG is stable, he has no anginal complaints, and his volume status is clinically stable. Echocardiogram performed 11/26/2019, a 3- month interval since CABG, revealed ongoing RCA territory scar, with overall improvement of the LVEF to 40 to 45% as compared to 25% in July,. The aortic valve was mildly calcified, but aortic valve stenosis was absent.Blood cultures have yielded Morganella morganii.He is afebrile and does not appear toxic. He is stable from a cardiac perspective to proceed with R toe/ foot Debridement. DVT prophylaxis: Subcutaneous heparin Subjective Chief complaint: Follow-up right toe/foot discomfort Subjective: Cristo is in good spirits today. He tolerated peripheral angiogram and intervention well, and notes no complaints regarding his left femoral artery access site. He denies any chest discomfort or shortness of breath. Telemetry reveals sinus rhythm averaging in the 90 bpm range, with occasional PVCs. Review of Systems Review of Systems: All systems reviewed & are unremarkable except as noted in HPI & below Physical Exam Physical Exam: Temp Pulse Resp BP Pulse Ox 36.5 C 88 19 106/66 98 11/27/19 07:11 11/27/19 07:11 11/27/19 07:11 11/27/19 07:11 11/27/19 07:11 Constitutional: WD/WN, vitals as above Respiratory: normal respiratory effort, lungs clear to auscultation Cardiovascular: RRR, no murmur, no edema Extremities: no edema Left femoral artery access site, clean dry and intact, no ecchymosis, no hematoma Musculoskeletal: The distal portion of the right great toe is necrotic. Edema noted over the dorsum of the right foot Results & Data Vital Signs (Past 12 Hours) Vital Signs Temp Pulse Pulse Resp BP BP Pulse Ox 11/27/19 07:11 36.5 C 88 19 106/66 98 11/27/19 04:37 36.9 C 98 H 18 104/69 97 11/27/19 00:22 36.6 C 93 H 18 99 11/26/19 23:03 98 H 125/74 Laboratory Results Cardiac Enzymes 11/27/19 Range/Units 07:05 AST 23 (15-37) U/L CBC 11/27/19 Range/Units 07:05 WBC 6.48 (4.8-10.8) K/uL RBC 3.22 L (4.7-6.1) M/uL Hgb 9.9 L (14.0-18.0) g/dL Hct 30.7 L (42-52) % Plt Count 168 (130-400) K/uL Neut # (Auto) 4.78 (1.4-6.5) K/uL Lymph # (Auto) 1.02 L (1.2-3.4) K/uL Brooke # (Auto) 0.46 (0.11-0.59) K/uL Eos # (Auto) 0.15 (0-0.5) K/uL Baso # (Auto) 0.04 (0-0.2) K/uL Comprehensive Metabolic Panel 11/27/19 Range/Units 07:05 Sodium 144 (136-145) mmol/L Potassium 4.0 (3.5-5.1) mmol/L Chloride 112 H (98-107) mmol/L Carbon Dioxide 27 (21-32) mmol/L BUN 15 (7-18) mg/dl Creatinine 1.24 (0.6-1.4) mg/dl Glucose 127 H (70-99) mg/dl Calcium 8.4 L (8.5-10.1) mg/dl AST 23 (15-37) U/L ALT 19 (12-78) U/L Alkaline Phosphatase 68 (45-117) U/L Total Protein 5.6 L (6.4-8.2) gm/dl Albumin 2.5 L (3.4-5.0) gm/dl Intake and Output 11/26/19 11/27/19 11/27/19 22:59 06:59 14:59 Intake Total 2051.667 / 2331.667 165 / 2331.667 115 / 115 Output Total 252 / 452 Balance 1799.667 / 1879.667 165 / 1879.667 115 / 115 Intake: IV 1701.667 / 1931.667 115 / 1931.667 115 / 115 D5w and Nss 1,000 ml @ 60 mls/ 1000 / 1000 hr IV .[id number] [facility] Rx#:[id number] Zosyn 3.375 gm In D5 100 ml @ 115 / 345 115 / 345 115 / 115 28.75 mls/hr IV Q8H [facility] Rx#: [id number] Nss 1000ML 1,000 ml @ 100 mls/ 586.667 / 586.667 hr IV .Q10H [facility] Rx#:[id number] Oral 350 / 400 50 / 400 Output: Urine 250 / 450 # Bowel Movements 2 / 2 Other: Weight 75.9 kg
--- NOTE | 2019-11-27 10:38 | Hospitalist Progress Note ---
Date of Service November 27, 2019 Assessment & Plan (1) Gangrene of toe of right foot: (2) Cellulitis: 78-year-old male with history of CAD, CHF-systolic type, atrial fibrillation, peripheral artery disease, diabetes, hypertension, RA on prednisone Presenting with right toe gangrene. Foot MRI: 1. Question minimal marrow edema at the distal tuft of the first toe. No abnormal T1 signal or definite cortical erosion. Therefore, this may represent a mild osteitis. No MR evidence for osteomyelitis at this time. 2. 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 3. Soft tissue and bony bunion at the medial head of the first metatarsal. 4. Diffuse soft tissue edema throughout the forefoot. Ortho consulted-recommend vascular surgery evaluation prior to possible debridement versus amputation Cardiology consulted for preop evaluation-patient 3.4% risk for cardiovascular complications, no contraindication to proceed with procedure s/p Balloon angioplasty 11/[address] Jourdan Chambers Continue Dapto and Zosyn Patient may need hydrocortisone IV perioperatively secondary to chronic pre dnisone use for RA History of spinal infection with P. Acnes. Covering this with current abx. 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 Per the patient, he has arterial disease in the B/L LEs D/C Trulicity while in patient. Insulin ordered. A1c 6.7 Diabetic diet (6) Chronic kidney disease, stage III (moderate): Continue to monitor. Gentle hydration overnight (7) Ischemic cardiomyopathy: (8) Hypertension: (9) Hyperlipidemia: (10) History of [place] (myocardial infarction): Patient with ischemic cardiomyopathy and recent history of AZ with bypass x 3. Last Echo was completely in August 2019 soon after AZ & showed EF 23%, ischemic cardiomyopathy, and R ventricular hypokinesis. No cardiac symptoms, euvolemic Continue BP medications. BP well controlled currently. Hold statin while on Dapto. (11) Rheumatoid arthritis: Chronic immunosuppression with prednisone use- also possibly contributing to severity of infection. Continue chronic prednisone. (12) DVT prophylaxis: SQ Heparin Disposition Will need PT and OT evaluation after procedure Lives with family at home otherwise ROS-No Headache, No Visual Changes, No Nausea, No Vomiting, No Fever, No Chills, No Neck Pain or Stiffness, No Chest Pain, No Palpitations, No SOB, No ALMEIDA, No Cough, No Sputum, No Wheezing, No Abdominal Pain, No Diarrhea, No Hematemesis, No Hemoptysis, No Unexpected Weight Loss, No Flank pain, No Melena, No Hematochezia, No Frequency, No Urgency, No Burning, No Hematuria, No Rashes, No Diaphoresis. Appetite is Normal Physical Exam Gen-AAO x 3, NAD, Afebrile Head-NCAT, EOMI, PERRLA, Anicteric Sclera, No Posterior Pharyngeal Erythema Neck-Supple, No JVD, No Thyromegaly, No Masses, No LAD, No Bruits Lungs-Clear to Auscultation Bilaterally, No Rales, No Rhonchi, No Wheezing, No Crepitus Chest-No S4, +S1, +S2, No S3, No Murmurs, No Rubs, No Gallops, No Ectopy Abdomen-Soft, Bowel Sounds Present, Non Tender, Non Distended, No Hepatomegaly, No Splenomegaly, No Palpable Masses, No Rebound, No Rigidity, No Guarding Musculoskeletal-Full Range of Motion Bilaterally, No CVAT Extremities-+ R Great Toe Gangrene, Cyanosis, No Clubbing, No Edema Nuero-Cranial Nerves II-XII grossly intact, Motor WNL, DTRs WNL, Strength WNL, Non Focal Psych-Normal Mood Admission and Anticipated Discharge Date Admission Date: November 24, 2019 Anticipated date of discharge: 11/29/19 Results & Data Results & Data ([facility]) Vital Signs (Past 12 Hours) Vital Signs Temp Pulse Pulse Pulse Resp BP BP 11/27/19 07:15 90 11/27/19 07:11 36.5 C 88 19 106/66 11/27/19 04:37 36.9 C 98 H 18 104/69 11/27/19 00:22 36.6 C 93 H 18 11/26/19 23:03 98 H 125/74 Pulse Ox 11/27/19 07:15 11/27/19 07:11 98 11/27/19 04:37 97 11/27/19 00:22 99 11/26/19 23:03
--- NOTE | 2019-11-27 12:48 | Vascular Medicine ProgressNote ---
Date of Service November 27, 2019 Assessment & Plan (1) PAD (peripheral artery disease): 2. Right great toe gangrene 3. Type 2 diabetes with peripheral neuropathy 4. Multivessel coronary artery disease post four-vessel CABG 08/2019 5. Gram-negative bacilli bacteremia- 6. Cerebrovascular disease post left CEA 7. Stage III CKD Post procedure day 1 following distal SFA and proximal to mid BILLIE angioplasty. No access site complications. Renal function stable. Distal pulses remain non-palpable. --Feel arterial perfusion should be adequate for surgical wound healing. --Continue DAPT with aspirin and clopidogrel. OK from a vascular standpoint to interrupt plavix if needed for surgery. Subjective Feeling well. No new leg pain. No significant pain at access site. Review of Systems Review of Systems: All systems reviewed & are unremarkable except as noted in HPI & below Physical Exam Physical Exam: General: Comfortable, no acute distress Eyes: Sclerae anicteric Lungs: Clear to auscultation bilaterally, no rhonchi or wheezes Cardiac: Regular rate and rhythm, no murmurs, rubs or gallops. Abdomen: Soft, nontender Psych: Alert orient x3, normal affect and mood Extremities/Vascular: -- Left femoral artery access site with ecchymosis, no hematoma, pulse intact -- RT calf soft, NT -- Nonpalpable DP/PT pulses --Sluggish capillary refill on RT --RT great toe distally necrotic, foul smelling. No drainage. Mild edema/erythema in RT forefoot. Results & Data Vital Signs (Past 12 Hours) Vital Signs Temp Pulse Pulse Pulse Resp BP BP 11/27/19 11:01 97.9 F 79 19 117/66 11/27/19 07:15 90 11/27/19 07:11 97.7 F 88 19 106/66 11/27/19 04:37 98.4 F 98 H 18 104/69 Pulse Ox 11/27/19 11:01 100 11/27/19 07:15 11/27/19 07:11 98 11/27/19 04:37 97 PG Care Time/CCT Total # of Minutes Spent Total Time Spent with Patient: Total time spent is greater than 50% in coordination of care (as documented) at patient's floor/unit and/or counseling patient: Coding Level of Care Code 81768 Subseq Hosp Care Lvl 2 Diagnoses PAD (peripheral artery disease) I73.9
[2019-11-27] MEDS: DAPTOmycin 350 MG in SYRINGE 0 ML IV SCH (13:09)
[2019-11-27] MEDS: ASPIRIN 81 MG ECTAB PO SCH (20:23)
[2019-11-27] MEDS: ATORVASTATIN 40 MG TAB PO SCH (20:23)
[2019-11-27] MEDS: VALACYCLOVIR HCL 500 MG TABLET PO SCH (20:24)
[2019-11-27] MEDS: TRAMADOL HCL 50 MG TABLET PO PRN (23:28)
[2019-11-28] MEDS: PIPERACILLIN/TAZOBACTAM 3.375 GM in DEXTROSE 5% 100 ML IV SCH ×3 (03:50→21:00)
[2019-11-28] MEDS: HEPARIN SOD 5,000 UNIT/0.5 ML VIAL SQ SCH ×2 (05:51→16:31)
[2019-11-28 06:32] LABS: Hematocrit (blood only) 28.1 % (42-52); Hemoglobin 9.2 g/dL (14.0-18.0); Mean Corpuscular Hemoglobin 30.9 pg (25-34); Mean Corpuscular Hgb Conc 32.7 g/dL (32-36); Mean Corpuscular Volume 94.3 fL (80-100); Mean Platelet Volume 9.3 fL (7.4-10.4); Platelet Count 163 K/uL (130-400); RDW Coefficient of Variation 15.5 % (11.5-14.5); RDW Standard Deviation 53.3 fL (36.4-46.3); Red Blood Count 2.98 M/uL (4.7-6.1); White Blood Count 6.38 K/uL (4.8-10.8)
[2019-11-28 07:01] LABS: BUN Creatinine Ratio 12.7 (10-20); Calcium 8.4 mg/dl (8.5-10.1); Creatinine Clr Calc Pharmacy 36.1 ml/min; Est GFR (African American) 47.1; Est GFR (Non-African American) 40.6; Potassium 3.8 mmol/L (3.5-5.1)
[2019-11-28] MEDS: INSULIN ASPART 100 UNITS/ML 3 ML PEN SC SCH ×4 (08:00→20:55)
[2019-11-28] MEDS: SPIRONOLACTONE 12.5 MG TAB PO SCH (08:02)
[2019-11-28] MEDS: CHOLECALCIFEROL 1,000 UNITS 25 MCG TAB PO SCH (08:03)
[2019-11-28] MEDS: CLOPIDOGREL BISULFATE 75 MG TAB PO SCH (08:04)
[2019-11-28] MEDS: predniSONE 10 MG TABLET PO SCH (08:04)
[2019-11-28] MEDS: PANTOprazole 40 MG TAB PO SCH (08:04)
[2019-11-28] MEDS: TORSEMIDE 20 MG TAB PO SCH (08:05)
[2019-11-28] MEDS: METOPROLOL SUCC 50MG EXT REL TAB PO SCH (08:05)
[2019-11-28] MEDS: INSULIN GLARGINE SOLOSTAR 100 UNITS/ML 3 ML PEN SC SCH ×2 (08:06→20:53)
--- NOTE | 2019-11-28 09:28 | Cardiology Progress Note ---
Date of Service November 28, 2019 Assessment & Plan (1) Gangrene of toe of right foot: Morganella morganii noted on 2/2 blood cultures11/24/19, repeat cx from 11/25 without growth thus far. Agree with continued antibiotics and surgical debridement as planned today. Pt optimized from cardiac standpoint. (2) Ischemic cardiomyopathy: Continue ASA and Plavix. Will hold atorvastatin due to daptomycin therapy. Resume after daptomycin treatment. (3) PAD (peripheral artery disease): s/p balloon angioplastic to the RSFA, BILLIE Continue ASA ,Plavix. (4) SHANNAN (acute kidney injury): Creatinine 1.62 from 1.24, two days post contrast exposure. Will hold torsemide and spironolactone. Repeat renal function panel in am. Despite creatinine increase, I favor proceeding to OR today. Resume SQ heparin for DVT prophylaxis post op. Subjective Chief Complaint: follow up right foot pain Subjective: Patient states he is feeling well. Denies chest discomfort or shortness of breath, denies subjective fever. Afebrile on vital signs. Review of Systems Review of Systems: All systems reviewed & are unremarkable except as noted in HPI & below Physical Exam Physical Exam: Temp Pulse Resp BP Pulse Ox 36.6 C 102 H 18 136/72 99 11/28/19 08:00 11/28/19 08:00 11/28/19 08:00 11/28/19 08:00 11/28/19 08:00 Constitutional: WD/WN, vitals as above Respiratory: normal respiratory effort, lungs clear to auscultation Cardiovascular: RRR, no murmur, no edema Neurologic: PERRL, EOMI, accommodation nl, no face palsy, no dysarthria Results & Data Vital Signs (Past 12 Hours) Vital Signs Temp Pulse Pulse Pulse Resp BP Pulse Ox 11/28/19 08:00 36.6 C 102 H 18 136/72 99 11/28/19 04:43 36.9 C 93 H 18 101/64 96 11/28/19 00:35 80 11/28/19 00:01 36.6 C 83 22 119/75 97 11/27/19 23:16 36.6 C 72 17 116/72 99 Laboratory Results CBC 11/28/19 Range/Units 06:01 WBC 6.38 (4.8-10.8) K/uL RBC 2.98 L (4.7-6.1) M/uL Hgb 9.2 L (14.0-18.0) g/dL Hct 28.1 L (42-52) % Plt Count 163 (130-400) K/uL Comprehensive Metabolic Panel 11/28/19 Range/Units 06:01 Sodium 145 (136-145) mmol/L Potassium 3.8 (3.5-5.1) mmol/L Chloride 114 H (98-107) mmol/L Carbon Dioxide 26 (21-32) mmol/L BUN 21 H (7-18) mg/dl Creatinine 1.62 H D (0.6-1.4) mg/dl Glucose 74 (70-99) mg/dl Calcium 8.4 L (8.5-10.1) mg/dl Intake and Output 11/27/19 11/28/19 11/28/19 22:59 06:59 14:59 Intake Total 115 / 1095 115 / 1095 115 / 115 Output Total 825 / 1026 Balance 115 / 69 -710 / 69 115 / 115 Intake: IV 115 / 345 115 / 345 115 / 115 Zosyn 3.375 gm In D5 100 ml @ 115 / 345 115 / 345 115 / 115 28.75 mls/hr IV Q8H [facility] Rx#: [id number] Output: Urine 825 / 1025 Other: Other Intake Source NPO Weight 75.8 kg
--- NOTE | 2019-11-28 11:08 | Hospitalist Progress Note ---
Date of Service November 28, 2019 Assessment & Plan (1) Gangrene of toe of right foot: (2) Cellulitis: 78-year-old male with history of CAD, CHF-systolic type, atrial fibrillation, peripheral artery disease, diabetes, hypertension, RA on prednisone Presenting with right toe gangrene. Foot MRI: 1. Question minimal marrow edema at the distal tuft of the first toe. No abnormal T1 signal or definite cortical erosion. Therefore, this may represent a mild osteitis. No MR evidence for osteomyelitis at this time. 2. 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 3. Soft tissue and bony bunion at the medial head of the first metatarsal. 4. Diffuse soft tissue edema throughout the forefoot. Ortho consulted-recommend vascular surgery evaluation prior to possible debridement versus amputation Cardiology consulted for preop evaluation-patient 3.4% risk for cardiovascular complications, no contraindication to proceed with procedure s/p Balloon angioplasty 11/[address] Jourdan Chambers Continue Dapto and Zosyn History of spinal infection with P. Acnes. Covering this with current abx. 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 Per the patient, he has arterial disease in the B/L LEs D/C Trulicity while in patient. Insulin ordered. A1c 6.7 Diabetic diet (6) Chronic kidney disease, stage III (moderate): Continue to monitor. Gentle hydration overnight (7) Ischemic cardiomyopathy: (8) Hypertension: (9) Hyperlipidemia: (10) History of [place] (myocardial infarction): Patient with ischemic cardiomyopathy and recent history of [place] with bypass x 3. Last Echo was completely in August 2019 soon after MS & showed EF 23%, ischemic cardiomyopathy, and R ventricular hypokinesis. No cardiac symptoms, euvolemic Continue BP medications. BP well controlled currently. Hold statin while on Dapto. (11) Rheumatoid arthritis: Chronic immunosuppression with prednisone use- also possibly contributing to severity of infection. Continue chronic prednisone. (12) DVT prophylaxis: SQ Heparin Disposition Will need PT and OT evaluation after procedure OR today to address R great toe Lives with family at home otherwise ROS-No Headache, No Visual Changes, No Nausea, No Vomiting, No Fever, No Chills, No Neck Pain or Stiffness, No Chest Pain, No Palpitations, No SOB, No ALMEIDA, No Cough, No Sputum, No Wheezing, No Abdominal Pain, No Diarrhea, No Hematemesis, No Hemoptysis, No Unexpected Weight Loss, No Flank pain, No Melena, No Hematochezia, No Frequency, No Urgency, No Burning, No Hematuria, No Rashes, No Diaphoresis. Appetite is Normal Physical Exam Gen-AAO x 3, NAD, Afebrile Head-NCAT, EOMI, PERRLA, Anicteric Sclera, No Posterior Pharyngeal Erythema Neck-Supple, No JVD, No Thyromegaly, No Masses, No LAD, No Bruits Lungs-Clear to Auscultation Bilaterally, No Rales, No Rhonchi, No Wheezing, No Crepitus Chest-No S4, +S1, +S2, No S3, No Murmurs, No Rubs, No Gallops, No Ectopy Abdomen-Soft, Bowel Sounds Present, Non Tender, Non Distended, No Hepatomegaly, No Splenomegaly, No Palpable Masses, No Rebound, No Rigidity, No Guarding Musculoskeletal-Full Range of Motion Bilaterally, No CVAT Extremities-+ R Great Toe Gangrene, Cyanosis, No Clubbing, No Edema Nuero-Cranial Nerves II-XII grossly intact, Motor WNL, DTRs WNL, Strength WNL, Non Focal Psych-Normal Mood Admission and Anticipated Discharge Date Admission Date: November 24, 2019 Anticipated date of discharge: 11/29/19 Results & Data Results & Data ([facility]) Vital Signs (Past 12 Hours) Vital Signs Temp Pulse Pulse Pulse Resp BP Pulse Ox 11/28/19 08:00 36.6 C 102 H 18 136/72 99 11/28/19 04:43 36.9 C 93 H 18 101/64 96 11/28/19 00:35 80 11/28/19 00:01 36.6 C 83 22 119/75 97 11/27/19 23:16 36.6 C 72 17 116/72 99
[2019-11-28] MEDS: DAPTOmycin 350 MG in SYRINGE 0 ML IV SCH (13:35)
--- NOTE | 2019-11-28 13:56 | Anesthesiology Consultation ---
Date of Service November 28, 2019 Assessment & Plan (1) Encounter for pre-operative examination: Chart Review Chart Review: Acceptable Risk for Surgery History Surgery Operation Date: 11/26/19 14:00 Proposed Procedures p Angiogram Extremity Bilateral - Rayo Chambers MD Operation Date: 11/28/19 09:20 Proposed Procedures p Right Great Toe Amputation - Lawson Clark DO Height/Weight Height: 5 ft 4 in Weight: 75.8 kg Allergies Allergy/AdvReac Type Severity Reaction Status Date / Time hydrocodone [From Vicodin] Allergy Mild pruritus Verified 11/24/19 14:21 oxycodone Allergy Mild pruritus Verified 11/24/19 14:21 Medications Home Medications Medication Instructions Recorded Confirmed Last Taken Trulicity 1.5 mg SUBCUT WK 11/13/18 11/24/19 11/23/19 cholecalciferol (vitamin D3) 2,000 unit PO QAM 11/13/18 11/24/19 11/24/19 [Vitamin D3] cyanocobalamin (vitamin B-12) 1,000 mcg PO QAM 11/13/18 11/24/19 11/24/19 folic acid 1 mg PO QAM 11/13/18 11/24/19 11/24/19 valacyclovir 500 mg PO HS 11/13/18 11/24/19 11/23/19 repaglinide 2 mg tablet 2 mg PO TIDM PRN tab 01/08/19 11/24/19 11/23/19 prednisone 5 mg tablet 10 mg PO QAM tab 02/24/19 11/24/19 11/24/19 aspirin 81 mg PO HS #0 tab 07/21/19 11/24/19 11/23/19 atorvastatin 80 mg PO HS #30 tab 07/21/19 11/24/19 11/23/19 tramadol 50 mg PO Q6H PRN #30 tab 07/21/19 11/24/19 Unknown cephalexin 500 mg capsule 500 mg PO BID #60 cap 10/09/19 11/24/19 11/24/19 clopidogrel 75 mg PO DAILY 11/24/19 11/24/19 Unknown metoprolol succinate 50 mg PO DAILY 11/24/19 11/24/19 Unknown omeprazole 40 mg PO DAILY 11/24/19 11/24/19 Unknown spironolactone 12.5 mg PO DAILY 11/24/19 11/24/19 Unknown torsemide 20 mg PO DAILY 11/24/19 11/24/19 Unknown Active Medications Generic Name Dose Route Start Last Admin Trade Name Fresugey PRN Reason Stop Dose Admin Acetaminophen 650 mg 11/24/19 19:24 11/27/19 21:47 Tylenol PO 12/24/19 19:23 650 mg Q4H PRN Administration pain/fever Aspirin 81 mg 11/26/19 21:00 11/27/19 20:23 Ecotrin Ectab PO 12/26/19 20:59 81 mg HS THEODORE Administration Atorvastatin Calcium 80 mg 11/26/19 21:00 11/27/19 20:23 Lipitor PO 12/26/19 20:59 80 mg HS THEODORE Administration Clopidogrel Bisulfate 75 mg 11/26/19 09:00 11/28/19 08:04 Plavix PO 12/26/19 08:59 75 mg DAILY THEODORE Administration Heparin Sodium (Porcine) 5,000 units 11/24/19 22:00 11/28/19 05:51 Heparin Sodium (Porcine) SQ 12/24/19 21:59 5,000 units Q8 THEODORE Administration Piperacillin Sod/Tazobactam 115 mls @ 28.75 mls/hr 11/24/19 20:00 11/28/19 13:00 Sod 3.375 gm/ Dextrose IV 01/05/20 19:59 28.8 mls/hr Q8H THEODORE Administration Protocol Daptomycin 350 mg/ Syringe 7 mls @ 3.75 mls/min 11/25/19 14:00 11/28/19 13:35 IV 01/06/20 13:59 3.75 mls/min Q24H THEODORE Administration Protocol Insulin Aspart 0 units 11/24/19 21:00 11/28/19 12:26 Novolog Flexpen SC 12/24/19 20:59 Not Given ACHS THEODORE Insulin Glargine 5 units 11/24/19 21:00 11/28/19 08:06 Lantus Solostar Pen SC 12/24/19 20:59 5 units BID THEODORE Administration Metoprolol Succinate 50 mg 11/25/19 09:00 11/28/19 08:05 Toprol Xl PO 12/25/19 08:59 50 mg DAILY THEODORE Administration Miscellaneous 1 ea 11/27/19 00:00 11/28/19 08:00 Order Awaiting Action N/A 12/27/19 00:00 Not Given QS THE[facility]ORE Pantoprazole Sodium 40 mg 11/25/19 09:00 11/28/19 08:04 Protonix PO 12/25/19 08:59 40 mg DAILY THE[facility]ORE Administration Prednisone 10 mg 11/25/19 06:45 11/28/19 08:04 Prednisone PO 12/25/19 06:44 10 mg QAM THE[facility] Administration Spironolactone 12.5 mg 11/26/19 09:00 11/28/19 08:02 Aldactone PO 12/26/19 08:59 12.5 mg DAILY THE[facility]ORE Administration Torsemide 20 mg 11/26/19 09:00 11/28/19 08:05 Demadex PO 12/26/19 08:59 20 mg DAILY THE[facility]ORE Administration Tramadol HCl 50 mg 11/26/19 19:28 11/27/19 23:28 Ultram PO 12/26/19 19:27 50 mg Q6H PRN Administration Pain Valacyclovir HCl 500 mg 11/25/19 21:00 11/27/19 20:24 Valtrex PO 12/25/19 20:59 500 mg HS THE[facility]ORE Administration Vitamin D 2,000 units 11/27/19 09:00 11/28/19 08:03 Vitamin D3 PO 12/27/19 08:59 2,000 units QAM THE[facility]ORE Administration NPO Date Last Intake of Fluids: 11/27/19 Time Last Intake of Fluids: 22:00 Last Intake of Fluids Comment: sips with meds this morning Date Last Intake of Solids: 11/27/19 Time Last Intake of Solids: 17:00 Past Medical History Medical History Aortic stenosis "Mild" (LAVERNE 1.3cm2, MG 12.2mmhg) per 11/2018 DSE BPH (benign prostatic hyperplasia) Carotid artery stenosis s/p left CEA 11/2018 Chronic kidney disease, stage III (moderate) follows with nephrology (Dr. Hardy) Degenerative disc disease Diabetes mellitus, type 2 NIDDM Dry eye syndrome Gout History of MO (myocardial infarction) Hyperlipidemia Hypertension Ischemic cardiomyopathy Neurogenic claudication due to lumbar spinal stenosis NSTEMI (non-ST elevated myocardial infarction) Pericarditis 1994 Rheumatoid arthritis on chronic prednisone 10mg daily Sleep apnea s/p UPPP/T&A Past Family History Family History Mother CHF (congestive heart failure) Sister CHF (congestive heart failure) Diabetes Past Surgical History Surgical History Fusion of spine LUMBAR X 2 History of adenoidectomy History of carpal tunnel release LEFT History of cataract surgery RT/LEFT History of colonoscopy History of herniorrhaphy UMBILICAL HERNIA History of left-sided carotid endarterectomy 11/2018 ([facility]) History of tonsillectomy History of tooth extraction S/P coronary artery bypass graft x 3 S/P pericardiocentesis 1994 S/P UPPP (uvulopalatopharyngoplasty) Social History Smoking Status: Never smoker tobacco type: cigarettes Hx Alcohol Use: No Hx Substance Use: No substance use type: does not use Physical Exam Vital Signs Last Vital Signs Temp 36.3 C L 11/28/19 13:45 Pulse 91 H 11/28/19 13:45 Resp 18 11/28/19 13:45 BP 142/35 H 11/28/19 13:45 Pulse Ox 99 11/28/19 13:45 Testing Laboratory Results 11/28/19 06:01 11/28/19 06:01 Hemoglobin A1c 6.7 % (4.5-5.6) H 11/25/19 05:32 11/26/19 11:20 Aerobic Blood Culture - Preliminary Blood No growth in Aerobic bottle after 48 hours. Anaerobic Blood Culture - Preliminary No growth in Anaerobic bottle after 48 hours. 11/26/19 11:10 Aerobic Blood Culture - Preliminary Blood No growth in Aerobic bottle after 48 hours. Anaerobic Blood Culture - Preliminary No growth in Anaerobic bottle after 48 hours. 11/24/19 14:44 Aerobic Blood Culture - Preliminary Blood No growth in Aerobic bottle after 48 hours. Anaerobic Blood Culture - Preliminary Morganella morganii 11/24/19 14:20 Aerobic Blood Culture - Final Blood Morganella morganii Anaerobic Blood Culture - Final Morganella morganii 11/24/19 14:10 Gram Stain - Final Foot,Right Wound Culture - Final Proteus mirabilis 11/28/19 11/28/19 11:22 07:08 POC Glucose 87 90
[2019-11-28] MEDS ORDERED: MIDAZOLAM HCL 1 MG/ML 2ML VIAL ONE (13:59)
[2019-11-28] MEDS ORDERED: fentaNYL citrate 100 MCG/2 ML VIAL ONE (13:59)
[2019-11-28] MEDS ORDERED: ATROPINE SULFATE 0.1 MG/ML 10ML SYR IV PRN (14:05)
[2019-11-28] MEDS ORDERED: fentaNYL citrate 100 MCG/2 ML VIAL IV PRN (14:05)
[2019-11-28] MEDS ORDERED: ONDANSETRON INJ 2 MG/ML 2 ML VIAL IV PRN (14:05)
--- NOTE | 2019-11-28 14:07 | History & Physical Bridge Note ---
Date of Service November 28, 2019 History & Physical Bridge Note I have examined the patient, reviewed the History & Physical and in the interval since the performance of the History & Physical I have noted the following changes of clinical significance: Will require amputation right great toe.
[2019-11-28] MEDS ORDERED: BACITRACIN INJ 50,000 UNIT VIAL ONE (14:13)
[2019-11-28] MEDS ORDERED: BUPIVACAINE 0.5 % 5 MG/1 ML MPF 30ML VIAL ONE (14:13)
[2019-11-28] MEDS ORDERED: LIDOCAINE HCL 2% 2 ML VIAL/AMP(20MG/ML) INFIL ONE (14:41)
[2019-11-28] MEDS ORDERED: ONDANSETRON INJ 2 MG/ML 2 ML VIAL ONE (14:41)
[2019-11-28] MEDS ORDERED: PROPOFOL IV EMULSION 10 MG/ML 20 ML VIAL IV ONE (14:41)
[2019-11-28] MEDS ORDERED: PHENYLEPHRINE HCL 10 MG/ML VIAL ONE (14:45)
--- NOTE | 2019-11-28 15:23 | Post Operative Brief Note ---
Immediate Post Op Note v1 Date of Surgery November 28, 2019 Pre & Post Diagnosis Operation Date: 11/26/19 14:00 <No data on this case meets the specified criteria> Operation Date: 11/28/19 09:20 Pre-Op Diagnosis: Osteomyelitis right great toe, right great toe gangrene, peripheral vascular disease, diabetes mellitus, neuropathy, right great toe infection Post-Op Diagnosis: Osteomyelitis right great toe, right great toe gangrene, peripheral vascular disease, diabetes mellitus, neuropathy, right great toe infection I identified the patient and participated in the time-out.: Yes Procedure Operation Date: 11/26/19 14:00 Actual Procedures p Angio Extremity Unilateral - MD izabel Villa Femoral Popliteal Balloon - MD izabel Villa Tibial Peroneal Balloon - Rayo Chambers MD s SC Select Cath ALEP 3rd Order - MD izabel Vilal Ultrasound Vascular Access - MD izabel Villa Placement Art Occlusive Device - Rayo Chambers MD Operation Date: 11/28/19 09:20 Actual Procedures p 1. Right Great Toe Amputation, S 2. Resection First Metatarsal Head S 3. Right foot resection first metatarsal sesamoid bones x2 (Right) - Lawson Clark DO Surgeon Lawosn Clark DO [employer] Supervisor Alpesh Goncalves PA-C Estimated Blood Loss 2 Findings Consistent with Post-Op Diagnosis Specimens Bone and tissue right great toe, bone first metatarsal head, bone and tissue sesamoids x2 Anesthesia Type General Regional Complications none Disposition Accompanied Patient To Recovery: No Disposition: Recovery Room
--- NOTE | 2019-11-28 17:29 | Anesthesiology Progress Note ---
Date of Service November 28, 2019 Anesthesia Post Procedure Vital Signs Vital Signs: Temp Pulse Pulse Pulse Pulse Resp BP 11/28/19 16:28 36.8 C 87 17 113/55 L 11/28/19 16:00 82 16 130/69 11/28/19 15:50 36.5 C 84 20 116/75 11/28/19 15:40 79 16 128/58 L 11/28/19 15:30 83 20 123/63 11/28/19 15:21 36.9 C 81 14 101/66 11/28/19 13:45 36.3 C L 91 H 18 142/35 H 11/28/19 11:47 36.5 C 104 H 20 139/74 11/28/19 08:00 36.6 C 102 H 18 11/28/19 06:45 85 11/28/19 04:43 36.9 C 93 H 18 11/28/19 00:35 80 11/28/19 00:01 36.6 C 83 22 11/27/19 23:16 36.6 C 72 17 11/27/19 19:39 37.0 C 85 21 96/62 L BP Pulse Ox 11/28/19 16:28 97 11/28/19 16:00 100 11/28/19 15:50 100 11/28/19 15:40 99 11/28/19 15:30 100 11/28/19 15:21 99 11/28/19 13:45 99 11/28/19 11:47 96 11/28/19 08:00 136/72 99 11/28/19 06:45 11/28/19 04:43 101/64 96 11/28/19 00:35 11/28/19 00:01 119/75 97 11/27/19 23:16 116/72 99 11/27/19 19:39 100 Pain Intensity Upper Posterior Back: Pain Intensity: 4 Transfer of Care Handoff Completed per policy Notes Mental Status: alert / awake / arousable and participated in evaluation Patient Amnestic to Procedure: Yes Nausea / Vomiting: adequately controlled Pain: adequately controlled Airway Patency, RR, SpO2: stable & adequate BP & HR: stable & adequate Hydration State: stable & adequate Anesthetic Complications: no major complications apparent and Pt Satisfied with anesthetic care
[2019-11-28] MEDS: VALACYCLOVIR HCL 500 MG TABLET PO SCH (20:51)
[2019-11-28] MEDS: ASPIRIN 81 MG ECTAB PO SCH (20:51)
[2019-11-28] MEDS: ACETAMINOPHEN 325 MG TAB PO PRN (21:00)
[2019-11-28] MEDS: ATORVASTATIN 40 MG TAB PO SCH (21:39)
[2019-11-29] MEDS: TRAMADOL HCL 50 MG TABLET PO PRN ×2 (00:10→12:53)
[2019-11-29] MEDS ORDERED: HYDROmorphone INJ 0.5 MG/0.5 ML SYR IV STA (02:36)
[2019-11-29] MEDS: PIPERACILLIN/TAZOBACTAM 3.375 GM in DEXTROSE 5% 100 ML IV SCH ×3 (03:45→20:17)
[2019-11-29] MEDS ORDERED: OXYCODONE HCL IR 5 MG TAB (IMMEDIATE RELEASE) PO STA ×2 (03:51→06:20)
[2019-11-29] MEDS ORDERED: KETOROLAC TROMETHAMINE 15 MG/ML VIAL IV ONE (03:53)
[2019-11-29 05:43] LABS: Basophils # (auto) 0.02 K/uL (0-0.2); Basophils % (auto) 0.3 %; Eosinophils # (auto) 0.14 K/uL (0-0.5); Eosinophils % (auto) 1.9 %; Hematocrit (blood only) 27.9 % (42-52); Hemoglobin 8.9 g/dL (14.0-18.0); Immature Granulocytes # (auto) 0.07 K/uL (0.00-0.02); Immature Granulocytes % (auto) 0.9 %; Lymphocytes # (auto) 1.06 K/uL (1.2-3.4); Lymphocytes % (auto) 14.4 %; Mean Corpuscular Hemoglobin 30.4 pg (25-34); Mean Corpuscular Hgb Conc 31.9 g/dL (32-36); Mean Corpuscular Volume 95.2 fL (80-100); Mean Platelet Volume 9.6 fL (7.4-10.4); Monocytes # (auto) 0.57 K/uL (0.11-0.59); Monocytes % (auto) 7.7 %; Neutrophils # (auto) 5.51 K/uL (1.4-6.5); Neutrophils % (auto) 74.8 %; Platelet Count 194 K/uL (130-400); RDW Coefficient of Variation 15.8 % (11.5-14.5); RDW Standard Deviation 54.5 fL (36.4-46.3); Red Blood Count 2.93 M/uL (4.7-6.1); White Blood Count 7.37 K/uL (4.8-10.8)
[2019-11-29 06:09] LABS: Albumin Level 2.4 gm/dl (3.4-5.0); BUN Creatinine Ratio 16.9 (10-20); Calcium 8.4 mg/dl (8.5-10.1); Creatinine Clr Calc Pharmacy 32.3 ml/min; Est GFR (African American) 41.2; Est GFR (Non-African American) 35.5; Potassium 3.7 mmol/L (3.5-5.1)
[2019-11-29 06:12] LABS: Albumin Globulin Ratio 0.8 (0.9-2); Bilirubin,Total 0.6 mg/dl (0.2-1); Globulin 3.2 gm/dl (2.5-4.0); Total Protein 5.6 gm/dl (6.4-8.2)
--- NOTE | 2019-11-29 07:38 | Hospitalist Progress Note ---
Date of Service November 29, 2019 Assessment & Plan (1) Gangrene of toe of right foot: (2) Cellulitis: 78-year-old male with history of CAD, CHF-systolic type, atrial fibrillation, peripheral artery disease, diabetes, hypertension, RA on prednisone Presenting with right toe gangrene. Foot MRI: 1. Question minimal marrow edema at the distal tuft of the first toe. No abnormal T1 signal or definite cortical erosion. Therefore, this may represent a mild osteitis. No MR evidence for osteomyelitis at this time. 2. 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 3. Soft tissue and bony bunion at the medial head of the first metatarsal. 4. Diffuse soft tissue edema throughout the forefoot. Ortho consulted-recommend vascular surgery evaluation prior to possible debridement versus amputation Cardiology consulted for preop evaluation-patient 3.4% risk for cardiovascular complications, no contraindication to proceed with procedure Operation Date: 11/26/19 14:00 Actual Procedures p Angio Extremity Unilateral - Vincent Chambers MD s Femoral Popliteal Balloon - Vincent Chambers MD s Tibial Peroneal Balloon - Vincent Chambers MD s SC Select Cath ALEP 3rd Order - Vincent Chambers MD s Ultrasound Vascular Access - Vincent Chambers MD s Placement Art Occlusive Device - Vincent Chambers MD Operation Date: 11/28/19 09:20 Actual Procedures p 1. Right Great Toe Amputation, S 2. Resection First Metatarsal Head S 3. Right foot resection first metatarsal sesamoid bones x2 (Right) - Lawson Clark, DO History of spinal infection with P. Acnes. Covering this with current abx. 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 Per the patient, he has arterial disease in the B/L LEs D/C Trulicity while in patient. Insulin ordered. A1c 6.7 Diabetic diet (6) Chronic kidney disease, stage III (moderate): Continue to monitor. Gentle hydration overnight (7) Ischemic cardiomyopathy: (8) Hypertension: (9) Hyperlipidemia: (10) History of PR (myocardial infarction): Patient with ischemic cardiomyopathy and recent history of PR with bypass x 3. Last Echo was completely in August 2019 soon after PR & showed EF 23%, ischemic cardiomyopathy, and R ventricular hypokinesis. No cardiac symptoms, euvolemic Continue BP medications. BP well controlled currently. Hold statin while on Dapto. (11) Rheumatoid arthritis: Chronic immunosuppression with prednisone use-also possibly contributing to severity of infection. Continue chronic prednisone. (12) DVT prophylaxis: SQ Heparin Disposition Will need PT and OT evaluation after procedure Transition to Keflex on DC Lives with family at home otherwise ROS-No Headache, No Visual Changes, No Nausea, No Vomiting, No Fever, No Chills, No Neck Pain or Stiffness, No Chest Pain, No Palpitations, No SOB, No ALMEIDA, No Cough, No Sputum, No Wheezing, No Abdominal Pain, No Diarrhea, No Hematemesis, No Hemoptysis, No Unexpected Weight Loss, No Flank pain, No Melena, No Hematochezia, No Frequency, No Urgency, No Burning, No Hematuria, No Rashes, No Diaphoresis. Appetite is Normal Physical Exam Gen-AAO x 3, NAD, Afebrile Head-NCAT, EOMI, PERRLA, Anicteric Sclera, No Posterior Pharyngeal Erythema Neck-Supple, No JVD, No Thyromegaly, No Masses, No LAD, No Bruits Lungs-Clear to Auscultation Bilaterally, No Rales, No Rhonchi, No Wheezing, No Crepitus Chest-No S4, +S1, +S2, No S3, No Murmurs, No Rubs, No Gallops, No Ectopy Abdomen-Soft, Bowel Sounds Present, Non Tender, Non Distended, No Hepatomegaly, No Splenomegaly, No Palpable Masses, No Rebound, No Rigidity, No Guarding Musculoskeletal-Full Range of Motion Bilaterally, No CVAT Extremities-+ R Great Toe Gangrene, Cyanosis, No Clubbing, No Edema Nuero-Cranial Nerves II-XII grossly intact, Motor WNL, DTRs WNL, Strength WNL, Non Focal Psych-Normal Mood Admission and Anticipated Discharge Date Admission Date: November 24, 2019 Anticipated date of discharge: 11/29/19 Results & Data Results & Data ([facility]) Vital Signs (Past 12 Hours) Vital Signs Temp Pulse Resp BP BP Pulse Ox 11/29/19 03:46 36.6 C 91 H 20 100/56 L 99 11/28/19 23:14 36.9 C 82 20 111/70 100 11/28/19 20:11 36.7 C 85 18 121/72 99 11/28/19 20:00 80 17 81/47 L 99
[2019-11-29] MEDS: CLOPIDOGREL BISULFATE 75 MG TAB PO SCH (08:02)
[2019-11-29] MEDS: METOPROLOL SUCC 50MG EXT REL TAB PO SCH (08:02)
[2019-11-29] MEDS: INSULIN ASPART 100 UNITS/ML 3 ML PEN SC SCH ×4 (08:02→20:33)
[2019-11-29] MEDS: predniSONE 10 MG TABLET PO SCH (08:02)
[2019-11-29] MEDS: INSULIN GLARGINE SOLOSTAR 100 UNITS/ML 3 ML PEN SC SCH ×2 (08:04→20:32)
--- NOTE | 2019-11-29 08:28 | Orthopedic Progress Note ---
Date of Service November 29, 2019 Assessment & Plan (1) Gangrene of toe of right foot: POD #1 Great toe amputation WBAT with walker if needed Elevate as needed. Dressing change tomorrow Pain control. Admission and Anticipated Discharge Date Admission Date: November 24, 2019 Anticipated date of discharge: 11/29/19 Subjective POD #1, Feeling well, had some pain issues overnight but is doing well on oxycodone this AM. Denies SOB/ CP/ N/V, no dizziness. States he was having some"phantom" pain but, again, resolved. Physical Exam Physical Exam: Sitting comfortable at bedside eating breakfast. Dressing c/d/i, no drainage. Can wiggle toes 2-4. Sensation in tact. Results & Data ([facility]) Vital Signs (Past 12 Hours) Vital Signs Temp Pulse Pulse Resp BP Pulse Ox 11/29/19 07:28 36.6 C 87 18 111/63 93 11/29/19 03:46 36.6 C 91 H 20 100/56 L 99 11/28/19 23:14 36.9 C 82 20 111/70 100
[2019-11-29] MEDS: PANTOprazole 40 MG TAB PO SCH (09:03)
[2019-11-29] MEDS: CHOLECALCIFEROL 1,000 UNITS 25 MCG TAB PO SCH (09:03)
[2019-11-29] MEDS: DAPTOmycin 350 MG in SYRINGE 0 ML IV SCH (14:12)
[2019-11-29] MEDS: OXYCODONE HCL IR 5 MG TAB (IMMEDIATE RELEASE) PO PRN ×2 (17:02→20:53)
[2019-11-29] MEDS: ACETAMINOPHEN 500 MG TAB PO SCH ×2 (17:05→20:52)
--- NOTE | 2019-11-29 17:08 | Cardiology Progress Note ---
Date of Service November 29, 2019 Assessment & Plan (1) Gangrene of toe of right foot: (2) PAD (peripheral artery disease): (3) SHANNAN (acute kidney injury): Case discussed with Dr Goldberg by phone. Repeat blood cultures without growth thus far. Daptomycin has been discontinued, continue IV Zosyn for now. Continue dual antiplatelet therapy with aspirin and clopidogrel. Since he is off daptomycin, resume atorvastatin 80 mg tomorrow. Acute kidney insufficiency noted. Hold torsemide and spironolactone. Repeat chemistry panel tomorrow. DVT prophylaxis: SQ heparin 5000 units BID. Subjective Chief complaint: Follow-up right foot pain Subjective: Patient feeling well, he tolerated right great toe potation, resection of first metatarsal head, right foot resection well from a hemodynamic standpoint on 11/28/2019. He is currently on the third floor and is no longer on telemetry. His postoperative pain is well controlled. Review of Systems Review of Systems: All systems reviewed & are unremarkable except as noted in HPI & below Physical Exam Physical Exam: Temp Pulse Resp BP Pulse Ox 37.2 C 87 20 131/73 100 11/29/19 15:34 11/29/19 15:34 11/29/19 15:34 11/29/19 15:34 11/29/19 15:34 Constitutional: WD/WN, vitals as above Respiratory: normal respiratory effort, lungs clear to auscultation Cardiovascular: Rate/Rhythm: regular rate (Occasional ectopic beats noted) Gastrointestinal (Abdomen): normal bowel sounds, soft, nontender, no hepatosplenomegaly Musculoskeletal: Right foot dressing not removed today, 11/29/19 Neurologic: PERRL, EOMI, accommodation nl, no face palsy, no dysarthria Results & Data Vital Signs (Past 12 Hours) Vital Signs Temp Pulse Resp BP Pulse Ox 11/29/19 15:34 37.2 C 87 20 131/73 100 11/29/19 10:46 36.8 C 84 18 136/71 97 11/29/19 07:28 36.6 C 87 18 111/63 93 Laboratory Results Cardiac Enzymes 11/29/19 Range/Units 04:36 AST 33 (15-37) U/L CBC 11/29/19 Range/Units 04:36 WBC 7.37 (4.8-10.8) K/uL RBC 2.93 L (4.7-6.1) M/uL Hgb 8.9 L (14.0-18.0) g/dL Hct 27.9 L (42-52) % Plt Count 194 (130-400) K/uL Neut # (Auto) 5.51 (1.4-6.5) K/uL Lymph # (Auto) 1.06 L (1.2-3.4) K/uL Graves # (Auto) 0.57 (0.11-0.59) K/uL Eos # (Auto) 0.14 (0-0.5) K/uL Baso # (Auto) 0.02 (0-0.2) K/uL Comprehensive Metabolic Panel 11/29/19 Range/Units 04:36 Sodium 143 (136-145) mmol/L Potassium 3.7 (3.5-5.1) mmol/L Chloride 110 H (98-107) mmol/L Carbon Dioxide 26 (21-32) mmol/L BUN 31 H (7-18) mg/dl Creatinine 1.81 H (0.6-1.4) mg/dl Glucose 122 H (70-99) mg/dl Calcium 8.4 L (8.5-10.1) mg/dl AST 33 (15-37) U/L ALT 31 (12-78) U/L Alkaline Phosphatase 65 (45-117) U/L Total Protein 5.6 L (6.4-8.2) gm/dl Albumin 2.4 L (3.4-5.0) gm/dl Intake and Output 11/29/19 11/29/19 11/29/19 06:59 14:59 22:59 Intake Total 365 / 1245 115 / 115 Output Total 350 / 1277 Balance 15 / 32 115 / 115 Intake: IV 115 / 345 115 / 115 Zosyn 3.375 gm In D5 100 ml @ 115 / 345 115 / 115 28.75 mls/hr IV Q8H THEODORE Rx#: [id number] Oral 250 / 650 Output: Urine 350 / 1275 Other: Weight 74.8 kg
--- NOTE | 2019-11-29 18:01 | Communication Note ---
Date of Service: November 29, 2019 I called pt's spouse and provided an update.
[2019-11-29] MEDS: ASPIRIN 81 MG ECTAB PO SCH (20:22)
[2019-11-29] MEDS: ATORVASTATIN 40 MG TAB PO SCH (20:23)
[2019-11-29] MEDS: VALACYCLOVIR HCL 500 MG TABLET PO SCH (20:23)
[2019-11-29] MEDS: HEPARIN SOD 5,000 UNIT/0.5 ML VIAL SQ SCH (20:28)
[2019-11-30] MEDS: OXYCODONE HCL IR 5 MG TAB (IMMEDIATE RELEASE) PO PRN ×3 (01:01→09:33)
[2019-11-30] MEDS: ACETAMINOPHEN 500 MG TAB PO SCH ×4 (01:01→12:56)
[2019-11-30] MEDS ORDERED: HYDROmorphone INJ 0.5 MG/0.5 ML SYR IV STA (02:22)
[2019-11-30] MEDS: TRAMADOL HCL 50 MG TABLET PO PRN (04:03)
[2019-11-30] MEDS: PIPERACILLIN/TAZOBACTAM 3.375 GM in DEXTROSE 5% 100 ML IV SCH ×2 (04:54→13:36)
[2019-11-30 05:51] LABS: Hematocrit (blood only) 27.3 % (42-52); Hemoglobin 8.9 g/dL (14.0-18.0); Mean Corpuscular Hemoglobin 30.6 pg (25-34); Mean Corpuscular Hgb Conc 32.6 g/dL (32-36); Mean Corpuscular Volume 93.8 fL (80-100); Mean Platelet Volume 9.5 fL (7.4-10.4); Platelet Count 189 K/uL (130-400); RDW Coefficient of Variation 15.9 % (11.5-14.5); RDW Standard Deviation 54.2 fL (36.4-46.3); Red Blood Count 2.91 M/uL (4.7-6.1); White Blood Count 7.81 K/uL (4.8-10.8)
[2019-11-30 06:30] LABS: BUN Creatinine Ratio 19.7 (10-20); Calcium 8.2 mg/dl (8.5-10.1); Creatinine Clr Calc Pharmacy 31.3 ml/min; Est GFR (African American) 39.8; Est GFR (Non-African American) 34.4; Potassium 3.9 mmol/L (3.5-5.1)
[2019-11-30] MEDS: METOPROLOL SUCC 50MG EXT REL TAB PO SCH (08:36)
[2019-11-30] MEDS: CLOPIDOGREL BISULFATE 75 MG TAB PO SCH (08:36)
[2019-11-30] MEDS: PANTOprazole 40 MG TAB PO SCH (08:37)
[2019-11-30] MEDS: CHOLECALCIFEROL 1,000 UNITS 25 MCG TAB PO SCH (08:37)
[2019-11-30] MEDS: predniSONE 10 MG TABLET PO SCH (08:37)
[2019-11-30] MEDS: HEPARIN SOD 5,000 UNIT/0.5 ML VIAL SQ SCH (09:02)
[2019-11-30] MEDS: INSULIN GLARGINE SOLOSTAR 100 UNITS/ML 3 ML PEN SC SCH (09:02)
[2019-11-30] MEDS: INSULIN ASPART 100 UNITS/ML 3 ML PEN SC SCH ×2 (09:02→12:53)
--- NOTE | 2019-11-30 09:45 | Discharge Summary ---
Date of Service November 30, 2019 Admission HPI Per Admitting Provider Patient is a 78 yo with complicated PMHx who presented to the ED with worsening right great toe infection. The patient has had problems with his right great toe for approximately 6 weeks. He noticed about 3 weeks ago that there was some black/necrotic appearing area on the toe. [facility] evaluated the patient and had him seen by Dr. Vyas in Podiatry in [place]. Per the patient, he had arterial studies completed on his legs and was noted to have poor circulation from the knees to toes B/L. He was told by Dr. Vyas that he may need to have his right great toe removed due to gangrene. The patient states that he was supposed to have some sort of a study done at [facility] this upcoming Sunday, but over the weekend, he noted that he started to have a throbbing pain in the toe and spreading erythema. He denies headache, N/V/D, urinary symptoms, abdominal pain, chest pain, ALMEIDA, SOB, fever, sweats, or chills. Since presentation, the patient was noted to have mildly elevated WBC count with bandemia, ESR 50, CRP 8.57, and an X-Ray showing soft tissue swelling of the right great toe with small erosion of the first metatarsal head. Patient does also have history of spinal infection with P. Acnes. He was placed on suppressive Keflex therapy and is anticipated to be on that thru the end of December. Admission Exam Per Admitting Provider Constitutional: WD/WN, vitals as above Eyes: PERRL, conjunctivae normal, anicteric sclerae ENMT: external ear and nose normal, oropharynx normal Neck: trachea midline, no thyromegaly Respiratory: normal respiratory effort, lungs clear to auscultation Cardiovascular: RRR, no murmur, no edema Gastrointestinal (Abdomen): normal bowel sounds, soft, nontender, no hepat osplenomegaly Musculoskeletal: Head/Neck/Chest: normocephalic and head atraumatic Right lower extremity with 1 + pitting edema. Faint right DP pulse on exam. Skin: Right great toe with malodorous gangrenous tissue at the distal segment. Erythema of the dorsal right foot into the midfoot and very mild anterior tibial surface. Mild warmth of the foot. Psychiatric: A+Ox3, euthymic affect Principal Diagnosis (1) Gangrene of toe of right foot: (2) Cellulitis: Osteomyelitis R great Toe (3) Diabetes mellitus, type 2: (4) Diabetic neuropathy: (5) Type 2 diabetes mellitus with peripheral vascular disease: (6) Chronic kidney disease, stage III (moderate): (7) Ischemic cardiomyopathy: (8) Hypertension: (9) Hyperlipidemia: (10) History of OK (myocardial infarction): (11) Rheumatoid arthritis: Discharge Exam See Below Discharge Data Allergies Allergy/AdvReac Type Severity Reaction Status Date / Time hydrocodone [From Vicodin] Allergy Mild pruritus Verified 11/24/19 14:21 Consultations 11/24/19 16:34 ED Decision to Admit Stat 11/24/19 19:24 Consult Cardiology Routine Consult Case Management - Discharge Planning Routine 11/25/19 08:00 Consult Orthopedic Surgery Routine 11/25/19 10:37 Consult Health Information Management Routine 11/25/19 22:23 Consult Vascular Surgery Routine Procedures Performed Operation Date: 11/26/19 14:00 Actual Procedures p Angio Extremity Unilateral - Rayo Chambers MD s Femoral Popliteal Balloon - Rayo Chambers MD s Tibial Peroneal Balloon - Rayo Chambers MD s SC Select Cath ALEP 3rd Order - Rayo Chambers MD s Ultrasound Vascular Access - Rayo Chambers MD s Placement Art Occlusive Device - Rayo Chambers MD Operation Date: 11/28/19 09:20 Actual Procedures p Right Great Toe Amputation, Resection First Metatarsal Head(Right) - Lawson Clark, Ordered Studies 11/25/19 03:26 MR foot RT w/o con Routine 11/26/19 09:30 US arterial duplex LE BI Urgent 11/26/19 13:33 CL Cath Imgs for PACS use only Stat 11/30/19 11/30/19 11/30/19 Range/Units 08:21 04:56 04:56 WBC 7.81 (4.8-10.8) K/uL RBC 2.91 L (4.7-6.1) M/uL Hgb 8.9 L (14.0-18.0) g/dL Hct 27.3 L (42-52) % MCV 93.8 (80-100) fL MCH 30.6 (25-34) pg MCHC 32.6 (32-36) g/dL RDW Std Deviation 54.2 H (36.4-46.3) fL RDW Coeff of Maximo 15.9 H (11.5-14.5) % Plt Count 189 (130-400) K/uL MPV 9.5 (7.4-10.4) fL Sodium 142 (136-145) mmol/L Potassium 3.9 (3.5-5.1) mmol/L Chloride 109 H (98-107) mmol/L Carbon Dioxide 28 (21-32) mmol/L Anion Gap 5.0 (3-11) BUN 37 H (7-18) mg/dl Creatinine 1.86 H (0.6-1.4) mg/dl Est Cr Clr Drug Dosing 31.3 ml/min Est GFR ( Amer) 39.8 Est GFR (Non-Af Amer) 34.4 BUN/Creatinine Ratio 19.7 (10-20) Glucose 82 (70-99) mg/dl POC Glucose 80 (70-99) mg/dl Calcium 8.2 L (8.5-10.1) mg/dl 11/29/19 11/29/19 11/29/19 Range/Units 20:29 17:13 12:03 WBC (4.8-10.8) K/uL RBC (4.7-6.1) M/uL Hgb (14.0-18.0) g/dL Hct (42-52) % MCV (80-100) fL MCH (25-34) pg MCHC (32-36) g/dL RDW Std Deviation (36.4-46.3) fL RDW Coeff of Maximo (11.5-14.5) % Plt Count (130-400) K/uL MPV (7.4-10.4) fL Sodium (136-145) mmol/L Potassium (3.5-5.1) mmol/L Chloride (98-107) mmol/L Carbon Dioxide (21-32) mmol/L Anion Gap (3-11) BUN (7-18) mg/dl Creatinine (0.6-1.4) mg/dl Est Cr Clr Drug Dosing ml/min Est GFR ( Amer) Est GFR (Non-Af Amer) BUN/Creatinine Ratio (10-20) Glucose (70-99) mg/dl POC Glucose 173 H 162 H 144 H (70-99) mg/dl Calcium (8.5-10.1) mg/dl Hospital Course (1) Gangrene of toe of right foot: (2) Cellulitis: 78-year-old male with history of CAD, CHF-systolic type, atrial fibrillation, peripheral artery disease, diabetes, hypertension, RA on prednisone Presenting with right toe gangrene. Foot MRI: 1. Question minimal marrow edema at the distal tuft of the first toe. No abnormal T1 signal or definite cortical erosion. Therefore, this may represent a mild osteitis. No MR evidence for osteomyelitis at this time. 2. 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 3. Soft tissue and bony bunion at the medial head of the first metatarsal. 4. Diffuse soft tissue edema throughout the forefoot. Ortho consulted-recommend vascular surgery evaluation prior to possible debridement versus amputation Cardiology consulted for preop evaluation-patient 3.4% risk for cardiovascular complications, no contraindication to proceed with procedure Operation Date: 11/26/19 14:00 Actual Procedures p Angio Extremity Unilateral - Vincent Chambers MD s Femoral Popliteal Balloon - Vincent Chambers MD s Tibial Peroneal Balloon - Vincent Chambers MD s SC Select Cath ALEP 3rd Order - Vincent Chambers MD s Ultrasound Vascular Access - Vincent Chambers MD s Placement Art Occlusive Device - Vincent Chambers MD Operation Date: 11/28/19 09:20 Actual Procedures p 1. Right Great Toe Amputation, S 2. Resection First Metatarsal Head S 3. Right foot resection first metatarsal sesamoid bones x2 (Right) - Lawson Clark, DO D/W c ID Dr Rivers at [facility] on Cipro 500 q12 x 7 days, and continue Keflex History of spinal infection with P. Acnes. Covering this with current abx. 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 Per the patient, he has arterial disease in the B/L LEs D/C Trulicity while in patient. Insulin ordered. A1c 6.7 Diabetic diet (6) Chronic kidney disease, stage III (moderate): Continue to monitor. Gentle hydration overnight (7) Ischemic cardiomyopathy: (8) Hypertension: (9) Hyperlipidemia: (10) History of OK (myocardial infarction): Patient with ischemic cardiomyopathy and recent history of OK with bypass x 3. Last Echo was completely in August 2019 soon after OK & showed EF 23%, ischemic cardiomyopathy, and R ventricular hypokinesis. No cardiac symptoms, euvolemic Continue BP medications. BP well controlled currently. Hold statin while on Dapto. (11) Rheumatoid arthritis: Chronic immunosuppression with prednisone use-also possibly contributing to severity of infection. Continue chronic prednisone. (12) DVT prophylaxis: SQ Heparin Disposition DC Home Transition to Keflex on DC Lives with family at home otherwise f/u c PCP and Ortho ROS-No Headache, No Visual Changes, No Nausea, No Vomiting, No Fever, No Chills, No Neck Pain or Stiffness, No Chest Pain, No Palpitations, No SOB, No ALMEIDA, No Cough, No Sputum, No Wheezing, No Abdominal Pain, No Diarrhea, No Hematemesis, No Hemoptysis, No Unexpected Weight Loss, No Flank pain, No Melena, No Hematochezia, No Frequency, No Urgency, No Burning, No Hematuria, No Rashes, No Diaphoresis. Appetite is Normal Physical Exam Gen-AAO x 3, NAD, Afebrile Head-NCAT, EOMI, PERRLA, Anicteric Sclera, No Posterior Pharyngeal Erythema Neck-Supple, No JVD, No Thyromegaly, No Masses, No LAD, No Bruits Lungs-Clear to Auscultation Bilaterally, No Rales, No Rhonchi, No Wheezing, No Crepitus Chest-No S4, +S1, +S2, No S3, No Murmurs, No Rubs, No Gallops, No Ectopy Abdomen-Soft, Bowel Sounds Present, Non Tender, Non Distended, No Hepatomegaly, No Splenomegaly, No Palpable Masses, No Rebound, No Rigidity, No Guarding Musculoskeletal-Full Range of Motion Bilaterally, No CVAT Extremities-+ R Great Toe Gangrene, Cyanosis, No Clubbing, No Edema Nuero-Cranial Nerves II-XII grossly intact, Motor WNL, DTRs WNL, Strength WNL, Non Focal Psych-Normal Mood Total Time Total Time Spent Total Time Spent (In Minutes): 45 mns Total Time Includes: Examination of the Patient, Discharge Planning and Communication With Other Providers Discharge Plan Discharge Items Patient Disposition: Home - Self-Care Reason For Visit: TOE INFECTION Discharge Diagnosis: (1) Gangrene of toe of right foot: (2) Cellulitis: Osteomyelitis R great Toe (3) Diabetes mellitus, type 2: (4) Diabetic neuropathy: (5) Type 2 diabetes mellitus with peripheral vascular disease: (6) Chronic kidney disease, stage III (moderate): (7) Ischemic cardiomyopathy: (8) Hypertension: (9) Hyperlipidemia: (10) History of OK (myocardial infarction): (11) Rheumatoid arthritis: Condition on Discharge: Good Activity: Resume your previous activity Lifting: Gradually increase as tolerated Bathing: Keep incision dry Sexual Activity: When tolerated Exercise/Sports: Gradually increase as tolerated Driving/Machine Use: No limitations Weightbearing: Full weightbearing Non-emergency contact: Primary Care Provider and Surgeon Call non-emergency contact if: you have any medication questions Follow-up/Referrals: Lawson Clark DO [Surgeon] - (Call for instructions) Nasreen Dietrich MD [Primary Care Provider] - Giacomo Alvarez DO [Buck Presser] - (Follow up [facility] with Dr Alvarez this week) Diet: Carb Consistent or DM2 and Heart Healthy Addtl Attending Provider Instructions: Continue Cephalexin x 1 more month Cipro x 7 days Stop Aldactone and Torsemide until resumed by Dr Alvarez Pending Studies at Discharge: No Stand-Alone Forms: My [facility] [employer], Smoking Cessation Medications and DC Order Prescriptions: New acetaminophen 500 mg Tablet 500 mg PO Q4H Qty: 60 RF: 0 oxycodone 5 mg Tablet 5 mg PO Q4H PRN (Reason: pain) Qty: 30 RF: 0 polyethylene glycol 3350 [Miralax] 17 gram Powder In Packet 17 g PO DAILY PRN (Reason: constipation) Qty: 20 RF: 0 ciprofloxacin HCl [Cipro] 500 mg tablet 500 mg PO BID Qty: 14 RF: 0 Continued cephalexin [Keflex] 500 mg capsule 500 mg PO BID Qty: 60 RF: 2 metoprolol succinate 50 mg tablet extended release 24 hr 50 mg PO DAILY RF: 0 clopidogrel 75 mg tablet 75 mg PO DAILY RF: 0 omeprazole 40 mg capsule,delayed release(DR/EC) 40 mg PO DAILY RF: 0 valacyclovir 500 mg Tablet 500 mg PO HS RF: 0 folic acid 1 mg Tablet 1 mg PO QAM RF: 0 cholecalciferol (vitamin D3) [Vitamin D3] 1,000 unit Capsule 2,000 unit PO QAM RF: 0 Trulicity 1.5 mg/0.5 mL Pen Injector 1.5 mg SUBCUT WK RF: 0 cyanocobalamin (vitamin B-12) 1,000 mcg Capsule 1,000 mcg PO QAM RF: 0 repaglinide 2 mg tablet 2 mg PO TIDM PRN (Reason: Other) RF: 0 prednisone 5 mg tablet 10 mg PO QAM RF: 0 tramadol 50 mg tablet 50 mg PO Q6H PRN (Reason: pain, moderate) Qty: 30 RF: 0 atorvastatin 80 mg tablet 80 mg PO HS Qty: 30 RF: 0 aspirin 81 mg Tablet,Delayed Release (Dr/Ec) 81 mg PO HS Qty: 0 RF: 0 Discontinued torsemide 20 mg tablet 20 mg PO DAILY RF: 0 spironolactone 25 mg tablet 12.5 mg PO DAILY RF: 0 Discharge Orders: Discharge Order (Routine); Ordered 11/30/19 Ordered By: Ramiro Trotter/Other Patient Handouts: Managing Type 2 Diabetes Admission Data Admit Date/Time: 11/24/19 17:51 Attending Provider: Ramiro Goldberg Admit Provider: Dheeraj Louis Primary Care Provider: Nasreen Dietrich Other Providers: Dheeraj Louis ; Rafal Page ; Lawson Clark Christophe R.
--- NOTE | 2019-11-30 09:55 | Orthopedic Progress Note ---
Date of Service November 30, 2019 Assessment & Plan (1) Gangrene of toe of right foot: POD #2 Great toe amputation WBAT with walker if needed, use post op shoe. Elevate as needed. Dressing change today by me, then daily until follow up. Pain control. Follow up w Dr. Clark 10-12 days post op. call [phone] for appt. Ortho will sign off, please call if any questions, thank you. Admission and Anticipated Discharge Date Admission Date: November 24, 2019 Anticipated date of discharge: 11/29/19 Subjective POD #2 Feeling well. Denies SOB, CP, N/V. Pain controlled well. Physical Exam Physical Exam: Right (previous) great toe incision c/d/i, sutures in tact. No erythema, no drainage. Skin edges approx well. Results & Data ([facility]) Vital Signs (Past 12 Hours) Vital Signs Temp Pulse Pulse Resp BP BP Pulse Ox 11/30/19 08:30 71 138/75 11/30/19 06:24 37.0 C 86 16 122/75 97 11/30/19 00:57 37 C 83 18 140/72 96
--- NOTE | 2019-11-30 11:59 | Cardiology Progress Note ---
Date of Service November 30, 2019 Assessment & Plan (1) Gangrene of toe of right foot: Status post surgical intervention 11/28/2019. Which the patient tolerated well. He was found to have gram-negative bacteremia on presentation with cultures yielding Morganella morganii. He is to be transitioned from a IV Zosyn today to ciprofloxacin 500 twice daily x7 days for treatment of his foot wound. This will be in addition to the previously prescribed Keflex for postoperative suppression of the Proprioni acnes that grew from intraoperative cultures at the time of spine surgery in July 2019. He does have a history of sinus rhythm with frequent PVCs, and his most recent corrected QT interval is in the range of 486 ms, but I think he is a reasonable candidate for ciprofloxacin given the circumstances. (2) PAD (peripheral artery disease): s/p balloon angioplastic to the RSFA, BILLIE Continue ASA ,Plavix. (3) SHANNAN (acute kidney injury): Presenting creatinine 1.24 on 11/26/2018, this trended up to 1.62 on 12/01/2019, 1.81 on 11/29/2019, and 1.86 today, 11/30/2019. Torsemide and spironolactone held today. Plan for outpatient chemistry panel to be performed on 12/02/2019, results to the undersigned, which will help guide timing of reinitiating diuretic dose. (4) Ischemic cardiomyopathy: Currently he is euvolemic. Preoperative ejection fraction was in the range of 25%, and on repeat echocardiogram performed this admission performed 3 months post CABG, findings suggestive of RCA territory scar present, with overall improvement in the LVEF to the range of 40 to 45%. Patient is stable from cardiac perspective for discharge with outpatient follow- up including laboratory studies as noted above. Subjective Chief complaint: Follow-up right foot pain Subjective: Patient feeling well. Postoperative pain is well controlled. He is in good spirits. He is wearing a walking boot. Review of Systems Review of Systems: All systems reviewed & are unremarkable except as noted in HPI & below Physical Exam Physical Exam: Temp Pulse Resp BP Pulse Ox 37.0 C 71 16 138/75 97 11/30/19 06:24 11/30/19 08:30 11/30/19 06:24 11/30/19 08:30 11/30/19 06:24 Constitutional: WD/WN, vitals as above Respiratory: normal respiratory effort, lungs clear to auscultation Cardiovascular: Rate/Rhythm: regular rate (With occasional ectopy) Heart Sounds: no murmur Vessels: no JVD Extremities: no edema Gastrointestinal (Abdomen): normal bowel sounds, soft, nontender, no hepatosplenomegaly Musculoskeletal: Operative dressing changed by orthopedics today, not taken down by the undersigned Neurologic: PERRL, EOMI, accommodation nl, no face palsy, no dysarthria Results & Data Vital Signs (Past 12 Hours) Vital Signs Temp Pulse Pulse Resp BP BP Pulse Ox 11/30/19 08:30 71 138/75 11/30/19 06:24 37.0 C 86 16 122/75 97 11/30/19 00:57 37 C 83 18 140/72 96 Laboratory Results CBC 11/30/19 Range/Units 04:56 WBC 7.81 (4.8-10.8) K/uL RBC 2.91 L (4.7-6.1) M/uL Hgb 8.9 L (14.0-18.0) g/dL Hct 27.3 L (42-52) % Plt Count 189 (130-400) K/uL Comprehensive Metabolic Panel 11/30/19 Range/Units 04:56 Sodium 142 (136-145) mmol/L Potassium 3.9 (3.5-5.1) mmol/L Chloride 109 H (98-107) mmol/L Carbon Dioxide 28 (21-32) mmol/L BUN 37 H (7-18) mg/dl Creatinine 1.86 H (0.6-1.4) mg/dl Glucose 82 (70-99) mg/dl Calcium 8.2 L (8.5-10.1) mg/dl Intake and Output 11/29/19 11/30/19 11/30/19 22:59 06:59 14:59 Intake Total 410 / 640 115 / 640 115 / 115 Output Total 275 / 275 Balance 410 / 365 -160 / 365 115 / 115 Intake: IV 115 / 345 115 / 345 115 / 115 Zosyn 3.375 gm In D5 100 ml @ 115 / 345 115 / 345 115 / 115 28.75 mls/hr IV Q8H THE[facility] Rx#: [id number] Oral 295 / 295 Output: Urine 275 / 275 Other: # Unmeasured Voids 1
--- NOTE | 2019-12-17 18:56 | Operative Report (OR) ---
DATE OF OPERATION: 11/28/2019 PREOPERATIVE DIAGNOSES: 1. Osteomyelitis of right great toe. 2. Right great toe gangrene. 3. Peripheral vascular disease. 4. Diabetes mellitus. 5. Neuropathy with right great toe infection. POSTOPERATIVE DIAGNOSES: 1. Osteomyelitis of right great toe. 2. Right great toe gangrene. 3. Peripheral vascular disease. 4. Diabetes mellitus. 5. Neuropathy with right great toe infection. PROCEDURES: 1. Right great toe amputation. 2. Resection of first metatarsal head. 3. Resection of first metatarsal sesamoid bones x2, right foot. SURGEON: Lawson Clark DO. ELECTRIC ARC WELDER: Alpesh Goncalves PA-C who was present for patient positioning, sterile prep and drape, management of retractors and instruments. He was present through the critical portions of the case including wound closure, application of sterile dressing and transport of the patient to recovery. ANESTHESIA: General, regional. SPECIMENS: Bone and tissue, right great toe; bone, first metatarsal head; bone and tissue, sesamoids x2. DRAINS: None. COMPLICATIONS: None. BLOOD LOSS: 2 mL. PERTINENT HISTORY: This is a 78-year-old gentleman with peripheral vascular disease, diabetes and neuropathy of the right foot. He developed severe ulceration of the plantar great toe, which then developed into a deep ulcer and then became osteomyelitic. After osteomyelitis, that he unfortunately suffered from gangrene of the great toe. He attempted and failed conservative management. He had a previous interventional cardiology work on his lower extremities with angioplasty and a fem-pop ballooning. He continued to have gangrene, was then scheduled for surgery as indicated. All potential risks, benefits, complications, alternatives, rehab potential for incomplete relief of symptoms, need for further surgery, DVT, PE, , persistent pain, swelling, scarring, weakness, neurovascular injury, wound complications, need for further surgery or amputation were discussed with the patient. The patient decided to proceed with the procedure as indicated. DESCRIPTION OF PROCEDURE: The patient was taken to the operative suite, placed supine on the operating table. After review of consent and identification of proper operative site, the patient was anesthetized, LMA was placed. Tourniquet was placed high on the right thigh over cast padding. Right lower extremity was then sterilely prepped and draped in usual fashion, elevated and partially exsanguinated with an Esmarch bandage and Esmarch tourniquet applied over sterile surgical towel at the level of the ankle. Next, a 15 blade scalpel was used to make an incision circumferentially around the proximal phalanx of the great toe in an effort to preserve as much soft tissue as possible. Next, the dorsal extensor and joint capsule were then transected and a midlateral line incision was performed medially and laterally, completing the dissection plantar at the margin of the gangrenous changes within the toe and the more healthy viable tissue over the proximal phalanx. Effort was made to spare as much soft tissue as possible. Next, after transection of the soft tissue, 15 blade scalpel was then used to actually pass into the bone of the proximal phalanx indicating severe osteomyelitis. This was anticipated due to the severity of the imaging noted. Next, the proximal phalanx was then disarticulated from the first metatarsal head using a 15 blade scalpel making a circumferential incision through the joint capsule and planing the soft tissue in line with the periosteum of the plantar aspect of the proximal phalanx. This allowed removal of the proximal and distal phalanges of the great toe and this was passed off as amputated parts in specimen. Next, visualization of the joint capsule and the first metatarsal head demonstrate lack of soft tissue coverage due to the gangrenous destruction of the tissue overlying the great toe. Therefore, decision was made to partially resect the first metatarsal head. Also, in addition, there are some changes within the joint, indicating that there may be an invasion in the local soft tissue strengthening the decision to resect the first metatarsal head. Next, a sagittal saw was then used to transect the first metatarsal head at the level of the metaphyseal flare using Hohmann retractors to retract and protect soft tissue. Next, the residual tissue was then debrided and reshaped to a low tension closure flap with copious irrigation performed with sterile normal saline until clear. At this point, the sesamoids were then carefully dissected free using a 15 blade scalpel and a large forceps, sesamoid sling was then resected including the medial and lateral sesamoids of the right foot first ray. Next, copious irrigation was performed with sterile normal saline until clear. The flexor and extensor tendons were identified, placed on stretch and then transected and allowed to retract within the foot. Next, generous soft tissue closure low tension was performed with 3-0 nylon sutures. The sterile compressive dressing was applied overwrapped with an Genaro wrap and a tourniquet was then released. The patient was awakened and taken to recovery in stable condition. I attest to the content of the Intraoperative Record and any orders documented therein. Any exception s are noted below.
== END 2019-11-30 14:28 | disposition home or self-care (01) | DRG 253 ==
LOC: ED 13:42 → 2W 17:51 → SUATTDRO 17:51 → 2W 18:44 → 2S 11-26 16:16 → 3E 11-29 10:37
PROC: CLB.AEU (2019-11-26 14:00)